=== PATIENT | male | born 1935 | race Caucasian/White ===

== ENCOUNTER 2019-10-08 18:40 | Inpatient (IN) | payer MEDICARE, SELFPAY ==
[2019-10-08] VITALS (8 sets, daily range): BP systolic 150–162; BP diastolic 93–108; PULSE 59–64; RESP 12–20; TEMP 36.4–36.6; O2SAT 94–100; BMI 29.3
--- NOTE | ~2019-10-08 | CT_ITS ---
EXAMINATION: CT abdomen pelvis w con DATE: 10/08/2019 20:02 INDICATION: Nausea, vomiting, and diarrhea. TECHNIQUE: Computed tomography (CT) of the abdomen and pelvis was performed with 100 mL Omnipaque 350 intravenous contrast. Automated exposure control and iterative reconstruction technique were employe d. The dose-length product was 1003.36 mGy-cm. COMPARISON: Chest 2 views 05/07/2019, CT chest, abdomen, and pelvis 07/14/2018 FINDINGS: The visualized portions of the lung bases demonstrate mild atelectasis and scarring. Again seen is a 2 mm nodule in right lower lobe, likely benign. No pleural effusion. Cardiomegaly is noted. There are changes of aortic valve replacement. There are coronary artery calcifications. No pericard ial effusion. There is a moderate-sized sliding hiatal hernia. There is a 14 mm cyst in the liver. Th e gallbladder is normal. Calcifications in the spleen are consistent with old granulomatous disease. The pancreas and adrenal glands are normal. There is cortical thinning of the kidneys. There are cyst s in the kidneys measuring up to 4.5 cm on the left. There is chronic diffuse wall thickening of the bladder, likely secondary to chronic outlet obstruction from the moderately enlarged prostate. There is a right inguinal hernia containing fat. There is diverticulosis of the colon without evidence of d iverticulitis. The appendix is normal. There is an umbilical hernia containing fat. There are no path ologically enlarged lymph nodes. There is no free intraperitoneal fluid. There is calcified atheroscl erosis of the aorta and many of the other arteries. There are chronic bilateral L5 pars defects. Ther e is 9 mm anterolisthesis of L5 on S1. There is interbody fusion at L5-S1. There is moderate lumbar s pondylosis. IMPRESSION: 1. Moderate-sized sliding hiatal hernia. 2. Right inguinal hernia containing fat. Umbilical hernia containing fat. Reviewed, dictated and finalized at location A.
--- NOTE | 2019-10-08 18:54 | ED.NAVMDI ---
HPI - Nausea/Vomiting/Diarrhea General Chief complaint: Nausea/Vomiting/Diarrhea Stated complaint: nausea, vomiting Time Seen by Provider: 10/08/19 18:48 Source: patient, family and RN notes reviewed Mode of arrival: other Limitations: no limitations History of Present Illness HPI Narrative: Pt is an 84 y/o male who presents to the ED with c/o nausea and vomiting that began yesterday. Pt's spouse states that today the pt vomited before dinner today. She states that she thought the pt had a stomach virus. Pt states that he felt fine before dinner today. Pt vomited today at 6 PM with three episodes of emesis. Pt also reports a cough, weakness, hematemesis in today's episode of emesis, and lightheadedness after walking, but denies diarrhea, constipation, hematochezia, melena, chest pain, dyspnea, chest congestion, and a fever. Pt is taking Xarelto for his A-fib. MD elicited complaint: nausea and vomiting Onset (ago): day(s) (1) Description of vomiting: blood-streaked Description of diarrhea: other (none) Associated nausea: Yes Associated symptoms: cough, weakness and other (lightheadedness) Related Data Home Medications Medication Instructions Recorded Confirmed acetaminophen 325 mg PO Q4-6H PRN 05/22/19 05/22/19 allopurinol 300 mg PO DAILY 05/22/19 05/22/19 aspirin [Adult Low Dose Aspirin] 81 mg PO DAILY 05/22/19 05/22/19 atorvastatin 40 mg PO DAILY 05/22/19 05/22/19 escitalopram oxalate 10 mg PO DAILY 05/22/19 05/22/19 famotidine 10 mg PO BID PRN 05/22/19 05/22/19 finasteride 5 mg PO DAILY 05/22/19 05/22/19 furosemide 40 mg PO DAILY 05/22/19 05/22/19 metolazone 2.5 mg PO QMWF 05/22/19 05/22/19 multivit with min-folic acid 1 PO DAILY 05/22/19 05/22/19 [Adult One Daily Multivitamin] potassium chloride 20 meq PO DAILY 05/22/19 05/22/19 pregabalin 75 mg PO BID 05/22/19 05/22/19 rivaroxaban 20 mg PO DAILY 05/22/19 05/22/19 tramadol 50 mg PO Q6H PRN 05/22/19 05/22/19 Allergies Allergy/AdvReac Type Severity Reaction Status Date / Time No Known Allergies Allergy Unknown Unverified 05/07/19 20:16 No Known Allergies Allergy Uncoded 05/07/19 20:16 Review of Systems Review of Systems: All systems reviewed & are unremarkable except as noted in HPI and below Constitutional: Constitutional: Denies fever(s) Cardiovascular: Cardiovascular: Denies chest pain and Reports lightheadedness Respiratory: Respiratory: Denies chest congestion, Reports cough and Denies dyspnea Gastrointestinal: Gastrointestinal: Denies melena, Denies hematochezia, Denies constipation, Denies diarrhea, Reports nausea, Reports vomiting and Reports hematemesis Neurologic: Reports weakness PMFSH Past Medical History Medical History (Updated 10/08/19 @ 22:23 by Regis Morales MD) A-fib Arthritis Basal cell carcinoma BPH (benign prostatic hyperplasia) CAD (coronary artery disease) Cataracts, bilateral Depression Effusion, left knee Gout HTN (hypertension) Seasonal allergies TIA (transient ischemic attack) 2017 Surgical History Surgical History (Updated 10/08/19 @ 19:16 by Yolanda Benson) H/O aortic valve replacement H/O mitral valve replacement History of cardiac catheterization History of surgical removal of skin lesion x2 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 Social History Social History (Updated 10/08/19 @ 19:16 by Yolanda Benson) Smoking status: Never smoker Exam Const: General: no acute distress and alert Nutritional Appearance: well nourished Orientation/consciousness: patient oriented x3 HENMT: Head: normal to inspection Mouth: Yes moist mucous membranes Resp: Effort & Inspection: normal respiratory effort Auscultation: clear to auscultation bilaterally Cardio: Rate: regular rate Rhythm: abnormal rhythm irregularly irregular GI: GI Palp: Yes Soft to palpation and No Tenderness to palpation present (GI) Skin: General skin exam: normal color Neuro: General: patient oriented x3, moves all extremities and no focal mot
--- NOTE | 2019-10-08 19:00 | PC.NURSE ---
Assumed care of pt at this time. report from WALTER Alfaro
[2019-10-08] MEDS: PANTOPRAZOLE SODIUM IV 40 MG VIAL IV PUSH (19:18)
[2019-10-08] MEDS: ONDANSETRON INJ 4 MG/2 ML VIAL IV PUSH (19:18)
[2019-10-08] MEDS: SODIUM CHLORIDE 0.9% IV 500 ML 999 ML IV CONT (19:18)
[2019-10-08 19:21] LABS: Basophils Percent Auto 0.1 % (0.2-1.2); Eosinophils Percent Auto 0.1 % (0-4.4); Hematocrit 41.2 % (42.0-52.0); Hemoglobin 13.5 g/dL (14.0-18.0); Immature Granulocyte Absolute 0.09 K/mm3 (0.00-0.031); Immature Granulocyte Percent A 0.7 % (0-0.5); Lymphocytes Absolute Auto 1.32 K/mm3 (0.9-3.2); Lymphocytes Percent Auto 9.5 % (18.3-44.2); Mean Corpuscular HGB Conc 32.8 g/dl (32-36); Mean Corpuscular Hemoglobin 31.9 pg (26-34); Mean Corpuscular Volume 97.4 fl (80-100); Mean Platelet Volume 11.5 fl (7.4-10.4); Monocytes Absolute Auto 1.1 K/mm3 (0.1-0.6); Monocytes Percent Auto 8.2 % (2.6-8.5); Neutrophils Absolute Auto 11.2 K/mm3 (1.3-6.7); Neutrophils Percent Auto 81.4 % (45.5-73.1); Platelet Count Result 302 k/mm3 (150-375); Red Blood Count 4.23 M/mm3 (4.6-6.20); Red Cell Distribution Width 14.2 % (11.5-14.5); White Blood Count 13.8 K/mm3 (4.5-10.0)
[2019-10-08 19:31] LABS: INR 1.6; Prothrombin Time 18.3 Seconds (11.1-14.7)
[2019-10-08 19:32] LABS: Partial Thromboplastin Time 25.1 SECONDS (22.3-36.8)
[2019-10-08 19:33] LABS: Alanine Aminotransferase 15 U/L (4-50); Albumin Level 4.4 g/dL (3.5-5.1); Alkaline Phosphatase 92 U/L (38-126); Aspartate Amino Transferase 21 U/L (17-59); Bilirubin,Total 0.6 mg/dL (0.2-1.3); Blood Urea Nitrogen 57 mg/dL (9-20); Calcium 9.6 mg/dL (8.4-10.2); Carbon Dioxide 35 mmol/L (22-30); Chloride 94 mmol/L (98-107); Estimated Glomerular Filt Rate 53; Glucose 155 mg/dL (75-110); Lipase 171 U/L (23-300); Potassium 2.9 mmol/L (3.4-5.0); Sodium 137 mmol/L (137-145)
--- NOTE | 2019-10-08 19:45 | PC.NURSE ---
Rn requesting urine from pt states he cannot void at this time. family member states He will go when he goes honey, He is on a water pill. Pt family member also states you don't need urine from him RN informed family member we do due to the fact that uti's can be a correlation w/ nausea and vomiting.
[2019-10-08 20:39] LABS: Add Urine Microscopic? NO; Appearance Urine Clear (Clear); Bilirubin Urine Negative (Negative); Blood Urine Negative (Negative); Color Urine Straw (Yellow); Glucose Urine UA Negative (Negative); Ketones Urine Negative (Negative); Leukocyte Esterase Ur Negative LEU/UL (Negative); Nitrate Urine Negative (Negative); Protein Urine Negative (Negative); Urobilinogen Urine Negative mg/dL (<2.0)
[2019-10-08 20:41] LABS: Specific Grav Ur 1.032 (1.001-1.035)
[2019-10-08] MEDS: KCL 20 MEQ/SW 100 ML 100 ML 50 MEQ IVPB (23:02)
--- NOTE | 2019-10-08 23:22 | PC.NURSE ---
pt c/o pain at IV site. RN starting NS 500 ml at 100 ml/hr
[2019-10-08] MEDS: SODIUM CHLORIDE 0.9% IV 500 ML 100 ML (23:27)
--- NOTE | 2019-10-08 23:40 | PC.NURSE ---
unable to dc patient pt left ed at 2341 10/08/19
--- NOTE | 2019-10-08 23:54 | ADMGEN ---
This patient, Marcelino Rodriguez, was admitted to 3 [facility] Room 320-01. Patient/family oriented to hospital policies and general routines including ID bracelet, bed and alarms, visiting hours, pain management, procedures, bathroom and other care routines, personal items, smoking policy, room service/diet, and visiting hours. Valuables list has been completed. Information on how to activate the Rapid Response Team has been discussed. Patient/Family are encouraged to report perceived risks to care and to ask questions if they do not understand what they are told or what they should do.
[2019-10-09] VITALS (14 sets, daily range): BP systolic 86–167; BP diastolic 53–110; PULSE 56–74; RESP 16–22; TEMP 36.6–37; O2SAT 94–99; BMI 29.3
[2019-10-09] MEDS: LACTATED RINGERS 1,000 ML 75 ML IV CONT (02:00)
[2019-10-09] MEDS: hydrALAZINE HCL 20 MG/ML VIAL 10 MG IV PUSH (02:15)
[2019-10-09 06:43] LABS: Blood Urea Nitrogen 59 mg/dL (9-20); Carbon Dioxide 31 mmol/L (22-30); Chloride 101 mmol/L (98-107); Estimated CRCL calculation 52 ml/min; Estimated Glomerular Filt Rate > 60; Glucose 129 mg/dL (75-110); Magnesium 1.8 mg/dL (1.6-2.3); Potassium 3.1 mmol/L (3.4-5.0); Sodium 138 mmol/L (137-145)
--- NOTE | 2019-10-09 08:33 | WPDGICN ---
Assessment and Plan Assessment and plan (1) Hematemesis: Code(s): K92.0 - Hematemesis Status: Acute Assessment and Plan: Patient vomited blood after initially vomiting food. This is suspicious for a Angelica-Holland tear. Bleeding probably aggravated by anticoagulated status. Plan is for EGD. Hopefully determine safety for diet subsequently. Anticoagulation will be held until after endoscopy is accomplished. Hemoglobin will be monitored currently no need for transfusion. (2) Anticoagulated: Code(s): Z79.01 - assisted (current) use of anticoagulants Status: Acute (3) Atrial fibrillation: Code(s): I48.91 - Unspecified atrial fibrillation Status: Acute GI Consult Note Consult date/time: 10/09/19 08:33 HPI: Marcelino Rodriguez is a 84 year old male seen in evaluation at the request of the emergency room. Patient in usual state of health. became had began to have nausea vomiting yesterday. He initially vomited food. Subsequently vomited bright red blood. For this reason went to the emergency room was admitted. Patient denies any abdominal pain. Typically does not have nausea vomiting. He does take Xarelto because of atrial fibrillation. 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 Family History Family History Father Abdominal aneurysm, ruptured Social History Social History Smoking status: Never smoker Alcohol intake: current Drinks per week: 7 Substance use: never Spiritual care concerns: No Agree to blood products: No Meds Home Medications and Allergies Home Medications Medication Instructions Recorded Confirmed Type acetaminophen 325 mg PO Q6H PRN 05/22/19 10/09/19 History allopurinol 300 mg PO DAILY 05/22/19 10/09/19 History aspirin [Adult Low Dose Aspirin] 81 mg PO DAILY 05/22/19 10/09/19 History atorvastatin 40 mg PO DAILY 05/22/19 10/09/19 History escitalopram oxalate 10 mg PO DAILY 05/22/19 10/09/19 History finasteride 5 mg PO DAILY 05/22/19 10/09/19 History furosemide 40 mg PO DAILY 05/22/19 10/09/19 History multivit with min-folic acid 0.4 mg PO DAILY 05/22/19 10/09/19 History [Adult One Daily Multivitamin] potassium chloride 20 meq PO DAILY 05/22/19 10/09/19 History pregabalin 75 mg PO BID 05/22/19 10/09/19 History rivaroxaban 20 mg PO DAILY 05/22/19 10/09/19 History cholecalciferol (vitamin D3) 5,000 unit PO DAILY 10/09/19 10/09/19 History [Vitamin D3] Allergies Allergy/AdvReac Type Severity Reaction Status Date / Time No Known Allergies Allergy Unknown Unverified 05/07/19 20:16 No Known Allergies Allergy Uncoded 05/07/19 20:16 Vital Signs Vital Signs - 24 hr 10/08/19 18:50 10/08/19 19:47 10/08/19 21:24 Temperature 36.5 C 36.6 C Pulse Rate 60 63 60 Respiratory Rate 17 20 18 Blood Pressure 152/100 H 162/93 H 160/99 H Pulse Oximetry 100 94 10/08/19 22:30 10/08/19 23:32 10/08/19 23:37 Temperature Pulse Rate 64 59 L 61 Respiratory Rate 12 12 19 Blood Pressure 157/100 H 150/107 H 150/108 H Pulse Oximetry 98 99 99 10/08/19 23:50 10/08/19 23:55 10/09/19 00:00 Temperature 36.4 C Pulse Rate 62 61 65 Respiratory Rate 18 Blood Pressure 162/107 H Puls
[2019-10-09] MEDS: LACTATED RINGERS 1,000 ML 150 ML IV CONT (11:29)
--- NOTE | 2019-10-09 12:28 | WPDANESEPPF ---
Anes - Initial Pre Proc Eval Procedure: Operation Date: 10/09/19 12:30 Proposed Procedures p Esophagogastroduodenoscopy - Leon Mckenzie MD Date/Time: 10/09/19 12:28 Surgeon: Karla Curiel DO Pre Op Diagnosis: HEMOPTYSIS,HYPOKALEMIA Patient Data Age: 84 Gender: M Height: 5 ft 11 in Weight: 95.4 kg Last Vital Signs Temp 37.0 C 10/09/19 11:19 Pulse 66 10/09/19 11:19 Resp 20 10/09/19 11:19 BP 143/88 H 10/09/19 11:19 Pulse Ox 97 10/09/19 11:19 Allergies Allergy/AdvReac Type Severity Reaction Status Date / Time No Known Allergies Allergy Unknown Verified 10/09/19 11:18 No Known Allergies Allergy Uncoded 05/07/19 20:16 Home Medications Medication Instructions Recorded Confirmed Type acetaminophen 325 mg PO Q6H PRN 05/22/19 10/09/19 History allopurinol 300 mg PO DAILY 05/22/19 10/09/19 History aspirin [Adult Low Dose Aspirin] 81 mg PO DAILY 05/22/19 10/09/19 History atorvastatin 40 mg PO DAILY 05/22/19 10/09/19 History escitalopram oxalate 10 mg PO DAILY 05/22/19 10/09/19 History finasteride 5 mg PO DAILY 05/22/19 10/09/19 History furosemide 40 mg PO DAILY 05/22/19 10/09/19 History multivit with min-folic acid 0.4 mg PO DAILY 05/22/19 10/09/19 History [Adult One Daily Multivitamin] potassium chloride 20 meq PO DAILY 05/22/19 10/09/19 History pregabalin 75 mg PO BID 05/22/19 10/09/19 History rivaroxaban 20 mg PO DAILY 05/22/19 10/09/19 History cholecalciferol (vitamin D3) 5,000 unit PO DAILY 10/09/19 10/09/19 History [Vitamin D3] Laboratory Tests 10/08/19 10/08/19 10/08/19 19:15 19:15 19:15 WBC 13.8 K/mm3 H K/mm3 (4.5-10.0) RBC 4.23 M/mm3 L M/mm3 (4.6-6.20) Hgb 13.5 g/dL L g/dL (14.0-18.0) Hct 41.2 % L % (42.0-52.0) MCV 97.4 fl fl (80-100) MCH 31.9 pg pg (26-34) MCHC 32.8 g/dl g/dl (32-36) RDW 14.2 % % (11.5-14.5) Plt Count 302 k/mm3 k/mm3 (150-375) MPV 11.5 fl H fl (7.4-10.4) Immature Gran % (Auto) 0.7 % H % (0-0.5) Neut % (Auto) 81.4 % H % (45.5-73.1) Lymph % (Auto) 9.5 % L % (18.3-44.2) Morton % (Auto) 8.2 % % (2.6-8.5) Eos % (Auto) 0.1 % % (0-4.4) Baso % (Auto) 0.1 % L % (0.2-1.2) Lymph # (Auto) 1.32 K/mm3 K/mm3 (0.9-3.2) Morton # (Auto) 1.1 K/mm3 H K/mm3 (0.1-0.6) Eos # (Auto) 0.0 K/mm3 K/mm3 (0-0.3) Baso # (Auto) 0.0 K/mm3 K/mm3 (0.0-0.1) Abs Immat Gran (auto) 0.09 K/mm3 H K/mm3 (0.00-0.031) Absolute Neuts (auto) 11.2 K/mm3 H K/mm3 (1.3-6.7) Absolute Nucleated RBC 0.0 K/mm3 K/mm3 (0.0-0.012) Nucleated RBC % 0.0 % % (0.0-0.2) PT 18.3 Seconds H Seconds (11.1-14.7) INR 1.6 APTT 25.1 SECONDS SECONDS (22.3-36.8) Sodium 137 mmol/L mmol/L (137-145) Potassium 2.9 mmol/L L mmol/L (3.4-5.0) Chloride 94 mmol/L L mmol/L (98-107) Carbon Dioxide 35 mmol/L H mmol/L (22-30) BUN 57 mg/dL H mg/dL (9-20) Creatinine 1.30 mg/dL mg/dL (0.7-1.3) Estim Creat Clear Calc Not Reportable Estimated GFR 53 L (59 - ) Glucose 155 mg/dL H mg/dL (75-110) Calcium 9.6 mg/dL mg/dL (8.4-10.2) Magnesium Total Bilirubin 0.6 mg/dL mg/dL (0.2-1.3) AST 21 U/L U/L (17-59) ALT 15 U/L U/L (4-50) Alkaline Phosphatase 92 U/L U/L (38-126) Total Protein 8.0 g/dL g/dL (6.3-8.2) Albumin 4.4 g/dL g/dL (3.5-5.1) Lipase 171 U/L U/L (23-300) Urine Color Urine Appearance Urine pH Ur Specific [place] Urine Protein Urine Glucose (UA) Urine Ketones Ur Blood (Man) Urine Nitrate Urine Biliru
--- NOTE | 2019-10-09 16:28 | PM.IMHP ---
H&P: HPI History of Present Illness Chief complaint: HEMOPTYSIS,HYPOKALEMIA Narrative: DOS 10/09/2019 Marcelino Rodriguez is a 84 year old male pt admitted with nausea and vomiting and blood in the vomit. Nausea and vomiting for 2-3 days thought it was a GI bug. Pt had egd today with Dr Mckenzie found to have a marciano goodman tear. Pt denies any blood in the stools or abdominal pains. Review of Systems Review of Systems: All systems reviewed & are unremarkable except as noted in HPI and below Constitutional: Constitutional: Denies fatigue, Denies fever(s), Denies malaise and Denies weakness Cardiovascular: Cardiovascular: Denies chest pain and Denies dyspnea on exertion Gastrointestinal: Gastrointestinal: Denies abdominal pain, Denies hematochezia, Reports nausea and Reports hematemesis PMFSH Past Medical History Medical History A-fib Arthritis Basal cell carcinoma BPH (benign prostatic hyperplasia) CAD (coronary artery disease) Cataracts, bilateral Depression Effusion, left knee Gout HTN (hypertension) Seasonal allergies TIA (transient ischemic attack) 2017 Surgical History Surgical History H/O aortic valve replacement H/O mitral valve replacement History of cardiac catheterization History of surgical removal of skin lesion x2 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 Family History Family History Father Abdominal aneurysm, ruptured Social History Social History Smoking status: Never smoker Alcohol intake: current Drinks per week: 7 Substance use: never Spiritual care concerns: No Agree to blood products: No Meds Home Medications and Allergies Home Medications Medication Instructions Recorded Confirmed Type acetaminophen 325 mg PO Q6H PRN 05/22/19 10/09/19 History allopurinol 300 mg PO DAILY 05/22/19 10/09/19 History aspirin [Adult Low Dose Aspirin] 81 mg PO DAILY 05/22/19 10/09/19 History atorvastatin 40 mg PO DAILY 05/22/19 10/09/19 History escitalopram oxalate 10 mg PO DAILY 05/22/19 10/09/19 History finasteride 5 mg PO DAILY 05/22/19 10/09/19 History furosemide 40 mg PO DAILY 05/22/19 10/09/19 History multivit with min-folic acid 0.4 mg PO DAILY 05/22/19 10/09/19 History [Adult One Daily Multivitamin] potassium chloride 20 meq PO DAILY 05/22/19 10/09/19 History pregabalin 75 mg PO BID 05/22/19 10/09/19 History rivaroxaban 20 mg PO DAILY 05/22/19 10/09/19 History cholecalciferol (vitamin D3) 5,000 unit PO DAILY 10/09/19 10/09/19 History [Vitamin D3] Allergies Allergy/AdvReac Type Severity Reaction Status Date / Time No Known Allergies Allergy Unknown Verified 10/09/19 11:18 No Known Allergies Allergy Uncoded 05/07/19 20:16 Vital Signs Vital Signs - 24 hr 10/08/19 18:50 10/08/19 19:47 10/08/19 21:24 Temperature 36.5 C 36.6 C Pulse Rate 60 63 60 Respiratory Rate 17 20 18 Blood Pressure 152/100 H 162/93 H 160/99 H Pulse Oximetry 100 94 10/08/19 22:30 10/08/19 23:32 10/08/19 23:37 Temperature Pulse Rate 64 59 L 61 Respiratory Rate 12 12 19 Blood Pressure 157/100 H 150/107 H 150/108 H Pulse Oximetry 98 99 99 10/08/19 23:50 10/08/19 23:55 10/09/19 00:00 Temperature 36.4 C Pulse Rate 62 61 65 Respiratory Rate 18 Blood Pressure 162/107 H Pulse Oximetry 97 10/09/19 02:15 10/09/19 03:05 10/09/19 04:00 Temperature Pulse Rate 60 68 Respiratory Rate Blood Pressure 167/110 H 159/87 H Pulse Oximetry 10/09/19 06:00 10/09/19 08:00 10/09/19 11:19 Temperature 36.6 C 37.0 C Pulse Rate 56 L 74 66 Respiratory Rate 18 20 Blood Pressure 146/90 H 143/88 H Pulse Oximetry 98 97 10/09/19 13:03 10/09/19 13:10 10/09/19 13:21 Temperature Pulse Rate 67 69 74 Respiratory Rate 20 17 22 H Blood Pressure 86/53 L 90/59 L 103
[2019-10-09 16:30] LABS: Hematocrit 35.4 % (42.0-52.0); Hemoglobin 11.5 g/dL (14.0-18.0)
[2019-10-09] MEDS: RIVAROXABAN 20 MG TABLET PO (17:58)
[2019-10-09] MEDS: PREGABALIN 75 MG CAPSULE PO (17:58)
[2019-10-09] MEDS: PANTOPRAZOLE 40 MG TABLET PO (21:42)
[2019-10-09 23:28] LABS: Hematocrit 33.2 % (42.0-52.0)
[2019-10-10] VITALS: PULSE 59
[2019-10-10 04:00] VITALS: PULSE 57
[2019-10-10 05:57] LABS: Hematocrit 32.1 % (42.0-52.0); Hemoglobin 10.7 g/dL (14.0-18.0); Mean Corpuscular HGB Conc 33.3 g/dl (32-36); Mean Corpuscular Volume 96.1 fl (80-100); Platelet Count Result 228 k/mm3 (150-375); Red Blood Count 3.34 M/mm3 (4.6-6.20); Red Cell Distribution Width 14.1 % (11.5-14.5); White Blood Count 9.3 K/mm3 (4.5-10.0)
[2019-10-10 06:00] VITALS: BP 114/73; PULSE 58; RESP 16; TEMP 36.5; O2SAT 96
[2019-10-10 06:00] LABS: Blood Urea Nitrogen 47 mg/dL (9-20); Calcium 8.7 mg/dL (8.4-10.2); Carbon Dioxide 32 mmol/L (22-30); Chloride 100 mmol/L (98-107); Estimated CRCL calculation 52 ml/min; Estimated Glomerular Filt Rate > 60; Glucose 103 mg/dL (75-110); Potassium 2.9 mmol/L (3.4-5.0); Sodium 136 mmol/L (137-145)
[2019-10-10 08:00] VITALS: PULSE 59
--- NOTE | 2019-10-10 08:17 | WPDGIPROGNO ---
Progress Note: A&P Additional Plan Patient alert comfortable this morning. He denies abdominal pain. No additional bleeding. Tolerating diet. Physical exam reveals patient to be alert. Vital signs stable. Lungs are clear. Heart without murmur. Abdomen is soft and nontender with no organomegaly. Labs reveal hemoglobin 10.7, hematocrit 32.1 slight decline but stable. Impression 1. Angelica-Holland tear. Developed after emesis. Adherent clot noted at EGD yesterday. No longer bleeding. 2. Xarelto anticoagulation. May be need to be held for several days to allow healing to occur. 3. Aortic and mitral valve replacements. Patient will need to resume anticoagulation. Suggest restarting in 2 days. Plan is to resume diet. Anti-reflux measures. Continue proton pump inhibitor for 2 months as a precaution. If at all possible hold anticoagulation for several days. Hopefully discharge today if at all possible. Subjective Date/time seen: 10/10/19 08:17 Objective Data Vital Signs Vital Signs: Vital Signs - 24 hr 10/09/19 11:19 10/09/19 13:03 10/09/19 13:10 Temperature 37.0 C Pulse Rate 66 67 69 Respiratory Rate 20 20 17 Blood Pressure 143/88 H 86/53 L 90/59 L Pulse Oximetry 97 96 94 10/09/19 13:21 10/09/19 13:30 10/09/19 14:00 Temperature 36.8 C Pulse Rate 74 73 58 L Respiratory Rate 22 H 20 16 Blood Pressure 103/63 120/75 147/92 H Pulse Oximetry 95 97 99 10/09/19 20:00 10/09/19 22:00 10/10/19 00:00 Temperature 36.6 C Pulse Rate 62 56 L 59 L Respiratory Rate 16 Blood Pressure 149/86 H Pulse Oximetry 97 10/10/19 04:00 10/10/19 06:00 Temperature 36.5 C Pulse Rate 57 L 58 L Respiratory Rate 16 Blood Pressure 114/73 Pulse Oximetry 96 Intake/Output Intake/Output: Intake & Output 10/07/19 10/08/19 10/09/19 10/10/19 23:59 23:59 23:59 23:59 Intake Total 500 2279 550 Output Total 850 550 Balance 500 1429 0 Meds/Results Medications: Active Medications Generic Name Dose Route Start Last Admin Trade Name Freq PRN Reason Stop Dose Admin Acetaminophen 325 mg 10/09/19 16:39 Tylenol Tablet PO Q6H PRN Pain Allopurinol 300 mg 10/10/19 09:00 Zyloprim PO DAILY [facility] Aspirin 81 mg 10/10/19 09:00 Aspirin Ec PO DAILY [facility] Atorvastatin Calcium 40 mg 10/10/19 09:00 Lipitor PO DAILY [facility] Escitalopram Oxalate 10 mg 10/10/19 09:00 Lexapro PO DAILY [facility] Finasteride 5 mg 10/10/19 09:00 Proscar PO DAILY [facility] Furosemide 40 mg 10/10/19 09:00 Lasix Tablet PO DAILY [facility] Hydralazine HCl 10 mg 10/09/19 02:14 10/09/19 02:15 Apresoline Hcl Inj IV PUSH 10 mg Q4H PRN Administration SBP greater than 160 Multivitamins/Calcium 1 tablet 10/10/19 09:00 Therapeutic Multivitamins/Minerals PO DAILY [facility] Pantoprazole Sodium 40 mg 10/09/19 21:00 10/09/19 21:42 Protonix PO 40 mg Q12HR [facility] Administration Potassium Chloride 20 meq 10/10/19 09:00 Kcl Tablet PO DAILY [facility] Pregabalin 75 mg 10/09/19 17:00 10/09/19 17:58 Lyrica PO 75 mg BID [facility] Administration Rivaroxaban 20 mg 10/09/19 17:00 10/09/19 17:58 Xarelto PO 20 mg DAILY@1700 [facility] Administration Vitamin D 5,000 unit 10/10/19 09:00 Vitamin D PO DAILY [facility] Radiology Results: ITS Impressions Abdomen/Pelvis CT 10/08/19 20:08 IMPRESSION: 1. Moderate-sized sliding hiatal hernia. 2. Right inguinal hernia containing fat. Umbilical hernia containing fat. Labs Labs: Laboratory Results - last 24 hr 10/09/19 10/09/19 10/10/19 16:24 23:06 05:25 WBC 9.3 RBC 3.34 L Hgb 11.5 L 11.0 L 10.7 L Hct 35.4 L 33.2 L 32.1 L MCV 96.1 MCH 32.0 MCHC 33.3 RDW 14.1 Plt Count 228 MPV 11.0 H Sodium Potassium Chloride Carbon Dioxide BUN Creatinine Estim Creat Clear Calc Estimated GFR Glucose Calcium
[2019-10-10] MEDS: POTASSIUM CHLORIDE 20 MEQ TABLET.ER PO (09:43)
[2019-10-10] MEDS: CHOLECALCIFEROL 1,000 UNIT TABLET 5000 UNITS PO (09:43)
[2019-10-10] MEDS: FINASTERIDE 5 MG TABLET PO (09:43)
[2019-10-10] MEDS: ATORVASTATIN 40 MG TABLET PO (09:43)
[2019-10-10] MEDS: ESCITALOPRAM OXALATE 10 MG TABLET PO (09:43)
[2019-10-10] MEDS: ASPIRIN 81 MG ENTERIC TABLET PO (09:43)
[2019-10-10] MEDS: THERAPEUTIC MULTIVITAMINS/MINERALS TAB (*BKC) 1 TABLET PO (09:43)
[2019-10-10] MEDS: FUROSEMIDE 40 MG TABLET PO (09:44)
[2019-10-10] MEDS: PANTOPRAZOLE 40 MG TABLET PO (09:44)
[2019-10-10] MEDS: allopurinoL 300 MG TABLET PO (09:44)
[2019-10-10] MEDS: PREGABALIN 75 MG CAPSULE PO (09:45)
[2019-10-10 12:00] VITALS: PULSE 68
--- NOTE | 2019-10-10 13:02 | PM.DS ---
DS: Diagnosis Admitting Diagnosis Admitting Diagnosis: Hematemesis Discharge Diagnosis (1) Atrial fibrillation: Code(s): I48.91 - Unspecified atrial fibrillation Status: Acute Assessment and Plan: Hold xarelto and asa for 5 days restart 10/15/2019. Change iv protonix to oral protonix, sp EGD showing Angelica goodman tear. Pt to have soft bland diet at home. (2) Anticoagulated: Code(s): Z79.01 - prison (current) use of anticoagulants Status: Acute Assessment and Plan: Pt uses antocoagulation for af and two bovine heart valves, hold anticoagulation for 5 days. (3) Hematemesis: Code(s): K92.0 - Hematemesis Status: Acute Assessment and Plan: Hold anticoagulation for 5 days, continue protonix orally. try soft bland diet, discharge today. Follow up with Dr Mckenzie. No alcholol beverages. No further bleeding here in hospital. Return to ED if any further hememetsis or rectal bleeding. DS: Summary Time Spent with Patient Time attestation: Total time spent providing and/or coordinating discharge services:38 minutes on day of discharge Exam Const: General: well developed Nutritional Appearance: well nourished HENMT: Head: normocephalic Eyes: General: appearance normal, both eyes and all related structures Pupils: Equal, round and reactive pupils present Neck: Neck: supple Chest: Chest palpation & inspection: normal inspection of the chest Resp: Effort & Inspection: normal respiratory effort Auscultation: clear to auscultation bilaterally Cardio: Jugular venous distension: no JVD Rhythm: regular rhythm Heart sounds: S1 normal heart sound present and S2 normal heart sound present GI: Inspection: normal to inspection Auscultation: normal bowel sounds : General: Yes no CVA tenderness Back/Spine/Pelvis: Back: no CVA tenderness Skin: General skin exam: normal color and dry skin Neuro: Cranial nerves: Yes CN's II-XII intact bilaterally and Yes Equal, round and reactive pupils present Cognition (Neuro): normal cognition Speech: normal speech Motor exam (neuro): 5/5 motor strength present throughout Extrem: General: normal to inspection Psych: Appearance: grossly normal Mental Status: mental status grossly normal DS: Data Data Completed and Pending Labs on day of discharge: Labs from last 24 hours 10/10/19 10/10/19 10/09/19 05:25 05:25 23:06 WBC 9.3 RBC 3.34 L Hgb 10.7 L 11.0 L Hct 32.1 L 33.2 L MCV 96.1 MCH 32.0 MCHC 33.3 RDW 14.1 Plt Count 228 MPV 11.0 H Sodium 136 L Potassium 2.9 L Chloride 100 Carbon Dioxide 32 H BUN 47 H D Creatinine 1.00 Estim Creat Clear Calc 52 Estimated GFR > 60 Glucose 103 Calcium 8.7 10/09/19 16:24 WBC RBC Hgb 11.5 L Hct 35.4 L MCV MCH MCHC RDW Plt Count MPV Sodium Potassium Chloride Carbon Dioxide BUN Creatinine Estim Creat Clear Calc Estimated GFR Glucose Calcium Discharge Plan Discharge Attending physician on discharge: Talya Deshpande Consulting providers: Leon Mckenzie Discharging Clinician: Talya Deshpande Anticipated Discharge Date/Time: 10/10/19 12:59 Patient Disposition: Home, Self-Care Activity: as tolerated Diet: bland and other - see discharge instructions Discharge Instructions: SOFT BLAND DIET for next 14 days HOLD XARELTO AND ASA FOR 5 DAYS RESTART ON 10/15/2019 Patient Instructions: Antibiotic Form, Rivaroxaban (By mouth) Stand Alone Forms: General Discharge Information Follow-up/Referrals: Leon Mckenzie MD [Physician] - (follow up in 4 weeks time ) Rob,Marcelino Siegel MD [Primary Care Provider] - Discharge Medications: New pantoprazole 40 mg Tablet,Delayed Release (Dr/Ec) 40 mg PO Q12HR Qty: 120 RF: 0 Continued furosemide 40 mg Tablet 40 mg PO DAILY RF: 0 atorvastatin 40 mg Tablet 40 mg PO DAILY RF: 0 allopurinol
[2019-10-10 14:56] VITALS: BP 104/53; PULSE 67; RESP 16; TEMP 36.6; O2SAT 100
--- NOTE | 2019-10-10 15:19 | PCOTNOTE ---
Patient declined OT attempt this AM. Patient discharging from hospital at this time.
[2019-10-10 16:14] LABS: Hemoglobin 10.6 g/dL (14.0-18.0)
== END 2019-10-10 16:45 | disposition home or self-care (01) | DRG 369 ==
LOC: ANHED 22:41 → ANH3MEDSUR 23:53
PROVIDERS: Internal Medicine Gastroenterology; Admitting Provider Internal Medicine; Emergency Provider Emergency Medicine; PCP Internal Medicine; Visit Provider Family Medicine
PROC: 0DJ08ZZ Inspection of Upper Intestinal Tract, Via Natural or Artificial Opening Endoscopic (ICD-10-PCS; CPT 43235; principal; 2019-10-09 12:30)
DX: K22.6 Gastro-esophageal laceration-hemorrhage syndrome (principal); I48.20 Chronic atrial fibrillation, unspecified; K92.0 Hematemesis; T45.515A Adverse effect of anticoagulants, initial encounter; Z79.01 Long term (current) use of anticoagulants; M19.90 Unspecified osteoarthritis, unspecified site; I25.10 Atherosclerotic heart disease of native coronary artery without angina pectoris; M1A.9XX0 Chronic gout, unspecified, without tophus (tophi); F32.9 Major depressive disorder, single episode, unspecified; I10 Essential (primary) hypertension; J30.1 Allergic rhinitis due to pollen; E87.6 Hypokalemia; N40.0 Benign prostatic hyperplasia without lower urinary tract symptoms; Z86.73 Personal history of transient ischemic attack (TIA), and cerebral infarction without residual deficits; Z95.2 Presence of prosthetic heart valve; Z95.1 Presence of aortocoronary bypass graft; Z85.828 Personal history of other malignant neoplasm of skin
CPT/HCPCS: 36415; 74177; 80048; 80053; 81003; 83690; 83735; 85014; 85018; 85025; 85027; 85610; 85730; 86850; 86900; 86901; 96361; 96365; 96366; 96375; 97110; 97116; 97161; 99285; A9270; C9113; G0378; J0360; J2405; J2704; J3480; J7040; J7120; Q9967

== ENCOUNTER 2020-08-26 14:23 | Inpatient (IN) | payer MEDICARE, SELFPAY ==
[2020-08-26] VITALS (28 sets, daily range): BP systolic 118–150; BP diastolic 67–90; PULSE 39–67; RESP 10–20; TEMP 35.9–36.9; O2SAT 94–100; BMI 30.4
--- NOTE | ~2020-08-26 | XR_ITS ---
EXAMINATION: XR chest 1V portable INDICATION: Cough TECHNIQUE: Portable AP chest at 1503 hours COMPARISON: 05/07/2019 FINDINGS: There are changes of prior cardiac surgery. Cardiomegaly is noted. The lungs are free of ac barrow opacities. There is no pleural effusion or pneumothorax. IMPRESSION: 1. Stable cardiomegaly. Reviewed, dictated and finalized at location A. FARM DESIGNER IMPRESSION: 1. Stable cardiomegaly.
--- NOTE | ~2020-08-26 | CT_ITS ---
EXAMINATION: CT brain wo con INDICATION: Dizziness COMPARISON: 05/07/2019 TECHNIQUE: Standard unenhanced head CT. The dose-length product (DLP) was 605.33 mGy-cm. The mA was a djusted according to patient size. Iterative reconstruction technique was employed. FINDINGS: There is no acute intraparenchymal hemorrhage. No evidence of mass lesion. No evidence of a cute infarction. Encephalomalacia in the right frontal lobe is consistent with prior infarction. Ther e is mild periventricular and subcortical hypodensity probably related to small vessel ischemic disea se. There is mild prominence of the sulci and ventricles related to cerebral atrophy. Intracranial ca lcified cerebral atherosclerosis is noted. There are no extra-axial collections. There is no mass eff ect or midline shift. Changes in the globes are likely from ocular lens surgery. The visualized sinu ses and mastoid air cells are well aerated. IMPRESSION: 1. 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 2. Age related findings. Reviewed, dictated and finalized at location A. TARY TECHNOLOGY MANAGER
--- NOTE | 2020-08-26 14:35 | ECG_ITS ---
Measurements Intervals [place] Rate: 53 P: [place]: 0 QRS: 26 QRSD: 173 T: 2 QT: 548 QTc: 515 Interpretive Statements ATRIAL FIBRILLATION WITH SLOW VENTRICULAR RESPONSE VENTRICULAR PREMATURE COMPLEX RIGHT BUNDLE BRANCH BLOCK BASELINE ARTIFACT- I, II, III, AVL, AVF, V1-V2 ABNORMAL ECG Electronically Signed On 08-26-2020 14:50:46 REPRODUCTIVE HEALTHCARE ASSISTANT by Med Palmer D.O.
--- NOTE | 2020-08-26 15:05 | ED.DIZZY ---
HPI - Dizziness General Chief Complaint: Dizziness Stated Complaint: dizziness, vomiting, sinus momo Time Seen by Provider: 08/26/20 14:38 Source: patient Mode of arrival: ambulatory Limitations: no limitations History of Present Illness HPI Narrative: Patient is an 85-year-old male complaining of dizziness and lightheadedness started around 1230 when 1 bout of nausea vomiting, states he almost passed out, called EMS, upon their arrival patient's heart rate was in the 40s was given one half amp of atropine which increase his heart rate to 60 and eventually helped with his dizziness and lightheadedness. Patient states that he has a history of dizziness/vertigo, but today was worse. Patient denies any speech or visual disturbance, focal weakness, numbness but admits to his gait being unsteady during his dizziness episode. Patient denies any chest pain, shortness of breath, abdominal pain,, fever or chills. Related Data Home Medications Medication Instructions Recorded Confirmed Adult One Daily Multivitamin 0.4 mg PO DAILY 05/22/19 10/09/19 allopurinol 300 mg PO DAILY 05/22/19 10/09/19 atorvastatin 40 mg PO DAILY 05/22/19 10/09/19 escitalopram oxalate 10 mg PO DAILY 05/22/19 10/09/19 finasteride 5 mg PO DAILY 05/22/19 10/09/19 furosemide 40 mg PO DAILY 05/22/19 10/09/19 potassium chloride 20 meq PO DAILY 05/22/19 10/09/19 cholecalciferol (vitamin D3) 5,000 unit PO DAILY 10/09/19 10/09/19 [Vitamin D3] amlodipine 5 mg PO DAILY 08/26/20 carvedilol 3.125 mg PO BID 08/26/20 cetirizine [Zyrtec] mg 08/26/20 donepezil mg 08/26/20 metolazone 08/26/20 rivaroxaban [Xarelto] 20 mg PO QPM 08/26/20 Allergies Allergy/AdvReac Type Severity Reaction Status Date / Time No Known Allergies Allergy Unknown Verified 10/09/19 11:18 No Known Allergies Allergy Uncoded 05/07/19 20:16 Review of Systems Review of Systems: All systems reviewed & are unremarkable except as noted in HPI and below Constitutional: Constitutional: Denies body ache(s), Denies chills, Denies excessive sweating, Denies fatigue, Denies fever(s), Denies headache(s), Denies lethargy, Denies malaise and Denies weight loss Eyes: Eyes: Denies blurry vision, Denies change in vision and Denies loss of vision ENT: Denies ear discharge, Denies headache(s), Denies lip swelling, Denies epistaxis, Denies nasal congestion, Denies neck pain, Denies throat swelling and Denies tongue swelling Cardiovascular: Cardiovascular: Denies chest pain, Denies chest pain at rest, Denies chest pain with activity, Denies diaphoresis, Denies rapid heart rate, Denies edema, Denies palpitations, Denies dyspnea and Denies dyspnea on exertion Respiratory: Respiratory: Denies chest congestion, Denies cough, Denies hemoptysis, Denies dyspnea and Denies dyspnea on exertion Gastrointestinal: Gastrointestinal: Denies abdominal pain, Denies melena, Denies hematochezia, Denies diarrhea, Denies nausea, Denies vomiting and Denies hematemesis Musculoskeletal: Musculoskeletal: Denies abnormal gait, Denies deformity, Denies joint swelling, Denies limited range of motion, Denies neck pain and Denies numbness Neurologic: Denies Abnormal speech present, Denies abnormal gait, Denies confusion, Denies headache(s), Denies focal weakness, Denies loss of vision, Denies numbness, Denies Other visual disturbances and Denies Sensory deficit (Neuro) Psychiatric: Psychiatric: Denies confusion, Denies depression, Denies auditory hallucinations, Denies homicidal ideation and Denies suicidal ideation Endocrine: Endocrine: Denies cold intolerance, Denies excessive sweating, Denies fatigue, Denies heat intolerance and Denies palpitations Hematologic/Lymphatic: Hematologic/Lymphatic: Denies easy bleeding and Denies easy bruising Allergic/Immunologic: Allergic/Immunologic: Denies lip swelling, Denies throat swelling and Denies tongue swelling PMFSH Past Medical History Medical History (Updated 08/26/20 @ 17:17 by Dennys Choi MD
[2020-08-26 15:27] LABS: Basophils Percent Auto 0.4 % (0.2-1.2); Eosinophils Absolute Auto 0.1 K/mm3 (0-0.3); Eosinophils Percent Auto 1.9 % (0-4.4); Hematocrit 35.9 % (42.0-52.0); Hemoglobin 12.2 g/dL (14.0-18.0); Immature Granulocyte Absolute 0.03 K/mm3 (0.00-0.031); Immature Granulocyte Percent A 0.4 % (0-0.5); Lymphocytes Absolute Auto 0.97 K/mm3 (0.9-3.2); Lymphocytes Percent Auto 13.9 % (18.3-44.2); Mean Corpuscular Hemoglobin 33.6 pg (26-34); Mean Corpuscular Volume 98.9 fl (80-100); Mean Platelet Volume 10.9 fl (7.4-10.4); Monocytes Absolute Auto 0.7 K/mm3 (0.1-0.6); Monocytes Percent Auto 10.3 % (2.6-8.5); Neutrophils Absolute Auto 5.1 K/mm3 (1.3-6.7); Neutrophils Percent Auto 73.1 % (45.5-73.1); Platelet Count Result 180 k/mm3 (150-375); Red Blood Count 3.63 M/mm3 (4.6-6.20); Red Cell Distribution Width 15.2 % (11.5-14.5)
[2020-08-26 15:43] LABS: Alanine Aminotransferase 19 U/L (4-50); Albumin Level 4.3 g/dL (3.5-5.1); Alkaline Phosphatase 87 U/L (38-126); Anion Gap 8 mmol/L (8-16); Aspartate Amino Transferase 27 U/L (17-59); Bilirubin,Total 0.6 mg/dL (0.2-1.3); Blood Urea Nitrogen 28 mg/dL (9-20); Calcium 9.4 mg/dL (8.4-10.2); Carbon Dioxide 30 mmol/L (22-30); Chloride 101 mmol/L (98-107); Estimated CRCL calculation 42 ml/min; Estimated Glomerular Filt Rate 44; Glucose 103 mg/dL (75-110); Potassium 2.8 mmol/L (3.4-5.0); Sodium 139 mmol/L (137-145)
[2020-08-26 15:48] LABS: Troponin I 0.025 ng/mL (0.000-0.034)
[2020-08-26 15:55] LABS: INR 1.7; Partial Thromboplastin Time 28.4 SECONDS (22.3-36.8); Prothrombin Time 20.7 Seconds (11.1-14.7)
[2020-08-26] MEDS: POTASSIUM CHLORIDE 20 MEQ TABLET 40 MEQ PO (16:12)
[2020-08-26 18:43] LABS: Troponin I 0.023 ng/mL (0.000-0.034)
--- NOTE | 2020-08-26 19:00 | PM.IMHP ---
H&P: HPI History of Present Illness Date/Time: 08/26/20 19:00 Chief Complaint: Dizziness. Narrative: This is an 85-year-old male with coronary artery disease, paroxysmal atrial fibrillation, valvular heart disease status post aortic and mitral valve replacement, 00s hypertension, and several other comorbidities who presented to the emergency department earlier today via EMS from home for evaluation of dizziness. At around 12:30 hours shortly after eating lunch and just resting in his chair, he suddenly began feeling dizzy/lightheaded and ?just did not feel right. This prompted his to call 911, and on EMS arrival his heart rate was in the low 40s for which he was given atropine with improvement in his symptoms, which have not returned. He has continued to have episodes of bradycardia down into the 40s in the emergency department, and is being admitted in this setting. At the time my evaluation he has no complaints and feels just fine. His gives him his medications and he does not believe she could have accidentally given him extra medication. No recent medication changes, history of sick sinus syndrome, or thyroid disease. No palpitations, shortness of breath, nausea, or diaphoresis. Review of Systems Review of Systems: Narrative: Twelve systems were reviewed with pertinent positives and negatives as per HPI. He is a bit forgetful and does take donepezil, which is not a new medication. No recent cold or flu symptoms. He denies cough and shortness of breath. No known exposure to those positive for COVID-19. The patient admits that he frequently gets chest discomfort since his sternotomy. He also reports having herpes zoster in his chest with some post herpetic neuralgia. No exertional chest pain. Except as documented, all other systems were reviewed and are negative. 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 Chronic anemia Coronary artery disease Current use of halfway anticoagulation Depression Gout Hyperlipidemia Hypertension Paroxysmal atrial fibrillation Seasonal allergies Shingles (~09/2018) Transient ischemic attack 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 Surgical History Surgical History (Updated 08/26/20 @ 18:59 by Bere Ba PA-C) History of aortic valve replacement History of bilateral cataract extraction History of cardiac catheterization History of coronary artery bypass graft (~01/28/19) History of mitral valve replacement History of surgical removal of skin lesion x2 Status post surgical removal of malignant neoplasm of skin Excision of basal cell carcinoma x2. Family History Family History Father Abdominal aneurysm, ruptured Social History Social History (Updated 08/26/20 @ 19:00 by Bere Ba PA-C) Social History: Surrogate decision maker: Ashley Rodriguez, . Code status: Full code. Smoking status: Never smoker Alcohol intake: current Drinks per week: 7 Substance use: never Substance use type: does not use Additional living arrangements comments: The patient lives in [place] with his . Spiritual care concerns: No Agree to blood products: No Meds Home Medications and Allergies Home Medications Medication Instructions Recorded Confirmed Type Adult One Daily Multivitamin 1 tablet PO DAILY 05/22/19 08/26/20 History allopurinol 300 mg PO DAILY 05/22/19 08/26/20 History atorvastatin 40 mg PO DAILY 05/22/19 08/26/20 History escitalopram oxalate 10 mg PO DAILY 05/22/19 08/26/20 History finasteride 5 mg PO DAILY 05/22/19 08/26/20 History furosemide 60 mg PO DAILY 05/22/19 08/26/20 History potassium chloride 20 meq PO DAILY
[2020-08-26 21:30] LABS: Troponin I 0.022 ng/mL (0.000-0.034)
--- NOTE | 2020-08-26 22:03 | ADMGEN ---
This patient, Marcelino Rodriguez, was admitted to IMU Room 207-01. Patient/family oriented to hospital policies and general routines including ID bracelet, bed and alarms, visiting hours, pain management, procedures, bathroom and other care routines, personal items, smoking policy, room service/diet, and visiting hours. Information on how to activate the Rapid Response Team has been discussed. Patient/Family are encouraged to report perceived risks to care and to ask questions if they do not understand what they are told or what they should do.
[2020-08-27] VITALS (17 sets, daily range): BP systolic 125–156; BP diastolic 64–117; PULSE 38–101; RESP 16–20; TEMP 36.2–37.2; O2SAT 97–100
[2020-08-27 05:24] LABS: Hematocrit 32.9 % (42.0-52.0); Hemoglobin 11.3 g/dL (14.0-18.0); Mean Corpuscular HGB Conc 34.3 g/dl (32-36); Mean Corpuscular Hemoglobin 33.5 pg (26-34); Mean Corpuscular Volume 97.6 fl (80-100); Mean Platelet Volume 11.1 fl (7.4-10.4); Platelet Count Result 180 k/mm3 (150-375); Red Blood Count 3.37 M/mm3 (4.6-6.20); Red Cell Distribution Width 15.3 % (11.5-14.5); White Blood Count 7.9 K/mm3 (4.5-10.0)
[2020-08-27 05:39] LABS: Anion Gap 6 mmol/L (8-16); Blood Urea Nitrogen 29 mg/dL (9-20); Calcium 9.2 mg/dL (8.4-10.2); Carbon Dioxide 30 mmol/L (22-30); Chloride 105 mmol/L (98-107); Estimated CRCL calculation 43 ml/min; Estimated Glomerular Filt Rate 48; Glucose 128 mg/dL (75-110); Magnesium 1.7 mg/dL (1.6-2.3); Sodium 141 mmol/L (137-145)
[2020-08-27 07:21] LABS: Free T4 Free Thyroxine Reflex 0.79 ng/dL (0.78-2.19)
[2020-08-27 08:43] LABS: Total Triiodothyronine (T3) 1.01 NG/ML (0.97-1.69)
[2020-08-27] MEDS: MAGNESIUM SULF 2 GM/WATER 50ML 2 GM/50 ML BAG IVPB (09:26)
[2020-08-27] MEDS: POTASSIUM CHLORIDE 20 MEQ TABLET 40 MEQ PO (09:26)
[2020-08-27] MEDS: POTASSIUM CHLORIDE 20 MEQ TABLET.ER PO (09:27)
[2020-08-27] MEDS: CHOLECALCIFEROL 1,000 UNITS TABLET 5000 UNITS PO (09:27)
[2020-08-27] MEDS: allopurinoL 300 MG TABLET PO (09:27)
[2020-08-27] MEDS: amLODIPine BESYLATE 5 MG TABLET PO (09:27)
[2020-08-27] MEDS: ESCITALOPRAM OXALATE 10 MG TABLET PO (09:27)
[2020-08-27] MEDS: ATORVASTATIN 40 MG TABLET PO (09:27)
[2020-08-27] MEDS: THERAPEUTIC MULTIVITAMINS/MINERALS TAB (*BKC) 1 TABLET PO (09:28)
[2020-08-27] MEDS: LORATADINE 10 MG TABLET PO (09:28)
[2020-08-27] MEDS: FINASTERIDE 5 MG TABLET PO (09:28)
--- NOTE | 2020-08-27 12:40 | PM.CNCAR ---
Assessment and Plan Assessment and plan (1) Symptomatic bradycardia: Code(s): R00.1 - Bradycardia, unspecified Status: Acute Assessment and Plan: Symptomatic bradycardia in an elderly patient taking low-dose carvedilol as well as donepezil, and severe hypokalemia, which may be contributing. Recommend discontinuing these 2 medications, repeating potassium and follow-up with long-term monitoring from our office. Follow-up with Dr. Scott for substitute for the donepezil. If patient continues to have symptomatic bradycardia, discussed the possibility of pacemaker implant. I have held his Xarelto anticipating this need. At this point, however, he seems to have improved and I do not see a strong indication for pacemaker implant thus far. Recommend observing on telemetry overnight, probable discharge tomorrow, long-term outpatient monitoring through our office. (2) Atrial fibrillation with slow ventricular response: Code(s): I48.91 - Unspecified atrial fibrillation Status: Acute Assessment and Plan: History of chronic atrial fibrillation now with a slow ventricular response. Chronically anticoagulated with Xarelto. (3) Acute hypokalemia: Code(s): E87.6 - Hypokalemia Status: Acute Assessment and Plan: Patient takes furosemide 60 mg daily and periodically will take a week of metolazone 2.5 mg daily when he has extra edema. Repleting potassium. BMP tmr. Will need to take extra potassium when he uses metolazone at home, with follow-up BMPs. (4) QT prolongation: Code(s): R94.31 - Abnormal electrocardiogram [ECG] [EKG] Status: Acute Assessment and Plan: Has significant QT prolongation which may be related to the hypokalemia. Citalopram can also contribute. Recommend discontinuing citalopram and follow-up with Dr. Scott for substitute. Repeat EKG. (5) Anticoagulated: Code(s): Z79.01 - retirement (current) use of anticoagulants Status: Acute Assessment and Plan: Patient is chronically anticoagulated with Xarelto. However his GFR is in the 40s; if it stays less than 50 mils per minute we should reduce the Xarelto dose to 15 mg daily. (6) S/P aortic valve replacement with bioprosthetic valve: Code(s): Z95.3 - Presence of xenogenic heart valve Status: Acute Assessment and Plan: History of bioprosthetic aortic valve replacement and mitral valve repair(?) In 2019. Seems to be doing well, no significant problems by auscultation. (7) Renal failure: Code(s): N19 - Unspecified kidney failure Status: Acute Assessment and Plan: Patient's BUN and creatinine are elevated compared to his baseline and his furosemide and metolazone are on hold. History of Present Illness History of Present Illness Consult date/time: 08/27/20 12:40 Reason For Visit: SYMPTOMATIC BRADYCARDIA, NEAR SYNCOPE Narrative: 08/27/2020 Mr. Marcelino Rodriguez is an 85-year-old white male with a history of aortic valve replacement and chronic atrial fibrillation whom we were asked to see at the request of the hospitalist for advice and opinion regarding his bradycardia in consultation. Mr. Rodriguez was dizzy yesterday and did not feel right after eating lunch. EMS found have a heart rate in the low 40s and was given atropine with improvement. He continued to have episodes of bradycardia and was admitted. Potassium was 2.8. He is on carvedilol 3.125 b.i.d and donepezil. Today he is feeling much better with no further dizzy spells and is ambulating with no problems. The patient has chronic atrial fibrillation treated with Xarelto. Has a history of aortic stenosis and mitral regurgitation and eventually had va
--- NOTE | 2020-08-27 13:32 | ECG_ITS ---
Measurements Intervals [place] Rate: 55 P: [place]: 0 QRS: 52 QRSD: 160 T: -12 QT: 520 QTc: 498 Interpretive Statements ATRIAL FIBRILLATION WITH SLOW VENTRICULAR RESPONSE RIGHT BUNDLE BRANCH BLOCK BASELINE ARTIFACT- I, II, III, AVR, AVL, AVF, V1-V2 ABNORMAL ECG Electronically Signed On 08-27-2020 14:12:43 DEVULCANIZER OPERATOR by Med Palmer D.O.
--- NOTE | 2020-08-27 13:50 | PM.IMPN ---
Progress Note: A&P Assessment and Plan (1) Dizziness: Code(s): R42 - Dizziness and giddiness Status: Acute Assessment and Plan: patient's dizziness has resolved so far - could be due to hypokalemia and diuretic use - his creatinine is elevated, likely due to diuretic use causing a little dehydration - patient does have some bradycardia which could also worsen the dizziness but I do not suspect this is the etiology alone - orthostatic blood pressures are normal - check UA due to frequency (2) Symptomatic bradycardia: Code(s): R00.1 - Bradycardia, unspecified Status: Acute Assessment and Plan: as stated above, unsure bradycardia is causing the dizziness - I spoke with Dr. Berman who plans on stopping the Aricept and carvedilol - if the dizziness persist with these changes, Cardiology may consider a pacemaker down the road (3) Atrial fibrillation with slow ventricular response: Code(s): I48.91 - Unspecified atrial fibrillation Status: Acute Assessment and Plan: as stated above - anticoagulation will be restarted likely tomorrow (4) Acute hypokalemia: Code(s): E87.6 - Hypokalemia Status: Acute Assessment and Plan: likely due to diuretic therapy - he takes Bumex as needed - he may need an as-needed potassium pill to go home on when he takes the Bumex - continues supplementation and recheck tomorrow morning (5) Renal failure: Code(s): N19 - Unspecified kidney failure Status: Acute Assessment and Plan: creatinine low more elevated than his baseline - continue to hold diuretics at this time (6) Chronic anemia: Code(s): D64.9 - Anemia, unspecified Status: Chronic Assessment and Plan: hemoglobin stable at 11.3 with no signs of bleeding at this time (7) QT prolongation: Code(s): R94.31 - Abnormal electrocardiogram [ECG] [EKG] Status: Acute Assessment and Plan: will stop the Aricept and lexapro Time Spent With Patient Time with patient: 25 - 35 minutes Subjective Date/time seen: 08/27/20 13:50 Interval history: Pt is an 85-year-old male here for dizziness who was seen today. Patient states he is feeling great and has no further dizziness. He has been up without lightheadedness or dizziness. Pt denies nausea, vomiting, fevers, chills, Dysuria,constipation, diarrhea, chest pain, sob, or abdominal pain. he states he has no history of passing out. Review of Systems Review of Systems: All systems reviewed & are unremarkable except as noted in HPI and below Exam Narrative: Exam Narrative: General: Well developed well nourished patient in NAD HEENT: normocephalic Neck: supple Neuro: Alert and oriented x4. slight deviation of the tongue to the right but no facial droop or other cranial nerve abnormalities. Strength in the upper lower extremities 5/5. Able to do rapid alternating movements and [id number]. CV: Irregularly irregular with occasional bradycardia. Telemetry shows bradycardia with some pauses up to 2.38. Resp:CTA Abd: Soft, non distended. No pain to palpation. Positive bowel sounds Extremities: No swelling, erythema, or pain to palpation. Objective Data Vital Signs Vital Signs: Vital Signs - 24 hr 08/26/20 14:30 08/26/20 14:31 08/26/20 14:35 Temperature 98.4 F Pulse Rate 57 L 51 L 60 Respiratory Rate 13 15 12 Blood Pressure 127/73 127/73 Pulse Oximetry 96 100 08/26/20 14:45 08/26/20 14:46 08/26/20 15:19 Temperature Pulse Rate 50 L 59 L 52 L Respiratory Rate 16 14 16 Blood Pressure 142/88 H Pulse Oximetry 97 08/26/20 15:30 08/26/20 15:51 08/26/20 16:08 Temperature Pulse Rate 53 L 45 L 51 L Respiratory Rate 14 14 12 Blood Pressure Pulse Oximetry 98 94 08/26/20 16:18 08/26/20 16:30 08/26/20 16:31 Temperature Pulse Rate 54 L 55 L 58 L Respiratory Rate 13 13 15 Blood Pr
[2020-08-27] MEDS: POTASSIUM CHLORIDE 20 MEQ TABLET PO (17:10)
[2020-08-27 20:13] LABS: Add Urine Microscopic? YES; Appearance Urine Clear (Clear); Bilirubin Urine Negative (Negative); Blood Urine Negative (Negative); Color Urine Yellow (Yellow); Glucose Urine UA Negative (Negative); Hyaline Casts Urine 50+ /lpf; Ketones Urine Negative (Negative); Leukocyte Esterase Ur Negative LEU/UL (Negative); Mucus Urine Few /lpf; Nitrate Urine Negative (Negative); Protein Urine 1+ mg/dL (Negative); RBC Urine 0-2 /hpf (0-2); Specific Grav Ur 1.016 (1.001-1.035); Squamous Epithelial Cell Urine Rare /hpf (Few); Urobilinogen Urine Negative mg/dL (<2.0); WBC Urine 0-3 /hpf
[2020-08-28] VITALS: PULSE 60
[2020-08-28 04:00] VITALS: PULSE 53
[2020-08-28 04:07] VITALS: BP 132/84; PULSE 57; RESP 16; TEMP 36.8; O2SAT 97
[2020-08-28 05:19] LABS: Anion Gap 7 mmol/L (8-16); Blood Urea Nitrogen 25 mg/dL (9-20); Calcium 8.8 mg/dL (8.4-10.2); Carbon Dioxide 28 mmol/L (22-30); Chloride 105 mmol/L (98-107); Estimated CRCL calculation 46 ml/min; Estimated Glomerular Filt Rate 52; Glucose 95 mg/dL (75-110); Magnesium 1.9 mg/dL (1.6-2.3); Potassium 3.2 mmol/L (3.4-5.0); Sodium 140 mmol/L (137-145)
--- NOTE | 2020-08-28 07:00 | ECG_ITS ---
Measurements Intervals [place] Rate: 52 P: [place]: 0 QRS: 35 QRSD: 170 T: -17 QT: 508 QTc: 476 Interpretive Statements ATRIAL FIBRILLATION WITH SLOW VENTRICULAR RESPONSE RIGHT BUNDLE BRANCH BLOCK BASELINE ARTIFACT- I, II, III, AVR, AVF ABNORMAL ECG Electronically Signed On 08-28-2020 10:10:54 [employer] by Med Palmer D.O.
[2020-08-28 08:00] VITALS: BP 157/94; PULSE 57; RESP 12; TEMP 37; O2SAT 94
[2020-08-28] MEDS: allopurinoL 300 MG TABLET PO (08:52)
[2020-08-28] MEDS: THERAPEUTIC MULTIVITAMINS/MINERALS TAB (*BKC) 1 TABLET PO (08:52)
[2020-08-28] MEDS: POTASSIUM CHLORIDE 20 MEQ TABLET.ER PO (08:52)
[2020-08-28] MEDS: FINASTERIDE 5 MG TABLET PO (08:52)
[2020-08-28] MEDS: LORATADINE 10 MG TABLET PO (08:52)
[2020-08-28] MEDS: amLODIPine BESYLATE 5 MG TABLET PO (08:52)
[2020-08-28] MEDS: CHOLECALCIFEROL 1,000 UNITS TABLET 5000 UNITS PO (08:52)
[2020-08-28] MEDS: ATORVASTATIN 40 MG TABLET PO (08:52)
--- NOTE | 2020-08-28 11:46 | PM.PNCARD ---
Progress Note: A&P Additional Plan 85-year-old man with: Chronic atrial fibrillation being managed with rate control and anticoagulation. He now has developed senile AV node dysfunction where he obviously does not require any rate controlling medication any longer. He may or may not at some point require a pacemaker but at this point it does not appear to be indicated. He should be of course be discharged without the beta-alfred. Xarelto should be resumed for systemic anticoagulation. Regarding his hypokalemia I would also discontinue the metolazone that he was taking at home. I would continue the furosemide however I believe that was at 60 mg daily Will insure that follow-up with Dr. Berman iis scheduled in the office. Yuniel Fuentes MD [facility] Subjective Date/time seen: Date of service: 08/28/20 11:46 Interval history: 85-year-old man with: Chronic atrial fibrillation presenting with symptomatic bradycardia and slow ventricular response. He was on a modest dose of carvedilol which has been discontinued. Telemetry now shows his heart rate is predominantly in the 50s and low 60s. He is asymptomatic and hoping to be discharged because this afternoon he has an appointment to get his vaca virus vaccine Exam Const: General: comfortable and no acute distress Eyes: Sclera: sclerae normal Pupils: Equal, round and reactive pupils present Neck: Neck: supple and no JVD Resp: Effort & Inspection: normal respiratory effort Auscultation: clear to auscultation bilaterally Cardio: Other: Irregularly irregular no significant murmur GI: GI Palp: Yes Soft to palpation Auscultation: normal bowel sounds Skin: General skin exam: normal color Neuro: Cognition (Neuro): normal cognition Extrem: Other: No significant lower extremity edema Objective Data Vital Signs Vital Signs: Vital Signs - 24 hr 08/27/20 12:00 08/27/20 14:00 08/27/20 16:00 Temperature 37.2 C 36.3 C L Pulse Rate 44 L 49 L 38 L Respiratory Rate 16 16 Blood Pressure 138/75 135/82 Pulse Oximetry 98 98 08/27/20 18:00 08/27/20 20:00 08/27/20 21:27 Temperature 36.2 C L Pulse Rate 66 59 L 57 L Respiratory Rate 20 Blood Pressure 125/78 Pulse Oximetry 100 08/27/20 23:44 08/28/20 00:00 08/28/20 04:00 Temperature 36.7 C Pulse Rate 53 L 60 53 L Respiratory Rate 18 Blood Pressure 132/74 Pulse Oximetry 97 08/28/20 04:07 08/28/20 08:00 Temperature 36.8 C 37.0 C Pulse Rate 57 L 57 L Respiratory Rate 16 12 Blood Pressure 132/84 157/94 H Pulse Oximetry 97 94 Intake/Output Intake/Output: Intake & Output 08/25/20 08/26/20 08/27/20 08/28/20 23:59 23:59 23:59 23:59 Intake Total 1490 490 Output Total 1190 200 Balance 300 290 Meds/Results Medications: Active Medications Generic Name Dose Route Start Last Admin Trade Name Freq PRN Reason Stop Dose Admin Allopurinol 300 mg 08/27/20 08:00 08/28/20 08:52 Allopurinol 300 Mg Tablet PO 300 mg DAILY@0800 [facility] Administration Amlodipine Besylate 5 mg 08/27/20 09:00 08/28/20 08:52 Amlodipine Besylate 5 Mg Tablet PO 5 mg DAILY [facility] Administration Atorvastatin Calcium 40 mg 08/27/20 09:00 08/28/20 08:52 Atorvastatin 40 Mg Tablet PO 40 mg DAILY [facility] Administration Finasteride 5 mg 08/27/20 09:00 08/28/20 08:52 Finasteride 5 Mg Tablet PO 5 mg DAILY [facility] Administration Loratadine 10 mg 08/27/20 09:00 08/28/20 08:52 Loratadine 10 Mg Tablet PO 10 mg QAM [facility] Administration Multivitamins/Calcium 1 tablet 08/27/20 09:00 08/28/20 08:52 Therapeutic Multivitamins/Minerals Tab (*Bkc) PO 1 tablet DAILY [facility] Administration Potassium Chloride 20 meq 08/27/20 08:00 08/28/20 08:52 Potassium Chloride 20 Meq Tablet.Er PO 20 meq DAILY@0800 [facility] Administration Vitamin D 5,000 units 08/27/20 09:00 08/28/20 08:52 Cholecalciferol 1,000 Units Tablet PO 5,000 units DAILY [facility] Administration
--- NOTE | 2020-08-28 11:59 | PM.DS ---
DS: Admitting Diagnosis Admitting Diagnosis Admitting Diagnosis: Dizziness DS: Discharge Diagnosis Discharge Diagnosis (1) Dizziness: Code(s): R42 - Dizziness and giddiness Status: Acute Assessment and Plan: Date of Admission 08/26/20 Date of Discharge/DOS 08/28/20 Mr. Rodriguez is a pleasant 85yo M with history of coronary artery disease, paroxysmal atrial fibrillation, valvular heart disease s/p aortic and mitral valve replacement, hypertension, who presented to the ED for evaluation of dizziness. He described he was sitting in his chair when he suddenly began to feel dizzy, lightheaded which prompted his to call EMS. EMS found heart rate to be low 40s for which atropine was administered and provided improvement in his symptoms. He has had no further recurrence of his dizziness. Cardiology was consulted for recommendations regarding symptomatic bradycardia. His home carvedilol was held and his heart rates remained low but stable. He was also noted to have low potassium levels on arrival which were replaced. Cr was mildly elevated, suspected related to diuretic use and mild dehydration. His diuretics were also held, once his Cr turn to normal his home Lasix was resumed at discharge. He takes Bumex as needed, this was discontinued per Cardiology recommendations for now. He was also noted to have QT prolongation on EKG, thus his home Aricept and Lexapro were held. He is encouraged to follow-up with his primary care provider to see if there are adequate substitutions for these 2 medications. His home Xarelto was briefly held given discussion of possible pacemaker placement. He may require a pacemaker at some point, but at this point it is not recommended by Cardiology that his home Xarelto is resumed. He had no further recurrence of dizziness and was feeling improved. He was hemodynamically stable for discharge on 08/28/2020 with instructions to follow-up with PCP as well as Dr. Berman, cardiology. Dizziness without syncope may have been related to bradycardia. Hypokalemia may have contributed. CT brain demonstrated old right frontal lobe infarct without acute intracranial abnormality. Blood pressures remained stable and orthostatic blood pressures are normal. (2) Symptomatic bradycardia: Code(s): R00.1 - Bradycardia, unspecified Status: Acute Assessment and Plan: Seen by Cardiology, Dr Berman. Home carvedilol, Aricept, Lexapro were discontinued. If dizziness persists with these changes, Cardiology may consider placing a pacemaker down the road. (3) Atrial fibrillation with slow ventricular response: Code(s): I48.91 - Unspecified atrial fibrillation Status: Acute Assessment and Plan: Medication changes as noted above. Home Xarelto resumed. Follow-up with cardiology. (4) Acute hypokalemia: Code(s): E87.6 - Hypokalemia Status: Acute Assessment and Plan: May have been related to diuretic therapy. Resume his home Lasix at discharge, discontinue his PRN Bumex for now per cardiology discharge recommendations. Potassium was low and replaced parenterally and orally. Stable at discharge, increase his home potassium supplementation and monitor BMP outpatient. (5) Renal failure: Code(s): N19 - Unspecified kidney failure Status: Acute Assessment and Plan: Cr mildly more elevated than his baseline on arrival, his Lasix was briefly held but resumed at discharge. Cr stable at discharge. May have been mildly dehydrated. (6) Chronic anemia: Code(s): D64.9 - Anemia, unspecified Status: Chronic Assessment and Plan: Hgb low but stable. No evidence of acute bleeding. Monitor CBC outpatient.
[2020-08-28 12:00] VITALS: PULSE 64
[2020-08-28] MEDS: POTASSIUM CHLORIDE 20 MEQ TABLET 40 MEQ PO (13:10)
== END 2020-08-28 14:22 | disposition home or self-care (01) | DRG 149 ==
LOC: ANHED 17:17 → ANHIMU 20:14
PROVIDERS: Internal Medicine Cardiovascular Disease; Physician Assistant; Admitting Provider Family Medicine; Emergency Provider Emergency Medicine; PCP Internal Medicine; Visit Provider Physician Assistant
DX: R42 Dizziness and giddiness (principal); I48.20 Chronic atrial fibrillation, unspecified; R00.1 Bradycardia, unspecified; E87.6 Hypokalemia; N19 Unspecified kidney failure; D64.9 Anemia, unspecified; R94.31 Abnormal electrocardiogram [ECG] [EKG]; I25.10 Atherosclerotic heart disease of native coronary artery without angina pectoris; M10.9 Gout, unspecified; I10 Essential (primary) hypertension; N40.0 Benign prostatic hyperplasia without lower urinary tract symptoms; E78.5 Hyperlipidemia, unspecified; Z79.01 Long term (current) use of anticoagulants; Z79.899 Other long term (current) drug therapy; Z86.73 Personal history of transient ischemic attack (TIA), and cerebral infarction without residual deficits; Z95.1 Presence of aortocoronary bypass graft; Z95.3 Presence of xenogenic heart valve; Z98.41 Cataract extraction status, right eye; Z98.42 Cataract extraction status, left eye
CPT/HCPCS: 36415; 70450; 71045; 80048; 80053; 81001; 83735; 84439; 84443; 84480; 84484; 85025; 85027; 85610; 85730; 93005; 96365; 97110; 97116; 97161; 97165; 99285; A9270; G0378; J3475

== ENCOUNTER 2020-10-30 14:03 | Outpatient (CLI) | payer MEDICARE, SELFPAY ==
--- NOTE | ~2020-10-30 | US_ITS ---
EXAMINATION: US arterial duplex LE DATE: 10/30/2020 15:27 INDICATION: Bilateral popliteal artery aneurysms. TECHNIQUE: Multiple grayscale and Doppler ultrasound images of the lower extremities were obtained. 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 There is a 4.8 x 5.9 c m fusiform aneurysm of left popliteal artery. IMPRESSION: 1. 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 2. 5.9 cm fusiform aneurysm of left popliteal artery. Reviewed, dictated and finalized at location A.
== END 2020-10-30 14:04 | disposition home or self-care (01) ==
PROVIDERS: PCP Internal Medicine; Visit Provider Orthopaedic Surgery
DX: I72.4 Aneurysm of artery of lower extremity (principal); R60.0 Localized edema
CPT/HCPCS: 93925

== ENCOUNTER 2021-01-19 11:55 | Emergency (ER) | payer MEDICARE, SELFPAY ==
[2021-01-19] VITALS (13 sets, daily range): BP systolic 118–144; BP diastolic 72–99; PULSE 53–67; RESP 11–18; TEMP 36.5; O2SAT 95–100
--- NOTE | ~2021-01-19 | CT_ITS ---
EXAMINATION: CT brain wo con EXAM DATE: 01/19/2021 16:10 INDICATION: Dizziness. TECHNIQUE: Spiral CT of the head was performed without contrast. Axial, coronal and sagittal images were reviewed. The dose-length product (DLP) for this examination was 605.33 mGy-cm. The exposure w as tailored according to patient size, and iterative reconstruction (ASIR) was used as additional dos e reduction technique. Comparison is made to prior examination from 08/26/2020. FINDINGS: Small old right frontal lobe cortical infarction. Moderate microangiopathy and cerebral atr ophy. There is no acute intraparenchymal hemorrhage. No evidence of intraparenchymal brain mass lesi on. No evidence of acute infarction. There is no mass effect or midline shift. The ventricles are normal in size. There are no extra-axial collections. There are no acute calvarial fractures. Patie nt has had bilateral ocular lens surgery. Soft tissue is unremarkable. The visualized sinuses and m astoid air cells are well aerated. IMPRESSION: 1. No acute intracranial findings. 2. Old small right frontal lobe infarction. 3. Senescent changes. Reviewed, dictated and finalized at location B.
--- NOTE | 2021-01-19 12:07 | ECG_ITS ---
Measurements Intervals [place] Rate: 62 P: [place]: 0 QRS: 22 QRSD: 155 T: -19 QT: 487 QTc: 497 Interpretive Statements ATRIAL FIBRILLATION RIGHT BUNDLE BRANCH BLOCK BASELINE ARTIFACT- II, III ABNORMAL ECG Electronically Signed On 01-19-2021 17:10:04 CDT by Med Palmer D.O.
[2021-01-19 12:34] LABS: Basophils Percent Auto 0.5 % (0.2-1.2); Eosinophils Absolute Auto 0.1 K/mm3 (0-0.3); Eosinophils Percent Auto 1.4 % (0-4.4); Hematocrit 36.7 % (42.0-52.0); Hemoglobin 12.3 g/dL (14.0-18.0); Immature Granulocyte Absolute 0.02 K/mm3 (0.00-0.031); Immature Granulocyte Percent A 0.3 % (0-0.5); Lymphocytes Absolute Auto 1.03 K/mm3 (0.9-3.2); Lymphocytes Percent Auto 15.6 % (18.3-44.2); Mean Corpuscular HGB Conc 33.5 g/dl (32-36); Mean Corpuscular Hemoglobin 31.2 pg (26-34); Mean Corpuscular Volume 93.1 fl (80-100); Mean Platelet Volume 10.4 fl (7.4-10.4); Monocytes Absolute Auto 0.7 K/mm3 (0.1-0.6); Monocytes Percent Auto 9.8 % (2.6-8.5); Neutrophils Absolute Auto 4.8 K/mm3 (1.3-6.7); Neutrophils Percent Auto 72.4 % (45.5-73.1); Platelet Count Result 186 k/mm3 (150-375); Red Blood Count 3.94 M/mm3 (4.6-6.20); Red Cell Distribution Width 14.7 % (11.5-14.5); White Blood Count 6.6 K/mm3 (4.5-10.0)
[2021-01-19 12:41] LABS: Anion Gap 10 mmol/L (8-16); Blood Urea Nitrogen 15 mg/dL (9-20); Calcium 9.3 mg/dL (8.4-10.2); Carbon Dioxide 27 mmol/L (22-30); Chloride 102 mmol/L (98-107); Estimated CRCL calculation 43 ml/min; Estimated Glomerular Filt Rate 48; Glucose 116 mg/dL (75-110); Potassium 3.7 mmol/L (3.4-5.0); Sodium 139 mmol/L (137-145)
--- NOTE | 2021-01-19 16:34 | ED.DIZZY ---
HPI - Dizziness General Chief Complaint: Dizziness Stated Complaint: Ams,lightheaded Time Seen by Provider: 01/19/21 16:33 Source: patient and RN notes reviewed Limitations: no limitations History of Present Illness HPI Narrative: Patient is 85 years old white male patient recently presents with abnormal behavior at 5 AM. Patient was sleeping, somehow started knocking the table next to the bed on the right side on the lamp next to the bed on the left side with confusion and disorientation lasted for few unknown duration. Currently patient is back to his normal mental status and health. Family physician referred him to our emergency room to rule out stroke. Patient denies having similar symptoms. When I asked him about the possibility of nightmares, patient agreed. Patient denies biting his tongue or urine incontinence. Related Data Home Medications Medication Instructions Recorded Confirmed Adult One Daily Multivitamin 1 tablet PO DAILY 05/22/19 08/26/20 allopurinol 300 mg PO DAILY 05/22/19 08/26/20 atorvastatin 40 mg PO DAILY 05/22/19 08/26/20 finasteride 5 mg PO DAILY 05/22/19 08/26/20 furosemide 60 mg PO DAILY 05/22/19 08/26/20 cholecalciferol (vitamin D3) 5,000 unit PO DAILY 10/09/19 08/26/20 [Vitamin D3] Xarelto 20 mg PO QPM 08/26/20 08/26/20 amlodipine 5 mg PO DAILY 08/26/20 08/26/20 cetirizine [Zyrtec] 10 mg PO DAILY 08/26/20 08/26/20 Allergies Allergy/AdvReac Type Severity Reaction Status Date / Time No Known Allergies Allergy Unknown Verified 10/09/19 11:18 No Known Allergies Allergy Uncoded 05/07/19 20:16 Review of Systems Review of Systems: Narrative: CONSTITUTIONAL: Denies fever, chills, or sweats. EYES: Denies visual changes, redness, or discharge. ENT: Denies rhinorrhea, congestion, sore throat, or otalgia. CARDIOVASCULAR: Denies chest pain, palpitations, or edema. RESPIRATORY: Denies cough or dyspnea. GASTROINTESTINAL: Denies abdominal pain, nausea, vomiting, or diarrhea. GENITOURINARY: Denies dysuria or hematuria. SKIN: Denies rash or itching. MUSCULOSKELETAL: Denies back pain, joint pain, or myalgia. NEUROLOGIC: Denies headache, numbness, or weakness. PSYCHIATRIC: Denies anxiety or depression. 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 Chronic anemia Coronary artery disease Current use of ocean transportation intermediary anticoagulation Depression Gout Hyperlipidemia Hypertension Paroxysmal atrial fibrillation QT prolongation Seasonal allergies Shingles (~09/2018) Transient ischemic attack 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 Surgical History Surgical History History of aortic valve replacement History of bilateral cataract extraction History of cardiac catheterization History of coronary artery bypass graft (~01/28/19) History of mitral valve replacement History of surgical removal of skin lesion x2 S/P aortic valve replacement with bioprosthetic valve Status post surgical removal of malignant neoplasm of skin Excision of basal cell carcinoma x2. Family History Family History Father Abdominal aneurysm, ruptured Social History Social History Social History: Surrogate decision maker: Ashley Rodriguez, . Code status: Full code. Smoking status: Never smoker Alcohol intake: current Drinks per week: 7 Substance use: never Substance use type: does not use Additional living arrangements comments: The patient lives in [place] with his . Spiritual care concerns: No Agree to blood products: No Exam Narrative: Exam Narrative: General appearance: Well-developed, well-nour
[2021-01-19 16:58] LABS: Alanine Aminotransferase 19 U/L (4-50); Albumin Level 4.4 g/dL (3.5-5.1); Alkaline Phosphatase 91 U/L (38-126); Aspartate Amino Transferase 29 U/L (17-59); Bilirubin,Total 0.6 mg/dL (0.2-1.3)
== END 2021-01-19 17:25 | disposition left against medical advice (07) ==
PROVIDERS: Emergency Medicine; Emergency Provider Emergency Medicine; PCP Internal Medicine
DX: R56.9 Unspecified convulsions (principal); I25.10 Atherosclerotic heart disease of native coronary artery without angina pectoris; D64.9 Anemia, unspecified; M10.9 Gout, unspecified; E78.5 Hyperlipidemia, unspecified; I10 Essential (primary) hypertension; I48.0 Paroxysmal atrial fibrillation; M19.90 Unspecified osteoarthritis, unspecified site; Z95.2 Presence of prosthetic heart valve; Z86.73 Personal history of transient ischemic attack (TIA), and cerebral infarction without residual deficits; N40.0 Benign prostatic hyperplasia without lower urinary tract symptoms; Z85.828 Personal history of other malignant neoplasm of skin; Z98.42 Cataract extraction status, left eye; Z98.41 Cataract extraction status, right eye; Z95.1 Presence of aortocoronary bypass graft; Z79.01 Long term (current) use of anticoagulants; I45.10 Unspecified right bundle-branch block
CPT/HCPCS: 36415; 70450; 80048; 80076; 85025; 93005; 99284

== ENCOUNTER 2021-03-15 10:26 | Emergency (ER) | payer MEDICARE, SELFPAY ==
--- NOTE | ~2021-03-15 | CT_ITS ---
EXAMINATION: CT lumbar spine wo [facility] [place] EXAM DATE: 03/15/2021 12:50 INDICATION: Low back pain, fall. TECHNIQUE: Spiral CT lumbar spine was performed without contrast. Axial, coronal and sagittal images of the lumbar spine were reviewed. The dose-length product (DLP) for this examination was 1312.62 mGy -cm. The exposure was tailored according to patient size (auto mA exposure control), and iterative r econstruction (ASIR) was used as additional dose reduction technique. Correlation is made to CT abdom en pelvis 10/08/2019. FINDINGS: Compared to September 2019, there has been interval development of mild to moderate compression fracture of L2. Mild diffuse loss of the other lumbar vertebral body heights without acute fracture line identified.. There is 2 mm retrolisthesis L2 on L3. Chronic bilateral L5 spondylolysis with 7 mm anterolisthesis L5 on S1, moderate to severe right and moderate left neural foraminal stenosis at th is level. Mild to moderate neural foraminal stenosis at L4-5. Paraspinal soft tissue is unremarkable Gastroesophageal hiatal hernia incompletely imaged. IMPRESSION: 1. No acute fracture line identified. 2. L2 mild to moderate chronic appearing compression fracture. Mild loss of the other vertebral body heights. 3. L5 bilateral chronic spondylolysis, grade 1 anterolisthesis. Reviewed, dictated and finalized at location B. IMPRESSION: 1. No acute fracture line identified. 2. L2 mild to moderate chronic appearing compression fracture. Mild loss of th e other vertebral body heights. 3. L5 bilateral chronic spondylolysis, grade 1 anterolisthesis.
[2021-03-15 10:54] VITALS: BP 118/77; PULSE 71; RESP 18; TEMP 36.8; O2SAT 98
[2021-03-15] MEDS: ACETAMINOPHEN 500 MG TABLET 1000 MG PO (13:03)
--- NOTE | 2021-03-15 13:19 | ED.BACK ---
HPI - Back Pain/Injury General Chief Complaint: Back Pain/Injury Stated Complaint: BACK PAIN Time Seen by Provider: 03/15/21 12:08 Source: patient Mode of arrival: wheelchair Limitations: no limitations History of Present Illness HPI Narrative: This is a 85 year old male that presents to the ER for low back pain after a fall 4 days ago. Reports he slipped out of bed and landed on his bottom. Reports pain in the low back since. Denies any other injuries. Denies hitting his head or loss of consciousness. Denies fever, numbness or weakness. Related Data Home Medications Medication Instructions Recorded Confirmed Adult One Daily Multivitamin 1 tablet PO DAILY 05/22/19 08/26/20 allopurinol 300 mg PO DAILY 05/22/19 08/26/20 atorvastatin 40 mg PO DAILY 05/22/19 08/26/20 finasteride 5 mg PO DAILY 05/22/19 08/26/20 furosemide 60 mg PO DAILY 05/22/19 08/26/20 cholecalciferol (vitamin D3) 5,000 unit PO DAILY 10/09/19 08/26/20 [Vitamin D3] Xarelto 20 mg PO QPM 08/26/20 08/26/20 amlodipine 5 mg PO DAILY 08/26/20 08/26/20 cetirizine [Zyrtec] 10 mg PO DAILY 08/26/20 08/26/20 Allergies Allergy/AdvReac Type Severity Reaction Status Date / Time No Known Allergies Allergy Unknown Verified 03/15/21 11:16 Review of Systems Review of Systems: CONSTITUTIONAL: Denies fever MUSCULOSKELETAL: Reports back pain, joint pain, and myalgia. NEUROLOGIC: Denies numbness, or weakness. 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 Chronic anemia Coronary artery disease Current use of fpc anticoagulation Depression Gout Hyperlipidemia Hypertension Paroxysmal atrial fibrillation QT prolongation Seasonal allergies Shingles (~09/2018) Transient ischemic attack 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 Surgical History Surgical History History of aortic valve replacement History of bilateral cataract extraction History of cardiac catheterization History of coronary artery bypass graft (~01/28/19) History of mitral valve replacement History of surgical removal of skin lesion x2 S/P aortic valve replacement with bioprosthetic valve Status post surgical removal of malignant neoplasm of skin Excision of basal cell carcinoma x2. Family History Family History Father Abdominal aneurysm, ruptured Social History Social History Social History: Surrogate decision maker: Ashley Rodriguez, . Code status: Full code. Smoking status: Never smoker Alcohol intake: current Drinks per week: 7 Substance use: never Substance use type: does not use Additional living arrangements comments: The patient lives in [place] with his . Spiritual care concerns: No Agree to blood products: No Exam Narrative: GENERAL: Elderly, well-nourished, and in no acute distress. HEAD: Normocephalic, atraumatic. EYES: PERRLA and EOMI. ENT: Nares clear, no rhinorrhea or epistaxis. Mucous membranes moist. Oropharynx without tonsillar hypertrophy exudate or other lesions. Bilateral TMs pearly ha non-bulging NECK: Supple. No adenopathy or masses. No midline cervical spine tenderness CHEST: Clear to auscultation. No respiratory distress. No wheezes rales or rhonchi HEART: Regular rate and rhythm. No murmur heard. Normal peripheral pulses. BACK: No midline thoracic spine tenderness. Tender to palpation of midline lumbar spine EXTREMITIES: Normal range of motion. No edema or obvious deformity. Strength equal in bilateral upper and lower extremities (5/5) SKIN: Warm, dry, no
[2021-03-15] MEDS: traMADol HCL (*CRX) 50 MG TABLET PO (14:30)
[2021-03-15 14:51] VITALS: BP 150/99; PULSE 56; RESP 18; TEMP 36.1; O2SAT 97
== END 2021-03-15 14:45 | disposition home or self-care (01) ==
PROVIDERS: Emergency Provider Emergency Medicine; PCP Internal Medicine
DX: M48.56XA Collapsed vertebra, not elsewhere classified, lumbar region, initial encounter for fracture (principal); I48.0 Paroxysmal atrial fibrillation; I10 Essential (primary) hypertension; E78.5 Hyperlipidemia, unspecified; I25.10 Atherosclerotic heart disease of native coronary artery without angina pectoris; D64.9 Anemia, unspecified; N40.0 Benign prostatic hyperplasia without lower urinary tract symptoms; M10.9 Gout, unspecified; Z85.828 Personal history of other malignant neoplasm of skin; M19.90 Unspecified osteoarthritis, unspecified site; Z95.2 Presence of prosthetic heart valve; Z86.73 Personal history of transient ischemic attack (TIA), and cerebral infarction without residual deficits; Z98.42 Cataract extraction status, left eye; Z98.41 Cataract extraction status, right eye; Z79.01 Long term (current) use of anticoagulants; M47.816 Spondylosis without myelopathy or radiculopathy, lumbar region; W06.XXXA Fall from bed, initial encounter
CPT/HCPCS: 72131; 99284; A9270

== ENCOUNTER 2022-04-20 10:09 | Outpatient (RCR) | payer MEDICARE, SELFPAY ==
--- NOTE | 2022-04-20 11:48 | STOPEVAL1 ---
Assessment and note entered by DARRELL Parkinson Evaluation Information Assessment Status Evaluation Reported Pain Level Pain Score 0: Self Report Assessment ST Clinical Summary Marcelino Rodriguez is an 86 year old male who was referred to our clinic due to dysphonia in his voice for approximately one year. Patient was seen by an ENT and scope indicated boggy tissue in the left false vocal folds. Patient did not demonstrate any difficulty phonating initially, but quickly the vocal folds fatigued. His reports noticing that his pitch has become lower and he is more and more difficult to understand. His voice quality has not worsened (has actually improved in the last week), and does not fluctuate in quality throughout the day or based on the environment. He frequently is required to repeat himself. Patient reports no frustration, but understands that his and caregiver often become frustrated when they cannot understand him. Patient and completed the Voice Handicap Index to determine a vocal quality severity level and how it is impacting their lives. Patient scored a 31 out of 120, indicated a moderate severity level often seen in patient's with vocal nodules, polyps or cysts. Patient's scope indicated no nodules, polyps or cysts on the vocal folds, but excess boggy tissue in the false vocal folds. As patient's respiration and phonation was assessed, it was determined that he has a decreased breath support when producing both voiced and unvoiced sounds. Maximum phonation time was achieved between 4-6 seconds. When assessing endurance with a rapid count to 200, patient ended early due to being out of breath. Patient was able to phonate after taking a breath, but towards the end of the breath he consistently became aphonic until taking his next breath. Patient's vocal quality was mild to moderately hoarse throughout entire evaluation, especially in endurance tasks (rapid count and extended reading passage). Recommend skilled ST services 1x/week for 4 weeks to target breath support and phonation through home exercise progr
--- NOTE | 2022-07-14 11:10 | STOPDC ---
Discharge Summary Patient completed ST evaluation on 04/20/22 for dysphonia and was to schedule skilled ST [facility] [place] location. Patient did not follow through with scheduling his appointments. Patient to be discharged from our ST services at this time. Thank you for referring this patient to [facility]. Assessment and note entered by Alejandra Crocker, WAITER/WAITRESS BAR
== END 2022-07-19 23:59 | disposition home or self-care (01) ==
LOC: ANHGOSHST 10:09
PROVIDERS: PCP Internal Medicine; Visit Provider Otolaryngology
DX: R49.0 Dysphonia (principal)
CPT/HCPCS: 92524

== ENCOUNTER 2022-06-21 12:02 | Outpatient (CLI) | payer MEDICARE, SELFPAY ==
[2022-06-21 12:52] LABS: Hematocrit 38.5 % (42.0-52.0); Hemoglobin 12.8 g/dL (14.0-18.0); Mean Corpuscular HGB Conc 33.2 g/dl (32-36); Mean Corpuscular Hemoglobin 33.3 pg (26-34); Mean Corpuscular Volume 100.3 fl (80-100); Mean Platelet Volume 10.8 fl (7.4-10.4); Platelet Count Result 176 k/mm3 (150-375); Red Blood Count 3.84 M/mm3 (4.6-6.20); Red Cell Distribution Width 14.7 % (11.5-14.5); White Blood Count 8.3 K/mm3 (4.5-10.0)
== END 2022-06-21 12:03 | disposition home or self-care (01) ==
LOC: ANHLAB 12:06
PROVIDERS: PCP Internal Medicine; Visit Provider Internal Medicine Cardiovascular Disease
DX: Z79.01 Long term (current) use of anticoagulants (principal)
CPT/HCPCS: 36415; 85027

== ENCOUNTER 2022-08-30 09:49 | Outpatient (CLI) | payer MEDICARE, SELFPAY ==
[2022-08-30 11:12] LABS: Anion Gap 7 mmol/L (8-16); Blood Urea Nitrogen 23 mg/dL (9-20); Calcium 8.5 mg/dL (8.4-10.2); Carbon Dioxide 27 mmol/L (22-30); Chloride 101 mmol/L (98-107); Estimated Glomerular Filt Rate 48; Glucose 168 mg/dL (65-110); Potassium 3.6 mmol/L (3.4-5.0); Sodium 135 mmol/L (137-145)
[2022-08-30 11:21] LABS: NT Pro B Type Natriuretic Pept 1480 pg/mL (19.9-100)
== END 2022-08-30 09:50 | disposition home or self-care (01) ==
PROVIDERS: PCP Internal Medicine; Visit Provider Internal Medicine Cardiovascular Disease
DX: R60.0 Localized edema (principal); R06.00 Dyspnea, unspecified
CPT/HCPCS: 36415; 80048; 83880

== ENCOUNTER 2022-10-13 15:56 | Inpatient (IN) | payer MEDICARE, SELFPAY ==
--- NOTE | ~2022-10-13 | CT_ITS ---
EXAMINATION: CT abdomen pelvis w con INDICATION: Fever, nonlocalized abdominal pain TECHNIQUE: Computed tomographic images of the abdomen and pelvis were obtained after the administrati on of 100 cc of Omnipaque 350 intravenous contrast. The dose-length product (DLP) was 1770.62 mGy-cm. Automated exposure control and iterative reconstruction technique were employed. COMPARISON: 10/08/2019 FINDINGS: Minimal dependent atelectasis is present in the lung bases. Cardiomegaly is noted. There ar e changes of prior cardiac surgery. There is a small sliding hiatal hernia. There is bilateral gyneco mastia. The gallbladder is distended. There are mild inflammatory change near the gallbladder. Puncta te calcifications in an otherwise normal spleen likely represent healed granulomatous disease. There is a 12 mm cyst of the left hepatic lobe. The pancreas and adrenal glands are normal. Cysts of the le ft kidney measure up to 4.5 cm. There is a 5 mm hemorrhagic cyst of the right kidney lower pole. Ther e is an umbilical hernia containing fat. Severe lumbar spondylosis is noted. There are age-indetermin ate compression fractures of L1, L2, and L3. There is calcified atherosclerosis of the aorta and many of the other arteries. Colonic diverticulosis is present without evidence of diverticulitis. IMPRESSION: 1. Mild gallbladder distention with adjacent inflammatory change which could reflect cholecystitis. C orrelate for right upper quadrant tenderness. 2. Age indeterminate compression fractures of L1, L2, and L3. Reviewed, dictated and finalized at location F. IMPRESSION: 1. Mild gallbladder distention with adjacent inflammatory change which could re flect cholecystitis. Correlate for right upper quadrant tenderness. 2. Age indeterminate compression fractures of L1, L2, and L3.
--- NOTE | ~2022-10-13 | CT_ITS ---
EXAMINATION: CT brain wo con INDICATION: Head injury COMPARISON: 01/19/2021 TECHNIQUE: Standard unenhanced head CT. The dose-length product (DLP) was 605.33 mGy-cm. The mA was a djusted according to patient size. Iterative reconstruction technique was employed. FINDINGS: There is no acute intraparenchymal hemorrhage. No evidence of mass lesion. No evidence of a cute infarction. There is an old infarct in the right frontal lobe. There is mild periventricular and subcortical hypodensity probably related to small vessel ischemic disease. There is mild prominence of the sulci and ventricles related to cerebral atrophy. Intracranial calcified cerebral atherosclero sis is noted. There are no extra-axial collections. There is no mass effect or midline shift. Changes in the globes are likely from ocular lens surgery. The visualized sinuses and mastoid air cells are well aerated. IMPRESSION: 1. 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 2. Age related findings. Reviewed, dictated and finalized at location F.
--- NOTE | ~2022-10-13 | US_ITS ---
EXAMINATION: US perc cholecystostomy w imag DATE: 10/14/2022 16:05 INDICATION: Acute cholecystitis. TECHNIQUE: The procedure including the risks, benefits, and alternatives was discussed with the patie nt's Risks discussed included bleeding including hemobilia, infection, and bile peritonitis. Ora l and written consent were obtained. The skin overlying the gallbladder was prepped and draped in usu al sterile fashion. Anesthetic was administered with 1% lidocaine subcutaneously. An 8.5 Fr cathete r was inserted into the gallbladder by trocar technique. The metal stiffener and trocar needle were r emoved, and the pigtail tip was locked. Bile was aspirated and sent for culture. The catheter was sti tched to the skin with suture. There were no immediate complications. FINDINGS: Ultrasound images demonstrate the catheter within the gallbladder. 7 mL bile was aspirated. IMPRESSION: 1. Successful ultrasound-guided cholecystostomy tube placement. 2. 7 mL black bile was sent for aerobic and anaerobic cultures. 3. The catheter will be managed by Dr. Mcallister. A catheter cholangiogram may be performed not less th an 48 hours after tube placement if clinically indicated to assess cystic duct patency. If cholecyste ctomy is not eventually performed and the infectious episode has resolved, the tube may be removed ov er a guidewire, preferably not less than 3 weeks after placement to allow time for a mature catheter tract to form to prevent bile leakage and peritonitis. Reviewed, dictated and finalized at location A. IMPRESSION: 1. Successful ultrasound-guided cholecystostomy tube placement. 2. 7 mL black bile was sent for aerobic and anaerobic cultures. 3. The catheter will be managed by Dr. Mcallister. A catheter cholangiogram may be performed not less than 48 hours after tube placement if clinically indicated to assess cystic duct patency. If cholecystectomy is not eventually performed a nd the infectious episode has resolved, the tube may be removed over a guidewir e, preferably not less than 3 weeks after placement to allow time for a mature catheter tract to form to prevent bile leakage and peritonitis.
--- NOTE | ~2022-10-13 | NM_ITS ---
Nuclear Medicine Procedure: Hepatobiliary Scan CLINICAL HISTORY: Upper quadrant pain Interpretation: Following intravenous administration of 5.2 mCi. of Technetium-DISIDA, serial images obtained for 60 minutes reveal prompt concentration by the liver which is normal in size and without any focal abnormalities. There is prompt visualization of small bowel. Gallbladder not visualized at 60 minutes. At 60 minutes, 2 mg morphine was administered intravenously. Continued serial imaging demonstrates no evidence of radiotracer entering the gallbladder. Impression: Cystic duct obstruction. Patent common bile duct. Reviewed, dictated and finalized at location M. Impression: Cystic duct obstruction. Patent common bile duct.
--- NOTE | ~2022-10-13 | XR_ITS ---
EXAMINATION: XR chest 2V DATE: 10/13/2022 17:31 INDICATION: Fever TECHNIQUE: AP and lateral views of the chest are obtained. COMPARISON: 08/26/2020 FINDINGS: Cardiomegaly is noted. There are changes of prior cardiac surgery. There is mild atelectasi s of the left lung base. There is severe thoracic spondylosis. IMPRESSION: 1. No acute cardiopulmonary abnormality. Reviewed, dictated and finalized at location F.
[2022-10-13 16:01] VITALS: BP 143/82; PULSE 81; RESP 26; TEMP 36.5; O2SAT 97
[2022-10-13 16:06] VITALS: PULSE 80
[2022-10-13 16:17] LABS: Basophils Percent Auto 0.1 % (0.2-1.2); Hematocrit 40.8 % (42.0-52.0); Hemoglobin 13.5 g/dL (14.0-18.0); Immature Granulocyte Absolute 0.09 K/mm3 (0.00-0.031); Immature Granulocyte Percent A 0.5 % (0-0.5); Lymphocytes Absolute Auto 0.65 K/mm3 (0.9-3.2); Lymphocytes Percent Auto 3.7 % (18.3-44.2); Mean Corpuscular HGB Conc 33.1 g/dl (32-36); Mean Corpuscular Hemoglobin 33.3 pg (26-34); Mean Corpuscular Volume 100.7 fl (80-100); Mean Platelet Volume 10.2 fl (7.4-10.4); Monocytes Absolute Auto 1.1 K/mm3 (0.1-0.6); Monocytes Percent Auto 6.1 % (2.6-8.5); Neutrophils Absolute Auto 15.9 K/mm3 (1.3-6.7); Neutrophils Percent Auto 89.6 % (45.5-73.1); Platelet Count Result 170 k/mm3 (150-375); Red Blood Count 4.05 M/mm3 (4.6-6.20); Red Cell Distribution Width 14.4 % (11.5-14.5); White Blood Count 17.7 K/mm3 (4.5-10.0)
[2022-10-13 16:27] LABS: Alanine Aminotransferase 25 U/L (6-50); Albumin Level 4.4 g/dL (3.5-5.1); Alkaline Phosphatase 90 U/L (38-126); Anion Gap 11 mmol/L (8-16); Aspartate Amino Transferase 35 U/L (17-59); Bilirubin,Total 1.4 mg/dL (0.2-1.3); Blood Urea Nitrogen 23 mg/dL (9-20); Calcium 8.7 mg/dL (8.4-10.2); Carbon Dioxide 28 mmol/L (22-30); Chloride 96 mmol/L (98-107); Estimated CRCL calculation 43 ml/min; Estimated Glomerular Filt Rate 52; Glucose 214 mg/dL (65-110); Potassium 3.2 mmol/L (3.4-5.0); Sodium 135 mmol/L (137-145)
[2022-10-13] MEDS: SODIUM CHLORIDE 0.9% IV 1,000 ML 999 ML IV CONT (16:54)
[2022-10-13 17:16] LABS: Appearance Urine Clear (Clear); Bacteria Urine None Seen /hpf; Bilirubin Urine Negative (Negative); Blood Urine Negative (Negative); Color Urine Yellow (Yellow); Glucose Urine UA Negative (Negative); Ketones Urine Negative (Negative); Leukocyte Esterase Ur Negative LEU/UL (Negative); Need Manual Microscopic Reviewed; Nitrate Urine Negative (Negative); Protein Urine 1+ mg/dL (Negative); RBC Urine 0-2 /hpf (0-2); Squamous Epithelial Cell Urine None seen /hpf (Few); Urobilinogen Urine 0.2 mg/dL (<2.0); WBC Urine 0-5 /hpf
[2022-10-13 17:17] LABS: Add Urine Microscopic? YES
--- NOTE | 2022-10-13 17:21 | ED.GENADULT ---
HPI - General Adult General Chief complaint: Weakness Stated complaint: FEVER, LETHARGY Time Seen by Provider: 10/13/22 16:07 History of Present Illness HPI narrative: Patient is an 87-year-old male who presents ER with weakness. He has had multiple falls today according to the . She is unsure if he has struck his head. He is on a blood thinner. Patient began developing fever today as well. She reports over the last 3 days he has been vomiting and having diarrhea. Patient has an umbilical hernia that reports is chronic and unchanged. No known sick contacts. No runny nose or sore throat or cough. Patient only oriented x1-2 due to dementia. Related Data Home Medications Medication Instructions Recorded Confirmed allopurinol 300 mg tablet 300 mg PO DAILY 05/22/19 05/05/22 atorvastatin 40 mg tablet 40 mg PO DAILY 05/22/19 05/05/22 finasteride 5 mg tablet 5 mg PO DAILY 05/22/19 05/05/22 furosemide 40 mg tablet 60 mg PO DAILY 05/22/19 05/05/22 multivitamin with minerals-folic 1 tablet PO DAILY 05/22/19 05/05/22 acid 0.4 mg tablet (Adult One Daily Multivitamin) cholecalciferol (vitamin D3) 125 5,000 unit PO DAILY 10/09/19 05/05/22 mcg (5,000 unit) tablet (Vitamin D3) cetirizine 10 mg tablet (Zyrtec) 10 mg PO DAILY 08/26/20 05/05/22 rivaroxaban 20 mg tablet (Xarelto) 20 mg PO QPM 08/26/20 05/05/22 acetaminophen 325 mg capsule 325 mg PO Q6H PRN 04/05/22 05/05/22 (Tylenol) escitalopram oxalate 5 mg tablet 5 mg PO DAILY 04/05/22 05/05/22 Allergies Allergy/AdvReac Type Severity Reaction Status Date / Time No Known Allergies Allergy Unknown Verified 05/05/22 13:59 Review of Systems Review of Systems: ROS unobtainable: Yes unobtainable due to mental status [facility] Past Medical History Medical History Arthritis Basal cell carcinoma Benign prostatic hyperplasia Cerebrovascular accident 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 Chronic anemia Coronary artery disease Current use of ocean transportation intermediary anticoagulation Depression Gout Hyperlipidemia Hypertension Paroxysmal atrial fibrillation QT prolongation Seasonal allergies Shingles (~09/2018) Transient ischemic attack 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 Surgical History Surgical History History of aortic valve replacement History of bilateral cataract extraction History of cardiac catheterization History of coronary artery bypass graft (~01/28/19) History of mitral valve replacement History of surgical removal of skin lesion x2 S/P aortic valve replacement with bioprosthetic valve Status post surgical removal of malignant neoplasm of skin Excision of basal cell carcinoma x2. Family History Family History Father Abdominal aneurysm, ruptured Heart disease Mother Heart disease Other Heart disease Social History Social History Social History: Surrogate decision maker: Ashley Rodriguez, . Code status: Full code. Smoking status: Never smoker Alcohol intake: current Drinks per week: 7 Substance use: never Substance use type: does not use Additional living arrangements comments: The patient lives in [place] with his . Spiritual care concerns: No Agree to blood products: No Exam Narrative: GENERAL: Chronically ill-appearing, well-nourished, and in no acute distress. HEAD: Normocephalic, atraumatic. EYES: PERRL and EOMI. ENT: Mucous membranes moist. CHEST: Clear to auscultation. No respiratory distress. HEART: Regular rate and rhythm. Normal peripheral pulses. ABDOMEN: Soft, mild tenderness right upper quadrant, nondistended, umbilical hernia that is soft and reducible. EXTREMITIES: Normal range of motion. No edema.
[2022-10-13 17:35] LABS: Influenza A QL RT-PCR Negative (Negative); Influenza B QL RT-PCR Negative (Negative); SARS-CoV-2 RNA PCR Negative
[2022-10-13] MEDS: PIPERACILLN/TAZ 3.375GM/NS50ML 3.375 GM/50 ML BAG IVPB ×2 (18:45→23:20)
--- NOTE | 2022-10-13 19:36 | PM.IMHP ---
H&P: HPI History of Present Illness Date/Time: 10/13/22 19:36 Chief Complaint: Weakness Narrative: This is an 87-year-old male patient who lives with his who is 89 years old. The patient has a history of dementia and has had multiple falls. She is unsure if he struck his head. It he is on a blood thinner. The patient developed a fever today. Over the last 3 days the patient has had nausea vomiting and diarrhea. He does have a chronic umbilical hernia that has been unchanged. No known sick contacts. The patient is typically orientated to person and place. His white count was noted to be 17.7. Abdominal CT was read as Mild gallbladder distention with adjacent inflammatory change which could reflect cholecystitis. Correlate for right upper quadrant tenderness. 2. Age indeterminate compression fractures of L1, L2, and L3. The patient's stated she was aware of the compression fractures of L1-L2 and L3. Head CT was read as?Old right frontal lobe infarct without acute intracranial abnormality. 2. Age related findings. The also stated that she was aware of the old strokes. Chest x-ray was read as no acute cardiopulmonary abnormality. Surgery had been consulted. The patient was given IV fluids and Zosyn. The patient is being admitted to observation status on the date of service of 10/13/2022 Review of Systems Review of Systems: All systems reviewed & are unremarkable except as noted in HPI and below Constitutional: Constitutional: Reports as per HPI and Reports no additional constitutional complaints Eyes: Eyes: Reports as per HPI and Reports no additional eye complaints ENT: Reports system reviewed and no additional complaints, except as documented and Reports Normal hearing present Cardiovascular: Cardiovascular: Reports no additional cardiovascular complaints Respiratory: Respiratory: Reports no additional respiratory complaints and Reports no additional respiratory complaints Gastrointestinal: Gastrointestinal: Reports as per HPI and Reports no additional gastrointestinal complaints Musculoskeletal: Musculoskeletal: Reports no additional musculoskeletal complaints Integumentary/Breasts: Skin/Breast: Reports system reviewed and no additional complaints, except as docu and Reports as per HPI Neurologic: Reports system reviewed and no additional complaints, except as documented, Reports as per HPI and Reports Normal hearing present Psychiatric: Psychiatric: Reports no additional psychiatric complaints and Reports as per HPI Endocrine: Endocrine: Reports no additional endocrine complaints Hematologic/Lymphatic: Hematologic/Lymphatic: Reports no additional hematologic/lymphatic complaints Allergic/Immunologic: Allergic/Immunologic: Reports no additional allergic/immunologic complaints [facility] Past Medical History Medical History (Updated 10/13/22 @ 23:09 by Germania Jorgensen NP) Arthritis Basal cell carcinoma Benign prostatic hyperplasia Cerebrovascular accident 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 Chronic anemia Coronary artery disease Current use of intermediate designer anticoagulation Depression Gout Hyperlipidemia Hypertension Paroxysmal atrial fibrillation QT prolongation Seasonal allergies Shingles (~09/2018) Transient ischemic attack 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 Surgical History Surgical History (Updated 10/13/22 @ 22:58 by Germania Jorgensen NP) H/O cataract extraction History of aortic valve replacement History of bilateral cataract extraction History of cardiac catheterization History of mitral valve replacement History of surgical removal of skin lesion x2 S/P aortic valve replacement with bioprosthetic valve Status post surgical removal of malignant neoplasm of skin Excision of basal cell carcinoma x2. Family History Family History Father Abdominal aneurysm, r
[2022-10-13 22:00] VITALS: BP 153/93; PULSE 85; RESP 18; TEMP 37.4; O2SAT 96
[2022-10-13] MEDS: SODIUM CHLORIDE 0.9% IV 1,000 ML 125 ML IV CONT (23:15)
[2022-10-14] MEDS: PIPERACILLN/TAZ 3.375GM/NS50ML 3.375 GM/50 ML BAG IVPB ×3 (05:21→17:02)
[2022-10-14] MEDS: SODIUM CHLORIDE 0.9% IV 1,000 ML 125 ML IV CONT (05:23)
[2022-10-14 05:38] VITALS: BP 161/109
[2022-10-14 05:40] VITALS: BP 164/82; PULSE 76; RESP 18; TEMP 36.3; O2SAT 96
[2022-10-14] MEDS: hydrALAZINE HCL 20 MG/ML VIAL 10 MG IV PUSH (05:57)
[2022-10-14 06:25] LABS: Basophils Percent Auto 0.1 % (0.2-1.2); Immature Granulocyte Absolute 0.15 K/mm3 (0.00-0.031); Immature Granulocyte Percent A 0.8 % (0-0.5); Lymphocytes Percent Auto 4.3 % (18.3-44.2); Mean Corpuscular HGB Conc 33.3 g/dl (32-36); Mean Corpuscular Hemoglobin 33.1 pg (26-34); Mean Corpuscular Volume 99.2 fl (80-100); Mean Platelet Volume 10.6 fl (7.4-10.4); Monocytes Absolute Auto 1.5 K/mm3 (0.1-0.6); Neutrophils Absolute Auto 16.2 K/mm3 (1.3-6.7); Neutrophils Percent Auto 86.8 % (45.5-73.1); Platelet Count Result 159 k/mm3 (150-375); Red Blood Count 3.63 M/mm3 (4.6-6.20); Red Cell Distribution Width 14.5 % (11.5-14.5); White Blood Count 18.7 K/mm3 (4.5-10.0)
[2022-10-14 06:36] LABS: Lactic Acid Reflex 1.2 mmol/L (0.7-2.0)
[2022-10-14 06:40] LABS: Lipase 53 U/L (23-300); Magnesium 1.9 mg/dL (1.6-2.3)
[2022-10-14 08:00] VITALS: BP 126/73; TEMP 36.8
--- NOTE | 2022-10-14 10:18 | PM.IMPN ---
Progress Note: A&P Assessment and Plan (1) Acute cholecystitis: Code(s): K81.0 - Acute cholecystitis Status: Acute Assessment and Plan: The patient is NPO at this time. Has an elevated white count of 17.7. Surgery has been consulted. Continue on Zosyn Blood cultures are pending Plan for HIDA scan today The is the durable power environmental attorney and would like to talk to the surgeon prior to any procedures. Continue with IV fluids although use caution with fluids as the patient has 4+ pitting edema. Continue with analgesics P.r.n. Zofran monitor QT interval. (2) Benign prostatic hyperplasia: Code(s): N40.0 - Benign prostatic hyperplasia without lower urinary tract symptoms Status: Acute Assessment and Plan: The patient is NPO at this time and no medications will be given at this time. The patient is typically on finasteride. (3) S/P aortic valve replacement with bioprosthetic valve: Code(s): Z95.3 - Presence of xenogenic heart valve Status: Acute Assessment and Plan: The patient has had aortic as well as a mitral valve replacement. According to Dr. Benson jimenes no he has a history of bioprosthetic aortic valve replacement with mitral valve repair? (4) Hypertension: Code(s): I10 - Essential (primary) hypertension Status: Chronic Assessment and Plan: Patient is NPO at this time. P.r.n. hydralazine (5) Atrial fibrillation: Code(s): I48.91 - Unspecified atrial fibrillation Status: Acute Assessment and Plan: Xarelto will be placed on hold at this time due to his NPO status Patient's heart rate is in the 80s. (6) Depression: Code(s): F32.9 - Major depressive disorder, single episode, unspecified Status: Acute Assessment and Plan: Patient is NPO at this time. He is typically on Lexapro. Subjective Date/time seen: 10/14/22 10:18 Patient denies any symptoms at this time Review of Systems Review of Systems: All systems reviewed & are unremarkable except as noted in HPI and below Constitutional: Constitutional: Reports as per HPI and Reports no additional constitutional complaints Eyes: Eyes: Reports as per HPI and Reports no additional eye complaints ENT: Reports system reviewed and no additional complaints, except as documented and Reports Normal hearing present Cardiovascular: Cardiovascular: Reports no additional cardiovascular complaints Respiratory: Respiratory: Reports no additional respiratory complaints and Reports no additional respiratory complaints Gastrointestinal: Gastrointestinal: Reports as per HPI and Reports no additional gastrointestinal complaints Musculoskeletal: Musculoskeletal: Reports no additional musculoskeletal complaints Integumentary/Breasts: Skin/Breast: Reports system reviewed and no additional complaints, except as docu and Reports as per HPI Neurologic: Reports system reviewed and no additional complaints, except as documented, Reports as per HPI and Reports Normal hearing present Psychiatric: Psychiatric: Reports no additional psychiatric complaints and Reports as per HPI Endocrine: Endocrine: Reports no additional endocrine complaints Hematologic/Lymphatic: Hematologic/Lymphatic: Reports no additional hematologic/lymphatic complaints Allergic/Immunologic: Allergic/Immunologic: Reports no additional allergic/immunologic complaints Exam Const: General: cooperative, healthy appearing, comfortable, no acute distress, well developed, awake, Physically active, average body habitus and well nourished Nutritional Appearance: average body habitus and well nourished Orientation/consciousness: oriented to person and oriented to place Limitations: no limitations HENMT: Head: normal to inspection, No palpable skull fracture present, normocephalic and atraumatic Ears: hearing grossly normal bilaterally and external ears normal Face/Nose/Sinus: Normal external nose present and Normal
[2022-10-14] MEDS: MORPHINE SULFATE (*CRX) 2 MG/ML INJ IV PUSH (11:27)
[2022-10-14 13:11] LABS: INR 1.4; Partial Thromboplastin Time 25.8 SECONDS (22.3-36.8)
[2022-10-14 14:00] VITALS: BP 104/73; PULSE 82; RESP 18; TEMP 37.1; O2SAT 95
[2022-10-14 14:15] VITALS: O2SAT 93
--- NOTE | 2022-10-14 17:43 | PM.CNGS ---
Assessment and Plan Assessment and plan (1) Acute cholecystitis: Code(s): K81.0 - Acute cholecystitis Status: Acute Assessment and Plan: Patient has evidence of acute cholecystitis. He is an overall poor surgical candidate given his multiple medical problems and advanced age. He is on anticoagulation which would increase his bleeding risk for any major surgical intervention. Due to findings of acute cholecystitis and elevated white blood count, I ordered ultrasound-guided cholecystostomy tube placement to be performed by Interventional Radiology. This was done this afternoon and he is now back up to the surgical floor. Will continue to manage the cholecystostomy tube at this time and continue broad-spectrum IV antibiotics. Hopefully cholecystostomy tube will be able to be removed at some point but there will be risks of recurrent cholecystitis in the future. 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 He also has been experiencing multiple falls and started having a fever yesterday. He was noted to have an elevated white blood count and CT in the emergency department showed evidence of a distended gallbladder concerning for cholecystitis. He was then admitted for further treatment. HIDA scan was obtained this morning and showed complete occlusion of the cystic duct. Review of Systems Review of Systems: All systems reviewed & are unremarkable except as noted in HPI and below Constitutional: Constitutional: Reports fever(s) Eyes: Eyes: Denies change in vision ENT: Denies hearing loss, Denies neck pain and Denies sore throat Cardiovascular: Cardiovascular: Denies chest pain and Denies dyspnea Respiratory: Respiratory: Denies cough, Denies dyspnea and Denies wheezing Gastrointestinal: Gastrointestinal: Reports as per HPI Genitourinary: Genitourinary: Denies hematuria and Denies dysuria Musculoskeletal: Musculoskeletal: Denies arthralgias, Denies joint swelling and Denies neck pain Allergic/Immunologic: Allergic/Immunologic: Denies wheezing [facility] Past Medical History Medical History (Updated 10/13/22 @ 23:09 by Germania Jorgensen NP) Arthritis Basal cell carcinoma Benign prostatic hyperplasia Cerebrovascular accident 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 Chronic anemia Coronary artery disease Current use of alf anticoagulation Depression Gout Hyperlipidemia Hypertension Paroxysmal atrial fibrillation QT prolongation Seasonal allergies Shingles (~09/2018) Transient ischemic attack 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 Surgical History Surgical History (Updated 10/13/22 @ 22:58 by Germania Jorgensen NP) H/O cataract extraction History of aortic valve replacement History of bilateral cataract extraction History of cardiac catheterization History of mitral valve replacement History of surgical removal of skin lesion x2 S/P aortic valve replacement with bioprosthetic valve Status post surgical removal of malignant neoplasm of skin Excision of basal cell carcinoma x2. 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 He has 5 children. He ena
[2022-10-14 22:00] VITALS: BP 108/62; PULSE 66; RESP 18; TEMP 36.6; O2SAT 95
[2022-10-15] MEDS: PIPERACILLN/TAZ 3.375GM/NS50ML 3.375 GM/50 ML BAG IVPB ×4 (00:21→17:18)
[2022-10-15] MEDS: SODIUM CHLORIDE 0.9% IV 1,000 ML 75 ML IV CONT (00:24)
[2022-10-15 05:28] VITALS: BP 98/66; PULSE 62; RESP 18; TEMP 36.3; O2SAT 93
[2022-10-15 09:37] LABS: Basophils Percent Auto 0.3 % (0.2-1.2); Eosinophils Absolute Auto 0.1 K/mm3 (0-0.3); Eosinophils Percent Auto 0.9 % (0-4.4); Hematocrit 35.3 % (42.0-52.0); Hemoglobin 11.6 g/dL (14.0-18.0); Immature Granulocyte Absolute 0.06 K/mm3 (0.00-0.031); Immature Granulocyte Percent A 0.5 % (0-0.5); Immature Platelet Fraction Pct 5.8 % (0.9-11.2); Lymphocytes Absolute Auto 1.02 K/mm3 (0.9-3.2); Lymphocytes Percent Auto 8.8 % (18.3-44.2); Mean Corpuscular HGB Conc 32.9 g/dl (32-36); Mean Corpuscular Hemoglobin 33.5 pg (26-34); Mean Platelet Volume 10.9 fl (7.4-10.4); Monocytes Absolute Auto 0.8 K/mm3 (0.1-0.6); Monocytes Percent Auto 7.2 % (2.6-8.5); Neutrophils Absolute Auto 9.6 K/mm3 (1.3-6.7); Neutrophils Percent Auto 82.3 % (45.5-73.1); Platelet Count Result 138 k/mm3 (150-375); Red Blood Count 3.46 M/mm3 (4.6-6.20); Red Cell Distribution Width 14.6 % (11.5-14.5); White Blood Count 11.6 K/mm3 (4.5-10.0)
[2022-10-15 09:49] LABS: Alanine Aminotransferase 18 U/L (6-50); Albumin Level 3.1 g/dL (3.5-5.1); Alkaline Phosphatase 76 U/L (38-126); Anion Gap 9 mmol/L (8-16); Aspartate Amino Transferase 24 U/L (17-59); Bilirubin,Total 1.1 mg/dL (0.2-1.3); Blood Urea Nitrogen 27 mg/dL (9-20); Calcium 7.5 mg/dL (8.4-10.2); Carbon Dioxide 28 mmol/L (22-30); Chloride 100 mmol/L (98-107); Estimated CRCL calculation 36 ml/min; Estimated Glomerular Filt Rate 41; Glucose 181 mg/dL (65-110); Sodium 137 mmol/L (137-145)
[2022-10-15] MEDS: POTASSIUM CHLORIDE 20 MEQ TABLET 80 MEQ PO (10:30)
--- NOTE | 2022-10-15 10:31 | PM.IMPN ---
Progress Note: A&P Assessment and Plan (1) Acute cholecystitis: Code(s): K81.0 - Acute cholecystitis Status: Acute Assessment and Plan: Surgery has been consulted. Patient has a cholecystostomy tube Continue on Zosyn Continue with analgesics P.r.n. Zofran monitor QT interval. (2) Benign prostatic hyperplasia: Code(s): N40.0 - Benign prostatic hyperplasia without lower urinary tract symptoms Status: Acute Assessment and Plan: Resume finasteride. (3) S/P aortic valve replacement with bioprosthetic valve: Code(s): Z95.3 - Presence of xenogenic heart valve Status: Acute Assessment and Plan: Hold Xarelto for now (4) Hypertension: Code(s): I10 - Essential (primary) hypertension Status: Chronic Assessment and Plan: P.r.n. hydralazine. Hold Lasix for now (5) Atrial fibrillation: Code(s): I48.91 - Unspecified atrial fibrillation Status: Acute Assessment and Plan: Xarelto will be placed on hold at this time (6) Depression: Code(s): F32.9 - Major depressive disorder, single episode, unspecified Status: Acute Assessment and Plan: Resume lexapro. Subjective Date/time seen: 10/15/22 10:31 Patient wants to go home. No abdominal pain Review of Systems Review of Systems: All systems reviewed & are unremarkable except as noted in HPI and below Eyes: Eyes: Denies change in vision ENT: Denies hearing loss, Denies neck pain and Denies sore throat Cardiovascular: Cardiovascular: Denies chest pain and Denies dyspnea Respiratory: Respiratory: Denies cough, Denies dyspnea and Denies wheezing Gastrointestinal: Gastrointestinal: Reports as per HPI Genitourinary: Genitourinary: Denies hematuria and Denies dysuria Musculoskeletal: Musculoskeletal: Denies arthralgias, Denies joint swelling and Denies neck pain Allergic/Immunologic: Allergic/Immunologic: Denies wheezing Exam Const: General: alert; No acute distress Orientation/consciousness: patient oriented x3 Limitations: no limitations HENMT: Head: normocephalic and atraumatic Ears: hearing grossly normal bilaterally Face/Nose/Sinus: Normal external nose present and Normal nares present Mouth: Yes Normal oral and palatal mucosa present and Yes moist mucous membranes Eyes: General: appearance normal, both eyes and all related structures Conjunctivae: conjunctivae normal Sclera: sclerae normal Pupils: Equal, round and reactive pupils present EOM: EOMs intact bilaterally Neck: Neck: normal visual inspection, full ROM, no lymphadenopathy, supple and no JVD Lymphatic: no lymphadenopathy noted Chest: Chest palpation & inspection: normal inspection of the chest Resp: Effort & Inspection: normal respiratory effort and able to speak in complete sentences Auscultation: clear to auscultation bilaterally Percussion: percussion normal Cardio: Jugular venous distension: no JVD Rate: regular rate Rhythm: regular rhythm Heart sounds: S1 normal heart sound present and S2 normal heart sound present Peripheral pulses: Peripheral pulses 2+ throughout GI: Inspection: normal to inspection GI Palp: Yes abdominal tenderness, Yes Soft to palpation, Yes Tenderness to palpation present (GI) (Right upper quadrant), No Guarding due to palpation present (GI), No Hernia present and No Rebound tenderness present Percussion: Yes normal to percussion Auscultation: normal bowel sounds : General: Yes no CVA tenderness Back/Spine/Pelvis: Back: no CVA tenderness Skin: General skin exam: normal color and dry skin Neuro: General: patient oriented x3, gait normal, moves all extremities, no focal motor deficits and CN's II-XI intact bilaterally Cranial nerves: Yes Equal, round and reactive pupils present Speech: normal speech Extrem: General: normal to inspection and capillary refill normal Objective Data Vital Signs Vital Signs: Vital Signs - 24 hr 10/14/22 14:15 10/14
[2022-10-15] MEDS: SODIUM CHLORIDE 0.9% IV 1,000 ML 50 ML IV CONT (11:02)
[2022-10-15] MEDS: ESCITALOPRAM OXALATE 5 MG TABLET PO (11:10)
--- NOTE | 2022-10-15 11:54 | PM.PNGS ---
Progress Note: A&P Assessment and Plan (1) Acute cholecystitis: Code(s): K81.0 - Acute cholecystitis Status: Acute Assessment and Plan: Doing well with drain placed so far. OK to resume anticoagulation tomorrow if no more significant bleeding into cholecystostomy tube. Continue IV antibiotics. Possibly home with drain in 1-2 days if continuing to improve. (2) S/P aortic valve replacement with bioprosthetic valve: Code(s): Z95.3 - Presence of xenogenic heart valve Status: Acute (3) Anticoagulated: Code(s): Z79.01 - half-way (current) use of anticoagulants Status: Acute Subjective Subjective Date/Time Seen: 10/15/22 11:54 Interval history: Tolerating diet. Pain, nausea, and vomiting improved. No fevers. Exam GI: Inspection: other (Bile drain with minimal bilious output with blood tinge) GI Palp: Yes Soft to palpation, No Tenderness to palpation present (GI) and No Guarding due to palpation present (GI) Objective Data Vital Signs Vital Signs: Vital Signs - 24 hr 10/14/22 14:15 10/14/22 14:00 10/14/22 22:00 Temperature 37.1 C 36.6 C Pulse Rate 82 66 Respiratory Rate 18 18 Blood Pressure 104/73 108/62 Pulse Oximetry 93 95 95 Oxygen Delivery Room Air 10/15/22 05:28 10/15/22 08:00 Temperature 36.3 C L Pulse Rate 62 Respiratory Rate 18 Blood Pressure 98/66 L Pulse Oximetry 93 Oxygen Delivery Room Air Intake/Output Intake/Output: Intake & Output 10/12/22 10/13/22 10/14/22 10/15/22 23:59 23:59 23:59 23:59 Intake Total 1100 2290 2450 Output Total 1097 1070 Balance 1100 1193 1380 Meds/Results Medications: Active Medications Generic Name Dose Route Start Last Admin Trade Name Freq PRN Reason Stop Dose Admin Atorvastatin Calcium 40 mg 10/15/22 21:00 Atorvastatin 40 Mg Tablet PO HS [facility] Escitalopram Oxalate 5 mg 10/15/22 10:40 10/15/22 11:10 Escitalopram Oxalate 5 Mg Tablet PO 5 mg DAILY LUKAS Administration Finasteride 5 mg 10/15/22 21:00 Finasteride 5 Mg Tablet PO HS LUKAS Hydralazine HCl 10 mg 10/13/22 23:08 10/14/22 05:57 Hydralazine Hcl 20 Mg/Ml Vial IV PUSH 10 mg Q8H PRN Administration Blood Pressure - High Piperacillin/Tazobactam/Dextrose 3.375 gm in 50 mls @ 100 mls/hr 10/14/22 00:00 10/15/22 08:49 Zosyn 3.375 Gm/Ns 50 Ml IVPB Infused Q6H LUKAS Infusion Sodium Chloride 1,000 mls @ 50 mls/hr 10/13/22 18:30 10/15/22 11:02 Normal Saline Iv IV CONT 75 mls/hr .Q20H LUKAS Administration Morphine Sulfate 4 mg 10/13/22 18:30 Morphine Sulfate (*Crx) 4 Mg/Ml Inj IV PUSH Q2H PRN Pain Rated 7-10 Ondansetron HCl 4 mg 10/13/22 18:30 Ondansetron Inj 4 Mg/2 Ml Vial IV PUSH Q4H PRN Nausea Radiology Results: ITS Impressions Chest X-Ray 10/13/22 17:36 IMPRESSION: 1. No acute cardiopulmonary abnormality. Head CT 10/13/22 18:00 IMPRESSION: 1. 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 2. Age related findings. Abdomen/Pelvis CT 10/13/22 18:07 IMPRESSION: 1. Mild gallbladder distention with adjacent inflammatory change which could reflect cholecystitis. Correlate for right upper quadrant tenderness. 2. Age indeterminate compression fractures of L1, L2, and L3. Hepatobiliary Scan Nuclear Medicine 10/14/22 12:48 Impression: Cystic duct obstruction. Patent common bile duct. Cholecystostomy 10/14/22 16:08 IMPRESSION: 1. Successful ultrasound-guided cholecystostomy tube placement. 2. 7 mL black bile was sent for aerobic and anaerobic cultures. 3. The catheter will be managed by Dr. Mcallister. A catheter cholangiogram may be performed not less than 48 hours after tube placement if clinically indicated to assess cystic duct patency. If cholecystectomy is not eventually performed and the infectious episode has resolved, the tube may be removed over a guidewire, preferably no
[2022-10-15 14:00] VITALS: BP 118/74; PULSE 80; RESP 18; TEMP 35.7; O2SAT 98
[2022-10-15] MEDS: ACETAMINOPHEN 325 MG TABLET 650 MG PO (15:07)
[2022-10-15] MEDS: FINASTERIDE 5 MG TABLET PO (20:50)
[2022-10-15] MEDS: ATORVASTATIN 40 MG TABLET PO (20:50)
[2022-10-15 21:27] VITALS: BP 161/92; PULSE 64; RESP 18; TEMP 36.2; O2SAT 96
[2022-10-16] MEDS: PIPERACILLN/TAZ 3.375GM/NS50ML 3.375 GM/50 ML BAG IVPB ×3 (00:05→12:13)
[2022-10-16 05:15] VITALS: BP 163/89; PULSE 65; RESP 18; TEMP 36.2; O2SAT 97
[2022-10-16] MEDS: ACETAMINOPHEN 325 MG TABLET 650 MG PO ×2 (06:33→21:05)
[2022-10-16 08:00] VITALS: O2SAT 97
[2022-10-16] MEDS: ESCITALOPRAM OXALATE 5 MG TABLET PO (09:34)
--- NOTE | 2022-10-16 11:01 | PM.PNGS ---
Progress Note: A&P Assessment and Plan (1) Acute cholecystitis: Code(s): K81.0 - Acute cholecystitis Status: Acute Assessment and Plan: Drain functioning properly. OK to resume anticoagulation. OK to discharge from surgical standpoint. Follow up in office in 2 weeks to assess drain and plan for cholangiogram through cholecystostomy tube. Patient does not want to have surgery. (2) S/P aortic valve replacement with bioprosthetic valve: Code(s): Z95.3 - Presence of xenogenic heart valve Status: Acute (3) Anticoagulated: Code(s): Z79.01 - long-term (current) use of anticoagulants Status: Acute Subjective Subjective Date/Time Seen: 10/16/22 11:01 Interval history: Tolerating low fat diet. Occasional abdominal pain, otherwise doing well. No fevers. Exam GI: Inspection: other (Bile drain with minimal bilious output with blood tinge) GI Palp: Yes Soft to palpation, No Tenderness to palpation present (GI) and No Guarding due to palpation present (GI) Objective Data Vital Signs Vital Signs: Vital Signs - 24 hr 10/15/22 14:00 10/15/22 15:28 10/15/22 21:27 Temperature 35.7 C L 36.2 C L Pulse Rate 80 64 Respiratory Rate 18 18 Blood Pressure 118/74 161/92 H Pulse Oximetry 98 96 Oxygen Delivery Room Air 10/16/22 05:15 Temperature 36.2 C L Pulse Rate 65 Respiratory Rate 18 Blood Pressure 163/89 H Pulse Oximetry 97 Oxygen Delivery Intake/Output Intake/Output: Intake & Output 10/13/22 10/14/22 10/15/22 10/16/22 23:59 23:59 23:59 23:59 Intake Total 1100 2290 4010 640 Output Total 1097 1930 450 Balance 1100 1193 2080 190 Meds/Results Medications: Active Medications Generic Name Dose Route Start Last Admin Trade Name Freq PRN Reason Stop Dose Admin Acetaminophen 650 mg 10/15/22 14:55 10/16/22 06:33 Acetaminophen 325 Mg Tablet PO 650 mg Q6H PRN Administration Mild Pain (1-3) or Fever Atorvastatin Calcium 40 mg 10/15/22 21:00 10/15/22 20:50 Atorvastatin 40 Mg Tablet PO 40 mg HS LUKAS Administration Escitalopram Oxalate 5 mg 10/15/22 10:40 10/16/22 09:34 Escitalopram Oxalate 5 Mg Tablet PO 5 mg DAILY LUKAS Administration Finasteride 5 mg 10/15/22 21:00 10/15/22 20:50 Finasteride 5 Mg Tablet PO 5 mg HS LUKAS Administration Hydralazine HCl 10 mg 10/13/22 23:08 10/14/22 05:57 Hydralazine Hcl 20 Mg/Ml Vial IV PUSH 10 mg Q8H PRN Administration Blood Pressure - High Piperacillin/Tazobactam/Dextrose 3.375 gm in 50 mls @ 100 mls/hr 10/14/22 00:00 10/16/22 09:33 Zosyn 3.375 Gm/Ns 50 Ml IVPB Infused Q6H LUKAS Infusion Sodium Chloride 1,000 mls @ 50 mls/hr 10/13/22 18:30 10/15/22 11:02 Normal Saline Iv IV CONT 50 mls/hr .Q20H LUKAS Administration Morphine Sulfate 4 mg 10/13/22 18:30 Morphine Sulfate (*Crx) 4 Mg/Ml Inj IV PUSH Q2H PRN Pain Rated 7-10 Ondansetron HCl 4 mg 10/13/22 18:30 Ondansetron Inj 4 Mg/2 Ml Vial IV PUSH Q4H PRN Nausea Radiology Results: ITS Impressions Chest X-Ray 10/13/22 17:36 IMPRESSION: 1. No acute cardiopulmonary abnormality. Head CT 10/13/22 18:00 IMPRESSION: 1. 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 2. Age related findings. Abdomen/Pelvis CT 10/13/22 18:07 IMPRESSION: 1. Mild gallbladder distention with adjacent inflammatory change which could reflect cholecystitis. Correlate for right upper quadrant tenderness. 2. Age indeterminate compression fractures of L1, L2, and L3. Hepatobiliary Scan Nuclear Medicine 10/14/22 12:48 Impression: Cystic duct obstruction. Patent common bile duct. Cholecystostomy 10/14/22 16:08 IMPRESSION: 1. Successful ultrasound-guided cholecystostomy tube placement. 2. 7 mL black bile was sent for aerobic and anaerobic cultures. 3. The catheter will be managed by Dr. Mcallister. A catheter cholangiogram may be
[2022-10-16] MEDS: SODIUM CHLORIDE 0.9% IV 1,000 ML 50 ML IV CONT (12:00)
--- NOTE | 2022-10-16 13:16 | PM.IMPN ---
Progress Note: A&P Assessment and Plan (1) Acute cholecystitis: Code(s): K81.0 - Acute cholecystitis Status: Acute Assessment and Plan: Appreciate general surgery consultation, continue Zosyn, started 10/15, continue cholecystostomy tube Follow-up blood cultures Okay to discharge 10/16 per surgery, will send out on Cipro plus Flagyl (2) Benign prostatic hyperplasia: Code(s): N40.0 - Benign prostatic hyperplasia without lower urinary tract symptoms Status: Acute Assessment and Plan: Resume finasteride. (3) S/P aortic valve replacement with bioprosthetic valve: Code(s): Z95.3 - Presence of xenogenic heart valve Status: Acute Assessment and Plan: Xarelto we started today 10/16 (4) Hypertension: Code(s): I10 - Essential (primary) hypertension Status: Chronic Assessment and Plan: P.r.n. hydralazine. Hold Lasix for now Monitor fluid status (5) Atrial fibrillation: Code(s): I48.91 - Unspecified atrial fibrillation Status: Acute Assessment and Plan: Okay to restart Xarelto today per surgery (6) Depression: Code(s): F32.9 - Major depressive disorder, single episode, unspecified Status: Acute Assessment and Plan: Resume lexapro. Plan DVT prophylaxis with SCDs, okay to resume Xarelto per surgery GI prophylaxis not indicated Code status full code Subjective Date/time seen: 10/16/22 13:16 Interval history: 87-year-old male presenting from home with dementia and multiple falls. No overnight events noted. No chest pain or shortness of breath. No nausea, vomiting or diarrhea. No fevers or chills. Review of Systems Review of Systems: ROS unobtainable: Yes unobtainable due to mental status Exam Narrative: General: No acute distress, alert and oriented per baseline HEENT: Atraumatic, normocephalic, mucous membranes moist CV: Regular rate and rhythm, S1, S2 Lungs: Clear to auscultation bilaterally, no rales or crackles noted, no wheezes, good air entry Abdomen: Soft, nontender, nondistended Extremities: Normal to inspection Skin: No rashes noted, no lesions or wounds seen Psych: Euthymic, normal affect Objective Data Vital Signs Vital Signs: Vital Signs - 24 hr 10/15/22 14:00 10/15/22 15:28 10/15/22 21:27 Temperature 96.2 F L 97.2 F L Pulse Rate 80 64 Respiratory Rate 18 18 Blood Pressure 118/74 161/92 H Pulse Oximetry 98 96 Oxygen Delivery Room Air 10/16/22 05:15 10/16/22 08:00 Temperature 97.1 F L Pulse Rate 65 Respiratory Rate 18 Blood Pressure 163/89 H Pulse Oximetry 97 97 Oxygen Delivery Intake/Output Intake/Output: Intake & Output 10/13/22 10/14/22 10/15/22 10/16/22 23:59 23:59 23:59 23:59 Intake Total 1100 2290 4010 640 Output Total 1097 1930 450 Balance 1100 1193 2080 190 Meds/Results Medications: Active Medications Generic Name Dose Route Start Last Admin Trade Name Freq PRN Reason Stop Dose Admin Acetaminophen 650 mg 10/15/22 14:55 10/16/22 06:33 Acetaminophen 325 Mg Tablet PO 650 mg Q6H PRN Administration Mild Pain (1-3) or Fever Atorvastatin Calcium 40 mg 10/15/22 21:00 10/15/22 20:50 Atorvastatin 40 Mg Tablet PO 40 mg HS LUKAS Administration Escitalopram Oxalate 5 mg 10/15/22 10:40 10/16/22 09:34 Escitalopram Oxalate 5 Mg Tablet PO 5 mg DAILY LUKAS Administration Finasteride 5 mg 10/15/22 21:00 10/15/22 20:50 Finasteride 5 Mg Tablet PO 5 mg HS LUKAS Administration Hydralazine HCl 10 mg 10/13/22 23:08 10/14/22 05:57 Hydralazine Hcl 20 Mg/Ml Vial IV PUSH 10 mg Q8H PRN Administration Blood Pressure - High Piperacillin/Tazobactam/Dextrose 3.375 gm in 50 mls @ 100 mls/hr 10/14/22 00:00 10/16/22 12:13 Zosyn 3.375 Gm/Ns 50 Ml IVPB 100 mls/hr Q6H LUKAS Administration Sodium Chloride 1,000 mls @ 50 mls/hr 10/13/22 18:30
--- NOTE | 2022-10-16 13:33 | PM.DS ---
DS: Admitting Diagnosis Discharge Date 10/16/22 Admitting Diagnosis fall DS: Discharge Diagnosis Discharge Diagnosis (1) Acute cholecystitis: Code(s): K81.0 - Acute cholecystitis Status: Acute Assessment and Plan: Appreciate general surgery consultation, continue Zosyn, started 10/15, continue cholecystostomy tube Follow-up blood cultures Okay to discharge 10/16 per surgery, will send out on Cipro plus Flagyl (2) Benign prostatic hyperplasia: Code(s): N40.0 - Benign prostatic hyperplasia without lower urinary tract symptoms Status: Acute Assessment and Plan: Resume finasteride. (3) S/P aortic valve replacement with bioprosthetic valve: Code(s): Z95.3 - Presence of xenogenic heart valve Status: Acute Assessment and Plan: Xarelto we started today 10/16 (4) Hypertension: Code(s): I10 - Essential (primary) hypertension Status: Chronic Assessment and Plan: P.r.n. hydralazine. Hold Lasix for now Monitor fluid status (5) Atrial fibrillation: Code(s): I48.91 - Unspecified atrial fibrillation Status: Acute Assessment and Plan: Okay to restart Xarelto today per surgery (6) Depression: Code(s): F32.9 - Major depressive disorder, single episode, unspecified Status: Acute Assessment and Plan: Resume lexapro. Plan DVT prophylaxis with SCDs, okay to resume Xarelto per surgery GI prophylaxis not indicated Code status full code DS: Summary Hospital Course Hospital Course: 87-year-old male presenting from home with dementia and multiple falls. Appreciate general surgery consultation, continue Zosyn, started 10/15, continue cholecystostomy tube All cultures NGTD Okay to discharge 10/16 per surgery, will send out on Cipro plus Flagyl Xarelto initially held, now restarted. See above and med rec for details. Time Spent with Patient Time attestation: Total time spent providing and/or coordinating discharge services: Exam Narrative: General: No acute distress, alert and oriented per baseline HEENT: Atraumatic, normocephalic, mucous membranes moist CV: Regular rate and rhythm, S1, S2 Lungs: Clear to auscultation bilaterally, no rales or crackles noted, no wheezes, good air entry Abdomen: Soft, nontender, nondistended Extremities: Normal to inspection Skin: No rashes noted, no lesions or wounds seen Psych: Euthymic, normal affect DS: Data Data Completed and Pending Labs on day of discharge: Preliminary micro results at discharge 10/14/22 15:55 Anaerobic Culture - Preliminary Bile Aerobic Culture - Preliminary 10/14/22 15:55 Anaerobic Culture - Preliminary Gallbladder Fluid Aerobic Culture - Preliminary 10/13/22 18:46 Blood Culture - Preliminary Blood 10/13/22 18:46 Blood Culture - Preliminary Blood Discharge Plan Discharge Attending physician on discharge: Elsy Miller Consulting providers: Tito Mcallister Discharging Clinician: Elsy Miller Patient Disposition: SNF Activity: november shower Diet: low fat Wound Care Instructions: other - see discharge instructions Discharge Instructions: Per Care Coordination: Patient to have [facility] for RN/PT/OT eval and treat [phone]. RN please fax discharge instructions to: [phone] Change bandage around cholecystostomy tube every 2-3 days Empty and report output from cholecystostomy tube daily Patient Instructions: Antibiotic Form, Gallstones (DC), Low Fat Diet (ED), Percutaneous Transhepatic Biliary Drainage (DC) Stand Alone Forms: General Discharge Information Follow-up/Referrals: Tito Mcallister DO [Physician] - 2 Weeks Discharge Medications: New ciprofloxacin HCl 250 mg tablet 250 mg PO Q12H 7 Days Qty: 14 0RF metronidazole 500 mg tablet 500 mg PO Q8H 7 Days Qty: 21 0RF Continued acetaminophen [Tylenol] 325 mg capsule
[2022-10-16 14:00] VITALS: BP 150/92; PULSE 65; RESP 20; TEMP 36.8; O2SAT 96
--- NOTE | 2022-10-16 15:39 | PCPTNOTE ---
Was going to see patient for physical therapy treatment, but has discharge orders in. Will go and treat next patient.
--- NOTE | 2022-10-16 18:03 | PC.NURSE ---
Patient 20 in LAC IV infiltrated and was Discontinued today approximately 1630, no complaints of pain, redness observed at site. Reported to MD. Louise WATSON attempted 1 unsuccessful IV stick WALTER Oconnor attempted 2 unsuccessful IV sticks and WALTER Acosta attempted 1 unsuccessful IV stick. After 4th IV placement attempt, patient visibly uncomfortable and stated I do not want anyone else in here, I need a break . Patient currently has no IV access. MD aware. Ester Carlson RN
[2022-10-16] MEDS: ATORVASTATIN 40 MG TABLET PO (21:06)
[2022-10-16] MEDS: FINASTERIDE 5 MG TABLET PO (21:06)
[2022-10-16 22:00] VITALS: BP 167/88; PULSE 71; RESP 14; TEMP 36.6; O2SAT 97
[2022-10-17] MEDS: PIPERACILLN/TAZ 3.375GM/NS50ML 3.375 GM/50 ML BAG IVPB ×3 (00:04→11:09)
[2022-10-17 05:53] VITALS: BP 153/103; PULSE 70; RESP 14; TEMP 36.1; O2SAT 94
[2022-10-17 08:00] VITALS: PULSE 74; RESP 18; O2SAT 98
[2022-10-17] MEDS: ACETAMINOPHEN 325 MG TABLET 650 MG PO (08:52)
[2022-10-17] MEDS: ESCITALOPRAM OXALATE 5 MG TABLET PO (08:52)
[2022-10-17 09:30] VITALS: BP 171/88; PULSE 74; RESP 18; TEMP 36.3; O2SAT 98
--- NOTE | 2022-10-17 13:13 | PM.PNGS ---
Progress Note: A&P Assessment and Plan (1) Acute cholecystitis: Code(s): K81.0 - Acute cholecystitis Status: Acute Assessment and Plan: Drain functioning properly. OK to discharge from surgical standpoint. Follow up in office in 2 weeks to assess drain and plan for cholangiogram through cholecystostomy tube. Patient does not want to have surgery. (2) S/P aortic valve replacement with bioprosthetic valve: Code(s): Z95.3 - Presence of xenogenic heart valve Status: Acute (3) Anticoagulated: Code(s): Z79.01 - residential (current) use of anticoagulants Status: Acute Subjective Subjective Date/Time Seen: 10/17/22 13:13 Interval history: Having some pain at drain site. Otherwise doing well. Exam GI: Inspection: other (scant bilious drainage in cholecystostomy tube) GI Palp: Yes Soft to palpation, Yes Tenderness to palpation present (GI) (drain site) and No Guarding due to palpation present (GI) Objective Data Vital Signs Vital Signs: Vital Signs - 24 hr 10/16/22 14:00 10/16/22 22:00 10/17/22 05:53 Temperature 36.8 C 36.6 C 36.1 C L Pulse Rate 65 71 70 Respiratory Rate 20 14 14 Blood Pressure 150/92 H 167/88 H 153/103 H Pulse Oximetry 96 97 94 Oxygen Delivery 10/17/22 09:30 10/17/22 08:00 Temperature 36.3 C L Pulse Rate 74 74 Respiratory Rate 18 18 Blood Pressure 171/88 H Pulse Oximetry 98 98 Oxygen Delivery Room Air Intake/Output Intake/Output: Intake & Output 10/14/22 10/15/22 10/16/22 10/17/22 23:59 23:59 23:59 23:59 Intake Total 2290 4010 2370 818 Output Total 1097 1930 1210 90 Balance 1193 2080 1160 728 Meds/Results Medications: Active Medications Generic Name Dose Route Start Last Admin Trade Name Freq PRN Reason Stop Dose Admin Acetaminophen 650 mg 10/15/22 14:55 10/17/22 08:52 Acetaminophen 325 Mg Tablet PO 650 mg Q6H PRN Administration Mild Pain (1-3) or Fever Hydrocodone Bitart/Acetaminophen 1 tab 10/17/22 13:12 Hydrocodone/Acetaminophen (*Crx) 5-325 Mg Tablet PO Q4H PRN Pain Rated 4-6 Atorvastatin Calcium 40 mg 10/15/22 21:00 10/16/22 21:06 Atorvastatin 40 Mg Tablet PO 40 mg HS LUKAS Administration Escitalopram Oxalate 5 mg 10/15/22 10:40 10/17/22 08:52 Escitalopram Oxalate 5 Mg Tablet PO 5 mg DAILY LUKAS Administration Finasteride 5 mg 10/15/22 21:00 10/16/22 21:06 Finasteride 5 Mg Tablet PO 5 mg HS LUKAS Administration Hydralazine HCl 10 mg 10/13/22 23:08 10/14/22 05:57 Hydralazine Hcl 20 Mg/Ml Vial IV PUSH 10 mg Q8H PRN Administration Blood Pressure - High Piperacillin/Tazobactam/Dextrose 3.375 gm in 50 mls @ 100 mls/hr 10/14/22 00:00 10/17/22 11:56 Zosyn 3.375 Gm/Ns 50 Ml IVPB Infused Q6H LUKAS Infusion Sodium Chloride 1,000 mls @ 50 mls/hr 10/13/22 18:30 10/17/22 00:03 Normal Saline Iv IV CONT Not Given .Q20H LUKAS Morphine Sulfate 4 mg 10/13/22 18:30 Morphine Sulfate (*Crx) 4 Mg/Ml Inj IV PUSH Q2H PRN Pain Rated 7-10 Ondansetron HCl 4 mg 10/13/22 18:30 Ondansetron Inj 4 Mg/2 Ml Vial IV PUSH Q4H PRN Nausea Radiology Results: ITS Impressions Chest X-Ray 10/13/22 17:36 IMPRESSION: 1. No acute cardiopulmonary abnormality. Head CT 10/13/22 18:00 IMPRESSION: 1. 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 2. Age related findings. Abdomen/Pelvis CT 10/13/22 18:07 IMPRESSION: 1. Mild gallbladder distention with adjacent inflammatory change which could reflect cholecystitis. Correlate for right upper quadrant tenderness. 2. Age indeterminate compression fractures of L1, L2, and L3. Hepatobiliary Scan Nuclear Medicine 10/14/22 12:48 Impression: Cystic duct obstruction. Patent common bile duct. Cholecystostomy 10/14/22 16:08 IMPRESSION: 1. Successful ultrasound-guided cholecystostomy tube placement. 2. 7 mL black teresa
[2022-10-17 13:25] VITALS: BP 142/92; PULSE 55; RESP 17; TEMP 36.2; O2SAT 98
[2022-10-17 14:56] LABS: EDCOVIDSCREEN Negative (Negative)
== END 2022-10-17 19:20 | DRG 446 ==
LOC: ANHED 18:56 → ANH3MEDSUR 21:00
PROVIDERS: Nurse Practitioner; Physician Assistant; Surgery; Admitting Provider Internal Medicine; Emergency Provider Emergency Medicine; PCP Internal Medicine; Visit Provider Student in an Organized Health Care Education/Training Program
DX: K81.0 Acute cholecystitis (principal); N40.0 Benign prostatic hyperplasia without lower urinary tract symptoms; I10 Essential (primary) hypertension; F32.9 Major depressive disorder, single episode, unspecified; I48.0 Paroxysmal atrial fibrillation; E78.5 Hyperlipidemia, unspecified; I25.10 Atherosclerotic heart disease of native coronary artery without angina pectoris; Z95.3 Presence of xenogenic heart valve; Z79.01 Long term (current) use of anticoagulants; Z79.899 Other long term (current) drug therapy; Z20.822 Contact with and (suspected) exposure to COVID-19
CPT/HCPCS: 36415; 47490; 70450; 71046; 74177; 78226; 80053; 81001; 83605; 83690; 83735; 84443; 85025; 85055; 85610; 85730; 87040; 87070; 87075; 87205; 87426; 87636; 96361; 96365; 96366; 96375; 97161; 97165; 99285; A9270; A9537; C1729; C9803; G0378; J0360; J2270; J2543; J7030; Q9967

== ENCOUNTER 2022-11-17 08:58 | Outpatient (CLI) | payer MEDICARE, SELFPAY ==
--- NOTE | ~2022-11-17 | XR_ITS ---
EXAMINATION: XR catheter cholangiogram DATE: 11/17/2022 09:52 INDICATION: Acute cholecystitis. TECHNIQUE: I injected the cholecystostomy tube with water-soluble contrast during fluoroscopy of the abdomen. 4 images were obtained. The fluoroscopy exposure time was 0.4 minutes. COMPARISON: CT abdomen and pelvis 10/13/2022 FINDINGS: The cholecystostomy tube is in expected position. There is occlusion of the cystic duct. IMPRESSION: 1. Occluded cystic duct. Reviewed, dictated and finalized at location A. IMPRESSION: 1. Occluded cystic duct.
== END 2022-11-17 08:59 | disposition home or self-care (01) ==
PROVIDERS: PCP Internal Medicine; Visit Provider Surgery
DX: K81.0 Acute cholecystitis (principal)
CPT/HCPCS: 47531; Q9966

== ENCOUNTER 2022-11-21 18:10 | Inpatient (IN) | payer MEDICARE, SELFPAY ==
--- NOTE | ~2022-11-21 | CT_ITS ---
EXAMINATION: CT abdomen pelvis w con DATE: 11/21/2022 20:03 INDICATION: cholecystectomy tube came out, RUQ pain since TECHNIQUE: Computed tomography (CT) of the abdomen and pelvis was performed with 100 mL Omnipaque-350 intravenous contrast. Automated exposure control and iterative reconstruction technique were employe d. The dose-length product was 1364.21 mGy-cm. COMPARISON: None. FINDINGS: Lower thorax: Prior CABG. Ectasia of the descending aorta. Heavy coronary artery mitral and aortic va lve calcification. Bibasilar scarring. Moderate hiatal hernia. Symmetric bilateral gynecomastia. Liver: Caudate lobe cyst. Scattered hypodensities, too small to characterize but most likely represen t cysts. Biliary/Gallbladder: Gallbladder is contracted. Fluid surrounding the gallbladder which may represent pericholecystic fluid versus wall edema. Cholecystostomy tract with mild stranding and subcutaneous gas. No bile duct dilation. Pancreas: No mass or duct dilation. Spleen: Granulomatous calcifications Adrenals:Subcentimeter right adrenal myelolipoma. Kidneys: Cortical thinning. Bilateral scarring. Bilateral simple cysts and lesions that are too small to characterize but also likely represent cysts. 5 mm right lower pole hemorrhagic cyst. No obstruct ing calcification, hydronephrosis, or suspicious mass. GI tract: No small or large bowel dilation. Normal appendix. Diverticulosis without diverticulitis. Mesentery/Peritoneum: No ascites, mass, or free air. Retroperitoneum: No mass. Atherosclerotic abdominal aortic and/or arterial calcifications. Mild fusif orm dilation of the infrarenal aorta up to 2.9 cm. Pelvis: Bladder wall thickening. Prostatomegaly. Soft Tissues: Uncomplicated fat-containing bilateral inguinal and umbilical hernias. Bones: No acute osseous finding. IMPRESSION: Right upper quadrant cholecystostomy tract, with mild inflammatory change and minimal subcutaneous ga s. Small volume fluid collection in the gallbladder fossa versus gallbladder wall edema. Consider rig ht upper quadrant ultrasound for further characterization. Reviewed, dictated and finalized at location K. IMPRESSION: Right upper quadrant cholecystostomy tract, with mild inflammatory change and m inimal subcutaneous gas. Small volume fluid collection in the gallbladder fossa versus gallbladder wall edema. Consider right upper quadrant ultrasound for fu rther characterization.
[2022-11-21 18:17] VITALS: BP 145/88; PULSE 60; RESP 18; TEMP 37; O2SAT 98
--- NOTE | 2022-11-21 18:31 | ED.ABDPAIN ---
HPI - Abdominal Pain General Chief Complaint: Abdominal Pain Stated Complaint: gall bladder drain out? Time Seen by Provider: 11/21/22 18:18 History of Present Illness HPI narrative: Patient is an 87-year-old male with a history of Alzheimer's dementia, cholecystitis status post cholecystostomy tube placement 10/14/22, here for evaluation after his cholecystostomy tube has been displaced for an unknown amount of time. Patient lives at [facility], today during dressing changes they noticed that the tube was completely out of his abdomen. Patient has been complaining of pain at that site and also in his back as well. No nausea, vomiting, fevers, chills, diarrhea. Patient had a recent cholangiogram that still showed occlusion of the cystic duct and the plan was to leave the drain in place for the foreseeable future. Related Data Home Medications Medication Instructions Recorded Confirmed allopurinol 300 mg tablet 300 mg PO DAILY 05/22/19 11/03/22 atorvastatin 40 mg tablet 40 mg PO HS 05/22/19 11/03/22 finasteride 5 mg tablet 5 mg PO HS 05/22/19 11/03/22 furosemide 40 mg tablet 40 mg PO DAILY 05/22/19 11/03/22 multivitamin with minerals-folic 1 tablet PO DAILY 05/22/19 11/03/22 acid 0.4 mg tablet (Adult One Daily Multivitamin) cholecalciferol (vitamin D3) 125 5,000 unit PO DAILY 10/09/19 11/03/22 mcg (5,000 unit) tablet (Vitamin D3) cetirizine 10 mg tablet (Zyrtec) 10 mg PO DAILY 08/26/20 11/03/22 rivaroxaban 20 mg tablet (Xarelto) 15 mg PO QPM 08/26/20 11/03/22 acetaminophen 325 mg capsule 325 mg PO Q6H PRN Pain (Scale 04/05/22 11/03/22 (Tylenol) Score 1-3) escitalopram oxalate 5 mg tablet 5 mg PO DAILY 04/05/22 11/03/22 metolazone 2.5 mg tablet 2.5 mg PO QMWF 10/13/22 11/03/22 Allergies Allergy/AdvReac Type Severity Reaction Status Date / Time No Known Allergies Allergy Unknown Verified 11/21/22 18:21 Review of Systems Review of Systems: Gen: Denies fevers or chills Eyes: Denies eye pain or visual change ENT: Denies congestion Respiratory: Denies shortness of breath or cough CV: Denies chest pain or palpitations GI: Reports abdominal pain. 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 Chronic anemia Coronary artery disease Current use of nursing home anticoagulation Depression Gout Hyperlipidemia Hypertension Paroxysmal atrial fibrillation QT prolongation Seasonal allergies Shingles (~09/2018) Transient ischemic attack 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 Surgical History Surgical History H/O cataract extraction History of aortic valve replacement History of bilateral cataract extraction History of cardiac catheterization History of mitral valve replacement History of surgical removal of skin lesion x2 S/P aortic valve replacement with bioprosthetic valve Status post surgical removal of malignant neoplasm of skin Excision of basal cell carcinoma x2. 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 He has 5 children. He lives at home with his Surrogate decision maker: Ashley Rodriguez, . Cod
[2022-11-21 19:24] LABS: Basophils Percent Auto 0.5 % (0.2-1.2); Eosinophils Absolute Auto 0.3 K/mm3 (0-0.3); Eosinophils Percent Auto 4.1 % (0-4.4); Hematocrit 36.4 % (42.0-52.0); Hemoglobin 12.1 g/dL (14.0-18.0); Immature Granulocyte Absolute 0.06 K/mm3 (0.00-0.031); Immature Granulocyte Percent A 0.8 % (0-0.5); Lymphocytes Absolute Auto 1.48 K/mm3 (0.9-3.2); Mean Corpuscular HGB Conc 33.2 g/dl (32-36); Mean Corpuscular Hemoglobin 32.2 pg (26-34); Mean Corpuscular Volume 96.8 fl (80-100); Mean Platelet Volume 10.7 fl (7.4-10.4); Monocytes Absolute Auto 0.8 K/mm3 (0.1-0.6); Monocytes Percent Auto 10.8 % (2.6-8.5); Neutrophils Absolute Auto 5.1 K/mm3 (1.3-6.7); Neutrophils Percent Auto 64.8 % (45.5-73.1); Platelet Count Result 187 k/mm3 (150-375); Red Blood Count 3.76 M/mm3 (4.6-6.20); Red Cell Distribution Width 13.8 % (11.5-14.5); White Blood Count 7.8 K/mm3 (4.5-10.0)
[2022-11-21 19:36] LABS: Alanine Aminotransferase 23 U/L (6-50); Albumin Level 3.8 g/dL (3.5-5.1); Alkaline Phosphatase 78 U/L (38-126); Anion Gap 8 mmol/L (8-16); Aspartate Amino Transferase 29 U/L (17-59); Bilirubin,Total 0.6 mg/dL (0.2-1.3); Blood Urea Nitrogen 29 mg/dL (9-20); Calcium 8.7 mg/dL (8.4-10.2); Carbon Dioxide 27 mmol/L (22-30); Chloride 101 mmol/L (98-107); Estimated CRCL calculation 41 ml/min; Estimated Glomerular Filt Rate 48; Glucose 121 mg/dL (65-110); Lipase 303 U/L (23-300); Potassium 3.7 mmol/L (3.4-5.0); Sodium 136 mmol/L (137-145)
[2022-11-21 19:37] LABS: Lactic Acid Reflex 1.7 mmol/L (0.7-2.0)
[2022-11-21 20:06] VITALS: BP 156/104; PULSE 88; RESP 16; O2SAT 100
--- NOTE | 2022-11-21 21:13 | PM.IMHP ---
H&P: HPI History of Present Illness Date/Time: 11/21/22 21:13 Chief Complaint: dislodged drain Narrative: EXAMINATION: CT abdomen pelvis w con DATE: 11/21/2022 20:03 INDICATION: cholecystectomy tube came out, RUQ pain since TECHNIQUE: Computed tomography (CT) of the abdomen and pelvis was performed with 100 mL Omnipaque-350 intravenous contrast. Automated exposure control and iterative reconstruction technique were employed. The dose-length product was 1364.21 mGy-cm. COMPARISON: None. FINDINGS: Lower thorax: Prior CABG. Ectasia of the descending aorta. Heavy coronary artery mitral and aortic valve calcification. Bibasilar scarring. Moderate hiatal hernia. Symmetric bilateral gynecomastia. Liver: Caudate lobe cyst. Scattered hypodensities, too small to characterize but most likely represent cysts.? Biliary/Gallbladder: Gallbladder is contracted. Fluid surrounding the gallbladder which may represent pericholecystic fluid versus wall edema. Cholecystostomy tract with mild stranding and subcutaneous gas. No bile duct dilation. Pancreas: No mass or duct dilation. Spleen: Granulomatous calcifications Adrenals:Subcentimeter right adrenal myelolipoma. Kidneys: Cortical thinning. Bilateral scarring. Bilateral simple cysts and lesions that are too small to characterize but also likely represent cysts. 5 mm right lower pole hemorrhagic cyst. No obstructing calcification, hydronephrosis, or suspicious mass. GI tract: No small or large bowel dilation. Normal appendix. Diverticulosis without diverticulitis. Mesentery/Peritoneum: No ascites, mass, or free air. Retroperitoneum: No mass. Atherosclerotic abdominal aortic and/or arterial calcifications. Mild fusiform dilation of the infrarenal aorta up to 2.9 cm. Pelvis: Bladder wall thickening. Prostatomegaly. Soft Tissues: Uncomplicated fat-containing bilateral inguinal and umbilical hernias. Bones:? No acute osseous finding. IMPRESSION: Right upper quadrant cholecystostomy tract, with mild inflammatory change and minimal subcutaneous gas. Small volume fluid collection in the gallbladder fossa versus gallbladder wall edema. Consider right upper quadrant ultrasound for further characterization. 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 Chronic anemia Coronary artery disease Current use of senior care anticoagulation Depression Gout Hyperlipidemia Hypertension Paroxysmal atrial fibrillation QT prolongation Seasonal allergies Shingles (~09/2018) Transient ischemic attack 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 Surgical History Surgical History H/O cataract extraction History of aortic valve replacement History of bilateral cataract extraction History of cardiac catheterization History of mitral valve replacement History of surgical removal of skin lesion x2 S/P aortic valve replacement with bioprosthetic valve Status post surgical removal of malignant neoplasm of skin Excision of basal cell carcinoma x2. 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 He has 5 children. He lives at home with his Surrogate decision maker: Ashley Michael, . Code status: DNR Smoking status: Never smoker Second hand tobacco smoke exposure: No Alcohol intake: never Drinks per week: 7 Substance use: never Subs
[2022-11-21 22:45] VITALS: BP 141/90; PULSE 69; RESP 18; TEMP 36.9; O2SAT 98
[2022-11-21 22:50] VITALS: BMI 30.2
--- NOTE | 2022-11-21 23:10 | ADMGEN ---
This patient, Marcelino Rodriguez, was admitted to 3 [facility] Surg Room 303-01. Patient/family oriented to hospital policies and general routines including ID bracelet, bed and alarms, visiting hours, pain management, procedures, bathroom and other care routines, personal items, smoking policy, room service/diet, and visiting hours. Information on how to activate the Rapid Response Team has been discussed. Patient/Family are encouraged to report perceived risks to care and to ask questions if they do not understand what they are told or what they should do.
[2022-11-21] MEDS: ACETAMINOPHEN 325 MG TABLET 650 MG PO (23:54)
[2022-11-22] MEDS: SODIUM CHLORIDE 0.9% IV 250 ML 100 ML IV CONT (05:26)
[2022-11-22 06:00] VITALS: BP 157/101; PULSE 63; RESP 18; TEMP 37.1; O2SAT 96
[2022-11-22] MEDS: HYDROmorphone HCL INJ (*CRX) 1 MG/ML SYR 0.5 MG IV PUSH (06:41)
[2022-11-22] MEDS: CHOLECALCIFEROL 1,000 UNITS TABLET 5000 UNITS PO (08:56)
[2022-11-22] MEDS: THERAPEUTIC MULTIVITAMINS/MINERALS TAB (*BKC) 1 TABLET PO (08:56)
[2022-11-22] MEDS: ESCITALOPRAM OXALATE 5 MG TABLET PO (08:56)
[2022-11-22] MEDS: allopurinoL 300 MG TABLET PO (08:56)
[2022-11-22] MEDS: LORATADINE 10 MG TABLET PO (08:56)
--- NOTE | 2022-11-22 09:52 | PM.CNGS ---
Assessment and Plan Assessment and plan (1) Cholecystostomy tube dysfunction: Code(s): T85.518A - Breakdown (mechanical) of other gastrointestinal prosthetic devices, implants and grafts, initial encounter Status: Acute Assessment and Plan: Patient presented from the retirement facility with a dislodged cholecystostomy tube. CT scan reviewed and there does not appear to be any significant inflammation of the gallbladder and no evident gallstones. White count and liver function tests are all normal. The cholecystostomy tube site does not have any signs of infection. His pain is minimal and he is tolerating a low fat diet without any worsening pain. We discussed options with the patient and his today. Although there are no signs of acute cholecystitis at this time, there is a chance that he could have recurrent symptoms or another attack in the future. He could either choose to try following a low fat diet and monitoring, knowing that there is a risk of recurrence, or choose to proceed with a laparoscopic cholecystectomy that would prevent any future issues. If he chose to have the surgery, we could hold his anticoagulation and plan accordingly later this week after this has had time to wear off. Another option would be to replace the cholecystostomy tube longer term and monitoring. The patient and his want to talk about the options before deciding. We will go ahead and hold his Xarelto for now in case they choose surgery and repeat labs tomorrow. This will allow time to monitor his pain as well. Thank you for allowing us to see the patient in consultation and we will continue to follow along with you. (2) S/P aortic valve replacement with bioprosthetic valve: Code(s): Z95.3 - Presence of xenogenic heart valve Status: Acute (3) Atrial fibrillation: Code(s): I48.91 - Unspecified atrial fibrillation Status: Acute (4) Anticoagulated: Code(s): Z79.01 - remote computer terminal operator (current) use of anticoagulants Status: Acute Assessment and Plan: Xarelto put on hold. Plan I have discussed the patient's case and plan of care with Dr. Mcallister. History of Present Illness Consult details Consult date: 11/22/22 Reason for consult: other (Dislodged cholecystostomy tube) Requesting physician: Shalonda Berry PA-C Narrative: This is an 87-year-old man who was hospitalized from 10/13/22 - 10/16/22 and treated for acute cholecystitis. He has dementia and is a poor historian, therefore history is obtained from his electronic medical record and a conversation with his . He had a cholecystostomy tube placed on 10/14/22 and was discharged with antibiotics. He was seen in follow-up with Dr. Mcallister on 11/01/22 and had been doing well. He had an outpatient cholecystostomy tube cholangiogram on 11/17/22 that showed an occluded cystic duct with the cholecystostomy tube in good position. Our office was called by Varsha Cunningham yesterday as patient was complaining of pain at the cholecystostomy tube site radiating to his back. Nurses at [facility] stated no redness or drainage at the drain site and there is still output. It was recommended if he does not get pain relief with the pain medication and continues to have pain, then he could be evaluated in the ER. The patient was then brought to the ER last night due to the cholecystostomy tube being dislodged. CT scan of the abdomen and pelvis showed RUQ cholecystostomy tract with mild inflammatory change and minimal subcutaneous gas, small volume of fluid in the gallbladder fossa vs gallbladder wall edema. Labs showed a normal WBC count and normal LFTs. He was admitted for further surgical evaluation with a dislodged cholecystostomy tube. The patient is seen today eating a low fat diet. He is still having some RUQ abdominal pain that is mild. His pain is not aggravated by eating. He has a history of chronic atrial fibrillation and is chronically anticoagulated with Xarelto.
[2022-11-22] MEDS: ACETAMINOPHEN 325 MG TABLET PO (12:37)
[2022-11-22 14:00] VITALS: BP 116/78; PULSE 55; RESP 18; TEMP 36.1; O2SAT 96; O2SAT 98
[2022-11-22 20:10] VITALS: PULSE 64; RESP 18; O2SAT 96
[2022-11-22] MEDS: ATORVASTATIN 40 MG TABLET PO (20:11)
[2022-11-22] MEDS: FINASTERIDE 5 MG TABLET PO (20:11)
[2022-11-22 22:00] VITALS: BP 152/107; PULSE 64; RESP 18; TEMP 36.8; O2SAT 96
[2022-11-23 06:00] VITALS: BP 165/104; PULSE 71; RESP 18; TEMP 37; O2SAT 98
[2022-11-23 06:46] LABS: Hematocrit 37.9 % (42.0-52.0); Hemoglobin 12.4 g/dL (14.0-18.0); Mean Corpuscular HGB Conc 32.7 g/dl (32-36); Mean Corpuscular Hemoglobin 31.9 pg (26-34); Mean Corpuscular Volume 97.4 fl (80-100); Mean Platelet Volume 11.1 fl (7.4-10.4); Platelet Count Result 182 k/mm3 (150-375); Red Blood Count 3.89 M/mm3 (4.6-6.20); Red Cell Distribution Width 13.7 % (11.5-14.5); White Blood Count 8.1 K/mm3 (4.5-10.0)
[2022-11-23 06:58] LABS: Alanine Aminotransferase 28 U/L (6-50); Albumin Level 3.6 g/dL (3.5-5.1); Alkaline Phosphatase 79 U/L (38-126); Anion Gap 7 mmol/L (8-16); Aspartate Amino Transferase 37 U/L (17-59); Bilirubin,Total 0.9 mg/dL (0.2-1.3); Blood Urea Nitrogen 21 mg/dL (9-20); Calcium 8.6 mg/dL (8.4-10.2); Carbon Dioxide 26 mmol/L (22-30); Chloride 103 mmol/L (98-107); Estimated CRCL calculation 52 ml/min; Estimated Glomerular Filt Rate > 60; Glucose 95 mg/dL (65-110); Potassium 3.3 mmol/L (3.4-5.0); Sodium 136 mmol/L (137-145)
--- NOTE | 2022-11-23 07:06 | PC.NURSE ---
[facility] downtime beginning 11/22/22 at 2145 through 11/23/22 at 0615.
[2022-11-23] MEDS: ACETAMINOPHEN 500 MG TABLET 1000 MG PO (08:04)
[2022-11-23] MEDS: allopurinoL 300 MG TABLET PO (08:05)
[2022-11-23] MEDS: ESCITALOPRAM OXALATE 5 MG TABLET PO (08:05)
[2022-11-23] MEDS: THERAPEUTIC MULTIVITAMINS/MINERALS TAB (*BKC) 1 TABLET PO (08:05)
[2022-11-23] MEDS: LORATADINE 10 MG TABLET PO (08:05)
[2022-11-23] MEDS: CHOLECALCIFEROL 1,000 UNITS TABLET 5000 UNITS PO (08:05)
[2022-11-23] MEDS: POTASSIUM CHLORIDE 20 MEQ TABLET 40 MEQ PO (10:20)
--- NOTE | 2022-11-23 12:54 | PM.PNGS ---
Progress Note: A&P Assessment and Plan (1) Cholecystostomy tube dysfunction: Code(s): T85.518A - Breakdown (mechanical) of other gastrointestinal prosthetic devices, implants and grafts, initial encounter Status: Acute Assessment and Plan: Tolerating a low fat diet. Labs unremarkable this morning. Had another discussion with the patient and his today regarding treatment options. They have decided to try following a low fat diet and monitoring for now. We discussed what symptoms to look for and to call if there are any issues. Okay from our standpoint to discharge the patient on a low fat diet. Follow-up only as needed. (2) S/P aortic valve replacement with bioprosthetic valve: Code(s): Z95.3 - Presence of xenogenic heart valve Status: Acute (3) Atrial fibrillation: Code(s): I48.91 - Unspecified atrial fibrillation Status: Acute (4) Anticoagulated: Code(s): Z79.01 - terminal operator (current) use of anticoagulants Status: Acute Assessment and Plan: Okay to resume Xarelto. Plan I have discussed the patient's case and plan of care with Dr. Mcallister. Subjective Subjective Date/Time Seen: 11/23/22 12:54 Patient reports: no new complaints and tolerating a regular diet (low fat diet) Interval history: Patient seen with his at the bedside. Feeling well today. Still has some very mild RUQ pain that he has taken Tylenol for but comes and goes. Does not feel this is aggravated by eating. Still tolerating his low fat diet. No nausea or vomiting. No other complaints at this time. The patient and his expressed their wishes of wanting to avoid surgery for now and try watching and waiting on a low fat diet. Exam Const: General: comfortable, no acute distress and confusion (dementia) GI: Inspection: non-distended GI Palp: Yes Soft to palpation, No Tenderness to palpation present (GI), No Guarding due to palpation present (GI) and No Rebound tenderness present Auscultation: normal bowel sounds Objective Data Vital Signs Vital Signs: Vital Signs - 24 hr 11/22/22 14:00 11/22/22 14:00 11/22/22 20:10 Temperature 97.0 F L Pulse Rate 55 L 64 Respiratory Rate 18 18 Blood Pressure 116/78 Pulse Oximetry 96 98 96 Oxygen Delivery Room Air Room Air 11/22/22 22:00 11/23/22 06:00 11/23/22 08:00 Temperature 98.3 F 98.6 F Pulse Rate 64 71 Respiratory Rate 18 18 Blood Pressure 152/107 H 165/104 H Pulse Oximetry 96 98 Oxygen Delivery Room Air Intake/Output Intake/Output: Intake & Output 11/20/22 11/21/22 11/22/22 11/23/22 23:59 23:59 23:59 23:59 Intake Total 1150 530 Balance 1150 530 Meds/Results Medications: Active Medications Generic Name Dose Route Start Last Admin Trade Name Freq PRN Reason Stop Dose Admin Acetaminophen 1,000 mg 11/22/22 12:56 11/23/22 08:04 Acetaminophen 500 Mg Tablet PO 1,000 mg Q6H PRN Administration Mild Pain (1-3) or Fever Al Hydrox/Mg Hydrox/Simethicone 30 ml 11/22/22 03:50 Mag Hydrox/Al Hydrox/Simeth 30 Ml Udc PO Q6H PRN Indigestion Allopurinol 300 mg 11/22/22 09:00 11/23/22 08:05 Allopurinol 300 Mg Tablet PO 300 mg DAILY LUKAS Administration Atorvastatin Calcium 40 mg 11/22/22 21:00 11/22/22 20:11 Atorvastatin 40 Mg Tablet PO 40 mg HS LUKAS Administration Escitalopram Oxalate 5 mg 11/22/22 09:00 11/23/22 08:05 Escitalopram Oxalate 5 Mg Tablet PO 5 mg DAILY LUKAS Administration Finasteride 5 mg 11/22/22 21:00 11/22/22 20:11 Finasteride 5 Mg Tablet PO 5 mg HS LUKAS Administration Hydromorphone HCl 0.5 mg 11/22/22 03:49 11/22/22 06:41 Hydromorphone Hcl Inj (*Crx) 1 Mg/Ml Syr IV PUSH 0.5 mg Q3H PRN Administration Pain Rated 7-10 Loratadine 10 mg 11/22/22 09:00 11/23/22 08:05 Loratadine 10 Mg Tablet PO 10 mg QAM LUKAS Administration Multivitamins/Calcium 1 tablet 11/22/22 09:00 11/23/22 08:05 Thera
--- NOTE | 2022-11-23 13:37 | PM.DS ---
DS: Admitting Diagnosis Discharge Date 11/23/2022 Admitting Diagnosis dislodged drain DS: Discharge Diagnosis Discharge Diagnosis (1) Cholecystostomy tube dysfunction: Code(s): T85.518A - Breakdown (mechanical) of other gastrointestinal prosthetic devices, implants and grafts, initial encounter Status: Acute (2) Benign prostatic hyperplasia: Code(s): N40.0 - Benign prostatic hyperplasia without lower urinary tract symptoms Status: Acute (3) Acute cholecystitis: Code(s): K81.0 - Acute cholecystitis Status: Acute (4) S/P aortic valve replacement with bioprosthetic valve: Code(s): Z95.3 - Presence of xenogenic heart valve Status: Acute (5) Atrial fibrillation: Code(s): I48.91 - Unspecified atrial fibrillation Status: Acute (6) Hypertension: Code(s): I10 - Essential (primary) hypertension Status: Chronic DS: Summary Hospital Course Reason for hospitalization: CC: dislodged drain HPI:? This is an 87-year-old male past medical history significant for gout, dyslipidemia, dementia, benign prostatic hyperplasia, chronic kidney disease, stroke, paroxysmal atrial fibrillation.? Patient recently [facility] with drain to the gallbladder for cholecystitis, patient was brought to emergency room for evaluation after he was noted the drain was out.? History has been obtained from daughter who is at bedside and emergency room doctor patient seems confused and not able to really give any meaningful history. patient has been admitted for further evaluation management and treatment. Hospital Course: Patient with a cholecystostomy tube presented with a dislodged, patient was seen by surgery service, patient and his decided conservative management with low fat diet, and patient is able to tolerate without any pain, surgery service today patient is clinically stable will discharge the patient. Time Spent with Patient Time attestation: Total time spent providing and/or coordinating discharge services: Exam Narrative: Obese Patient is comfortable, NAD HEENT: eyes are clear and none icteric LUNGS: Normal respiratory effort ABD: Distended Lower extremities: no edema SKIN: nonjaundiced Neuro: grossly intact. DS: Data Data Completed and Pending Labs on day of discharge: Labs from last 24 hours 11/23/22 06:11 WBC 8.1 RBC 3.89 L Hgb 12.4 L Hct 37.9 L MCV 97.4 MCH 31.9 MCHC 32.7 RDW 13.7 Plt Count 182 MPV 11.1 H Sodium 136 L Potassium 3.3 L Chloride 103 Carbon Dioxide 26 Anion Gap 7 L BUN 21 H Creatinine 1.10 Estim Creat Clear Calc 52 Estimated GFR > 60 Glucose 95 Calcium 8.6 Total Bilirubin 0.9 AST 37 ALT 28 Alkaline Phosphatase 79 Total Protein 7.0 Albumin 3.6 Discharge Plan Discharge Attending physician on discharge: Mireya Underwood Consulting providers: Tito Mcallister; Shalonda Berry Discharging Clinician: Mireya Underwood Patient Disposition: NH Skilled Nursing/Asst Living Activity: as tolerated Diet: low fat Discharge Instructions: May apply gauze to the previous drain site in the right upper abdomen daily for the next few days. Okay to shower over. May leave open to air if no drainage. Call the surgeon's office if having any redness or drainage. Patient to follow discharge care instruction from his surgeon and follow-up as scheduled, patient to follow-up with his primary care provider as soon as possible. Patient Instructions: Antibiotic Form, Rivaroxaban (By mouth), Low Fat Diet (DC) Stand Alone Forms: General Discharge Information Follow-up/Referrals: Rob,Marcelino Siegel MD [Primary Care Provider] - Tito Mcallister, [Physician] - Discharge Medications: New polyethylene glycol 3350 [Miralax] 17 gram Powder In Packet 17 g PO QAM PRN (Reason: Constipation) Qty: 14 0RF alum-mag hydroxide-simeth [Mag-Al Plus] 200-200-
[2022-11-23 14:00] VITALS: BP 140/75; PULSE 75; RESP 16; TEMP 36.1; O2SAT 96
[2022-11-23 14:09] LABS: EDCOVIDSCREEN Negative (Negative)
== END 2022-11-23 15:20 | DRG 920 ==
LOC: ANHED 21:17 → ANH3MEDSUR 22:07
PROVIDERS: Surgery; Admitting Provider Internal Medicine; Emergency Provider Physician Assistant; PCP Internal Medicine; Visit Provider Family Medicine
DX: T85.528A Displacement of other gastrointestinal prosthetic devices, implants and grafts, initial encounter (principal); K81.0 Acute cholecystitis; I48.0 Paroxysmal atrial fibrillation; I25.10 Atherosclerotic heart disease of native coronary artery without angina pectoris; I12.9 Hypertensive chronic kidney disease with stage 1 through stage 4 chronic kidney disease, or unspecified chronic kidney disease; N18.9 Chronic kidney disease, unspecified; E78.5 Hyperlipidemia, unspecified; N40.0 Benign prostatic hyperplasia without lower urinary tract symptoms; M19.90 Unspecified osteoarthritis, unspecified site; G30.9 Alzheimer's disease, unspecified; F02.80 Dementia in other diseases classified elsewhere, unspecified severity, without behavioral disturbance, psychotic disturbance, mood disturbance, and anxiety; F32.A Depression, unspecified; Z20.822 Contact with and (suspected) exposure to COVID-19; Z79.01 Long term (current) use of anticoagulants; Z86.73 Personal history of transient ischemic attack (TIA), and cerebral infarction without residual deficits; Z95.3 Presence of xenogenic heart valve
CPT/HCPCS: 36415; 74177; 80053; 83605; 83690; 85025; 85027; 87426; 96374; 99285; A9270; C9803; G0378; J1170; J7050; Q9967

== ENCOUNTER 2022-12-18 10:32 | Inpatient (IN) | payer MEDICARE, SELFPAY ==
[2022-12-18] VITALS (36 sets, daily range): BP systolic 127–184; BP diastolic 77–121; PULSE 57–89; RESP 13–29; TEMP 36.2–37; O2SAT 92–99; BMI 31.6
--- NOTE | ~2022-12-18 | CT_ITS ---
EXAMINATION: CT cervical spine wo con DATE: 12/18/2022 12:28 INDICATION: Neck pain TECHNIQUE: Computed tomography (CT) of the cervical spine was performed without intravenous contrast. Automated exposure control and iterative reconstruction technique were employed. Exam dose: 460.85 mGy-cm total exam DLP. COMPARISON: 07/14/2018 CT cervical spine FINDINGS: Normal atlantooccipital alignment. C1 and C2 are normally aligned and the odontoid process is intact. Mild degenerative disc disease at C2-3. Severe degenerative disc disease and mild retrolisthesis at C3-4. Mild degenerative disc disease at C4-5. Severe degenerative disc disease at C5-6 Moderately severe degenerative disc disease at C6-7. Mild degenerative disc disease and minimal anterolisthesis at C7-T1. There is degenerative change at the apophyseal joints throughout the cervical spine. Uncovertebral lexus int spurring is noted particularly at C3-4, C5-6 and C6-7. No fracture or dislocation or locked facet or prevertebral soft tissue swelling is noted.. Aortic, great vessel including carotid artery calcified atherosclerosis. IMPRESSION: Prominent cervical spondylosis; no fracture or dislocation or locked facet Reviewed, dictated and finalized at [facility] Reviewed, dictated and finalized at [facility]. IMPRESSION: Prominent cervical spondylosis; no fracture or dislocation or lock ed facet
--- NOTE | ~2022-12-18 | XR_ITS ---
XR shoulder LT min 2V DATE: 12/18/2022 12:33 INDICATION: Left shoulder pain. No injury. TECHNIQUE: 4 views COMPARISON: None FINDINGS: There is evidence of rotator cuff atrophy. There is diffuse osteopenia. No fracture or disl ocation, periosteal reaction or bone destruction is detected. Status post sternotomy and cardiac valve replacement. There is extensive thoracic aortic calcificatio n in addition to ectasia and unfolding. IMPRESSION: Osteopenia Rotator cuff atrophy Reviewed, dictated and finalized at [facility].
--- NOTE | ~2022-12-18 | CT_ITS ---
EXAMINATION: CT brain wo con DATE: 12/18/2022 11:04 INDICATION: Transient alteration of awareness. History of cerebrovascular accident, right frontal lob e TECHNIQUE: Computed tomography (CT) of the head was performed without intravenous contrast. The mA wa s adjusted according to patient size. Iterative reconstruction technique was employed. Exam dose: 60 5.33 mGy-cm total exam DLP. COMPARISON: 10/13/2022 CT brain FINDINGS: Bilateral vertebral artery and carotid siphon internal carotid artery calcifications. There is nonspecific diminished attenuation of the cerebral white matter, likely due to chronic small vess el ischemic changes. Chronic right frontal parietal infarct high over the right convexity.. There is central and cortical cerebral and cerebellar atrophy. No intracranial mass lesion or hemorrhage or recent cerebrovascular accident is detected. No midline shift or mass effect. No subdural or epidural hematoma. No fracture or bone destruction of the cranial vault. There is soft tissue opacity or fluid level in the posterior left maxilla sinus and there is mild foc al lower right maxillary sinus mucoperiosteal thickening. The paranasal sinuses and mastoid air cells are otherwise unremarkable. IMPRESSION: Chronic right frontoparietal infarct Cerebral atherosclerosis and chronic small vessel ischemic changes of cerebral white matter No acute intracranial finding Reviewed, dictated and finalized at [facility]. Reviewed, dictated and finalized at [facility].
--- NOTE | ~2022-12-18 | CT_ITS ---
EXAMINATION: CT abdomen pelvis w con DATE: 12/18/2022 12:27 INDICATION: Right upper quadrant abdominal pain TECHNIQUE: Computed tomography (CT) of the abdomen and pelvis was performed with 100 CC Omnipaque 350 intravenous contrast. Automated exposure control and iterative reconstruction technique were employe d. Exam dose: 1679.71 mGy-cm total exam DLP. COMPARISON: 11/21/2022 CT abdomen pelvis 11/2022 X-ray catheter cholangiogram 10/04/2019 CT abdomen pelvis FINDINGS: Bilateral moderate gynecomastia. Prominent discoid atelectatic changes in the lower lobes. Cardiomegaly. Status post sternotomy and aortic and mitral valve replacements. Extensive coronary art ирина calcifications. No pericardial or pleural effusion. Moderate sliding hiatal hernia. Prominent edema of the gallbladder wall. Mild inferior perihepatic fluid and slight fluid in the righ t pericolic gutter since 11/21/2022. Several probable hepatic cysts are noted, measuring up to approxim ately 1.6 cm at the lateral segment of left hepatic lobe, with a couple of very small right hepatic c ysts Normal splenic size. No pancreatic mass lesion occasional punctate pancreatic calcifications suggesti ng chronic pancreatitis. No pancreatic duct or bile duct dilatation is noted. Normal appendix. There are numerous diverticula of the left colon; no CT evidence of diverticulitis. No bowel obstruction or intraperitoneal free air is detected. Prostate enlargement and calcifications. The urinary bladder is unremarkable. There is extensive athe rosclerotic calcification of the abdominal aorta and calcification of the celiac and particularly sup erior mesenteric arteries in addition to bilateral renal artery calcifications. No abdominal aortic c alcification is noted. No intraperitoneal or retroperitoneal or pelvic mass lesion or adenopathy or ascites. Up to 4 cm wide fat-containing umbilical hernia. Bilateral small fat-containing inguinal hernias, rig ht greater than left. Diffuse osteopenia. Degenerative spurring of the lower thoracic spine. There are compression fractures of T12 and all 5 lumbar vertebral bodies. Bilateral L5 pars interarti cularis defects with grade 1 anterolisthesis at L5-S1. IMPRESSION: Prominent edema of the gallbladder wall and interval mild fluid collection around the lo wer aspect of liver and right paracolic gutter since 11/21/2022 Reviewed, dictated and finalized at [facility]. Reviewed, dictated and finalized at [facility]. IMPRESSION: Prominent edema of the gallbladder wall and interval mild fluid co llection around the lower aspect of liver and right paracolic gutter since 2022
--- NOTE | ~2022-12-18 | XR_ITS ---
Supine and upright views of the abdomen Clinical history: Abdominal pain and distention Findings: Bowel gas pattern is nonspecific. No evidence for obstruction or free air. No abnormal mass lesion or calcification is seen. Osseous structures are intact. Impression: Nonspecific bowel gas pattern. Reviewed, dictated and finalized at [facility]. Impression: Nonspecific bowel gas pattern.
--- NOTE | ~2022-12-18 | XR_ITS ---
EXAMINATION: XR chest 1V portable DATE: 12/19/2022 09:51 INDICATION: Right upper quadrant abdominal pain. TECHNIQUE: A single frontal view of the chest was obtained. COMPARISON: Chest 2 views 10/13/2022, CT abdomen and pelvis 12/18/2022 FINDINGS: Again seen is mild elevation of right hemidiaphragm. There is mild atelectasis in the lower lung zones. No pleural effusion or pneumothorax. Cardiomegaly is noted. There are changes of aortic valve replacement. There is a closure device at the left atrial appendage. IMPRESSION: 1. Mild atelectasis in the lower lung zones. 2. Cardiomegaly. Reviewed, dictated and finalized at [facility].
--- NOTE | ~2022-12-18 | US_ITS ---
US abdomen limited DATE: 12/19/2022 09:15 INDICATION: Right upper quadrant abdominal pain. History of cholecystitis. TECHNIQUE: Real-time imaging of liver, pancreas, gallbladder COMPARISON: 12/2022 CT abdomen pelvis FINDINGS: The patient notes that the examination is limited due to inability of the patient to rotate . The pancreas is obscured by overlying bowel gas. The pancreas appears normal on the 12/2022 CT abdome n pelvis examination Minimal perihepatic fluid is noted sonographically, also present on the 12/2022 CT abdomen pelvis exa mination. Normal hepatopedal portal venous flow direction. The liver appears unremarkable on the provided image s. Gallbladder wall thickening. The technologist reports a negative sonographic Meadows's sign. IMPRESSION: Limited examination; minimal perihepatic fluid Gallbladder wall thickening Pancreas is obscured by bowel gas Reviewed, dictated and finalized at [facility] Reviewed, dictated and finalized at [facility].
--- NOTE | 2022-12-18 11:33 | ED.GENADULT ---
HPI - General Adult General Chief complaint: Weakness Stated complaint: AMS Time Seen by Provider: 12/18/22 10:34 History of Present Illness HPI narrative: 87-year-old male presented to the emergency department for evaluation of altered mental status. Patient is only alert and oriented x1 at baseline and does reside at a memory care unit. Family states that the patient has had nausea vomiting and is not as talkative as usual. Patient did have a recent cholecystostomy tube placed due to concern for infection and the tube did come out on its own and it was decided to leave the tube out. Family states that the patient was opposed to surgery. At this time family is unsure if they would want to have surgery or if they would want the cholecystostomy tube replaced. Related Data Home Medications Medication Instructions Recorded Confirmed allopurinol 300 mg tablet 300 mg PO DAILY 05/22/19 12/18/22 atorvastatin 40 mg tablet 40 mg PO HS 05/22/19 12/18/22 finasteride 5 mg tablet 5 mg PO HS 05/22/19 12/18/22 furosemide 40 mg tablet 20 mg PO DAILY 05/22/19 12/18/22 multivitamin with minerals-folic 1 tablet PO DAILY 05/22/19 12/18/22 acid 0.4 mg tablet (Adult One Daily Multivitamin) cholecalciferol (vitamin D3) 125 5,000 unit PO DAILY 10/09/19 12/18/22 mcg (5,000 unit) tablet (Vitamin D3) cetirizine 10 mg tablet (Zyrtec) 10 mg PO DAILY 08/26/20 12/18/22 rivaroxaban 20 mg tablet (Xarelto) 15 mg PO QPM 08/26/20 12/08/22 acetaminophen 325 mg capsule 325 mg PO Q6H PRN Pain (Scale 04/05/22 12/18/22 (Tylenol) Score 1-3) escitalopram oxalate 5 mg tablet 5 mg PO DAILY 04/05/22 12/18/22 metolazone 2.5 mg tablet 2.5 mg PO QMWF 10/13/22 12/18/22 Allergies Allergy/AdvReac Type Severity Reaction Status Date / Time No Known Allergies Allergy Unknown Verified 12/18/22 10:54 Review of Systems Review of Systems: ROS unobtainable: Yes unobtainable due to medical condition PMFSH Past Medical History Medical History (Updated 12/18/22 @ 18:32 by Zafar Jacinto MD) Arthritis Basal cell carcinoma Benign prostatic hyperplasia Cerebrovascular accident 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 Chronic anemia Coronary artery disease Current use of superintendent terminal anticoagulation Dementia Depression Gout Hyperlipidemia Hypertension Paroxysmal atrial fibrillation Seasonal allergies Shingles (~09/2018) Transient ischemic attack 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 Surgical History Surgical History (Updated 12/18/22 @ 14:57 by Bere Ba PA-C) History of aortic valve replacement History of bilateral cataract extraction History of cardiac catheterization History of mitral valve replacement History of surgical removal of skin lesion x2 Status post surgical removal of malignant neoplasm of skin Excision of basal cell carcinoma x2. Family History Family History Father Abdominal aneurysm, ruptured Heart disease Mother Heart disease Other Heart disease Social History Social History (Updated 12/18/22 @ 14:58 by Bere Ba PA-C) Social History: Surrogate decision maker: Ashley Rodriguez, . Code status: Do not resuscitate. Smoking status: Never smoker Second hand tobacco smoke exposure: No Alcohol intake: never Drinks per week: 7 Substance use: never Substance use type: does not use Lack of Transportation: No Lack of Food: Never True Current Housing: I Have Housing Concerned About Future Housing: No Difficulty Paying Gas/Electric Bills: No Difficulty Paying for Meds: No Currently Unemployed: No Education: Bachelor's Degree Difficulty w/ Childcare or Family Care: No Additional living arrangements comments: Currently at a memory care center, previously lived with in [place]. They have 5 children. Additional occupation/education comments: Ret
[2022-12-18 11:41] LABS: Hematocrit 42.5 % (42.0-52.0); Mean Corpuscular HGB Conc 32.9 g/dl (32-36); Mean Corpuscular Hemoglobin 32.7 pg (26-34); Mean Corpuscular Volume 99.3 fl (80-100); Mean Platelet Volume 10.4 fl (7.4-10.4); Platelet Count Result 178 k/mm3 (150-375); Red Blood Count 4.28 M/mm3 (4.6-6.20); Red Cell Distribution Width 15.9 % (11.5-14.5); White Blood Count 21.1 K/mm3 (4.5-10.0)
[2022-12-18 11:50] LABS: Alanine Aminotransferase 118 U/L (6-50); Albumin Level 4.3 g/dL (3.5-5.1); Alkaline Phosphatase 177 U/L (38-126); Anion Gap 10 mmol/L (8-16); Aspartate Amino Transferase 142 U/L (17-59); Bilirubin,Total 1.5 mg/dL (0.2-1.3); Blood Urea Nitrogen 21 mg/dL (9-20); Calcium 9.1 mg/dL (8.4-10.2); Carbon Dioxide 25 mmol/L (22-30); Chloride 102 mmol/L (98-107); Estimated Glomerular Filt Rate 52; Glucose 178 mg/dL (65-110); Potassium 4.3 mmol/L (3.4-5.0); Sodium 137 mmol/L (137-145)
[2022-12-18 11:51] LABS: Lactic Acid Reflex 2.3 mmol/L (0.7-2.0)
[2022-12-18 12:08] LABS: Band Neutrophils Percent 24 % (0-6); Burr Cells 2+ (NORMAL); Lymphocytes Absolute Manual 0.84 K/mm3 (1.1-4.5); Neutrophils Absolute Manual 20.25 K/mm3 (1.3-6.7); Neutrophils Percent Manual 72 % (46-73); Platelet Estimate Adequate (Adequate); Schistocytes None Seen (NORMAL); Total Cells Counted 100
[2022-12-18 12:09] LABS: Poikilocytosis 1+ (NORMAL)
[2022-12-18 12:22] LABS: Influenza A QL RT-PCR Negative (Negative); Influenza B QL RT-PCR Negative (Negative); RSV RNA, RT-PCR Negative (Negative); SARS-CoV-2 RNA PCR Negative (Negative)
[2022-12-18] MEDS: SODIUM CHLORIDE 0.9% IV 1,000 ML 500 ML IV CONT (12:50)
[2022-12-18 13:33] LABS: Appearance Urine Cloudy (Clear); Bacteria Urine None Seen /hpf; Bilirubin Urine Negative (Negative); Blood Urine Trace (Negative); Color Urine Yellow (Yellow); Glucose Urine UA Negative (Negative); Hyaline Casts Urine Present /lpf; Ketones Urine Negative (Negative); Leukocyte Esterase Ur 3+ LEU/UL (Negative); Nitrate Urine Negative (Negative); Protein Urine 1+ mg/dL (Negative); RBC Urine 0-2 /hpf (0-2); Specific Grav Ur 1.017 (1.001-1.035); Squamous Epithelial Cell Urine None seen /hpf (Few); WBC Urine >100 /hpf; pH Urine 5.5 (5.0-9.0)
[2022-12-18 13:40] LABS: Add Urine Microscopic? YES
[2022-12-18] MEDS: PIPERACILLN/TAZ 3.375GM/NS50ML 3.375 GM/50 ML BAG IVPB (13:45)
--- NOTE | 2022-12-18 13:59 | ECG_ITS ---
Measurements Intervals [place] Rate: 75 P: MI: 0 QRS: 18 QRSD: 150 T: -15 QT: 443 QTc: 497 Interpretive Statements ATRIAL FIBRILLATION RIGHT BUNDLE BRANCH BLOCK [120+ ms QRS DURATION, UPRIGHT V1, 40+ ms S IN I/aVL/V4/V5/V6] COMPARED TO ECG 01/19/2021 12:14:56 NO SIGNIFICANT CHANGES Electronically Signed On 12-22-2022 10:38:55 CDT by Macario Sanchez M.D.
[2022-12-18] MEDS: HYDROmorphone HCL INJ (*CRX) 1 MG/ML SYR 0.5 MG IV PUSH (14:36)
[2022-12-18 14:39] LABS: Reflex Lactic Acid Yes or No Add Lactic
--- NOTE | 2022-12-18 14:45 | PM.IMHP ---
H&P: HPI History of Present Illness Date/Time: 12/18/22 14:15 Chief Complaint: Altered mental status. Narrative: This is an 87-year-old male with dementia, coronary artery disease, paroxysmal atrial fibrillation, valvular heart disease status post aortic and mitral valve replacement, hypertension, and several other comorbidities who presented to the emergency department via EMS from a residential facility for evaluation of altered mental status. He is not able to provide an accurate history and thus a majority the following history is obtained from discussions with his family members at bedside. He was admitted to the hospital at the end of September with acute cholecystitis, treated with antibiotics and cholecystostomy tube for drainage. Cholecystostomy tube became dislodged and he was readmitted on 11/21/2022. After several discussions with the patient and his family members it was made clear but they did not wish to pursue surgery and opted for conservative treatment to include a low-fat diet. The tube was not reinserted and [facility]. He returned to the ED today with increasing confusion from baseline, nausea, and vomiting. Family members report he has not been as talkative as usual and they are concerned for infection. In the ED the patient was complaining of neck and left shoulder pain but was vague in describing the symptoms. He was afebrile on arrival with stable vital signs. Labs were significant for a WBC count of 21.1 with 24% bands, total bilirubin 1.5, AST 142, ALT 118, alkaline phosphatase 117. Urine was positive for 3+ leukocyte esterase, greater than 100 wbc's, and hyaline casts and was nitrate negative with no bacteria noted. He tested negative for influenza, RSV, and COVID. Head CT, cervical spine CT, and left shoulder x-ray did not demonstrate any acute pathology. CT of the abdomen and pelvis showed prominent edema of the gallbladder wall and interval mild fluid collection around the lower aspect of liver and right pericolic gutter which is new since 11/21/2022. He received a dose of Zosyn and he is being admitted in this setting for further treatment and evaluation. At the time my evaluation he somnolent but does arouse to me. He answers some questions with others he does not and he seems to fall asleep quite easily. He reports that his mouth is dry that he is thirsty and he indicates he has some vague abdominal discomfort which he cannot qualify. He grimaces with palpation of the abdomen, more so in the upper abdomen. Later this evening and received a phone call from the patient's nurse reporting that his depends sweats saturated with bloody urine and clots. Three-way Ramos catheter has been inserted he has been started on CBI. Review of Systems Review of Systems: Unable to obtain accurately given clinical condition as detailed above. 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 Chronic anemia Coronary artery disease Current use of nursing home anticoagulation Dementia Depression Gout Hyperlipidemia Hypertension Paroxysmal atrial fibrillation Seasonal allergies Shingles (~09/2018) Transient ischemic attack 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 Surgical History Surgical History (Updated 12/18/22 @ 14:57 by Bere Ba PA-C) History of aortic valve replacement History of bilateral cataract extraction History of cardiac catheterization History of mitral valve replacement History of surgical removal of skin lesion x2 Status post surgical removal of malignant neoplasm of skin Excision of basal cell carcinoma x2. Family History Family History Father Abdominal aneurysm
[2022-12-18 16:57] LABS: Lactic Acid 2.2 mmol/L (0.7-2.0)
[2022-12-18 22:31] LABS: Ammonia < 9 umol/L (9-30)
[2022-12-18 22:32] LABS: Anion Gap 7 mmol/L (8-16); Blood Urea Nitrogen 22 mg/dL (9-20); Calcium 8.4 mg/dL (8.4-10.2); Carbon Dioxide 24 mmol/L (22-30); Chloride 106 mmol/L (98-107); Estimated CRCL calculation 43 ml/min; Estimated Glomerular Filt Rate 52; Glucose 139 mg/dL (65-110); Lactic Acid Reflex 1.3 mmol/L (0.7-2.0); Potassium 4.1 mmol/L (3.4-5.0); Sodium 137 mmol/L (137-145)
[2022-12-18 22:37] LABS: INR 1.7; Partial Thromboplastin Time 33.7 SECONDS (22.3-36.8); Prothrombin Time 21.6 Seconds (11.1-14.7)
[2022-12-18 22:48] LABS: Alveolar/Arterial O2 Gradient 38.5 mmHg; Base Excess ABG -0.8 mEq/l (+/-2.0); Carboxyhemoglobin 1.1 % THb (0-2.0); Fractional Inspired Oxygen 21 %; HCO3 ABG 19.6 mEq/l (22.0-26.0); Methemoglobin ABG 0.3 %THb (0-1.5); Oxygen Content ABG 17.3 %vol (16.0-22.0); Oxygen Saturation ABG 97.6 % (95.0-100.0); Oxyhemoglobin 95.6 % THb (90.0-100.0); PO2 ABG 84.4 mmHg (80.0-100.0); PO2 FiO2 Ratio Arterial Blood 4.02 %; Total Hemoglobin 12.8 g/dL (12.0-18.0)
[2022-12-18 23:00] LABS: CRP 17.4 mg/dL (<1.0); Magnesium 1.9 mg/dL (1.6-2.3); Procalcitonin 2.3 ng/mL
[2022-12-19] MEDS: FINASTERIDE 5 MG TABLET PO ×2 (00:47→20:26)
[2022-12-19] MEDS: PIPERACILLN/TAZ 3.375GM/NS50ML 3.375 GM/50 ML BAG IVPB ×5 (00:47→23:45)
[2022-12-19] MEDS: HYDROmorphone HCL INJ (*CRX) 1 MG/ML SYR 0.25 MG IV PUSH ×3 (01:58→18:13)
--- NOTE | 2022-12-19 05:11 | PC.NURSE ---
2134: During physical assessment, patient somnolent and difficult to get responses from. While doing head to toe, patient noted to have a large amount of clotted blood between legs coming from penis with chucks saturated with red/pink tinged urine. 2144: Notified Whitney LEON at this time to above situation. New orders received to insert a 3 way quiroz and start CBI. 2299: 3 way quiroz inserted at this time and clear yellow urine noted. Small amount of light red bloody drainage noted around catheter at tip of penis. Margarita Ba notified of this and new orders received to hold CBI at this time and monitor.
[2022-12-19 06:00] VITALS: BP 120/74; PULSE 70; RESP 16; TEMP 36.9; O2SAT 95
[2022-12-19 06:30] LABS: Glucose Point of Care 122 mg/dl (65-105)
[2022-12-19 06:40] LABS: Basophils Percent Auto 0.1 % (0.2-1.2); Eosinophils Percent Auto 0.1 % (0-4.4); Hematocrit 36.5 % (42.0-52.0); Hemoglobin 11.8 g/dL (14.0-18.0); Immature Granulocyte Absolute 0.09 K/mm3 (0.00-0.031); Immature Granulocyte Percent A 0.5 % (0-0.5); Lymphocytes Absolute Auto 0.77 K/mm3 (0.9-3.2); Lymphocytes Percent Auto 4.5 % (18.3-44.2); Mean Corpuscular HGB Conc 32.3 g/dl (32-36); Mean Corpuscular Hemoglobin 31.8 pg (26-34); Mean Corpuscular Volume 98.4 fl (80-100); Mean Platelet Volume 10.5 fl (7.4-10.4); Monocytes Absolute Auto 0.9 K/mm3 (0.1-0.6); Monocytes Percent Auto 5.3 % (2.6-8.5); Neutrophils Absolute Auto 15.3 K/mm3 (1.3-6.7); Neutrophils Percent Auto 89.5 % (45.5-73.1); Platelet Count Result 150 k/mm3 (150-375); Red Blood Count 3.71 M/mm3 (4.6-6.20); White Blood Count 17.1 K/mm3 (4.5-10.0)
[2022-12-19 06:54] LABS: Alanine Aminotransferase 74 U/L (6-50); Albumin Level 3.6 g/dL (3.5-5.1); Alkaline Phosphatase 116 U/L (38-126); Anion Gap 6 mmol/L (8-16); Aspartate Amino Transferase 52 U/L (17-59); Bilirubin,Total 1.7 mg/dL (0.2-1.3); Blood Urea Nitrogen 25 mg/dL (9-20); Calcium 8.5 mg/dL (8.4-10.2); Carbon Dioxide 24 mmol/L (22-30); Chloride 106 mmol/L (98-107); Estimated CRCL calculation 40 ml/min; Estimated Glomerular Filt Rate 48; Glucose 127 mg/dL (65-110); Potassium 4.4 mmol/L (3.4-5.0); Sodium 136 mmol/L (137-145)
--- NOTE | 2022-12-19 07:40 | PM.CNGS ---
Assessment and Plan Assessment and plan (1) Cholecystitis: Code(s): K81.9 - Cholecystitis, unspecified Status: Acute Assessment and Plan: Appears to have developed recurrent acute cholecystitis. Will get ultrasound right upper quadrant. Will discuss with family options from this point. If surgery is to be done, would need to be off Xarelto for at least a couple of days. (2) Gross hematuria: Code(s): R31.0 - Gross hematuria Status: Acute Assessment and Plan: Probably from traumatic Ramos placement in the emergency room. Has resolved now without continuous bladder irrigation having to be performed. (3) Paroxysmal atrial fibrillation: Code(s): I48.0 - Paroxysmal atrial fibrillation Status: Chronic Assessment and Plan: Will order EKG. On chronic anticoagulation for this and for heart valve replacements. (4) S/P aortic valve replacement with bioprosthetic valve: Code(s): Z95.3 - Presence of xenogenic heart valve Status: Chronic Assessment and Plan: Supposedly has had mitral valve replacement as well. 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 (6) Dementia: Qualifiers: Dementia type: unspecified type Dementia severity: moderate Dementia behavioral or psychological symptom: unspecified whether behavioral, psychotic, or mood disturbance or anxiety Qualified Code(s): F03.B0 - Unspecified dementia, moderate, without behavioral disturbance, psychotic disturbance, mood disturbance, and anxiety Code(s): F03.90 - Unspecified dementia, unspecified severity, without behavioral disturbance, psychotic disturbance, mood disturbance, and anxiety Status: Chronic Assessment and Plan: Resides in memory care unit History of Present Illness Consult details Consult date: 12/19/22 Reason for consult: abdominal pain Requesting physician: Zafar Jacinto MD Narrative: Patient is an 87-year-old man who came to the emergency room yesterday with abdominal pain and right upper quadrant tenderness. CT scan was not definitive but did show some gallbladder wall thickening and fluid in the posterior aspect of the liver. Patient has advanced age and lives in a nursing facility. He has had both aortic and mitral valve replacement and is on Xarelto chronic anticoagulation. He was seen on October 14 of this year for acute cholecystitis. Due to his frailty and medical conditions, cholecystostomy tube was placed. This worked well and he was able to be discharged with the tube in place. Family and surgeon at that time were understandably reluctant to proceed with surgery. Patient was seen in the office in mid October and was doing nicely with the cholecystostomy tube. He underwent a cholecystogram in early November. This showed an occluded cystic duct. Soon after that, it was noted that his cholecystostomy tube had become dislodged. It was removed. He was doing well at the time and plan was to observe, again due to the risks of the surgery. Patient came to the emergency room yesterday with altered mental status and complaints of abdominal pain with vomiting. He resides in a memory care unit. He was admitted and is seen now in consultation for what appears to be recurrent acute cholecystitis. None of his previous imaging has shown gallstones. He did have and hepatobiliary scan on October 14 which showed cystic duct obstruction. 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
[2022-12-19 08:00] VITALS: PULSE 70; RESP 16; O2SAT 95
--- NOTE | 2022-12-19 08:04 | ECG_ITS ---
Measurements Intervals [place] Rate: 64 P: TN: 0 QRS: 12 QRSD: 157 T: -24 QT: 459 QTc: 475 Interpretive Statements ATRIAL FIBRILLATION/FLUTTER RIGHT BUNDLE BRANCH BLOCK [120+ ms QRS DURATION, UPRIGHT V1, 40+ ms S IN I/aVL/V4/V5/V6] ABNORMAL ECG COMPARED TO ECG 12/18/2022 13:59:13 NO CHANGE Electronically Signed On 12-19-2022 10:26:43 CDT by Shakeel Lambert M.D.
--- NOTE | 2022-12-19 09:36 | PM.IMPN ---
Progress Note: A&P Assessment and Plan (1) Sepsis: Code(s): A41.9 - Sepsis, unspecified organism Status: Acute (2) Cholecystitis: Code(s): K81.9 - Cholecystitis, unspecified Status: Acute (3) Confusion: Code(s): R41.0 - Disorientation, unspecified Status: Acute (4) Gross hematuria: Code(s): R31.0 - Gross hematuria Status: Acute (5) Transaminitis: Code(s): R74.01 - Elevation of levels of liver transaminase levels Status: Acute (6) Abnormal urinalysis: Code(s): R82.90 - Unspecified abnormal findings in urine Status: Acute (7) Dementia: Qualifiers: Dementia type: unspecified type Dementia severity: moderate Dementia behavioral or psychological symptom: unspecified whether behavioral, psychotic, or mood disturbance or anxiety Qualified Code(s): F03.B0 - Unspecified dementia, moderate, without behavioral disturbance, psychotic disturbance, mood disturbance, and anxiety Code(s): F03.90 - Unspecified dementia, unspecified severity, without behavioral disturbance, psychotic disturbance, mood disturbance, and anxiety Status: Chronic (8) Paroxysmal atrial fibrillation: Code(s): I48.0 - Paroxysmal atrial fibrillation Status: Chronic (9) 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 Alert and oriented x1 at baseline and decides at memory care unit. Patient had nausea and vomiting and was not talkative as usual. Recent cholecystostomy tube placement for acute cholecystitis which came out on its on at home. Family opposed to going for surgery. Admitted in this setting. Workup revealed leukocytosis 21,000 with bandemia. Elevated liver enzymes. Lactic acid was also elevated at 2.2 UA was suggestive UTI despite being on Augmentin. Patient started on Zosyn and cultures were obtained. Head CT came back negative for acute findings. CT abdomen pelvis showed prominent edema of the gallbladder wall interval mild fluid collection around the lower aspect of liver and right paracolic gutter. General surgery has been consulted. Patient also had gross hematuria likely from traumatic Ramos placement in the ER. 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 Xarelto on hold patient neck critically/sepsis. Leukocytosis improved today has mild CKD stage 3 LFTs is improved today ammonia level is less than 9 TSH is normal blood cultures pending. Abdomen ultrasound with gallbladder wall thickening and minimal perihepatic fluid. Gross hematuria however urine has been clear since 3 way catheter has been placed. Likely traumatic. Will stop her discontinue CBI. Monitor off anticoagulation. DVT prophylaxis with Lovenox will moved to tomorrow since been on Xarelto. Which is currently on hold. Will start gentle IV fluids. EKG with a flutter and right bundle-branch block. Unchanged compared to previous EKGs. Chest x-ray with cardiomegaly and mild atelectasis in the lower lung zones. Subjective Date/time seen: 12/19/22 09:36 Interval history: Patient presented with altered mental status. Alert and oriented x1 at baseline and decides at memory care unit. Patient had nausea and vomiting and was not talkative as usual. Recent cholecystostomy tube placement for acute cholecystitis which came out on its on at home. Family opposed to going for surgery. Admitted in this setting. Workup revealed leukocytosis 21,000 with bandemia. Elevated liver enzym
[2022-12-19] MEDS: POTASSIUM CHLORIDE 20 MEQ TABLET.ER 40 MEQ PO (10:21)
[2022-12-19] MEDS: ESCITALOPRAM OXALATE 5 MG TABLET PO (10:22)
[2022-12-19] MEDS: LORATADINE 10 MG TABLET PO (10:22)
[2022-12-19] MEDS: FUROSEMIDE 20 MG TABLET PO (10:22)
[2022-12-19] MEDS: DEXTROSE 5%/0.45% SOD CHL 1,000 ML 50 ML IV CONT (10:37)
[2022-12-19 11:01] LABS: Device ROOM AIR; PCO2 ABG 22.4 mmHg (35.0-45.0)
[2022-12-19 13:59] VITALS: BP 161/94; PULSE 75; RESP 16; TEMP 36.1; O2SAT 100
[2022-12-19 18:39] LABS: Glucose Point of Care 156 mg/dl (65-105)
[2022-12-19 21:12] LABS: Glucose Point of Care 166 mg/dl (65-105)
[2022-12-19 21:51] VITALS: BP 135/87; PULSE 70; RESP 14; TEMP 36.8; O2SAT 97
[2022-12-20] MEDS: PIPERACILLN/TAZ 3.375GM/NS50ML 3.375 GM/50 ML BAG IVPB ×4 (05:54→23:14)
[2022-12-20 06:00] VITALS: BP 144/92; PULSE 62; RESP 14; TEMP 36.2; O2SAT 96
[2022-12-20 06:56] LABS: Glucose Point of Care 146 mg/dl (65-105)
[2022-12-20 07:59] LABS: Hematocrit 36.5 % (42.0-52.0); Hemoglobin 11.7 g/dL (14.0-18.0); Mean Corpuscular HGB Conc 32.1 g/dl (32-36); Mean Corpuscular Hemoglobin 32.1 pg (26-34); Mean Platelet Volume 10.9 fl (7.4-10.4); Platelet Count Result 143 k/mm3 (150-375); Red Blood Count 3.65 M/mm3 (4.6-6.20); Red Cell Distribution Width 15.9 % (11.5-14.5); White Blood Count 15.9 K/mm3 (4.5-10.0)
[2022-12-20] MEDS: ENOXAPARIN 40 MG/0.4 ML SYRINGE SUB-Q (08:00)
[2022-12-20] MEDS: LORATADINE 10 MG TABLET PO (08:01)
[2022-12-20] MEDS: ESCITALOPRAM OXALATE 5 MG TABLET PO (08:01)
[2022-12-20] MEDS: POTASSIUM CHLORIDE 20 MEQ TABLET.ER 40 MEQ PO (08:01)
[2022-12-20] MEDS: DEXTROSE 5%/0.45% SOD CHL 1,000 ML 50 ML IV CONT (08:12)
[2022-12-20 08:15] LABS: Alanine Aminotransferase 55 U/L (6-50); Albumin Level 3.3 g/dL (3.5-5.1); Alkaline Phosphatase 104 U/L (38-126); Anion Gap 6 mmol/L (8-16); Aspartate Amino Transferase 38 U/L (17-59); Bilirubin,Total 1.8 mg/dL (0.2-1.3); Blood Urea Nitrogen 29 mg/dL (9-20); Calcium 8.3 mg/dL (8.4-10.2); Carbon Dioxide 24 mmol/L (22-30); Chloride 105 mmol/L (98-107); Estimated CRCL calculation 39 ml/min; Estimated Glomerular Filt Rate 48; Glucose 138 mg/dL (65-110); Lipase 61 U/L (23-300); Magnesium 2.2 mg/dL (1.6-2.3); Potassium 3.7 mmol/L (3.4-5.0); Sodium 135 mmol/L (137-145)
--- NOTE | 2022-12-20 11:16 | PM.PNGS ---
Progress Note: A&P Assessment and Plan (1) Cholecystitis: Code(s): K81.9 - Cholecystitis, unspecified Status: Acute Assessment and Plan: Seems a little better today. I talked with the patient and discussed whether he would be interested in gallbladder surgery. He reiterated that he does not want surgery. I tried to call his Ashley but was unable to reach her. I spoke to the patient's son, Marcelino andres, who told me that his brother and sisters are all in favor of hospice. He further stated again that back in September, when his father was more coherent, he expressly did what want to have surgery. The patient's , Ashley, is actually in a rehab facility after having a fractured elbow and surgery for that. She is the power of litigation attorney but is undecided exactly what she wants to do from here. Son told me that they specifically will not be wanting any surgery this week. Will go ahead and cancel any plans for surgery for tomorrow. From my perspective, patient can read turned to his anticoagulation. (2) Current use of custodial anticoagulation: Code(s): Z79.01 - residential (current) use of anticoagulants Status: Chronic Assessment and Plan: On hold but okay to resume from my perspective as it does not seem patient will be having surgery at least any time soon if ever. (3) Paroxysmal atrial fibrillation: Code(s): I48.0 - Paroxysmal atrial fibrillation Status: Chronic (4) Dementia: Qualifiers: Dementia type: unspecified type Dementia severity: moderate Dementia behavioral or psychological symptom: unspecified whether behavioral, psychotic, or mood disturbance or anxiety Qualified Code(s): F03.B0 - Unspecified dementia, moderate, without behavioral disturbance, psychotic disturbance, mood disturbance, and anxiety Code(s): F03.90 - Unspecified dementia, unspecified severity, without behavioral disturbance, psychotic disturbance, mood disturbance, and anxiety Status: Chronic Assessment and Plan: Memory issues have worsened in the last couple of months. Subjective Subjective Date/Time Seen: 12/20/22 11:16 Patient reports: feels better, pain is less and afebrile Review of Systems Review of Systems: ROS unobtainable: Yes unobtainable due to mental status Exam Const: General: comfortable (Seems much more comfortable today), alert and awake (More talkative, seems more lucid today) Nutritional Appearance: well nourished GI: Inspection: non-distended and no visible herniation GI Palp: Yes Soft to palpation, Yes Tenderness to palpation present (GI) (Less tender than yesterday, mild right upper quadrant tenderness), No Hernia present and No Palpable mass present Objective Data Vital Signs Vital Signs: Vital Signs - 24 hr 12/19/22 13:59 12/19/22 21:51 12/20/22 06:00 Temperature 36.1 C L 36.8 C 36.2 C L Pulse Rate 75 70 62 Respiratory Rate 16 14 14 Blood Pressure 161/94 H 135/87 144/92 H Pulse Oximetry 100 97 96 Oxygen Delivery 12/20/22 08:15 Temperature Pulse Rate Respiratory Rate Blood Pressure Pulse Oximetry Oxygen Delivery Room Air Intake/Output Intake/Output: Intake & Output 12/17/22 12/18/22 12/19/22 12/20/22 23:59 23:59 23:59 23:59 Intake Total 5979 419 8611 Output Total 200 950 500 Balance 800 -750 550 Meds/Results Medications: Active Medications Generic Name Dose Route Start Last Admin Trade Name Freq PRN Reason Stop Dose Admin Acetaminophen 325 mg 12/18/22 22:07 Acetaminophen 325 Mg Tablet PO Q6H PRN Pain (1-3) or fever Dextrose 12.5 gm 12/18/22 22:08 Dextrose 50% 25 Gm/50 Ml Syringe IV PUSH PRN PRN Hypoglycemia Protocol Enoxaparin Sodium 40 mg 12/20/22 09:00 12/20/22 08:00 Enoxaparin 40 Mg/0.4 Ml Syringe SUB-Q 40 mg DAILY LUKAS Administration Escitalopram Oxalate 5 mg 12/19/22 09:00 12/20/22 08:01 Escitalopram Oxalate 5 Mg Tablet PO
[2022-12-20 11:43] LABS: Glucose Point of Care 148 mg/dl (65-105)
[2022-12-20 14:00] VITALS: BP 153/87; PULSE 67; RESP 18; TEMP 36.3; O2SAT 96
[2022-12-20 18:13] LABS: Glucose Point of Care 121 mg/dl (65-105)
[2022-12-20 20:00] VITALS: PULSE 55; RESP 18; O2SAT 95
[2022-12-20] MEDS: FINASTERIDE 5 MG TABLET PO (20:28)
[2022-12-20] MEDS: ACETAMINOPHEN 325 MG TABLET PO (20:28)
[2022-12-20 20:39] VITALS: BP 133/77; PULSE 55; RESP 18; TEMP 36.4; O2SAT 95
[2022-12-20 22:28] VITALS: O2SAT 95
[2022-12-21] VITALS (16 sets, daily range): BP systolic 120–177; BP diastolic 76–118; PULSE 54–74; RESP 14–24; TEMP 35.7–36.9; O2SAT 95–100
[2022-12-21 00:41] LABS: Glucose Point of Care 128 mg/dl (65-105)
[2022-12-21] MEDS: CHLORHEXIDINE GLUCONATE 4% SOL 120 ML BTL 1 APPLIC TOPICAL (04:15)
[2022-12-21] MEDS: DEXTROSE 5%/0.45% SOD CHL 1,000 ML 50 ML IV CONT ×2 (04:21→17:35)
[2022-12-21] MEDS: PIPERACILLN/TAZ 3.375GM/NS50ML 3.375 GM/50 ML BAG IVPB ×3 (05:03→17:02)
[2022-12-21 06:06] LABS: Glucose Point of Care 130 mg/dl (65-105)
[2022-12-21 06:26] LABS: Basophils Percent Auto 0.2 % (0.2-1.2); Eosinophils Absolute Auto 0.2 K/mm3 (0-0.3); Eosinophils Percent Auto 1.5 % (0-4.4); Hematocrit 33.5 % (42.0-52.0); Hemoglobin 10.7 g/dL (14.0-18.0); Immature Granulocyte Absolute 0.08 K/mm3 (0.00-0.031); Immature Granulocyte Percent A 0.7 % (0-0.5); Lymphocytes Percent Auto 6.3 % (18.3-44.2); Mean Corpuscular HGB Conc 31.9 g/dl (32-36); Mean Corpuscular Hemoglobin 31.6 pg (26-34); Mean Corpuscular Volume 98.8 fl (80-100); Monocytes Absolute Auto 0.6 K/mm3 (0.1-0.6); Monocytes Percent Auto 5.2 % (2.6-8.5); Neutrophils Absolute Auto 9.5 K/mm3 (1.3-6.7); Neutrophils Percent Auto 86.1 % (45.5-73.1); Platelet Count Result 131 k/mm3 (150-375); Red Blood Count 3.39 M/mm3 (4.6-6.20); Red Cell Distribution Width 15.7 % (11.5-14.5); White Blood Count 11.1 K/mm3 (4.5-10.0)
[2022-12-21 06:35] LABS: INR 1.3; Prothrombin Time 16.3 Seconds (11.1-14.7)
[2022-12-21 06:36] LABS: Partial Thromboplastin Time 26.8 SECONDS (22.3-36.8)
[2022-12-21 06:40] LABS: Alanine Aminotransferase 69 U/L (6-50); Albumin Level 2.9 g/dL (3.5-5.1); Alkaline Phosphatase 135 U/L (38-126); Anion Gap 5 mmol/L (8-16); Aspartate Amino Transferase 65 U/L (17-59); Bilirubin,Total 1.6 mg/dL (0.2-1.3); Blood Urea Nitrogen 23 mg/dL (9-20); Carbon Dioxide 23 mmol/L (22-30); Chloride 105 mmol/L (98-107); Estimated CRCL calculation 46 ml/min; Estimated Glomerular Filt Rate 57; Glucose 122 mg/dL (65-110); Potassium 3.4 mmol/L (3.4-5.0); Sodium 133 mmol/L (137-145)
--- NOTE | 2022-12-21 08:01 | WPDANESEPPF ---
Anes - Initial Pre Proc Eval Procedure: Operation Date: 12/21/22 12:00 Proposed Procedures p Laparoscopic Cholecystectomy - Clark Leung MD Operation Date: 12/21/22 12:30 Proposed Procedures p Laparoscopic Cholecystectomy - Clark Leung MD Date/Time: 12/21/22 08:01 Surgeon: Yuniel Herron MD Pre Op Diagnosis: Cholecystitis Patient Data Age: 87 Gender: M Height: 1.78 m Weight: 102.7 kg Last Vital Signs Temp 36.2 C L 12/21/22 06:00 Pulse 54 L 12/21/22 06:00 Resp 18 12/21/22 06:00 BP 120/76 12/21/22 06:00 Pulse Ox 98 12/21/22 06:00 O2 Del Method Room Air 12/20/22 22:28 Allergies Allergy/AdvReac Type Severity Reaction Status Date / Time No Known Allergies Allergy Unknown Verified 12/18/22 10:54 Home Medications Medication Instructions Recorded Confirmed Type allopurinol 300 mg tablet 300 mg PO DAILY 05/22/19 12/18/22 History atorvastatin 40 mg tablet 40 mg PO HS 05/22/19 12/18/22 History finasteride 5 mg tablet 5 mg PO HS 05/22/19 12/18/22 History furosemide 40 mg tablet 20 mg PO DAILY 05/22/19 12/18/22 History multivitamin with minerals-folic 1 tablet PO DAILY 05/22/19 12/18/22 History acid 0.4 mg tablet (Adult One Daily Multivitamin) cholecalciferol (vitamin D3) 125 5,000 unit PO DAILY 10/09/19 12/18/22 History mcg (5,000 unit) tablet (Vitamin D3) cetirizine 10 mg tablet (Zyrtec) 10 mg PO DAILY 08/26/20 12/18/22 History rivaroxaban 20 mg tablet (Xarelto) 15 mg PO QPM 08/26/20 12/08/22 History potassium chloride 20 mEq 40 meq PO DAILY #0 tabs 08/28/20 12/18/22 Rx tablet,extended release acetaminophen 325 mg capsule 325 mg PO Q6H PRN Pain (Scale 04/05/22 12/18/22 History (Tylenol) Score 1-3) escitalopram oxalate 5 mg tablet 5 mg PO DAILY 09/20/22 06/04/23 History metolazone 2.5 mg tablet 2.5 mg PO QMWF 10/13/22 12/18/22 History aluminum-mag hydroxide-simethicone 30 ml PO Q6H PRN Indigestion #355 11/23/22 12/18/22 Rx 200 mg-200 mg-20 mg/5 mL oral susp mL (Mag-Al Plus) polyethylene glycol 3350 17 gram 17 g PO QAM PRN Constipation #14 ea 11/23/22 12/18/22 Rx oral powder packet (Miralax) Laboratory Tests 12/20/22 12/20/22 12/20/22 07:33 11:40 17:49 WBC RBC Hgb Hct MCV MCH MCHC RDW Plt Count MPV Immature Gran % (Auto) Neut % (Auto) Lymph % (Auto) Yell % (Auto) Eos % (Auto) Baso % (Auto) Lymph # (Auto) Yell # (Auto) Eos # (Auto) Baso # (Auto) Abs Immat Gran (auto) Absolute Neuts (auto) Absolute Nucleated RBC Nucleated RBC % PT INR APTT Sodium 135 L mmol/L (137-145) Potassium 3.7 mmol/L (3.4-5.0) Chloride 105 mmol/L (98-107) Carbon Dioxide 24 mmol/L (22-30) Anion Gap 6 L mmol/L (8-16) BUN 29 H mg/dL (9-20) Creatinine 1.40 H mg/dL (0.7-1.3) Estim Creat Clear Calc 39 ml/min Estimated GFR 48 L (59 - ) Glucose 138 H mg/dL (65-110) POC Capillary Glucose 148 H mg/dl (65-105) Calcium 8.3 L mg/dL (8.4-10.2) Magnesium 2.2 mg/dL (1.6-2.3) Total Bilirubin 1.8 H mg/dL (0.2-1.3) AST 38 U/L (17-59) ALT 55 H U/L (6-50) Alkaline Phosphatase 104 U/L (38-126) Total Protein 7.0 g/dL (6.3-8.2) Albumin 3.3 L g/dL (3.5-5.1) Lipase 61 U/L (23-300) Blood Type O Negative Antibody Screen Negative 0612/21/22 12/21/22 18:11 00:39 06:02 WBC RBC Hgb Hct MCV MCH MCHC RDW
[2022-12-21] MEDS: LACTATED RINGERS 1,000 ML 30 ML IV CONT (11:03)
--- NOTE | 2022-12-21 11:18 | SUR.PREOP ---
family and pt informed delay in procedure.
--- NOTE | 2022-12-21 12:21 | WPDHPUPDATE1 ---
History and Physical Update Update Date/Time: 12/21/22 12:21 History and Physical has been reviewed, including an updated exam of the patient. There are NO changes in the patient's condition. Risks, benefits, and alternatives have been discussed and questions answered. Patient agrees to proceed with procedure.
[2022-12-21] MEDS: BUPIVACAINE/EPINEPHRINE 0.5% 50 ML VIAL 30 ML INFILTRATE (12:40)
--- NOTE | 2022-12-21 15:12 | W.PM.PROC2 ---
Procedure Note - Detailed Date of Procedure 12/21/22 Pre-op Diagnosis Cholecystitis Post-op Diagnosis Other (Gallbladder perforation, acalculous cholecystitis acute on chronic) Procedure Performed Laparoscopic cholecystectomy Surgeon Clark Leung MD Pizzamaker Maura KAY Anesthesia General and Local (0.5% Marcaine with epinephrine) Indications Patient is an 87-year-old man with memory issues, chronic atrial fibrillation, and prosthetic aortic valve. He presented at the end of September with right upper quadrant pain and imaging consistent with acute acalculous cholecystitis. Due to his frailty in multiple medical problems, he was treated with cholecystostomy tube. This worked well but follow-up cholecystogram showed the cystic duct to remain occluded. The cholecystostomy tube then became dislodged and had to be removed. This was in early November. He was okay at that time but then was readmitted on December 18 with right upper quadrant pain tenderness and a dilated gallbladder with a thickened wall by imaging. After several discussions with the family regarding hospice, cholecystostomy tube, and cholecystectomy, the patient and his decided they would prefer to go ahead and have his gallbladder removed. He is taken to surgery now for laparoscopic cholecystectomy. Findings Gallbladder had perforated at the fundus. There had not been a lot of spillage but there was a lot of bile-stained fluid and multiple adhesions to the gallbladder. Gallbladder itself had a thickened wall and was still edematous consistent with acute and chronic cholecystitis. The wall was very fragile. There were fibrotic changes and multiple vascular adhesions. The surgery was difficult as the gallbladder was hard to expose and wall tore easily. None the less the gallbladder was able to be removed but some of the superficial liver substance was removed as well. Bleeding from the gallbladder fossa was controlled with Surgiflo. No stones were noted. No biliary ductal dilatation was noted. Description of Procedure Patient was taken to surgery and induced into general anesthesia. The abdomen is prepped and draped. Initial trocar was a 5 mm port in the right epigastric area. We introduced this applied Medical optical trocar and gained intraperitoneal location. Insufflation was carried out. The remaining ports were then placed in usual fashion under direct visualization. Once our ports were in place, we then took down the omentum from the liver and off the gallbladder and exposed the gallbladder. As we were taking off the omentum it was obvious that the fundus of the gallbladder had ruptured and there was bile and bile stained fluid trapped on the omentum and in the area of the right upper quadrant. This was suctioned away. There was a lot of bleeding from the adherent omentum. This persisted through the case and continued to feel the right upper quadrant making visualization difficult but not being significant bleeding. Once the gallbladder was fully exposed, I used a laparoscopic aspirator and decompressed the gallbladder further. It had a very thickened wall but was still fragile. Gallbladder was retracted anterosuperiorly. Traction was placed on the infundibulum. Then careful dissection was carried out in the area of the infundibulum taking care not to injure any of the major hepatobiliary structures. Dissection was slow. It was very vascular and bled easily. Eventually I was able to expose the cystic duct and cystic artery. The gallbladder was difficult to remove from the liver. It became intrahepatic very quickly as we advanced from the infundibulum towards the body and fundus. Some of the dissection did take liver surface with the gallbladder. None the less, with perseverance I was able to free at least the lower 3rd of the gallbladder and dissect the cystic duct and cystic artery out clearly. Critical view was achieved. Then securely clipped and divided the cys
[2022-12-21 18:27] LABS: Glucose Point of Care 160 mg/dl (65-105)
[2022-12-21] MEDS: HYDROcodone/acetaminophen (*CRX) 5-325 MG TABLET 1 TAB PO (18:52)
[2022-12-21] MEDS: hydrALAZINE HCL 20 MG/ML VIAL 10 MG IV PUSH (19:47)
[2022-12-21] MEDS: MORPHINE SULFATE (*CRX) 2 MG/ML INJ IV PUSH (19:58)
[2022-12-21] MEDS: FINASTERIDE 5 MG TABLET PO (20:05)
[2022-12-21] MEDS: ACETAMINOPHEN 500 MG TABLET 1000 MG PO (21:09)
[2022-12-21] MEDS: FAMOTIDINE 20 MG/2 ML VIAL IV PUSH (21:10)
[2022-12-22] MEDS: PIPERACILLN/TAZ 3.375GM/NS50ML 3.375 GM/50 ML BAG IVPB ×3 (00:46→11:45)
[2022-12-22] MEDS: ONDANSETRON INJ 4 MG/2 ML VIAL IV PUSH (01:20)
[2022-12-22 01:38] VITALS: BP 159/105; PULSE 63; RESP 14; TEMP 36.1; O2SAT 98
[2022-12-22] MEDS: HYDROcodone/acetaminophen (*CRX) 5-325 MG TABLET 1 TAB PO ×2 (01:41→16:11)
[2022-12-22 05:01] LABS: Glucose Point of Care 194 mg/dl (65-105)
[2022-12-22 05:42] VITALS: BP 140/92; PULSE 56; RESP 14; TEMP 36.1; O2SAT 95
[2022-12-22 06:50] LABS: Hematocrit 34.4 % (42.0-52.0); Hemoglobin 11.1 g/dL (14.0-18.0); Mean Corpuscular HGB Conc 32.3 g/dl (32-36); Mean Corpuscular Hemoglobin 32.6 pg (26-34); Mean Corpuscular Volume 101.2 fl (80-100); Mean Platelet Volume 11.5 fl (7.4-10.4); Platelet Count Result 145 k/mm3 (150-375); Red Cell Distribution Width 15.7 % (11.5-14.5); White Blood Count 13.8 K/mm3 (4.5-10.0)
[2022-12-22 06:58] LABS: Alanine Aminotransferase 115 U/L (6-50); Albumin Level 3.2 g/dL (3.5-5.1); Alkaline Phosphatase 129 U/L (38-126); Anion Gap 10 mmol/L (8-16); Aspartate Amino Transferase 131 U/L (17-59); Bilirubin,Total 1.4 mg/dL (0.2-1.3); Blood Urea Nitrogen 25 mg/dL (9-20); Carbon Dioxide 21 mmol/L (22-30); Chloride 100 mmol/L (98-107); Estimated CRCL calculation 46 ml/min; Estimated Glomerular Filt Rate 57; Glucose 179 mg/dL (65-110); Magnesium 2.1 mg/dL (1.6-2.3); Potassium 4.3 mmol/L (3.4-5.0); Sodium 131 mmol/L (137-145)
--- NOTE | 2022-12-22 07:43 | WPDANESPN ---
Anes - Prog Note Post-Op Date/Time: 12/22/22 07:43 Vital Signs: Last Vital Signs Temp 36.1 C L 12/22/22 05:42 Pulse 56 L 12/22/22 05:42 Resp 14 12/22/22 05:42 BP 140/92 H 12/22/22 05:42 Pulse Ox 95 12/22/22 05:42 O2 Del Method Room Air 12/21/22 16:00 O2 Flow Rate 8 12/21/22 15:20 Pain Score (VAS): 0 I/O: Intake & Output 12/21/22 12/21/22 12/22/22 15:59 23:59 07:59 Intake Total 50 1150 600 Output Total 160 535 Balance 50 990 65 Laboratory Tests 12/22/22 06:07 12/22/22 06:07 12/21/22 12/22/22 12/22/22 18:23 04:58 06:07 WBC 13.8 H RBC 3.40 L Hgb 11.1 L Hct 34.4 L MCV 101.2 H MCH 32.6 MCHC 32.3 RDW 15.7 H Plt Count 145 L MPV 11.5 H Sodium 131 L Potassium 4.3 Chloride 100 Carbon Dioxide 21 L Anion Gap 10 BUN 25 H Creatinine 1.20 Estim Creat Clear Calc 46 Estimated GFR 57 L Glucose 179 H POC Capillary Glucose 160 H 194 H Calcium 8.0 L Magnesium 2.1 Total Bilirubin 1.4 H AST 131 H ALT 115 H Alkaline Phosphatase 129 H Total Protein 6.0 L Albumin 3.2 L Patient Feedback: Patient satisfied with anesthetic care.
--- NOTE | 2022-12-22 07:59 | PM.PNGS ---
Progress Note: A&P Assessment and Plan (1) Cholecystitis: Code(s): K81.9 - Cholecystitis, unspecified Status: Acute Assessment and Plan: Looks good status post laparoscopic cholecystectomy, postop day 1. Had nausea and pain night of surgery but this seems to be improved this morning. Will advance to full liquids today. 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: Code(s): Z79.01 - long term care phlebotomist (current) use of anticoagulants Status: Chronic Assessment and Plan: Continue to hold Xarelto a couple more days (4) Dementia: Qualifiers: Dementia type: unspecified type Dementia severity: moderate Dementia behavioral or psychological symptom: unspecified whether behavioral, psychotic, or mood disturbance or anxiety Qualified Code(s): F03.B0 - Unspecified dementia, moderate, without behavioral disturbance, psychotic disturbance, mood disturbance, and anxiety Code(s): F03.90 - Unspecified dementia, unspecified severity, without behavioral disturbance, psychotic disturbance, mood disturbance, and anxiety Status: Chronic Assessment and Plan: Mental status seems to be as good as it was preop. Subjective Subjective Date/Time Seen: 12/22/22 07:59 Post Op day: 1 Patient reports: pain is less, nausea and afebrile Interval history: Had a lot of nausea last night but this seems to be better this morning. No particular complaints this morning but did have a rough night after surgery. Exam Const: General: cooperative, comfortable, alert and awake GI: Inspection: incision (Incisions dry and healing well) and other (JIGNESH drain shows serosanguineous output) GI Palp: Yes Soft to palpation and Yes Tenderness to palpation present (GI) Auscultation: Hypoactive bowel sounds present Objective Data Vital Signs Vital Signs: Vital Signs - 24 hr 12/21/22 10:52 12/21/22 14:56 12/21/22 15:00 Temperature 36.9 C 36.9 C Pulse Rate 66 66 63 Respiratory Rate 16 20 24 H Blood Pressure 138/79 121/83 139/87 Pulse Oximetry 98 99 100 Oxygen Delivery Room Air Simple Face Mask Simple Face Mask Oxygen Flow Rate 8 8 12/21/22 15:15 12/21/22 15:20 12/21/22 15:30 Temperature Pulse Rate 62 67 63 Respiratory Rate 22 H 24 H 23 H Blood Pressure 144/81 H 138/99 H 142/90 H Pulse Oximetry 100 100 97 Oxygen Delivery Simple Face Mask Simple Face Mask Room Air Oxygen Flow Rate 8 8 12/21/22 15:45 12/21/22 16:00 12/21/22 16:30 Temperature 35.7 C L Pulse Rate 63 74 62 Respiratory Rate 20 20 18 Blood Pressure 134/96 H 155/90 H 155/109 H Pulse Oximetry 97 95 98 Oxygen Delivery Room Air Room Air Oxygen Flow Rate 12/21/22 16:45 12/21/22 17:15 12/21/22 17:57 Temperature 36.2 C L 36.2 C L 36.2 C L Pulse Rate 55 L 56 L 70 Respiratory Rate 18 18 18 Blood Pressure 164/104 H 163/95 H 160/100 H Pulse Oximetry 99 98 98 Oxygen Delivery Oxygen Flow Rate 12/21/22 18:15 12/21/22 18:58 12/21/22 21:57 Temperature 36.2 C L 36.2 C L Pulse Rate 67 58 L Respiratory Rate 18 14 Blood Pressure 177/118 H 163/90 H 155/109 H Pulse Oximetry 98 99 Oxygen Delivery Oxygen Flow Rate 12/22/22 01:38 12/22/22 05:42 Temperature 36.1 C L 36.1 C L Pulse Rate 63 56 L Respiratory Rate 14 14 Blood Pressure 159/105 H 140/92 H Pulse Oximetry 98 95 Oxygen Delivery Oxygen Flow Rate Intake/Output Intake/Output: Intake & Output 12/19/22 12/20/22 12/21/22 12/22/22 23:59 23:59 23:59 23:59 Intake Total 200 1800 2450 600 Output Total 950 1120 610 535 Balance -337 603 3209 65 Meds/Results Medications: Active Medications Generic Name Dose Route Start Last Admin Trade Name Freq PRN Reason Stop Dose Admin Acetaminophen 500 mg 12/21/22 16:12 Acetaminophen 500 Mg Tablet PO Q6H PRN Mild P
[2022-12-22] MEDS: ENOXAPARIN 40 MG/0.4 ML SYRINGE SUB-Q (08:56)
[2022-12-22] MEDS: ESCITALOPRAM OXALATE 5 MG TABLET PO (08:56)
[2022-12-22] MEDS: LORATADINE 10 MG TABLET PO (08:56)
[2022-12-22] MEDS: POTASSIUM CHLORIDE 20 MEQ TABLET.ER 40 MEQ PO (08:56)
[2022-12-22] MEDS: FAMOTIDINE 20 MG TABLET PO ×2 (08:57→19:49)
[2022-12-22 09:57] VITALS: BP 141/92; PULSE 56; RESP 18; TEMP 35.7; O2SAT 98
[2022-12-22 11:42] LABS: Glucose Point of Care 198 mg/dl (65-105)
[2022-12-22 13:50] VITALS: BP 128/75; PULSE 53; RESP 18; TEMP 36.6; O2SAT 100
[2022-12-22] MEDS: DEXTROSE 5%/0.45% SOD CHL 1,000 ML 50 ML IV CONT (16:08)
[2022-12-22 16:55] LABS: Glucose Point of Care 154 mg/dl (65-105)
[2022-12-22] MEDS: AMOXICILLIN/CLAVULANATE K 875-125 MG TAB 1 TABLET PO (17:13)
--- NOTE | 2022-12-22 17:22 | P.PN_ITS ---
Progress Note: A&P Assessment and Plan (1) Sepsis: Code(s): A41.9 - Sepsis, unspecified organism Status: Acute (2) Cholecystitis: Code(s): K81.9 - Cholecystitis, unspecified Status: Acute (3) Confusion: Code(s): R41.0 - Disorientation, unspecified Status: Acute (4) Gross hematuria: Code(s): R31.0 - Gross hematuria Status: Acute (5) Transaminitis: Code(s): R74.01 - Elevation of levels of liver transaminase levels Status: Acute (6) Abnormal urinalysis: Code(s): R82.90 - Unspecified abnormal findings in urine Status: Acute (7) Dementia: Qualifiers: Dementia type: unspecified type Dementia severity: moderate Dementia behavioral or psychological symptom: unspecified whether behavioral, psychotic, or mood disturbance or anxiety Qualified Code(s): F03.B0 - Unspecified dementia, moderate, without behavioral disturbance, psychotic disturbance, mood disturbance, and anxiety Code(s): F03.90 - Unspecified dementia, unspecified severity, without behavioral disturbance, psychotic disturbance, mood disturbance, and anxiety Status: Chronic (8) Paroxysmal atrial fibrillation: Code(s): I48.0 - Paroxysmal atrial fibrillation Status: Chronic (9) 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 Alert and oriented x1 at baseline and decides at memory care unit. Patient had nausea and vomiting and was not talkative as usual. Recent cholecystostomy tube placement for acute cholecystitis which came out on its on at home. Family opposed to going for surgery. Admitted in this setting. Workup revealed leukocytosis 21,000 with bandemia. Elevated liver enzymes. Lactic acid was also elevated at 2.2 UA was suggestive UTI despite being on Augmentin. Patient started on Zosyn and cultures were obtained. Head CT came back negative for acute findings. CT abdomen pelvis showed prominent edema of the gallbladder wall interval mild fluid collection around the lower aspect of liver and right paracolic gutter. General surgery has been consulted. Patient also had gross hematuria likely from traumatic Ramos placement in the ER. 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 Xarelto on hold patient neck critically/sepsis. Leukocytosis improved today has mild CKD stage 3 LFTs is improved today ammonia level is less than 9 TSH is normal blood cultures pending. Abdomen ultrasound with gallbladder wall thickening and minimal perihepatic fluid. Gross hematuria however urine has been clear since 3 way catheter has been placed. Likely traumatic. Will stop her discontinue CBI. Monitor off anticoagulation. DVT prophylaxis with Lovenox will moved to tomorrow since been on Xarelto. Which is currently on hold. Will start gentle IV fluids. EKG with a flutter and right bundle-branch block. Unchanged compared to previous EKGs. Chest x-ray with cardiomegaly and mild atelectasis in the lower lung zones. 12/21/2019:patient presented with altered mental status. Alert and oriented x1 at baseline and decides at memory care unit. Patient had nausea and vomiting and was not talka
[2022-12-22 17:57] VITALS: BP 120/78; PULSE 56; RESP 18; TEMP 36.6; O2SAT 100
[2022-12-22] MEDS: FINASTERIDE 5 MG TABLET PO (19:49)
[2022-12-22 20:50] VITALS: BP 160/95; PULSE 66; RESP 16; TEMP 35.9; O2SAT 100
[2022-12-23 06:16] LABS: Hematocrit 30.8 % (42.0-52.0); Hemoglobin 10.2 g/dL (14.0-18.0); Immature Platelet Fraction Pct 8.8 % (0.9-11.2); Mean Corpuscular HGB Conc 33.1 g/dl (32-36); Mean Corpuscular Hemoglobin 32.6 pg (26-34); Mean Corpuscular Volume 98.4 fl (80-100); Mean Platelet Volume 11.5 fl (7.4-10.4); Platelet Count Result 142 k/mm3 (150-375); Red Blood Count 3.13 M/mm3 (4.6-6.20); Red Cell Distribution Width 15.5 % (11.5-14.5); White Blood Count 10.2 K/mm3 (4.5-10.0)
[2022-12-23 06:25] LABS: Alanine Aminotransferase 87 U/L (6-50); Albumin Level 2.7 g/dL (3.5-5.1); Alkaline Phosphatase 114 U/L (38-126); Anion Gap 4 mmol/L (8-16); Aspartate Amino Transferase 64 U/L (17-59); Bilirubin,Total 0.9 mg/dL (0.2-1.3); Blood Urea Nitrogen 19 mg/dL (9-20); Calcium 7.4 mg/dL (8.4-10.2); Carbon Dioxide 23 mmol/L (22-30); Chloride 102 mmol/L (98-107); Estimated CRCL calculation 51 ml/min; Estimated Glomerular Filt Rate > 60; Glucose 118 mg/dL (65-110); Potassium 3.9 mmol/L (3.4-5.0); Sodium 129 mmol/L (137-145)
[2022-12-23 06:39] VITALS: BP 168/95; PULSE 70; RESP 20; TEMP 36.5; O2SAT 96
[2022-12-23] MEDS: ESCITALOPRAM OXALATE 5 MG TABLET PO (08:09)
[2022-12-23] MEDS: ENOXAPARIN 40 MG/0.4 ML SYRINGE SUB-Q (08:09)
[2022-12-23] MEDS: AMOXICILLIN/CLAVULANATE K 875-125 MG TAB 1 TABLET PO ×2 (08:09→21:49)
[2022-12-23] MEDS: LORATADINE 10 MG TABLET PO (08:09)
[2022-12-23] MEDS: POTASSIUM CHLORIDE 20 MEQ TABLET.ER 40 MEQ PO (08:09)
[2022-12-23] MEDS: FAMOTIDINE 20 MG TABLET PO ×2 (08:09→21:49)
--- NOTE | 2022-12-23 10:04 | PM.PNGS ---
Progress Note: A&P Assessment and Plan (1) Cholecystitis: Code(s): K81.9 - Cholecystitis, unspecified Status: Acute Assessment and Plan: Improving slowly status post laparoscopic cholecystectomy for severe cholecystitis with gallbladder rupture. Will advance to full liquids. Continue antibiotics. Will start PT and OT. Patient does want to get out of bed. JIGNESH drain does not show any evidence of bile leak. Making progress. (2) Paroxysmal atrial fibrillation: Code(s): I48.0 - Paroxysmal atrial fibrillation Status: Chronic (3) Dementia: Qualifiers: Dementia type: unspecified type Dementia severity: moderate Dementia behavioral or psychological symptom: unspecified whether behavioral, psychotic, or mood disturbance or anxiety Qualified Code(s): F03.B0 - Unspecified dementia, moderate, without behavioral disturbance, psychotic disturbance, mood disturbance, and anxiety Code(s): F03.90 - Unspecified dementia, unspecified severity, without behavioral disturbance, psychotic disturbance, mood disturbance, and anxiety Status: Chronic Assessment and Plan: Stable, no worse following surgery (4) Current use of manager intermediate anticoagulation: Code(s): Z79.01 - terminal makeup operator (current) use of anticoagulants Status: Chronic Assessment and Plan: Okay to resume Xarelto tomorrow, 12/24/2022 (5) Gross hematuria: Code(s): R31.0 - Gross hematuria Status: Resolved Assessment and Plan: Likely due to traumatic Ramos placement in the emergency room on admission. No bleeding at all since then. Will discontinue Ramos catheter. Subjective Subjective Date/Time Seen: 12/23/22 10:04 Post Op day: 2 Patient reports: still having pain (Some abdominal discomfort, not severe), tolerating liquids well, no flatus, no bowel movement and afebrile Interval history: Seems to have his baseline memory impairment, no worsening of mental status postoperatively. Says he occasionally have nausea but is not having any this morning Review of Systems Review of Systems: All systems reviewed & are unremarkable except as noted in HPI and below (HPI) Exam Const: General: comfortable, no acute distress, alert, awake and tired appearing GI: Inspection: non-distended, incision (Dry and healing well) and other (JIGNESH drainage blood-tinged serous fluid) GI Palp: Yes Soft to palpation and Yes Tenderness to palpation present (GI) (Incisions and right upper quadrant) Auscultation: normal bowel sounds Objective Data Vital Signs Vital Signs: Vital Signs - 24 hr 12/22/22 13:50 12/22/22 17:57 12/22/22 20:00 Temperature 36.6 C 36.6 C Pulse Rate 53 L 56 L Respiratory Rate 18 18 Blood Pressure 128/75 120/78 Pulse Oximetry 100 100 Oxygen Delivery Room Air 12/22/22 20:50 12/23/22 06:39 Temperature 35.9 C L 36.5 C Pulse Rate 66 70 Respiratory Rate 16 20 Blood Pressure 160/95 H 168/95 H Pulse Oximetry 100 96 Oxygen Delivery Intake/Output Intake/Output: Intake & Output 12/20/22 12/21/22 12/22/22 12/23/22 23:59 23:59 23:59 23:59 Intake Total 1800 2450 4060 1850 Output Total 2730 588 7433 830 Balance 680 1840 2895 1020 Meds/Results Medications: Active Medications Generic Name Dose Route Start Last Admin Trade Name Freq PRN Reason Stop Dose Admin Acetaminophen 500 mg 12/21/22 16:12 Acetaminophen 500 Mg Tablet PO Q6H PRN Mild Pain (1-3) or Fever Hydrocodone Bitart/Acetaminophen 1 tab 12/21/22 16:12 12/22/22 16:11 Hydrocodone/Acetaminophen (*Crx) 5-325 Mg Tablet PO 1 tab Q4H PRN Administration Pain Rated 4-6 Amoxicillin/Clavulanate Potassium 1 tablet 12/22/22 18:00 12/23/22 08:09 Amoxicillin/Clavulanate K 875-125 Mg Tab PO 1 tablet Q12HR LUKAS Administration Dextrose 12.5 gm 12/18/22 22:08 Dextrose 50% 25 Gm/50 Ml Syringe IV PUSH PRN PRN Hypoglycemia Protocol Enoxaparin Sodium 40 mg 0
[2022-12-23] MEDS: HYDROcodone/acetaminophen (*CRX) 5-325 MG TABLET 1 TAB PO ×2 (10:14→21:49)
--- NOTE | 2022-12-23 12:16 | PCPTNOTE ---
On 12/23/22, the student, [Justine Fraser], provided care and completed [facility] documentation on this patient. I have reviewed the student's documentation and agree with the findings.
[2022-12-23 14:00] VITALS: BP 126/71; PULSE 56; RESP 20; TEMP 35.9; O2SAT 98
--- NOTE | 2022-12-23 14:33 | WPDPN ---
Progress Note: A&P Assessment and Plan (1) Sepsis: Code(s): A41.9 - Sepsis, unspecified organism Status: Acute (2) Cholecystitis: Code(s): K81.9 - Cholecystitis, unspecified Status: Acute (3) Confusion: Code(s): R41.0 - Disorientation, unspecified Status: Acute (4) Gross hematuria: Code(s): R31.0 - Gross hematuria Status: Resolved (5) Transaminitis: Code(s): R74.01 - Elevation of levels of liver transaminase levels Status: Acute (6) Abnormal urinalysis: Code(s): R82.90 - Unspecified abnormal findings in urine Status: Acute (7) Dementia: Qualifiers: Dementia type: unspecified type Dementia severity: moderate Dementia behavioral or psychological symptom: unspecified whether behavioral, psychotic, or mood disturbance or anxiety Qualified Code(s): F03.B0 - Unspecified dementia, moderate, without behavioral disturbance, psychotic disturbance, mood disturbance, and anxiety Code(s): F03.90 - Unspecified dementia, unspecified severity, without behavioral disturbance, psychotic disturbance, mood disturbance, and anxiety Status: Chronic (8) Paroxysmal atrial fibrillation: Code(s): I48.0 - Paroxysmal atrial fibrillation Status: Chronic (9) 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 Alert and oriented x1 at baseline and decides at memory care unit. Patient had nausea and vomiting and was not talkative as usual. Recent cholecystostomy tube placement for acute cholecystitis which came out on its on at home. Family opposed to going for surgery. Admitted in this setting. Workup revealed leukocytosis 21,000 with bandemia. Elevated liver enzymes. Lactic acid was also elevated at 2.2 UA was suggestive UTI despite being on Augmentin. Patient started on Zosyn and cultures were obtained. Head CT came back negative for acute findings. CT abdomen pelvis showed prominent edema of the gallbladder wall interval mild fluid collection around the lower aspect of liver and right paracolic gutter. General surgery has been consulted. Patient also had gross hematuria likely from traumatic Ramos placement in the ER. 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 Xarelto on hold patient neck critically/sepsis. Leukocytosis improved today has mild CKD stage 3 LFTs is improved today ammonia level is less than 9 TSH is normal blood cultures pending. Abdomen ultrasound with gallbladder wall thickening and minimal perihepatic fluid. Gross hematuria however urine has been clear since 3 way catheter has been placed. Likely traumatic. Will stop her discontinue CBI. Monitor off anticoagulation. DVT prophylaxis with Lovenox will moved to tomorrow since been on Xarelto. Which is currently on hold. Will start gentle IV fluids. EKG with a flutter and right bundle-branch block. Unchanged compared to previous EKGs. Chest x-ray with cardiomegaly and mild atelectasis in the lower lung zones. 12/21/2019:patient presented with altered mental status. Alert and oriented x1 at baseline and decides at memory care unit. Patient had nausea and vomiting and was not talkative as usual. Recent cholecystostomy tube placement for acute cholecystitis which came out on its on at home. Family opposed to going for surgery. Admitted in this setting. Workup revealed leukocytosis 21,000 with bandemia. Elevated liver enzymes. Lactic acid was also elevated at 2.2. UA was sugge
[2022-12-23 20:00] VITALS: PULSE 56; RESP 20; O2SAT 98
[2022-12-23] MEDS: FINASTERIDE 5 MG TABLET PO (21:49)
[2022-12-23 22:00] VITALS: BP 142/76; PULSE 72; RESP 22; TEMP 35.7; O2SAT 96
[2022-12-24 06:00] VITALS: BP 149/74; PULSE 66; RESP 18; TEMP 35.7; O2SAT 97
[2022-12-24 07:55] LABS: Hematocrit 30.1 % (42.0-52.0); Hemoglobin 9.9 g/dL (14.0-18.0); Mean Corpuscular HGB Conc 32.9 g/dl (32-36); Mean Corpuscular Hemoglobin 32.5 pg (26-34); Mean Corpuscular Volume 98.7 fl (80-100); Mean Platelet Volume 11.3 fl (7.4-10.4); Platelet Count Result 135 k/mm3 (150-375); Red Blood Count 3.05 M/mm3 (4.6-6.20); Red Cell Distribution Width 15.7 % (11.5-14.5); White Blood Count 10.4 K/mm3 (4.5-10.0)
[2022-12-24 08:01] LABS: Alanine Aminotransferase 65 U/L (6-50); Albumin Level 2.7 g/dL (3.5-5.1); Alkaline Phosphatase 119 U/L (38-126); Anion Gap 4 mmol/L (8-16); Aspartate Amino Transferase 41 U/L (17-59); Bilirubin,Total 0.8 mg/dL (0.2-1.3); Blood Urea Nitrogen 17 mg/dL (9-20); Calcium 7.7 mg/dL (8.4-10.2); Carbon Dioxide 24 mmol/L (22-30); Chloride 103 mmol/L (98-107); Estimated CRCL calculation 62 ml/min; Estimated Glomerular Filt Rate > 60; Glucose 104 mg/dL (65-110); Sodium 131 mmol/L (137-145)
[2022-12-24] MEDS: ENOXAPARIN 40 MG/0.4 ML SYRINGE SUB-Q (08:20)
[2022-12-24] MEDS: POTASSIUM CHLORIDE 20 MEQ TABLET.ER 40 MEQ PO ×2 (08:21→08:22)
[2022-12-24] MEDS: LORATADINE 10 MG TABLET PO (08:21)
[2022-12-24] MEDS: FAMOTIDINE 20 MG TABLET PO ×2 (08:21→19:58)
[2022-12-24] MEDS: AMOXICILLIN/CLAVULANATE K 875-125 MG TAB 1 TABLET PO ×2 (08:21→19:58)
[2022-12-24] MEDS: ESCITALOPRAM OXALATE 5 MG TABLET PO (08:21)
--- NOTE | 2022-12-24 11:26 | PM.PNGS ---
Progress Note: A&P Assessment and Plan (1) Cholecystitis: Code(s): K81.9 - Cholecystitis, unspecified Status: Acute Assessment and Plan: Improving slowly status post laparoscopic cholecystectomy for severe cholecystitis with gallbladder rupture. Will advance to low fat diet. Continue antibiotics. Will start PT and OT. Patient does want to get out of bed. JIGNESH drain does not show any evidence of bile leak. Making progress. (2) Paroxysmal atrial fibrillation: Code(s): I48.0 - Paroxysmal atrial fibrillation Status: Chronic (3) Dementia: Qualifiers: Dementia type: unspecified type Dementia severity: moderate Dementia behavioral or psychological symptom: unspecified whether behavioral, psychotic, or mood disturbance or anxiety Qualified Code(s): F03.B0 - Unspecified dementia, moderate, without behavioral disturbance, psychotic disturbance, mood disturbance, and anxiety Code(s): F03.90 - Unspecified dementia, unspecified severity, without behavioral disturbance, psychotic disturbance, mood disturbance, and anxiety Status: Chronic Assessment and Plan: Stable, no worse following surgery (4) 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 Pain controlled. No fevers. Tolerating diet. Exam GI: Inspection: distended, incision (intact with glue) and other (JIGNESH serosanguinous) GI Palp: Yes Soft to palpation and Yes Tenderness to palpation present (GI) (RUQ and incisional) Objective Data Vital Signs Vital Signs: Vital Signs - 24 hr 12/23/22 14:00 12/23/22 20:00 12/23/22 22:00 Temperature 35.9 C L 35.7 C L Pulse Rate 56 L 56 L 72 Respiratory Rate 20 20 22 H Blood Pressure 126/71 142/76 H Pulse Oximetry 98 98 96 Oxygen Delivery Room Air 12/24/22 06:00 Temperature 35.7 C L Pulse Rate 66 Respiratory Rate 18 Blood Pressure 149/74 H Pulse Oximetry 97 Oxygen Delivery Intake/Output Intake/Output: Intake & Output 12/21/22 12/22/22 12/23/22 12/24/22 23:59 23:59 23:59 23:59 Intake Total 2450 4060 3530 100 Output Total 610 1165 885 20 Balance 1840 9450 5919 80 Meds/Results Medications: Active Medications Generic Name Dose Route Start Last Admin Trade Name Freq PRN Reason Stop Dose Admin Acetaminophen 500 mg 12/21/22 16:12 Acetaminophen 500 Mg Tablet PO Q6H PRN Mild Pain (1-3) or Fever Hydrocodone Bitart/Acetaminophen 1 tab 12/21/22 16:12 12/23/22 21:49 Hydrocodone/Acetaminophen (*Crx) 5-325 Mg Tablet PO 1 tab Q4H PRN Administration Pain Rated 4-6 Amoxicillin/Clavulanate Potassium 1 tablet 12/22/22 18:00 12/24/22 08:21 Amoxicillin/Clavulanate K 875-125 Mg Tab PO 1 tablet Q12HR LUKAS Administration Dextrose 12.5 gm 12/18/22 22:08 Dextrose 50% 25 Gm/50 Ml Syringe IV PUSH PRN PRN Hypoglycemia Protocol Enoxaparin Sodium 40 mg 12/20/22 09:00 12/24/22 08:20 Enoxaparin 40 Mg/0.4 Ml Syringe SUB-Q 40 mg DAILY LUKAS Administration Escitalopram Oxalate 5 mg 12/19/22 09:00 12/24/22 08:21 Escitalopram Oxalate 5 Mg Tablet PO 5 mg DAILY LUKAS Administration Famotidine 20 mg 12/22/22 09:00 12/24/22 08:21 Famotidine 20 Mg Tablet PO 20 mg Q12HR LUKAS Administration Finasteride 5 mg 12/18/22 22:15 12/23/22 21:49 Finasteride 5 Mg Tablet PO 5 mg HS LUKAS Administration Glucagon 1 mg 12/18/22 22:08 Glucagon For Inj 1 Mg Vial IM PRN PRN Hypoglycemia Protocol Glucose 15 gm 12/18/22 22:08 Glucose Oral Gel 15 Gm Of Glucse In 37.5 Gm Tube PO PRN PRN Hypoglycemia Protocol Dextrose 1,000 mls @ 100 mls/hr
[2022-12-24] MEDS: polyethylene glycoL 3350 17 GM POWD.PACK PO (12:10)
[2022-12-24 14:00] VITALS: BP 144/69; PULSE 66; RESP 18; TEMP 36.1; O2SAT 95
[2022-12-24] MEDS: ACETAMINOPHEN 500 MG TABLET PO (14:39)
[2022-12-24] MEDS: FINASTERIDE 5 MG TABLET PO (19:58)
[2022-12-24 21:31] VITALS: BP 147/88; PULSE 69; RESP 16; TEMP 35.9; O2SAT 98
[2022-12-25 06:00] VITALS: BP 176/90; PULSE 61; RESP 20; TEMP 35.5; O2SAT 98
[2022-12-25 06:20] LABS: Hematocrit 30.3 % (42.0-52.0); Hemoglobin 9.9 g/dL (14.0-18.0); Mean Corpuscular HGB Conc 32.7 g/dl (32-36); Mean Corpuscular Hemoglobin 32.1 pg (26-34); Mean Corpuscular Volume 98.4 fl (80-100); Mean Platelet Volume 11.6 fl (7.4-10.4); Platelet Count Result 146 k/mm3 (150-375); Red Blood Count 3.08 M/mm3 (4.6-6.20); Red Cell Distribution Width 15.6 % (11.5-14.5); White Blood Count 7.8 K/mm3 (4.5-10.0)
[2022-12-25 06:33] LABS: Alanine Aminotransferase 56 U/L (6-50); Albumin Level 2.7 g/dL (3.5-5.1); Alkaline Phosphatase 125 U/L (38-126); Anion Gap 6 mmol/L (8-16); Aspartate Amino Transferase 34 U/L (17-59); Bilirubin,Total 0.7 mg/dL (0.2-1.3); Blood Urea Nitrogen 17 mg/dL (9-20); Calcium 7.7 mg/dL (8.4-10.2); Carbon Dioxide 21 mmol/L (22-30); Chloride 104 mmol/L (98-107); Estimated CRCL calculation 61 ml/min; Estimated Glomerular Filt Rate > 60; Glucose 115 mg/dL (65-110); Potassium 3.8 mmol/L (3.4-5.0); Sodium 131 mmol/L (137-145)
[2022-12-25] MEDS: ESCITALOPRAM OXALATE 5 MG TABLET PO (08:57)
[2022-12-25] MEDS: ENOXAPARIN 40 MG/0.4 ML SYRINGE SUB-Q (08:57)
[2022-12-25] MEDS: AMOXICILLIN/CLAVULANATE K 875-125 MG TAB 1 TABLET PO (08:57)
[2022-12-25] MEDS: POTASSIUM CHLORIDE 20 MEQ TABLET.ER 40 MEQ PO (08:57)
[2022-12-25] MEDS: HYDROcodone/acetaminophen (*CRX) 5-325 MG TABLET 1 TAB PO ×2 (08:57→13:26)
[2022-12-25] MEDS: FAMOTIDINE 20 MG TABLET PO (08:57)
[2022-12-25] MEDS: LORATADINE 10 MG TABLET PO (08:57)
[2022-12-25] MEDS: polyethylene glycoL 3350 17 GM POWD.PACK PO (08:57)
--- NOTE | 2022-12-25 10:07 | PM.PNGS ---
Progress Note: A&P Assessment and Plan (1) Cholecystitis: Code(s): K81.9 - Cholecystitis, unspecified Status: Acute Assessment and Plan: Remove JIGNESH drain today. Surgically stable for discharge once medically stable. Follow up with Dr. Leung in office in 2 weeks. (2) Paroxysmal atrial fibrillation: Code(s): I48.0 - Paroxysmal atrial fibrillation Status: Chronic (3) Dementia: Qualifiers: Dementia type: unspecified type Dementia severity: moderate Dementia behavioral or psychological symptom: unspecified whether behavioral, psychotic, or mood disturbance or anxiety Qualified Code(s): F03.B0 - Unspecified dementia, moderate, without behavioral disturbance, psychotic disturbance, mood disturbance, and anxiety Code(s): F03.90 - Unspecified dementia, unspecified severity, without behavioral disturbance, psychotic disturbance, mood disturbance, and anxiety Status: Chronic Assessment and Plan: Stable, no worse following surgery (4) Current use of shelter anticoagulation: Code(s): 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 No fevers. Pain controlled. Exam GI: Inspection: non-distended, incision (intact with glue) and other (JIGNESH serosanguinous) GI Palp: Yes Soft to palpation and Yes Tenderness to palpation present (GI) (RUQ and incisional) Objective Data Vital Signs Vital Signs: Vital Signs - 24 hr 12/24/22 14:00 12/24/22 20:00 12/24/22 21:31 Temperature 36.1 C L 35.9 C L Pulse Rate 66 69 Respiratory Rate 18 16 Blood Pressure 144/69 H 147/88 H Pulse Oximetry 95 98 Oxygen Delivery Room Air 12/25/22 06:00 12/25/22 07:40 12/25/22 09:53 Temperature 35.5 C L Pulse Rate 61 Respiratory Rate 20 Blood Pressure 176/90 H Pulse Oximetry 98 Oxygen Delivery Room Air Room Air Intake/Output Intake/Output: Intake & Output 12/22/22 12/23/22 12/24/22 12/25/22 23:59 23:59 23:59 23:59 Intake Total 4060 3530 690 558 Output Total 1655 885 40 25 Balance 2895 1005 650 533 Meds/Results Medications: Active Medications Generic Name Dose Route Start Last Admin Trade Name Binuq PRN Reason Stop Dose Admin Acetaminophen 500 mg 12/21/22 16:12 12/24/22 14:39 Acetaminophen 500 Mg Tablet PO 500 mg Q6H PRN Administration Mild Pain (1-3) or Fever Hydrocodone Bitart/Acetaminophen 1 tab 12/21/22 16:12 12/25/22 08:57 Hydrocodone/Acetaminophen (*Crx) 5-325 Mg Tablet PO 1 tab Q4H PRN Administration Pain Rated 4-6 Amoxicillin/Clavulanate Potassium 1 tablet 12/22/22 18:00 12/25/22 08:57 Amoxicillin/Clavulanate K 875-125 Mg Tab PO 1 tablet Q12HR LUKAS Administration Dextrose 12.5 gm 12/18/22 22:08 Dextrose 50% 25 Gm/50 Ml Syringe IV PUSH PRN PRN Hypoglycemia Protocol Enoxaparin Sodium 40 mg 12/20/22 09:00 12/25/22 08:57 Enoxaparin 40 Mg/0.4 Ml Syringe SUB-Q 40 mg DAILY LUKAS Administration Escitalopram Oxalate 5 mg 12/19/22 09:00 12/25/22 08:57 Escitalopram Oxalate 5 Mg Tablet PO 5 mg DAILY LUKAS Administration Famotidine 20 mg 12/22/22 09:00 12/25/22 08:57 Famotidine 20 Mg Tablet PO 20 mg Q12HR LUKAS Administration Finasteride 5 mg 12/18/22 22:15 12/24/22 19:58 Finasteride 5 Mg Tablet PO 5 mg HS LUKAS Administration Glucagon 1 mg 12/18/22 22:08 Glucagon For Inj 1 Mg Vial IM PRN PRN Hypoglycemia Protocol Glucose 15 gm 12/18/22 22:08 Glucose Oral Gel 15 Gm Of Glucse In 37.5 Gm Tube PO PRN PRN Hypoglycemia Protocol Dextrose 1,000 mls @ 100 mls/hr 12/18/22 22:08 Dextrose 5% 1,000 Ml IVPB PRN PRN Hypoglycemia Protocol Ibuprofe
--- NOTE | 2022-12-25 12:51 | PM.DS ---
DS: Admitting Diagnosis Discharge Date 12/25/2022 Admitting Diagnosis Altered mental status DS: Discharge Diagnosis Discharge Diagnosis (1) Sepsis: Code(s): A41.9 - Sepsis, unspecified organism Status: Acute (2) Cholecystitis: Code(s): K81.9 - Cholecystitis, unspecified Status: Acute (3) Confusion: Code(s): R41.0 - Disorientation, unspecified Status: Acute (4) Gross hematuria: Code(s): R31.0 - Gross hematuria Status: Resolved (5) Transaminitis: Code(s): R74.01 - Elevation of levels of liver transaminase levels Status: Acute (6) Abnormal urinalysis: Code(s): R82.90 - Unspecified abnormal findings in urine Status: Acute (7) Dementia: Qualifiers: Dementia type: unspecified type Dementia severity: moderate Dementia behavioral or psychological symptom: unspecified whether behavioral, psychotic, or mood disturbance or anxiety Qualified Code(s): F03.B0 - Unspecified dementia, moderate, without behavioral disturbance, psychotic disturbance, mood disturbance, and anxiety Code(s): F03.90 - Unspecified dementia, unspecified severity, without behavioral disturbance, psychotic disturbance, mood disturbance, and anxiety Status: Chronic (8) Paroxysmal atrial fibrillation: Code(s): I48.0 - Paroxysmal atrial fibrillation Status: Chronic (9) Current use of [facility] anticoagulation: Code(s): Z79.01 - care home (current) use of anticoagulants Status: Chronic (10) Benign prostatic hyperplasia: Code(s): N40.0 - Benign prostatic hyperplasia without lower urinary tract symptoms Status: Acute (11) Hypertension: Code(s): I10 - Essential (primary) hypertension Status: Chronic Plan 12/19/2022: patient presented with altered mental status. Alert and oriented x1 at baseline and decides at memory care unit. Patient had nausea and vomiting and was not talkative as usual. Recent cholecystostomy tube placement for acute cholecystitis which came out on its on at home. Family opposed to going for surgery. Admitted in this setting. Workup revealed leukocytosis 21,000 with bandemia. Elevated liver enzymes. Lactic acid was also elevated at 2.2 UA was suggestive UTI despite being on Augmentin. Patient started on Zosyn and cultures were obtained. Head CT came back negative for acute findings. CT abdomen pelvis showed prominent edema of the gallbladder wall interval mild fluid collection around the lower aspect of liver and right paracolic gutter. General surgery has been consulted. Patient also had gross hematuria likely from traumatic Ramos placement in the ER. 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 Xarelto on hold patient neck critically/sepsis. Leukocytosis improved today has mild CKD stage 3 LFTs is improved today ammonia level is less than 9 TSH is normal blood cultures pending. Abdomen ultrasound with gallbladder wall thickening and minimal perihepatic fluid. Gross hematuria however urine has been clear since 3 way catheter has been placed. Likely traumatic. Will stop her discontinue CBI. Monitor off anticoagulation. DVT prophylaxis with Lovenox will moved to tomorrow since been on Xarelto. Which is currently on hold. Will start gentle IV fluids. EKG with a flutter and right bundle-branch block. Unchanged compared to previous EKGs. Chest x-ray with cardiomegaly and mild atelectasis in the lower lung zones. 12/21/2019:patient presented with altered mental status. Alert and oriented x1 at baseline and decides at memory care unit. Patient had nausea and vomiting and was not talkative as usual. Recent cholecystostomy tube placement for acute cholecystitis which came out on its on at home. Family opposed to going for surgery. Admitted in this setting. Workup revealed leuko
[2022-12-25 14:49] LABS: EDCOVIDSCREEN Negative (Negative)
== END 2022-12-25 14:35 | DRG 854 ==
LOC: ANHED 14:36 → ANH3MEDSUR 14:52
PROVIDERS: Internal Medicine; Physician Assistant; Surgery; Admitting Provider Chiropractor; Emergency Provider Emergency Medicine; PCP Internal Medicine; Visit Provider Family Medicine
PROC: 0FT44ZZ Resection of Gallbladder, Percutaneous Endoscopic Approach (ICD-10-PCS; CPT 47562; principal; 2022-12-21 12:00)
DX: A41.9 Sepsis, unspecified organism (principal); K81.2 Acute cholecystitis with chronic cholecystitis; S37.39XA Other injury of urethra, initial encounter; K82.A2 Perforation of gallbladder in cholecystitis; K81.9 Cholecystitis, unspecified; R31.0 Gross hematuria; R74.01 Elevation of levels of liver transaminase levels; F03.B0 Unspecified dementia, moderate, without behavioral disturbance, psychotic disturbance, mood disturbance, and anxiety; R82.90 Unspecified abnormal findings in urine; I48.0 Paroxysmal atrial fibrillation; N40.0 Benign prostatic hyperplasia without lower urinary tract symptoms; I12.9 Hypertensive chronic kidney disease with stage 1 through stage 4 chronic kidney disease, or unspecified chronic kidney disease; N18.30 Chronic kidney disease, stage 3 unspecified; M10.9 Gout, unspecified; Z66 Do not resuscitate; Z79.01 Long term (current) use of anticoagulants; Z20.822 Contact with and (suspected) exposure to COVID-19; Z86.73 Personal history of transient ischemic attack (TIA), and cerebral infarction without residual deficits; Z79.899 Other long term (current) drug therapy
CPT/HCPCS: 36415; 36600; 70450; 71045; 72125; 73030; 74018; 74177; 76705; 80048; 80053; 81001; 82140; 82375; 82805; 82948; 83050; 83605; 83690; 83735; 84145; 84443; 85025; 85027; 85055; 85610; 85730; 86140; 86850; 86900; 86901; 87040; 87086; 87426; 87637; 88304; 93005; 96361; 96374; 96375; 96376; 97110; 97161; 97165; 97530; 97535; 99285; A9270; C1713; C9803; G0378; J0360; J1100; J1170; J1650; J2270; J2370; J2405; J2543; J2704; J2710; J3010; J7030; J7120; Q9967

== ENCOUNTER 2023-03-08 13:03 | Inpatient (IN) | payer MEDICARE, SELFPAY ==
--- NOTE | ~2023-03-08 | CT_ITS ---
EXAMINATION: CT brain wo con DATE: 03/08/2023 13:42 INDICATION: Stroke symptoms. TECHNIQUE: Computed tomography (CT) of the head was performed without intravenous contrast. The dose- length product was 1210.67 mGy-cm. Automated exposure control and iterative reconstruction technique were employed. COMPARISON: CT dated 12/18/2022 FINDINGS: Chronic right frontal parietal infarction. Generalized atrophy. There are scattered moderat e periventricular and subcortical white matter changes, most likely related to small vessel ischemic disease (microangiopathy). Basilar cisterns are patent. There is intracranial atherosclerosis. There is mucosal thickening of the maxillary sinuses. Basilar cisterns are patent. IMPRESSION: 1. No acute intracranial abnormality. 2: Chronic right frontal parietal infarction. 3: Chronic age-related findings. Reviewed, dictated and finalized at location B.
--- NOTE | ~2023-03-08 | XR_ITS ---
XR chest 1V 03/08/2023 13:41 Indication: Stroke symptoms. Altered mental status. Procedure: AP view of the chest Comparison: Comparison to multiple prior studies sequentially, with oldest reviewed study dated 04/17. Findings: Status post median sternotomy for CABG. Cardiomegaly. There is a prosthetic aortic valve. T here is a closure device at the left atrial appendage. No focal air space disease, pulmonary edema, p leural effusion or suspected pneumothorax. Impression: 1: No acute cardiopulmonary disease. Reviewed, dictated and finalized at location B. Impression: 1: No acute cardiopulmonary disease.
--- NOTE | ~2023-03-08 | US_ITS ---
EXAMINATION: US carotid duplex BI DATE: 03/09/2023 10:19 INDICATION: Near syncope TECHNIQUE: Grayscale, color Doppler, and pulsed Doppler images of the cervical carotid arteries were obtained. The degree of vessel stenosis is placed in one of the following categories: normal, <50%, 5 0-69%, >=70% but less than near-occlusion, near-occlusion, or total occlusion. Note that percent sten osis relative to normal distal artery lumen diameter is indirectly measured from velocity measurement s as described by Regis, et al. Radiology 2003; 229:340-346. Notes: Normal: Peak systolic velocity <125 centimeters/sec and no plaque <50%. Peak systolic velocity <125 ( EDV <40; ICA/CCA PSV ratio <2.0; used these factors only a tandem lesions or low cardiac output or co ntralateral disease) 50-69 %: PSV 125-230 (EDV 40-100; ratio 2-4) >= 70% but less than near occlusion: PSV greater than 230 (EDV > 100; ratio> 4.0) Near Occlusion: PSV that is variable; markedly narrowed lumen Occlusion: Absent flow on color/spectral Doppler and no lumen on ha scale. COMPARISON: None. FINDINGS: RIGHT: The right common carotid artery (CCA) peak systolic velocity (PSV) is 45 cm/s. The right internal car otid artery (ICA) PSV is 52 cm/s. The right ICA end-diastolic velocity (EDV) is 8.6 cm/s. The right I CA/CCA PSV ratio is 1.2. The external carotid artery (ECA) PSV is 80 cm/s. There is antegrade flow in the right vertebral artery. LEFT: The left CCA PSV is 50 cm/s. The left ICA PSV is 56 cm/s. The left ICA EDV is 9 cm/s. The left ICA/CC A PSV ratio is 1.1. The ECA PSV is 58 cm/s. There is antegrade flow in the left vertebral artery. IMPRESSION: 1. Less than 50% stenosis in the right internal carotid artery by sonographic criteria. 2. Less than 50% stenosis in the left internal carotid artery by sonographic criteria. Reviewed, dictated and finalized at location L. IMPRESSION: 1. Less than 50% stenosis in the right internal carotid artery by sonographic mae richards. 2. Less than 50% stenosis in the left internal carotid artery by sonographic kishore jones.
[2023-03-08 13:07] VITALS: BP 139/86; PULSE 57; PULSE 65; RESP 16; TEMP 36.4; O2SAT 98
--- NOTE | 2023-03-08 13:23 | ECG_ITS ---
Measurements Intervals [place] Rate: 56 P: RI: 0 QRS: -3 QRSD: 160 T: -3 QT: 496 QTc: 480 Interpretive Statements ATRIAL FIBRILLATION WITH SLOW VENTRICULAR RESPONSE RIGHT BUNDLE BRANCH BLOCK [120+ ms QRS DURATION, UPRIGHT V1, 40+ ms S IN I/aVL/V4/V5/V6] COMPARED TO ECG 12/19/2022 09:39:11 NO SIGNIFICANT CHANGES Electronically Signed On 03-08-2023 15:00:32 CDT by Mitzi Berman M.D.
[2023-03-08 13:40] LABS: Basophils Percent Auto 0.6 % (0.2-1.2); Eosinophils Absolute Auto 0.3 K/mm3 (0-0.3); Eosinophils Percent Auto 4.2 % (0-4.4); Hematocrit 37.6 % (42.0-52.0); Immature Granulocyte Absolute 0.05 K/mm3 (0.00-0.031); Immature Granulocyte Percent A 0.7 % (0-0.5); Lymphocytes Percent Auto 8.7 % (18.3-44.2); Mean Corpuscular HGB Conc 31.9 g/dl (32-36); Mean Corpuscular Hemoglobin 31.8 pg (26-34); Mean Corpuscular Volume 99.7 fl (80-100); Mean Platelet Volume 10.6 fl (7.4-10.4); Monocytes Absolute Auto 0.6 K/mm3 (0.1-0.6); Monocytes Percent Auto 8.9 % (2.6-8.5); Neutrophils Absolute Auto 5.3 K/mm3 (1.3-6.7); Neutrophils Percent Auto 76.9 % (45.5-73.1); Platelet Count Result 160 k/mm3 (150-375); Red Blood Count 3.77 M/mm3 (4.6-6.20); Red Cell Distribution Width 15.4 % (11.5-14.5); White Blood Count 6.9 K/mm3 (4.5-10.0)
[2023-03-08 13:49] LABS: Alanine Aminotransferase 19 U/L (6-50); Albumin Level 3.9 g/dL (3.5-5.1); Alkaline Phosphatase 99 U/L (38-126); Anion Gap 11 mmol/L (8-16); Aspartate Amino Transferase 25 U/L (17-59); Bilirubin,Total 0.6 mg/dL (0.2-1.3); Blood Urea Nitrogen 17 mg/dL (9-20); Calcium 8.4 mg/dL (8.4-10.2); Carbon Dioxide 22 mmol/L (22-30); Chloride 100 mmol/L (98-107); Estimated CRCL calculation 45 ml/min; Estimated Glomerular Filt Rate 52; Glucose 122 mg/dL (65-110); Potassium 3.6 mmol/L (3.4-5.0); Sodium 133 mmol/L (137-145)
[2023-03-08 13:56] LABS: INR 2.2; Prothrombin Time 25.6 Seconds (11.1-14.7)
[2023-03-08 13:57] LABS: Partial Thromboplastin Time 34.6 SECONDS (22.3-36.8)
[2023-03-08 14:05] LABS: Troponin I 0.049 ng/mL (0.000-0.034)
--- NOTE | 2023-03-08 14:47 | ED.GENADULT ---
HPI - General Adult General Chief complaint: Neuro Symptoms/Deficit Stated complaint: leaning to left side Time Seen by Provider: 03/08/23 13:05 History of Present Illness HPI narrative: Patient is an 87-year-old male who presents ER with concerns for CVA by his . She was sitting there talking to him in his wheelchair when she told him to unlock the brake on his wheelchair. He bent over to his left side and then did not come back up. He lay slumped there for 6 seconds before she sat him back up and she reports she looked very dazed and out of it. At baseline patient is oriented x1. He has known dementia. Related Data Home Medications Medication Instructions Recorded Confirmed allopurinol 300 mg tablet 300 mg PO DAILY 05/22/19 03/08/23 atorvastatin 40 mg tablet 40 mg PO HS 05/22/19 03/08/23 finasteride 5 mg tablet 5 mg PO HS 05/22/19 03/08/23 furosemide 40 mg tablet 20 mg PO DAILY 05/22/19 03/08/23 multivitamin with minerals-folic 1 tablet PO DAILY 05/22/19 03/08/23 acid 0.4 mg tablet (Adult One Daily Multivitamin) cholecalciferol (vitamin D3) 125 5,000 unit PO DAILY 10/09/19 03/08/23 mcg (5,000 unit) tablet (Vitamin D3) cetirizine 10 mg tablet (Zyrtec) 10 mg PO DAILY 08/26/20 03/08/23 rivaroxaban 20 mg tablet (Xarelto) 15 mg PO QPM 08/26/20 03/08/23 acetaminophen 325 mg capsule 325 mg PO Q6H PRN Pain (Scale 04/05/22 03/08/23 (Tylenol) Score 1-3) escitalopram oxalate 5 mg tablet 5 mg PO DAILY 04/05/22 03/08/23 metolazone 2.5 mg tablet 2.5 mg PO QMWF 10/13/22 03/08/23 famotidine 20 mg tablet 40 mg PO DAILY 03/08/23 03/08/23 ondansetron 4 mg disintegrating 4 mg PO Q4H PRN Nausea 03/08/23 03/08/23 tablet potassium chloride 20 mEq 20 meq PO QMWF 03/08/23 03/08/23 tablet,extended release Allergies Allergy/AdvReac Type Severity Reaction Status Date / Time No Known Allergies Allergy Unknown Verified 03/08/23 13:15 Review of Systems Review of Systems: ROS unobtainable: Yes unobtainable due to mental status [facility] Past Medical History Medical History (Updated 03/08/23 @ 18:50 by Lobo Pereira MD) Arthritis Basal cell carcinoma Benign prostatic hyperplasia Cerebrovascular accident 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 Chronic anemia Coronary artery disease Current use of [facility]dc anticoagulation Dementia Depression Gout Hyperlipidemia Hypertension Paroxysmal atrial fibrillation Seasonal allergies Shingles (~09/2018) Transient ischemic attack 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 Surgical History Surgical History (Updated 01/16/23 @ 09:11 by OSVALDO Serrano) History of aortic valve replacement History of bilateral cataract extraction History of cardiac catheterization History of mitral valve replacement History of surgical removal of skin lesion x2 Hx laparoscopic cholecystectomy 12/21/22 Status post surgical removal of malignant neoplasm of skin Excision of basal cell carcinoma x2. Family History Family History (Updated 03/08/23 @ 18:14 by Claudia Arreaga RN) Father Heart disease Abdominal aneurysm, ruptured Mother Heart disease Other Heart disease Sibling Hx of CABG Social History Social History Social History: Surrogate decision maker: Ashley oRdriguez, . Code status: Do not resuscitate. Smoking status: Never smoker Second hand tobacco smoke exposure: No Alcohol intake: never Drinks per week: 7 Substance use: never Substance use type: does not use Lack of Transportation: No Lack of Food: Never True Current Housing: I Have Housing Concerned About Future Housing: No Difficulty Paying Gas/Electric Bills: No Difficulty Paying for Meds: No Currently Unemployed: No Education: High School Diploma/GED Difficulty w/ Childcare or Family Care: No Additional living arrangements comments: Currently at
[2023-03-08 15:32] VITALS: BP 153/93; PULSE 54; RESP 16; O2SAT 79
[2023-03-08] MEDS: ASPIRIN 81 MG CHEWABLE TABLET 324 MG PO (15:44)
[2023-03-08 15:53] LABS: Appearance Urine Clear (Clear); Bacteria Urine None Seen /hpf; Bilirubin Urine Negative (Negative); Blood Urine Negative (Negative); Color Urine Yellow (Yellow); Glucose Urine UA Negative (Negative); Ketones Urine Negative (Negative); Leukocyte Esterase Ur 2+ LEU/UL (Negative); Need Manual Microscopic Reviewed; Nitrate Urine Negative (Negative); Non Pathogenic Casts 0-2; Protein Urine Negative (Negative); RBC Urine 0-2 /hpf (0-2); Specific Grav Ur 1.006 (1.001-1.035); Squamous Epithelial Cell Urine None seen /hpf (Few); Urobilinogen Urine 0.2 mg/dL (<2.0); WBC Urine 0-5 /hpf
[2023-03-08 15:55] LABS: Add Urine Microscopic? YES
[2023-03-08 16:05] VITALS: BP 143/90; PULSE 83; RESP 16; TEMP 36.6; O2SAT 98
--- NOTE | 2023-03-08 16:38 | PC.NURSE ---
[facility] unable to take report at this time. Claudia WATSON to return call
[2023-03-08 17:33] VITALS: BP 148/95; PULSE 57; RESP 18; O2SAT 98
[2023-03-08 18:30] LABS: Troponin I 0.045 ng/mL (0.000-0.034)
--- NOTE | 2023-03-08 19:11 | PM.IMHP ---
H&P: HPI History of Present Illness Date/Time: 03/08/23 19:11 Chief Complaint: Neurological symptoms. 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 The patient was sitting in his wheelchair and he was told to lock his brakes. The patient slumped over to the left side and did not come back up. The patient lay slumped for about 6 seconds. Before he has had back up again and then the patient appeared to be days and confused. The patient's baseline is orientated x1. He also has known dementia. The patient was able to tell me his name and his date of . The patient thought that he was in [facility] facility. His H&H is 12.0 in 37.6. Sodium 133. Troponin 0.049, 0.[address] was read as following. 1. No acute intracranial abnormality. 2:? Chronic right frontal parietal infarction. 3: Chronic age-related findings. Chest x-ray: No acute cardiopulmonary disease. The patient is being admitted to observation status on the date of service of 03/08/2023 Review of Systems Review of Systems: All systems reviewed & are unremarkable except as noted in HPI and below Constitutional: Constitutional: Reports as per HPI and Reports no additional constitutional complaints Eyes: Eyes: Reports as per HPI and Reports no additional eye complaints ENT: Reports system reviewed and no additional complaints, except as documented and Reports Normal hearing present Cardiovascular: Cardiovascular: Reports no additional cardiovascular complaints Respiratory: Respiratory: Reports no additional respiratory complaints and Reports no additional respiratory complaints Gastrointestinal: Gastrointestinal: Reports as per HPI and Reports no additional gastrointestinal complaints Musculoskeletal: Musculoskeletal: Reports no additional musculoskeletal complaints Integumentary/Breasts: Skin/Breast: Reports system reviewed and no additional complaints, except as docu and Reports as per HPI Neurologic: Reports system reviewed and no additional complaints, except as documented, Reports as per HPI and Reports Normal hearing present Psychiatric: Psychiatric: Reports no additional psychiatric complaints and Reports as per HPI Endocrine: Endocrine: Reports no additional endocrine complaints Hematologic/Lymphatic: Hematologic/Lymphatic: Reports no additional hematologic/lymphatic complaints Allergic/Immunologic: Allergic/Immunologic: Reports no additional allergic/immunologic complaints [facility] Past Medical History Medical History (Updated 03/09/23 @ 00:31 by Germania Jorgensen NP) Arthritis Basal cell carcinoma Benign prostatic hyperplasia Cerebrovascular accident 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 Surgical History Surgical History History of aortic valve replacement History of bilateral cataract extraction History of cardiac catheterization History of mitral valve replacement History of surgical removal of skin lesion x2 Hx laparoscopic cholecystectomy 12/21/22 Status post surgical removal of malignant neoplasm of skin Excision of basal cell carcinoma x2. Family History Family History Father Heart disease Abdominal aneurysm, ruptured Mother Heart disease Other Heart disease Sibling Hx of CABG Social History Social History (Updated 03/09/23 @ 00:23 by Germania Jorgensen NP) Social History: He is retired and has a son and daughter listed for contacts Surrogate decision maker: Ashley Rodriguez, . Code status:
--- NOTE | 2023-03-08 19:37 | ADMGEN ---
This patient, Marcelino Rodriguez, was admitted to IMU Room 205-02 at 1735. Patient/family oriented to hospital policies and general routines including ID bracelet, bed and alarms, visiting hours, pain management, procedures, bathroom and other care routines, personal items, smoking policy, room service/diet, and visiting hours. Information on how to activate the Rapid Response Team has been discussed. Patient/Family are encouraged to report perceived risks to care and to ask questions if they do not understand what they are told or what they should do.
[2023-03-08 20:00] VITALS: BP 154/89; PULSE 53; PULSE 60; RESP 18; TEMP 36.1; O2SAT 97
[2023-03-08 21:37] LABS: Troponin I 0.051 ng/mL (0.000-0.034)
[2023-03-08 22:00] VITALS: PULSE 60
[2023-03-09] VITALS (14 sets, daily range): BP systolic 136–172; BP diastolic 81–100; PULSE 50–66; RESP 16–20; TEMP 36.2–37.4; O2SAT 90–98
[2023-03-09] MEDS: FINASTERIDE 5 MG TABLET PO ×2 (00:54→20:52)
[2023-03-09] MEDS: ATORVASTATIN 40 MG TABLET PO ×2 (00:54→20:52)
[2023-03-09] MEDS: ESCITALOPRAM OXALATE 5 MG TABLET PO (08:53)
[2023-03-09] MEDS: THERAPEUTIC MULTIVITAMINS/MINERALS TAB (*BKC) 1 TABLET PO (08:53)
[2023-03-09] MEDS: LORATADINE 10 MG TABLET PO (08:53)
[2023-03-09] MEDS: FAMOTIDINE 20 MG TABLET 40 MG PO (08:53)
[2023-03-09] MEDS: FUROSEMIDE 20 MG TABLET PO (08:53)
[2023-03-09] MEDS: allopurinoL 300 MG TABLET PO (08:53)
[2023-03-09] MEDS: CHOLECALCIFEROL 1,000 UNITS TABLET 5000 UNITS PO (08:53)
[2023-03-09] MEDS: polyethylene glycoL 3350 17 GM POWD.PACK PO (08:53)
--- NOTE | 2023-03-09 10:23 | WPDNEUROLOGY ---
Neurology EEG Report General Information Date of Study: 03/09/23 TEST Routine EEG DIAGNOSIS Syncope vs seizure CONDITION OF RECORDING Awake, drowsy, asleep EEG NUMBER [id number] CLINICAL HISTORY Patient was sitting in his wheelchair and he was told to lock his brakes at his care home. The patient slumped over to the left side for about 6 seconds. Afterwards patient appeared to be days and confused. The patient's baseline is orientated x1.? EEG DESCRIPTION During the awake state with eyes closed the background consists of 7 Hz posterior dominant rhythm. The recording is continuous. There is a well developed anterior-posterior gradient. No significant asymmetries of background activities are noted. With drowsiness there is waxing and waning of the dominant rhythm with eventual replacement by a mixture of beta, alpha. As the patient enters stage II sleep, symmetrical spindles present. Arousal is unremarkable. There are no epileptiform discharges or seizures during this recording. Hyperventilation and photic stimulation were not performed. IMPRESSION This is a abnormal routine EEG in the awake and asleep states due to the presence of mild slowing of the background rhythm. This finding can be seen in the setting of mild encephalopathy. There are no electrographic seizures identified, nor are there any epileptiform discharges. Clinical correlation is recommended.
--- NOTE | 2023-03-09 11:20 | PM.IMPN ---
Progress Note: A&P Assessment and Plan (1) Near syncope: Code(s): R55 - Syncope and collapse Status: Acute Assessment and Plan: Neurology consult would be appreciated, felt that the patient may have had a seizure. EEG has been ordered. The patient does have a history of paroxysmal atrial fibrillation is already anticoagulation. Head CT was read as no acute intracranial abnormality. Chronic right frontal parietal infarction. Chronic age-related findings. Dopplers wnl, decrease lasix, possible presyncopal episode from labile BP or autonomic dysfunction Check orthostatic BP (2) Paroxysmal atrial fibrillation: Code(s): I48.0 - Paroxysmal atrial fibrillation Status: Chronic Assessment and Plan: The patient is in AFib at this time but is rate controlled. Continue with Xarelto (3) Dementia: Qualifiers: Dementia behavioral or psychological symptom: unspecified whether behavioral, psychotic, or mood disturbance or anxiety Dementia severity: moderate Dementia type: unspecified type Qualified Code(s): F03.B0 - Unspecified dementia, moderate, without behavioral disturbance, psychotic disturbance, mood disturbance, and anxiety Code(s): F03.90 - Unspecified dementia, unspecified severity, without behavioral disturbance, psychotic disturbance, mood disturbance, and anxiety Status: Chronic Assessment and Plan: Patient is a poor historian. The patient was able to state his name and date of . (4) Benign prostatic hyperplasia: Code(s): N40.0 - Benign prostatic hyperplasia without lower urinary tract symptoms Status: Acute Assessment and Plan: Continue with finasteride and Proscar (5) S/P aortic valve replacement with bioprosthetic valve: Code(s): Z95.3 - Presence of xenogenic heart valve Status: Chronic Assessment and Plan: Continue with home medications. (6) Hypertension: Code(s): I10 - Essential (primary) hypertension Status: Chronic Assessment and Plan: Blood pressures reviewed 03/09 The patient is only on Lasix (7) Hyperlipidemia: Code(s): E78.5 - Hyperlipidemia, unspecified Status: Acute Assessment and Plan: Continue with atorvastatin Plan DVT prophylaxis with SCDs GI prophylaxis not indicated Code status full code Subjective Date/time seen: 03/09/23 11:20 Interval history: No overnight events noted. No chest pain or shortness of breath. No nausea, vomiting or diarrhea. No fevers or chills. Review of Systems Review of Systems: 12 point review of systems was assessed and was negative except as noted in the HPI Exam Narrative: General: No acute distress, alert and oriented per baseline HEENT: Atraumatic, normocephalic, mucous membranes moist CV: Irregularly irregular, S1, S2 Lungs: Clear to auscultation bilaterally, no rales or crackles noted, no wheezes, good air entry Abdomen: Soft, nontender, nondistended Extremities: Normal to inspection Skin: No rashes noted, no lesions or wounds seen Psych: Euthymic, normal affect Objective Data Vital Signs Vital Signs: Vital Signs - 24 hr 03/08/23 13:07 03/08/23 13:07 03/08/23 15:32 Temperature 97.5 F L Pulse Rate 57 L 65 54 L Respiratory Rate 16 16 Blood Pressure 139/86 153/93 H Pulse Oximetry 98 79 L Oxygen Delivery Room Air 03/08/23 16:05 03/08/23 17:33 03/08/23 20:00 Temperature 97.9 F Pulse Rate 83 57 L Respiratory Rate 16 18 Blood Pressure 143/90 H 148/95 H Pulse Oximetry 98 98 Oxygen Delivery Room Air 03/08/23 20:00 03/08/23 20:00 03/09/23 00:00 Temperature 96.9 F L 97.5 F L Pulse Rate 53 L 60 50 L Respiratory Rate 18 20 Blood Pressure 154/89 H 172/99 H Pulse Oximetry 97 98 Oxygen Delivery 03/09/23 00:00 03/08/23 22:00 03/09/23 00:00 Temperature Pulse Rate 60 60 Respiratory Rate Blood Pressure Pulse Oxi
--- NOTE | 2023-03-09 12:17 | WPDNEURCNPN ---
Assessment and Plan Assessment and plan (1) Loss of consciousness: Code(s): R40.20 - Unspecified coma Status: Acute (2) Dementia: Qualifiers: Dementia type: unspecified type Dementia severity: moderate Dementia behavioral or psychological symptom: unspecified whether behavioral, psychotic, or mood disturbance or anxiety Qualified Code(s): F03.B0 - Unspecified dementia, moderate, without behavioral disturbance, psychotic disturbance, mood disturbance, and anxiety Code(s): F03.90 - Unspecified dementia, unspecified severity, without behavioral disturbance, psychotic disturbance, mood disturbance, and anxiety Status: Chronic (3) Paroxysmal atrial fibrillation: Code(s): I48.0 - Paroxysmal atrial fibrillation Status: Chronic (4) History of stroke: Code(s): Z86.73 - Personal history of transient ischemic attack (TIA), and cerebral infarction without residual deficits Status: Acute Plan Marcelino Rodriguez is a 87 year old male with a history of atrial fibrillation, hypertension, hyperlipidemia, TIA, dementia, prior strokes presenting due to a transient episode of loss of consciousness for only six seconds with confusion afterwards. Concern for possible seizure vs syncope. Typically would not start anti-seizure medication with first time possible seizure, but patient has had prior stroke which increases his risk of seizures. Would be reasonable to start preventative medication at this point. - Start Keppra 500mg BID - Obtain MRI brain w/o contrast Consult date: 03/09/23 HPI: Marcelino Rodriguez is a 87 year old male with a history of atrial fibrillation, hypertension, hyperlipidemia, TIA, dementia, prior strokes presenting due to a transient episode of loss of consciousness. Patient is not able to provide any history about the episode. Per chart review, patient was sitting in his wheelchair when he slumped over to the left side for about six seconds. When he regained consciousness he appeared to be confused. However, at baseline he is oriented only to himself. When he was taken to [place] [facility] he appeared to be back to his baseline. CT head showed chronic right frontal parietal infarct. Routine EEG showed generalized mild diffuse slowing, but no epileptiform discharges. Of note, patient takes Xarelto for atrial fibrillation. 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 Chronic anemia Coronary artery disease Current use of [facility] anticoagulation Dementia Depression Gout Hyperlipidemia Hypertension Paroxysmal atrial fibrillation Seasonal allergies Shingles (~09/2018) Transient ischemic attack 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 Surgical History Surgical History History of aortic valve replacement History of bilateral cataract extraction History of cardiac catheterization History of mitral valve replacement History of surgical removal of skin lesion x2 Hx laparoscopic cholecystectomy 12/21/22 Status post surgical removal of malignant neoplasm of skin Excision of basal cell carcinoma x2. Family History Family History Father Heart disease Abdominal aneurysm, ruptured Mother Heart disease Other Heart disease Sibling Hx of CABG Social History Social History Social History: He is retired and has a son and daughter listed for contacts Surrogate decision maker: Ashley Rodriguez, . Code status: Do not resuscitate. Smoking status: Ne
[2023-03-09] MEDS: RIVAROXABAN 15 MG TABLET PO (17:32)
[2023-03-09] MEDS: ACETAMINOPHEN 325 MG TABLET PO (17:33)
[2023-03-09] MEDS: HYDROcodone/acetaminophen (*CRX) 5-325 MG TABLET 1 TAB PO (23:31)
[2023-03-10] VITALS (9 sets, daily range): BP systolic 125–163; BP diastolic 72–112; PULSE 57–130; RESP 12–20; TEMP 35.7–36.4; O2SAT 90–98
[2023-03-10 04:57] LABS: Basophils Percent Auto 0.6 % (0.2-1.2); Eosinophils Absolute Auto 0.4 K/mm3 (0-0.3); Eosinophils Percent Auto 6.2 % (0-4.4); Hematocrit 36.8 % (42.0-52.0); Hemoglobin 12.1 g/dL (14.0-18.0); Immature Granulocyte Absolute 0.03 K/mm3 (0.00-0.031); Immature Granulocyte Percent A 0.5 % (0-0.5); Lymphocytes Percent Auto 16.6 % (18.3-44.2); Mean Corpuscular HGB Conc 32.9 g/dl (32-36); Mean Corpuscular Volume 97.4 fl (80-100); Mean Platelet Volume 10.2 fl (7.4-10.4); Monocytes Absolute Auto 0.7 K/mm3 (0.1-0.6); Neutrophils Absolute Auto 4.3 K/mm3 (1.3-6.7); Neutrophils Percent Auto 65.1 % (45.5-73.1); Platelet Count Result 174 k/mm3 (150-375); Red Blood Count 3.78 M/mm3 (4.6-6.20); Red Cell Distribution Width 15.1 % (11.5-14.5); White Blood Count 6.6 K/mm3 (4.5-10.0)
[2023-03-10 05:10] LABS: Alanine Aminotransferase 17 U/L (6-50); Albumin Level 3.4 g/dL (3.5-5.1); Alkaline Phosphatase 84 U/L (38-126); Anion Gap 4 mmol/L (8-16); Aspartate Amino Transferase 22 U/L (17-59); Bilirubin,Total 0.5 mg/dL (0.2-1.3); Blood Urea Nitrogen 19 mg/dL (9-20); Calcium 8.6 mg/dL (8.4-10.2); Carbon Dioxide 27 mmol/L (22-30); Chloride 102 mmol/L (98-107); Estimated CRCL calculation 42 ml/min; Estimated Glomerular Filt Rate 57; Glucose 105 mg/dL (65-110); Magnesium 1.6 mg/dL (1.6-2.3); Sodium 133 mmol/L (137-145)
--- NOTE | 2023-03-10 08:05 | PM.IMPN ---
Progress Note: A&P Assessment and Plan (1) Near syncope: Code(s): R55 - Syncope and collapse Status: Acute Assessment and Plan: Neurology consult would be appreciated, felt that the patient may have had a seizure. EEG has been ordered. The patient does have a history of paroxysmal atrial fibrillation is already anticoagulated. Head CT was read as no acute intracranial abnormality. Chronic right frontal parietal infarction. Chronic age-related findings. Dopplers wnl, d/c metolazone, possible presyncopal episode from labile BP or autonomic dysfunction Check orthostatic BP, consult to cardio + neuro pending (2) Paroxysmal atrial fibrillation: Code(s): I48.0 - Paroxysmal atrial fibrillation Status: Chronic Assessment and Plan: The patient is in AFib at this time but is rate controlled. Continue with Xarelto (3) Dementia: Qualifiers: Dementia behavioral or psychological symptom: unspecified whether behavioral, psychotic, or mood disturbance or anxiety Dementia severity: moderate Dementia type: unspecified type Qualified Code(s): F03.B0 - Unspecified dementia, moderate, without behavioral disturbance, psychotic disturbance, mood disturbance, and anxiety Code(s): F03.90 - Unspecified dementia, unspecified severity, without behavioral disturbance, psychotic disturbance, mood disturbance, and anxiety Status: Chronic Assessment and Plan: At baseline (4) Benign prostatic hyperplasia: Code(s): N40.0 - Benign prostatic hyperplasia without lower urinary tract symptoms Status: Acute Assessment and Plan: Continue with finasteride and Proscar (5) S/P aortic valve replacement with bioprosthetic valve: Code(s): Z95.3 - Presence of xenogenic heart valve Status: Chronic Assessment and Plan: Continue with home medications. (6) Hypertension: Code(s): I10 - Essential (primary) hypertension Status: Chronic Assessment and Plan: Blood pressures reviewed 03/10 The patient is only on Lasix 20 mg daily (7) Hyperlipidemia: Code(s): E78.5 - Hyperlipidemia, unspecified Status: Acute Assessment and Plan: Continue with atorvastatin Plan DVT prophylaxis with xarelto GI prophylaxis not indicated Code status DNR Subjective Date/time seen: 03/10/23 08:05 Interval history: No overnight events noted. No chest pain or shortness of breath. No nausea, vomiting or diarrhea. No fevers or chills. Review of Systems Review of Systems: 12 point review of systems was assessed and was negative except as noted in the HPI Exam Narrative: General: No acute distress, alert and oriented per baseline HEENT: Atraumatic, normocephalic, mucous membranes moist CV: Irregularly irregular, S1, S2 Lungs: Clear to auscultation bilaterally, no rales or crackles noted, no wheezes, good air entry Abdomen: Soft, nontender, nondistended Extremities: Normal to inspection Skin: No rashes noted, no lesions or wounds seen Psych: Euthymic, normal affect Objective Data Vital Signs Vital Signs: Vital Signs - 24 hr 03/09/23 09:34 03/09/23 10:00 03/09/23 12:00 Temperature Pulse Rate 63 52 L Respiratory Rate Blood Pressure Pulse Oximetry 94 Oxygen Delivery Room Air 03/09/23 12:00 03/09/23 12:00 03/09/23 14:00 Temperature 97.2 F L Pulse Rate 57 L 54 L Respiratory Rate 20 Blood Pressure 136/81 Pulse Oximetry 98 Oxygen Delivery Room Air 03/09/23 16:00 03/09/23 16:00 03/09/23 16:00 Temperature 97.1 F L Pulse Rate 54 L 64 Respiratory Rate 16 Blood Pressure 161/100 H Pulse Oximetry 95 Oxygen Delivery Room Air 03/09/23 18:00 03/09/23 20:00 03/09/23 20:00 Temperature 99.3 F Pulse Rate 63 62 Respiratory Rate 20 Blood Pressure 171/81 H Pulse Oximetry 98 Oxygen Delivery Room Air 03/09/23 20:00 03/09/23 22:
[2023-03-10] MEDS: ESCITALOPRAM OXALATE 5 MG TABLET PO (08:57)
[2023-03-10] MEDS: allopurinoL 300 MG TABLET PO (08:57)
[2023-03-10] MEDS: LORATADINE 10 MG TABLET PO (08:57)
[2023-03-10] MEDS: THERAPEUTIC MULTIVITAMINS/MINERALS TAB (*BKC) 1 TABLET PO (08:57)
[2023-03-10] MEDS: FAMOTIDINE 20 MG TABLET 40 MG PO (08:57)
[2023-03-10] MEDS: FUROSEMIDE 20 MG TABLET PO (08:57)
[2023-03-10] MEDS: CHOLECALCIFEROL 1,000 UNITS TABLET 5000 UNITS PO (08:57)
[2023-03-10] MEDS: POTASSIUM CHLORIDE 20 MEQ ER TABLET 40 MEQ PO (08:59)
[2023-03-10] MEDS: polyethylene glycoL 3350 17 GM POWD.PACK PO (08:59)
[2023-03-10] MEDS: POTASSIUM CHLORIDE 20 MEQ ER TABLET PO (09:00)
[2023-03-10] MEDS: HYDROcodone/acetaminophen (*CRX) 5-325 MG TABLET 1 TAB PO (11:28)
--- NOTE | 2023-03-10 11:49 | PM.CNCAR ---
Assessment and Plan Assessment and plan (1) Near syncope: Code(s): R55 - Syncope and collapse Status: Acute Plan This is an elderly 87-year-old man with chronic atrial fibrillation and a bioprosthetic aortic valve replacement that is now about 4 years old. It is a large valve and should certainly not become dysfunctional in this patient's expected lifespan. He has been having spells with sound like a near syncopal episodes for a couple of years. I questioned the patient's family in terms of the reason for bringing him to the hospital since this has been going on for a while. They indicated that a nurse at his residence indicated the need to have a transfer to the emergency room when this occurred. It is the patient's opinion that he does not completely lose consciousness and that remains unclear to me at this time. None the less he has not demonstrated any significant Chi arrhythmias or pauses that would explain this and is rhythm appears to be stable for the 48 hours he has been in the hospital. I do not have any additional cardiac recommendations or workup I think that is necessary at this time. If he was not DNR I would consider repeating another outpatient 30 day event monitor however given his DNR status he is not a candidate for a pacemaker device in my opinion so I would probably not pursue gathering this information. He does have an appointment next month to follow up with my partner in the office regarding all of this and I suppose this issue can be discussed further at that time Yuniel Fuentes MD [facility] History of Present Illness History of Present Illness Consult date/time: 03/10/23 11:49 Reason For Visit: near syncope,elevated troponin Narrative: This is a 87-year-old man I am seeing at the request of the hospitalist because of an apparent questionable syncopal episode. This is a gentleman I have seen in the past he primarily follows up in our practice with Dr. esteves. He was brought to the hospital from his assisted care facility couple of days ago after an episode of brief apparent loss of consciousness in his wheelchair. According to his who was with him at the time he slumped over to the right side for about 5 or 6 seconds and then recovered. She says these spells she is calling him has have been occurring for 2 or 3 years and they occur about every 6 months or so. My partner's notes in the office indicate they have discussed these episodes in the past. He has a history of atrial fibrillation which is chronic and has AV node dysfunction such that he requires no rate controlling medications. He has had outpatient Holter monitoring done because of these episodes which has not yielded any evidence of any Chi arrhythmias or pauses. He continues to have atrial fib with heart rates in the 60-80 range since he has been in the hospital. We do not see any undue tachy or Chi arrhythmias. He has a chronic right bundle branch block as well. His electrocardiogram shows no changes in comparison to previous tracings that are in the chart. He has a history of valvular heart disease and underwent bioprosthetic aortic valve replacement at [facility] back in 2019. He is not known to have coronary artery disease. At the time of his aortic valve replacement he underwent occlusion of the left atrial appendage by the surgeon. Despite this he is anticoagulated with Xarelto 15 mg daily. I would presume that has to do with peripheral vascular disease he is known to have popliteal artery aneurysms. His medical regimen includes allopurinol, atorvastatin, famotidine, finasteride, furosemide, metolazone and Xarelto as well as a potassium supplement. He has been in the hospital now for a couple of days he has not had any recurrence of these episodes since he has been admitted. It also should be mentioned he he now is a DNR patient Review of Systems Review of Systems: ROS unobtainable: Yes unobtainable due to
--- NOTE | 2023-03-10 15:01 | PM.DS ---
DS: Admitting Diagnosis Discharge Date 03/10/23 Admitting Diagnosis syncope DS: Discharge Diagnosis Discharge Diagnosis (1) Near syncope: Code(s): R55 - Syncope and collapse Status: Acute Assessment and Plan: Neurology consult would be appreciated, felt that the patient may have had a seizure. EEG has been ordered. The patient does have a history of paroxysmal atrial fibrillation is already anticoagulated. Head CT was read as no acute intracranial abnormality. Chronic right frontal parietal infarction. Chronic age-related findings. Dopplers wnl, d/c metolazone, possible presyncopal episode from labile BP or autonomic dysfunction Check orthostatic BP, consult to cardio + neuro pending (2) Paroxysmal atrial fibrillation: Code(s): I48.0 - Paroxysmal atrial fibrillation Status: Chronic Assessment and Plan: The patient is in AFib at this time but is rate controlled. Continue with Xarelto (3) Dementia: Qualifiers: Dementia behavioral or psychological symptom: unspecified whether behavioral, psychotic, or mood disturbance or anxiety Dementia severity: moderate Dementia type: unspecified type Qualified Code(s): F03.B0 - Unspecified dementia, moderate, without behavioral disturbance, psychotic disturbance, mood disturbance, and anxiety Code(s): F03.90 - Unspecified dementia, unspecified severity, without behavioral disturbance, psychotic disturbance, mood disturbance, and anxiety Status: Chronic Assessment and Plan: At baseline (4) Benign prostatic hyperplasia: Code(s): N40.0 - Benign prostatic hyperplasia without lower urinary tract symptoms Status: Acute Assessment and Plan: Continue with finasteride and Proscar (5) S/P aortic valve replacement with bioprosthetic valve: Code(s): Z95.3 - Presence of xenogenic heart valve Status: Chronic Assessment and Plan: Continue with home medications. (6) Hypertension: Code(s): I10 - Essential (primary) hypertension Status: Chronic Assessment and Plan: Blood pressures reviewed 03/10 The patient is only on Lasix 20 mg daily (7) Hyperlipidemia: Code(s): E78.5 - Hyperlipidemia, unspecified Status: Acute Assessment and Plan: Continue with atorvastatin Plan DVT prophylaxis with xarelto GI prophylaxis not indicated Code status DNR DS: Summary Hospital Course Hospital Course: 87-year-old male from a nursing facility with past medical history of AFib, heart disease, CVA presenting with syncopal episode. Cardiology neurology evaluated patient and have no obvious etiology. Cardiology recommended further evaluation for possible pacemaker which patient and refused in the past and refused again. Therefore, patient was discharged back to the nursing facility in stable condition with close outpatient follow-up. See above and [facility] rec for details. Time Spent with Patient Time attestation: Total time spent providing and/or coordinating discharge services: Exam Narrative: General: No acute distress, alert and oriented per baseline HEENT: Atraumatic, normocephalic, mucous membranes moist CV: Irregularly irregular, S1, S2 Lungs: Clear to auscultation bilaterally, no rales or crackles noted, no wheezes, good air entry Abdomen: Soft, nontender, nondistended Extremities: Normal to inspection Skin: No rashes noted, no lesions or wounds seen Psych: Euthymic, normal affect DS: Data Data Completed and Pending Labs on day of discharge: Labs from last 24 hours 03/10/23 04:39 WBC 6.6 RBC 3.78 L Hgb 12.1 L Hct 36.8 L MCV 97.4 MCH 32.0 MCHC 32.9 RDW 15.1 H Plt Count 174 MPV 10.2 Immature Gran % (Auto) 0.5 Neut % (Auto) 65.1 Lymph % (Auto) 16.6 L Richardson % (Auto) 11.0 H Eos % (Auto) 6.2 H Baso % (Auto) 0.6 Lymph # (Auto) 1.10 Richardson # (Auto) 0.7 H Eos # (Auto) 0.4 H Baso # (Au
[2023-03-10] MEDS: RIVAROXABAN 15 MG TABLET PO (16:18)
[2023-03-10 17:06] LABS: Influenza A QL RT-PCR Negative (Negative); Influenza B QL RT-PCR Negative (Negative); RSV RNA, RT-PCR Negative (Negative); SARS-CoV-2 RNA PCR Negative (Negative)
== END 2023-03-10 18:46 | DRG 101 ==
LOC: ANHED 14:10 → ANHIMU 16:47
PROVIDERS: Nurse Practitioner; Admitting Provider Chiropractor; Emergency Provider Emergency Medicine; PCP Internal Medicine; Visit Provider Student in an Organized Health Care Education/Training Program
DX: R56.9 Unspecified convulsions (principal); R55 Syncope and collapse; I48.0 Paroxysmal atrial fibrillation; F03.90 Unspecified dementia, unspecified severity, without behavioral disturbance, psychotic disturbance, mood disturbance, and anxiety; N40.0 Benign prostatic hyperplasia without lower urinary tract symptoms; E78.5 Hyperlipidemia, unspecified; I10 Essential (primary) hypertension; Z66 Do not resuscitate; M19.90 Unspecified osteoarthritis, unspecified site; I25.10 Atherosclerotic heart disease of native coronary artery without angina pectoris; Z79.01 Long term (current) use of anticoagulants; Z85.828 Personal history of other malignant neoplasm of skin; Z86.73 Personal history of transient ischemic attack (TIA), and cerebral infarction without residual deficits; Z95.2 Presence of prosthetic heart valve; Z90.49 Acquired absence of other specified parts of digestive tract; Z20.822 Contact with and (suspected) exposure to COVID-19
CPT/HCPCS: 36415; 70450; 71045; 80053; 81001; 83735; 84443; 84484; 85025; 85610; 85730; 87637; 93005; 93880; 95816; 99285; A9270; G0378

== ENCOUNTER 2023-04-30 11:38 | Emergency (ER) | payer MEDICARE, SELFPAY ==
[2023-04-30] VITALS (12 sets, daily range): BP systolic 140–188; BP diastolic 90–125; PULSE 60–94; RESP 14–29; TEMP 36.8; O2SAT 95–100
--- NOTE | ~2023-04-30 | XR_ITS ---
EXAMINATION: XR chest 1V portable DATE: 04/30/2023 13:57 INDICATION: Confusion. TECHNIQUE: A single frontal view of the chest was obtained. COMPARISON: Chest single view 03/08/2023, CT abdomen and pelvis 12/18/2022 FINDINGS: There is mild atelectasis at left lung base. No pleural effusion or pneumothorax. Cardiomeg marshall is noted. There are changes of heart valve replacements. There is a closure device at left atrial appendage. IMPRESSION: 1. Mild atelectasis at left lung base. 2. Cardiomegaly. Reviewed, dictated and finalized at location A.
--- NOTE | ~2023-04-30 | CT_ITS ---
EXAMINATION: CT brain wo con DATE: 04/30/2023 13:15 INDICATION: Confusion. TECHNIQUE: Computed tomography (CT) of the head was performed without intravenous contrast. The mA wa s adjusted according to patient size. Iterative reconstruction technique was employed. The dose-lengt h product was 832.33 mGy-cm. COMPARISON: Head CT 03/08/2023 FINDINGS: There are scattered areas of low attenuation in the cerebral white matter. There is old inf arct in right frontoparietal region. There is no intracranial hemorrhage, acute infarction, or abnorm al intracranial mass lesion. There is mild ex vacuo dilatation of right lateral ventricle. There is m ild mucosal thickening in the paranasal sinuses. There are likely changes of ocular lens replacement surgeries. The mastoid air cells are normal. IMPRESSION: 1. Old infarct in right frontoparietal region. 2. Stable extensive nonspecific cerebral white matter disease, which likely represents chronic small vessel ischemic disease. Reviewed, dictated and finalized at location A. IMPRESSION: 1. Old infarct in right frontoparietal region. 2. Stable extensive nonspecific cerebral white matter disease, which likely rep resents chronic small vessel ischemic disease.
--- NOTE | 2023-04-30 11:44 | ECG_ITS ---
Measurements Intervals [place] Rate: 67 P: 77 DC: 213 QRS: 23 QRSD: 152 T: 12 QT: 454 QTc: 481 Interpretive Statements SINUS RHYTHM WITH FIRST DEGREE AV BLOCK RIGHT BUNDLE BRANCH BLOCK Electronically Signed On 04-30-2023 13:03:22 CDT by Guru Kee M.D.
[2023-04-30 12:00] LABS: Basophils Absolute Auto 0.1 K/mm3 (0.0-0.1); Basophils Percent Auto 0.7 % (0.2-1.2); Eosinophils Absolute Auto 0.2 K/mm3 (0-0.3); Eosinophils Percent Auto 2.3 % (0-4.4); Hematocrit 40.2 % (42.0-52.0); Immature Granulocyte Absolute 0.04 K/mm3 (0.00-0.031); Immature Granulocyte Percent A 0.5 % (0-0.5); Lymphocytes Absolute Auto 1.01 K/mm3 (0.9-3.2); Lymphocytes Percent Auto 13.8 % (18.3-44.2); Mean Corpuscular HGB Conc 32.3 g/dl (32-36); Mean Corpuscular Hemoglobin 31.7 pg (26-34); Mean Platelet Volume 9.8 fl (7.4-10.4); Monocytes Absolute Auto 0.7 K/mm3 (0.1-0.6); Monocytes Percent Auto 9.9 % (2.6-8.5); Neutrophils Absolute Auto 5.3 K/mm3 (1.3-6.7); Neutrophils Percent Auto 72.8 % (45.5-73.1); Platelet Count Result 180 k/mm3 (150-375); Red Cell Distribution Width 15.4 % (11.5-14.5); White Blood Count 7.3 K/mm3 (4.5-10.0)
[2023-04-30 12:10] LABS: Alanine Aminotransferase 21 U/L (6-50); Albumin Level 4.1 g/dL (3.5-5.1); Alkaline Phosphatase 117 U/L (38-126); Anion Gap 6 mmol/L (8-16); Aspartate Amino Transferase 27 U/L (17-59); Bilirubin,Total 0.7 mg/dL (0.2-1.3); Blood Urea Nitrogen 19 mg/dL (9-20); Carbon Dioxide 27 mmol/L (22-30); Chloride 103 mmol/L (98-107); Estimated CRCL calculation 41 ml/min; Estimated Glomerular Filt Rate 48; Glucose 92 mg/dL (65-110); Sodium 136 mmol/L (137-145)
[2023-04-30 12:14] LABS: INR 2.1; Prothrombin Time 24.7 Seconds (11.1-14.7)
--- NOTE | 2023-04-30 12:14 | ED.AMS ---
HPI - Altered Mental Status General Chief Complaint: Altered Mental Status Stated Complaint: increased confusion, htn Time Seen by Provider: 04/30/23 11:48 Source: patient, family (), RN notes reviewed and old records reviewed Mode of arrival: EMS Limitations: dementia History of Present Illness HPI narrative: This is an 87 year old male with history of CVA, dementia who presents from [facility] for evaluation of hypertension and confusion. It has been reported that patient is normally alert and oriented x 1 and today he is oriented x 2. Nursing reports patient was sent for confusion but he seems to be acting appropriately. His states he was sent in for treatment of his hypertension. She reports patient was started losartan 25 mg PO last month for his hypertension. He received his medication just prior to be sent to ER. PAtient denies chest pain, shortness of breath, abdominal pain, nausea, vomiting. PAtient has chronic leg edema. Related Data Home Medications Medication Instructions Recorded Confirmed allopurinol 300 mg tablet 300 mg PO DAILY 05/22/19 03/16/23 atorvastatin 40 mg tablet 40 mg PO HS 05/22/19 03/16/23 finasteride 5 mg tablet 5 mg PO HS 05/22/19 03/16/23 furosemide 40 mg tablet 20 mg PO DAILY 05/22/19 03/16/23 multivitamin with minerals-folic 1 tablet PO DAILY 05/22/19 03/16/23 acid 0.4 mg tablet (Adult One Daily Multivitamin) cholecalciferol (vitamin D3) 125 5,000 unit PO DAILY 10/09/19 03/16/23 mcg (5,000 unit) tablet (Vitamin D3) cetirizine 10 mg tablet (Zyrtec) 10 mg PO DAILY 08/26/20 03/16/23 rivaroxaban 20 mg tablet (Xarelto) 15 mg PO QPM 08/26/20 03/16/23 acetaminophen 325 mg capsule 325 mg PO Q6H PRN Pain (Scale 04/05/22 03/16/23 (Tylenol) Score 1-3) escitalopram oxalate 5 mg tablet 5 mg PO DAILY 04/05/22 03/16/23 famotidine 20 mg tablet 40 mg PO DAILY 03/08/23 03/16/23 ondansetron 4 mg disintegrating 4 mg PO Q4H PRN Nausea 03/08/23 03/16/23 tablet potassium chloride 20 mEq 20 meq PO QMWF 03/08/23 03/16/23 tablet,extended release Allergies Allergy/AdvReac Type Severity Reaction Status Date / Time No Known Allergies Allergy Unknown Verified 03/08/23 13:15 Review of Systems Review of Systems: ROS unobtainable: Yes other (dementia) [facility] Past Medical History Medical History Arthritis Basal cell carcinoma Benign prostatic hyperplasia Cerebrovascular accident 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 Chronic anemia Coronary artery disease Current use of [facility] anticoagulation Dementia Depression Gout Hyperlipidemia Hypertension Paroxysmal atrial fibrillation Seasonal allergies Shingles (~09/2018) Transient ischemic attack 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 Surgical History Surgical History History of aortic valve replacement History of bilateral cataract extraction History of cardiac catheterization History of mitral valve replacement History of surgical removal of skin lesion x2 Hx laparoscopic cholecystectomy 12/21/22 Status post surgical removal of malignant neoplasm of skin Excision of basal cell carcinoma x2. Family History Family History Father Heart disease Abdominal aneurysm, ruptured Mother Heart disease Other Heart disease Sibling Hx of CABG Social History Social History Social History: He is retired and has a son and daughter listed for contacts Surrogate decision maker: Ashley Rodriguez, . Code status: Do not resuscitate. Smoking status: Never smoker Second hand tobacco smoke exposure: No Alcohol intake: never Drinks per week: 7 Substance use: never Substance use type: does not use Lack of Transportation: No Lack of
[2023-04-30 12:15] LABS: Partial Thromboplastin Time 34.5 SECONDS (22.3-36.8)
[2023-04-30] MEDS: LOSARTAN POTASSIUM 25 MG TABLET PO (12:16)
[2023-04-30 12:45] LABS: Appearance Urine Cloudy (Clear); Bacteria Urine None Seen /hpf; Bilirubin Urine Negative (Negative); Blood Urine Trace (Negative); Color Urine Yellow (Yellow); Glucose Urine UA Negative (Negative); Ketones Urine Negative (Negative); Leukocyte Esterase Ur 3+ LEU/UL (Negative); Nitrate Urine Negative (Negative); Protein Urine Trace mg/dL (Negative); RBC Urine 0-2 /hpf (0-2); Specific Grav Ur 1.013 (1.001-1.035); Squamous Epithelial Cell Urine None seen /hpf (Few); Urobilinogen Urine 0.2 mg/dL (<2.0); WBC Urine >100 /hpf
[2023-04-30 12:50] LABS: Add Urine Microscopic? YES
--- NOTE | 2023-04-30 15:05 | PC.NURSE ---
Notified MD srivastava of BP being elevated at this time. stated she will be discharging patient and patient to take home BP medications.
--- NOTE | 2023-04-30 15:14 | PC.NURSE ---
Report given to Lianet WATSON at [facility] regarding patient return. all questions answered at time of report.
[2023-04-30] MEDS: ACETAMINOPHEN 500 MG TABLET 1000 MG PO (15:27)
== END 2023-04-30 16:57 ==
PROVIDERS: Emergency Provider General Practice; PCP Internal Medicine
DX: N39.0 Urinary tract infection, site not specified (principal); I10 Essential (primary) hypertension; D64.9 Anemia, unspecified; I25.10 Atherosclerotic heart disease of native coronary artery without angina pectoris; Z79.01 Long term (current) use of anticoagulants; F03.90 Unspecified dementia, unspecified severity, without behavioral disturbance, psychotic disturbance, mood disturbance, and anxiety; I48.91 Unspecified atrial fibrillation
CPT/HCPCS: 36415; 70450; 71045; 80053; 81001; 85025; 85610; 85730; 87077; 87086; 87186; 93005; 96365; 99284; A9270; J0696

== ENCOUNTER 2023-06-18 11:08 | Emergency (ER) | payer MEDICARE, SELFPAY ==
[2023-06-18] VITALS (30 sets, daily range): BP systolic 131–220; BP diastolic 81–122; PULSE 52–72; RESP 15–26; TEMP 36.6; O2SAT 97–100
--- NOTE | ~2023-06-18 | CT_ITS ---
EXAMINATION: CT abdomen pelvis w con DATE: 06/18/2023 14:14 INDICATION: Ileus versus obstruction. TECHNIQUE: Computed tomography (CT) of the abdomen and pelvis was performed with 100 cc Omnipaque 350 intravenous contrast. The dose-length product was 1624.41 mGy-cm. Automated exposure control and ite rative reconstruction technique were employed. COMPARISON: CT dated 12/18/2022. FINDINGS: There is dependent atelectasis/scarring, unchanged. Cardiomegaly. There is atherosclerosis of the aor ta without aneurysm. Moderate size hiatal hernia. No significant pleural or pericardial effusion. No thoracic lymphadenopathy. Moderate gas is present throughout the colon. No small bowel dilation. Ther e are calcified granulomas of the spleen. Small low-density lesions in the liver are most likely benign cysts or hemangiomas. No free air or fr ee fluid. There is gynecomastia. There is renal atrophy. Tiny low-density lesions are present in the kidneys, most likely benign cysts. There is a larger exophytic left renal cyst measuring 4.5 cm. Ther e is a fat-containing umbilical hernia. There is bladder wall thickening. Prostate gland is enlarged. There are coarse central prostate calcifications. There is a fat-containing right inguinal hernia. M oderate osteoarthritis of the hips. There is fecal impaction of the distal colon and rectum. There is a acute/subacute superior endplate compression fracture of L4 which is new compared with oswald or study. There are chronic compression fractures of L3, L2, L1 and T12. Moderate lumbar spondylosis. Grade 1 spondylolisthesis at L5-S1. IMPRESSION: 1. Nonobstructive bowel gas pattern. Moderate gas throughout the colon. Moderate retained fecal mater ial in the distal colon and rectum. 2: Diffuse bladder wall thickening. Consider outlet obstruction or cystitis. Mildly enlarged prostat e gland. 3: New superior endplate compression fracture of L4 which is likely acute or subacute. Multiple addit ional lower thoracic and lumbar compression fractures are chronic. Reviewed, dictated and finalized at location A. MANAGER IMPRESSION: 1. Nonobstructive bowel gas pattern. Moderate gas throughout the colon. Moderat e retained fecal material in the distal colon and rectum. 2: Diffuse bladder wall thickening. Consider outlet obstruction or cystitis. M ildly enlarged prostate gland. 3: New superior endplate compression fracture of L4 which is likely acute or mantilla bacute. Multiple additional lower thoracic and lumbar compression fractures are chronic.
--- NOTE | ~2023-06-18 | XR_ITS ---
XR shoulder RT min 2V 06/18/2023 14:18 Indication: Right shoulder pain Procedure: 4 views right shoulder Comparison: No prior studies for comparison. Findings: There is moderate glenohumeral joint osteoarthritis. No acute fracture or traumatic malalig nment. There is ill-defined sclerosis of the scapula which may represent posttraumatic change, althou gh there is a history of malignancy, consider metastatic disease. Impression: 1: No acute fracture. 2: Ill-defined sclerosis of the scapular body, most likely posttraumatic although metastatic disease is not excluded in the appropriate clinical setting. Reviewed, dictated and finalized at location A. EL [employer] ADVISOR Impression: 1: No acute fracture. 2: Ill-defined sclerosis of the scapular body, most likely posttraumatic altho ugh metastatic disease is not excluded in the appropriate clinical setting.
--- NOTE | 2023-06-18 13:18 | ED.ABDPAIN ---
HPI - Abdominal Pain General Chief Complaint: Abdominal Pain Stated Complaint: Abdominal distention/neck shoulder pain/falls Time Seen by Provider: 06/18/23 13:01 Source: patient and family () Limitations: dementia History of Present Illness HPI narrative: Patient presents: [facility] with concern for abdominal distension and concern for ileus versus bowel obstruction on x-ray performed in the outpatient setting. Patient denies any nausea or vomiting. He does not know if he is passing flatus. His provides significant history given patient's underlying dementia. Patient has been complaining of right shoulder pain. No falls. He has had decreased mobility of the right arm. He denies any chest pain, difficulty breathing, or rales. He denies any paresthesias. His last bowel movement was this morning x1. He was given a laxative yesterday which produced 2 bowel movements that were described as loose but not bloody. Medication list per nursing documentation also includes the following: Acetaminophen q.6 p.r.n., atorvastatin, Biofreeze, fluticasone... Related Data Home Medications Medication Instructions Recorded Confirmed allopurinol 300 mg tablet 300 mg PO DAILY 05/22/19 03/16/23 finasteride 5 mg tablet 5 mg PO HS 05/22/19 03/16/23 furosemide 40 mg tablet 20 mg PO DAILY 05/22/19 03/16/23 multivitamin with minerals-folic 1 tablet PO DAILY 05/22/19 03/16/23 acid 0.4 mg tablet (Adult One Daily Multivitamin) cholecalciferol (vitamin D3) 125 5,000 unit PO DAILY 10/09/19 03/16/23 mcg (5,000 unit) tablet (Vitamin D3) cetirizine 10 mg tablet (Zyrtec) 10 mg PO DAILY 08/26/20 03/16/23 rivaroxaban 20 mg tablet (Xarelto) 15 mg PO QPM 08/26/20 03/16/23 acetaminophen 325 mg capsule 325 mg PO Q6H PRN Pain (Scale 04/05/22 03/16/23 (Tylenol) Score 1-3) escitalopram oxalate 5 mg tablet 5 mg PO DAILY 04/05/22 03/16/23 famotidine 20 mg tablet 40 mg PO DAILY 03/08/23 03/16/23 ondansetron 4 mg disintegrating 4 mg PO Q4H PRN Nausea 03/08/23 03/16/23 tablet potassium chloride 20 mEq 20 meq PO QMWF 03/08/23 03/16/23 tablet,extended release Allergies Allergy/AdvReac Type Severity Reaction Status Date / Time No Known Allergies Allergy Unknown Verified 06/18/23 13:32 [facility] Past Medical History Medical History Arthritis Basal cell carcinoma Benign prostatic hyperplasia Cerebrovascular accident 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 Chronic anemia Coronary artery disease Current use of mcc anticoagulation Dementia Depression Gout Hyperlipidemia Hypertension Paroxysmal atrial fibrillation Seasonal allergies Shingles (~09/2018) Syncope and collapse Transient ischemic attack 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 Surgical History Surgical History History of aortic valve replacement History of bilateral cataract extraction History of cardiac catheterization History of mitral valve replacement History of surgical removal of skin lesion x2 Hx laparoscopic cholecystectomy 12/21/22 Status post surgical removal of malignant neoplasm of skin Excision of basal cell carcinoma x2. Family History Family History Father Heart disease Abdominal aneurysm, ruptured Mother Heart disease Other Heart disease Sibling Hx of CABG Social History Social History (Updated 06/18/23 @ 13:55 by Kelsea Mccoy MD) Social History: He is retired and has a son and daughter listed for contacts Surrogate decision maker: Ashley Rodriguez, . Code status: Do not resuscitate. Smoking status: Never smoker Second hand tobacco smoke exposure: No Alcohol intake: never Drinks per week: 7 Substance use: never Substance use type: does not use Lack of Transportation: No Lack
[2023-06-18 13:32] LABS: Basophils Percent Auto 0.5 % (0.2-1.2); Eosinophils Absolute Auto 0.2 K/mm3 (0-0.3); Eosinophils Percent Auto 2.6 % (0-4.4); Hematocrit 39.5 % (42.0-52.0); Hemoglobin 12.4 g/dL (14.0-18.0); Immature Granulocyte Absolute 0.03 K/mm3 (0.00-0.031); Immature Granulocyte Percent A 0.4 % (0-0.5); Lymphocytes Absolute Auto 0.88 K/mm3 (0.9-3.2); Mean Corpuscular HGB Conc 31.4 g/dl (32-36); Mean Corpuscular Hemoglobin 31.7 pg (26-34); Mean Platelet Volume 10.4 fl (7.4-10.4); Monocytes Absolute Auto 0.7 K/mm3 (0.1-0.6); Monocytes Percent Auto 9.8 % (2.6-8.5); Neutrophils Absolute Auto 5.5 K/mm3 (1.3-6.7); Neutrophils Percent Auto 74.7 % (45.5-73.1); Platelet Count Result 156 k/mm3 (150-375); Red Blood Count 3.91 M/mm3 (4.6-6.20); Red Cell Distribution Width 15.9 % (11.5-14.5); White Blood Count 7.3 K/mm3 (4.5-10.0)
[2023-06-18 13:45] LABS: Alanine Aminotransferase 16 U/L (6-50); Alkaline Phosphatase 108 U/L (38-126); Anion Gap 10 mmol/L (8-16); Aspartate Amino Transferase 22 U/L (17-59); Bilirubin,Total 0.9 mg/dL (0.2-1.3); Blood Urea Nitrogen 17 mg/dL (9-20); Calcium 8.8 mg/dL (8.4-10.2); Carbon Dioxide 25 mmol/L (22-30); Chloride 103 mmol/L (98-107); Estimated CRCL calculation 37 ml/min; Estimated Glomerular Filt Rate 48; Glucose 101 mg/dL (65-110); Lactic Acid Reflex 1.5 mmol/L (0.7-2.0); Lipase 97 U/L (23-300); Potassium 4.1 mmol/L (3.4-5.0); Sodium 138 mmol/L (137-145)
[2023-06-18 13:52] LABS: INR 1.9; Prothrombin Time 23.1 Seconds (11.1-14.7)
[2023-06-18] MEDS: SODIUM CHLORIDE 0.9% IV 1,000 ML 999 ML IV CONT (15:09)
[2023-06-18 16:37] LABS: Appearance Urine Cloudy (Clear); Bacteria Urine None Seen /hpf; Bilirubin Urine Negative (Negative); Blood Urine Trace (Negative); Color Urine Yellow (Yellow); Glucose Urine UA Negative (Negative); Ketones Urine Negative (Negative); Leukocyte Esterase Ur 3+ LEU/UL (Negative); Nitrate Urine Negative (Negative); Non Pathogenic Casts 0-2; Protein Urine Negative (Negative); RBC Urine 0-2 /hpf (0-2); Specific Grav Ur 1.014 (1.001-1.035); Squamous Epithelial Cell Urine None seen /hpf (Few); WBC Urine >100 /hpf
[2023-06-18 16:45] LABS: Add Urine Microscopic? YES
== END 2023-06-18 18:30 ==
PROVIDERS: General Practice; Emergency Provider Student in an Organized Health Care Education/Training Program; PCP Internal Medicine
DX: N30.90 Cystitis, unspecified without hematuria (principal); K59.00 Constipation, unspecified; F03.90 Unspecified dementia, unspecified severity, without behavioral disturbance, psychotic disturbance, mood disturbance, and anxiety; I25.10 Atherosclerotic heart disease of native coronary artery without angina pectoris; I48.0 Paroxysmal atrial fibrillation; I10 Essential (primary) hypertension; E78.5 Hyperlipidemia, unspecified; D64.9 Anemia, unspecified; N40.0 Benign prostatic hyperplasia without lower urinary tract symptoms; M10.9 Gout, unspecified; M19.90 Unspecified osteoarthritis, unspecified site; F32.A Depression, unspecified; Z95.2 Presence of prosthetic heart valve; Z85.828 Personal history of other malignant neoplasm of skin; Z86.73 Personal history of transient ischemic attack (TIA), and cerebral infarction without residual deficits; Z98.42 Cataract extraction status, left eye; Z98.41 Cataract extraction status, right eye; Z90.49 Acquired absence of other specified parts of digestive tract; Z79.01 Long term (current) use of anticoagulants; M48.56XA Collapsed vertebra, not elsewhere classified, lumbar region, initial encounter for fracture; M48.55XA Collapsed vertebra, not elsewhere classified, thoracolumbar region, initial encounter for fracture; M89.8X1 Other specified disorders of bone, shoulder
CPT/HCPCS: 36415; 73030; 74177; 80053; 81001; 83605; 83690; 85025; 85610; 85730; 87077; 87086; 87186; 96361; 96365; 99284; J0696; J7030; Q9967

== ENCOUNTER 2025-05-20 10:31 | Emergency (ER) | payer MEDICARE, SELFPAY ==
--- OUTSIDE RECORDS SUMMARY | 2010-06-04 03:45 | XMS_ITS | Continuity of Care Document ---
Author Organization [facility] [place] Address [address] [place] [address] Phone Care Team Providers Care Garment Inspector Name Role Phone Fredis Reeves Unavailable Unavailable Procedures Procedure Date Eye Exam & Treatment Refraction Office/outpatient Visit, Est Eye Exam & Treatment No Script Office/outpatient Visit, Est Refraction Advance Directives Directive Yes / No Effective Date File Name No Information Encounters Encounter Description Practice Location Reason(s) For Visit Diagnoses Date Provider Providers Copied on Encounter [facility], [address] [place] [address] [address] [place], [place], [id number], tel:[phone] [facility] No Information 0 Leandro Mcneal. [address] [facility] [place] , [address], [place], [place], [facility], [place]. tel:[phone] Office/outpat ient Visit, Est [facility], [address] [place] [address] [address] [place], [place], [id number], [place] tel:[phone] [facility] No Information 0 Leandro Mcneal. [address] [facility] [facility] [place] , [address], [place], [place], [facility], [place]. tel:[phone] [facility], [address] [place], [place], [id number], tel:[phone] [facility] No Information November-0 4-200 9 Doi Edstone. [address] [facility] , [address], [place], [address], [place]. tel:[phone] Office/outpat ient Visit, [facility], [address] [place], [place], [id number], [place] tel:[phone] [facility] No Information Sep-2 6-200 7 Doiargentina Mcneal. [address] [facility] , [address], [place], [address], [place]. tel:[phone] Family History Family Member Type Diagnosis Age At Onset No Information Payers Payer name Insurance type Covered constitution party ID Authormohsen waller(s) Medicare [facility] [id number] Social History Type Description Quantity Date Captured Comments Sex Male Smoking Status No Information Chief Complaint And Reason For Visit No Information Reason For Referral Reason For Referral No Information History Of Present Illness Encounter Date Complaint History Of Prese nt Illness No Information Functional Status Date Functional Assessmen t No Information Instructions Date Instruction Additional Infor mation No Information Assessments Type Assessment Date No Information Patient Care Teams Name Effective Dates (start - stop) Status Members No Information
--- NOTE | ~2025-05-20 | CT_ITS ---
EXAMINATION: CT cervical spine wo con COMPARISON: None HISTORY: fall TECHNIQUE: Axial images were obtained through the spine without IV contrast. Coronal, sagittal reconstruction images were obtained from the axial views. CT scan performed using dose optimization techniques including the following automated exposure control; adjustment of mA and/or kV; use of iterative reconstruction technique. Automatic exposure control was used to reduce radiation dose. Permanent radiation dose record is archived to PACS. FINDINGS: The vertebral heights are intact. No fracture or subluxation. Severe loss of disc height at C3-4, C5-6 and C6-7 with moderate to severe canal and foraminal stenosis. Soft tissues unremarkable. 2 Impression: No acute abnormality. Reviewed, dictated and finalized at location P. CAR CLEANER Impression: No acute abnormality.
--- NOTE | ~2025-05-20 | CT_ITS ---
CT HEAD NON-CONTRAST Clinical History: fall Comparison: CT head 04/30/2023 Technique: Unenhanced axial images skull base to vertex Coronal, sagittal reformats CT images acquired with automatic exposure control for dose reduction DLP: 605 mGy-cm Findings: Streak artifact Age-related atrophy. Right frontal encephalomalacia. Chronic white matter microvascular ischemic changes. Sulci, ventricles: Unremarkable. No intracerebral hemorrhage. No evidence acute territorial infarct. No mass effect, midline shift. Bony calvarium intact. Visualized paranasal sinuses: Clear. Mastoid air cells: Clear. IMPRESSION: 1. No acute intracranial findings. Reviewed, dictated and finalized at location R. R INSTALLER
--- NOTE | ~2025-05-20 | CT_ITS ---
EXAMINATION: CT thoracic lumbar wo con, 05/20/2025 11:02 LEGAL RECRUITER HISTORY: fall COMPARISON: No comparisons available. Technique: Axial images were obtained of the spine per protocol. One or more of the following dose reduction techniques were used: automated exposure control, adjustment of the mA and/or kV according to patient size, use of iterative reconstruction technique. Unless otherwise stated, incidental findings do not require dedicated follow up imaging Findings: There are multiple remote appearing compression fractures of the visualized spine most marked involving L2, L1, T12 with an acute superimposed fracture suspected of T12, there is no retropulsion identified. There are remote appearing superior endplate fracture is noted of L4 L3 and L2 with loss of heig ht L4 approximately 50%. Grade 1 anterolisthesis of L5 on S1 with severe loss of disc at L5 on S1 with severe canal and foraminal stenosis Moderate to severe loss of disc height throughout with multilevel moderate canal and foraminal stenosis. Soft tissues unremarkable Impression: Acute on chronic fracture is suspected of T12, no retropulsion Reviewed, dictated and finalized at location P. L RECRUITER Impression: Acute on chronic fracture is suspected of T12, no retropulsion
[2025-05-20 10:34] VITALS: BP 149/83; PULSE 66; RESP 20; TEMP 36.4; O2SAT 98
--- NOTE | 2025-05-20 10:56 | ECG_ITS ---
Test Date: 2025-05-20 13:07:51 Measurements Intervals [place] Rate: 71 P: 0 MA: 0 QRS: 40 QRSD: 161 T: -18 QT: 482 QTc: 526 Interpretive Statements ATRIAL FIBRILLATION WITH ABERRANT CONDUCTION OR VENTRICULAR PREMATURE COMPLEXES RIGHT BUNDLE BRANCH BLOCK [120+ ms QRS DURATION, UPRIGHT V1, 40+ ms S IN I/aVL/V4/V5/V6] MODERATE T-WAVE ABNORMALITY, CONSIDER LATERAL ISCHEMIA [-0.1+ mV T-WAVE IN I/aVL/V5/V6] Electronically Signed On 05-20-2025 21:26:02 ELECTROPHYSIOLOGY TECH by Wen Castillo M.D.
--- NOTE | 2025-05-20 11:56 | ED.GENADULT ---
HPI - General Adult General Chief complaint: Fall Stated complaint: fall History of Present Illness HPI narrative: 89-year-old male arriving by EMS coming from [facility]. Facility states patient was in a Juan Ramon lift and the Juan Ramon lift broke and he fell 3-4 feet. care home says he did hit his head and he is also endorsing back pain and bilateral leg pain. Denies numbness/tingling. Patient is A&O x1 at baseline and is unable to ascertain exactly where his pain is along his back. Patient is believed to have a history of AFib but nobody at the correction can ascertain whether or not he is on Xarelto. Patient is on oxygen at night at baseline. Related Data Home Medications ?Medication ?Instructions ?Recorded ?Confirmed ?Last Taken ?Type finasteride 5 mg tablet 5 mg PO HS 05/22/19 04/12/25 Unknown History multivitamin with minerals-folic 1 tablet PO DAILY 05/22/19 04/12/25 Unknown History acid 0.4 mg tablet (Adult One Daily Multivitamin) melatonin 3 mg capsule 3 mg PO QHS 01/21/25 04/12/25 Unknown History acetaminophen 500 mg tablet 500 mg PO Q6H PRN fever or pain 04/12/25 04/12/25 Unknown History (Acetaminophen Extra Strength) allopurinol 200 mg tablet 200 mg PO DAILY 04/12/25 04/12/25 Unknown History atorvastatin 20 mg tablet (Lipitor) 20 mg PO DAILY 04/12/25 04/12/25 Unknown History budesonide-formoterol HFA 160 2 puff inhalation BID 04/12/25 04/12/25 Unknown History mcg-4.5 mcg/actuation aerosol inhaler cetirizine 10 mg tablet 10 mg PO DAILY PRN allergy symptoms 04/12/25 04/12/25 Unknown History honey 100 % topical paste 1 applic topical DAILY 04/12/25 04/12/25 Unknown History (Lexy (honey)) lidocaine 4 % topical patch 1 patch topical DAILY 04/12/25 04/12/25 Unknown History loperamide 2 mg tablet 2 mg PO QID PRN loose stool 04/12/25 04/12/25 Unknown History polyethylene glycol 3350 17 gram 17 g PO QAM PRN constipation 04/12/25 04/12/25 Unknown History oral powder packet (Miralax) sennosides 8.6 mg tablet (senna) 8.6 mg PO DAILY PRN constipation 04/12/25 04/12/25 Unknown History simethicone 125 mg chewable tablet 125 mg PO TID PRN abdominal 04/12/25 04/12/25 Unknown History (Gas Relief Extra Strength) distention Allergies Allergy/AdvReac Type Severity Reaction Status Date / Time No Known Allergies Allergy Unknown Verified 04/11/25 18:07 Review of Systems Review of Systems: All systems reviewed & are unremarkable except as noted in HPI and below [facility] Past Medical History Medical History (Updated 05/20/25 @ 14:00 by EDWARD Andrew) Lytic bone lesions on xray Angelica-Holland tear Acute blood loss anemia False vocal cord lesion GERD (gastroesophageal reflux disease) Chronic kidney disease Stage II Chronic pain Syncope and collapse Dementia Shingles (~09/2018) Chronic anemia Hyperlipidemia Hypertension 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 Transient ischemic attack Current use of rn long term care anticoagulation Paroxysmal atrial fibrillation Basal cell carcinoma Depression Gout Arthritis Seasonal allergies Surgical History Surgical History Hx laparoscopic cholecystectomy 12/21/22 History of bilateral cataract extraction Status post surgical removal of malignant neoplasm of skin Excision of basal cell carcinoma x2. History of mitral valve replacement History of aortic valve replacement History of surgical removal of skin lesion x2 History of cardiac catheterization Family History Family History Father Heart disease Abdominal aneurysm, ruptured Mother Heart disease Other Heart disease Sibling Hx of CABG Son CJD (Creutzfeldt-Keanu disease) Social History Social History (Updated 04/12/25 @ 01:33 by Karla Curiel DO) Social History: The patient's of 32 years is at bedside. He had 2 biological children and 5 step children. The patient's son of CJD. Surrogate decision maker: Ashley Rodriguez, . 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 Spiritual care concerns: No Agree to blood products: No Exam Narrative: GENERAL: Well appearing, well-nourished, non-toxic, in no acute distress. HEAD: Normocephalic, atraumatic. EYES: PERRL, EOMI, conjunctivae clear bilaterally. NOSE: Normal, no drainage EARS:TMS clear, with good light reflex. No erythema or bulging. THROAT: Pharynx clear, no exudate. MMs moist. NECK: Supple. No adenopathy, no masses. RESPIRATORY: Airway patent, respirations nonlabored. Clear to auscultation bilaterally, no rales, rhonchi, wheezing. CARDIOVASCULAR: Regular rate and rhythm without murmurs, rubs, or gallops. Peripheral pulses 2+ and equal bilaterally. ABDOMINAL: Soft, nontender, nondistended, no hepatosplenomegaly. Normoactive BS. BACK: generalized back pain involving cervical, thoracic, and lumbar regions. MUSCULOSKELETAL: Moves all extremities. Strength/ROM baseline. No edema. No calf tenderness. No tenderness upon palpation of legs. SKIN: Warm, dry, normal color. No rashes. NEURO: A&O X1. Speech clear. Follows most commands. CN II-XII intact. Sensation grossly intact. [id number] testing intact bilaterally. No pronator drift. PSYCHIATRIC: Appropriate mood and affect. Normal interaction. Course Vital Signs Vital signs: Vital Signs Temperature 97.5 F L 05/20/25 10:34 Pulse Rate 66 05/20/25 10:34 Respiratory Rate 20 05/20/25 10:34 Blood Pressure 149/83 H 05/20/25 10:34 Pulse Oximetry 98 05/20/25 10:34 Temperature 97.5 F L 05/20/25 10:34 Pulse Rate 66 05/20/25 10:34 Respiratory Rate 20 05/20/25 10:34 Blood Pressure 149/83 H 05/20/25 10:34 Pulse Oximetry 98 05/20/25 10:34 Medical Decision Making MDM Narrative Medical decision making narrative: 89-year-old male arriving by EMS coming from [facility]. Facility states patient was in a Juan Ramon lift and the Juan Ramon lift broke and he fell 3-4 feet. He did hit his head and he is also endorsing back pain and bilateral leg pain. Patient is A&O x1 at baseline and is unable to ascertain exactly where his pain is. Patient is believed to have a history of AFib but nobody at the correction can ascertain whether or not he is on Xarelto. Patient is on oxygen at night at baseline. Upon my exam, patient endorses diffuse neck and back pain and ordered CT head, cervical, and thoracic & lumbar non con. Head showed no acute intracranial findings. Cervical showed no acute abnormalities. And thoracic and lumbar showed acute on chronic fracture is suspected of T12, no retropulsion. Able to d/c C collar which improved patient's comfort. later came to bedside. She states patient appears to be at his baseline orientation and strength and was able to confirm that the patient is on Xarelto for afib and sees Dr. Lambert. Patient given [place] and he then endorsed his pain improved. Amenable to d/c back to facility with pain control regimen and close f/u with primary. Medical Records Medical records reviewed: Yes I reviewed the external patient's medical records. Vital Signs Vital Signs: Vital Signs Temperature 97.5 F L 05/20/25 10:34 Pulse Rate 66 05/20/25 10:34 Respiratory Rate 20 05/20/25 10:34 Blood Pressure 149/83 H 05/20/25 10:34 Pulse Oximetry 98 05/20/25 10:34 Temperature 97.5 F L 05/20/25 10:34 Pulse Rate 66 05/20/25 10:34 Respiratory Rate 20 05/20/25 10:34 Blood Pressure 149/83 H 05/20/25 10:34 Pulse Oximetry 98 05/20/25 10:34 Lab Data Lab results reviewed: Yes I reviewed the patient's lab results. Imaging Data Attestation: I personally reviewed and interpreted this imaging study as follows: Radiologist's impression: ITS Impressions Head CT 05/20/25 11:29 IMPRESSION: 1. No acute intracranial findings. Cervical Spine CT 05/20/25 11:32 Impression: No acute abnormality. Thoracic/Lumbar Spine CT 05/20/25 12:21 Impression: Acute on chronic fracture is suspected of T12, no retropulsion ECG Data EKG #1: ECG completion date: 05/20/25 ECG completion time: 13:07 EKG Interpretation: normal rate, atrial fibrillation and RBBB Critical Care Time Critical Care Time Critical Care Time: No Discharge Plan Discharge Clinical Impression: Back pain due to injury Chronic back pain Qualifiers: Back pain location: back pain in unspecified location Back pain laterality: midline Qualified Code(s): M54.9 - Dorsalgia, unspecified Patient Disposition: PA Longterm/Asst Living Condition: Stable Additional Instructions: You have been prescribed an opioid analgesic. For more information visit [email or web address] and see the patient counseling guide. Return to the ED if you experience worsening or severe pain, numbness in groin, incontinence of urine or stool, recurrent injury, weakness, or any other symptoms of concern. F/u closely with primary. Patient Language: Marshallese Prescriptions: New oxycodone-acetaminophen 5-325 mg tablet 1 tablet PO Q6H PRN (Reason: pain) Qty: 12 0RF No Action melatonin 3 mg capsule 3 mg PO QHS finasteride 5 mg Tablet 5 mg PO HS multivit with min-folic acid [Adult One Daily Multivitamin] 0.4 mg Tablet 1 tablet PO DAILY acetaminophen [Acetaminophen Extra Strength] 500 mg tablet 500 mg PO Q6H PRN (Reason: fever or pain) loperamide 2 mg tablet 2 mg PO QID PRN (Reason: loose stool) Rx Instructions: 4mg after the first loose bowel movement, and 2mg after each loose bowel movement after the first dose has been taken. No more than 8mg should be taken in any 24 hour period. budesonide-formoterol 160-4.5 mcg/actuation HFA aerosol inhaler 2 puff INHALATION BID allopurinol 200 mg tablet 200 mg PO DAILY atorvastatin [Lipitor] 20 mg tablet 20 mg PO DAILY MediHoney (honey) 100 % paste 1 applic topical DAILY Rx Instructions: Apply to abdomen daily and PRN simethicone [Gas Relief Extra Strength] 125 mg tablet,chewable 125 mg PO TID PRN (Reason: abdominal distention) sennosides [senna] 8.6 mg tablet 8.6 mg PO DAILY PRN (Reason: constipation) lidocaine 4 % adhesive patch,medicated 1 patch topical DAILY Rx Instructions: Apply patch to chest in the morning and off at HS polyethylene glycol 3350 [Miralax] 17 gram Powder In Packet 17 g PO QAM PRN (Reason: constipation) cetirizine 10 mg tablet 10 mg PO DAILY PRN (Reason: allergy symptoms) magnesium oxide 400 mg (241.3 mg magnesium) Tablet 200 mg PO Q12HR Qty: 60 0RF pantoprazole 40 mg Tablet,Delayed Release (Dr/Ec) 40 mg PO Q12HR Qty: 60 0RF bumetanide 1 mg Tablet 1 mg PO BID Qty: 60 0RF potassium chloride [Klor-Con M20] 20 mEq tablet,ER particles/crystals 20 meq PO BID Qty: 60 0RF (DME) Aerochamber MV Spacer See Rx Instructions .Route Qty: 10 1RF Rx Instructions: As directed amlodipine [Norvasc] 2.5 mg tablet 2.5 mg PO DAILY Qty: 90 1RF Follow-up/Referrals: Rob,Marcelino Siegel MD [Primary Care Provider]
--- OUTSIDE RECORDS SUMMARY | 2025-05-20 13:24 | XMS_ITS | Clinical Summary ---
Author Organization [facility] Address [facility] [place] [address] Care Team Providers Care Bpm Architect Name Role Phone Marcelino Rivas MD Primary Care Provider [phone] Allergies No known active allergies Medications allopurinol 100 MG tablet Take 300 mg by mouth daily. Active vitamin C 500 MG tablet Take 500 mg by mouth daily. Active aspirin EC 325 MG Tab EC tablet Take 325 mg by mouth daily. Active atorvastatin 40 MG tablet Take 40 mg by mouth daily. Active probiotic capsule Take 1 capsule by mouth daily. Active Cholecalciferol 2000 units Tab Take 2,000 Int'l Units by mouth daily. Active famotidine 20 MG tablet Take 20 mg by mouth 2 (two) times daily. Active furosemide 40 MG tablet Take 40 mg by mouth 2 (two) times daily. Active multi vitamin/mineral s tablet Take 1 tablet by mouth daily. Active oxybutynin XL 10 MG 24 hr tablet Take 10 mg by mouth daily. Active polyethylene glycol packet Take 17 g by mouth daily as needed. Dissolve powder in 240 mL water Active potassium chloride CR 20 MEQ tablet Take 20 mEq by mouth 2 (two) times daily. Active Pregabalin 300 MG Cap Take 1 tablet by mouth 2 (two) times a day. Active tamsulosin 0.4 MG Cap Take 0.4 mg by mouth every evening. Active Active Problems Problem Noted Date Diagnosed Date Acute idiopathic gout of left knee 01/25/2019 Essential hypertension 01/25/2019 Nonrheumatic aortic valve stenosis 01/25/2019 S/P AVR (aortic valve replacement) 01/23/2019 Social History Tobacco Use Types Packs/Day Years Used Date Smoking Tobacco: Never Smokeless Tobacco: Never Alcohol Use Standard Drinks/Week Comments No 0 (1 standard drink = 0.6 oz pur e alcohol) AUDIT-C Answer Date Recorded Frequency of Alcohol Consumption Never 01/24/2019 Average Number of Drinks Not on file 019 Frequency of Binge Drinking Not on file 01/14 Sex and Gender Information Value Date Recorded Sex Assigned at Not on file Legal Sex Male 3:36 PM CDT Gender Identity Not on file Sexual Orientation Not on file Last Filed Vital Signs Vital Sign Reading Time Taken Comments Blood Pressure 109/57 01/25/2019 12:33 PM CDT Pulse 67 01/25/2019 12:33 PM CDT Temperature 36.3 C (97.4 F) 01/25/2019 12:33 PM CDT Respiratory Rate 20 01/25/2019 12:3 3 PM CDT Oxygen Saturation 94% 01/25/2019 12: 33 PM CDT Inhaled Oxygen Concentration - - Weight 107.5 kg (236 lb 14.9 oz) 01/24/2019 7:00 AM CDT Height 180.3 cm (5' 11) 01/23/2019 7:00 PM CDT Body Mass Index 33.04 01/23/2019 7:00 PM CDT Plan of Treatment Health Maintenance Due Date Last Done Comments DTaP, Tdap and Td Vaccines ( 1 - Tdap) 1954 Pneumococcal Vaccine: 50+ Ye ars (1 of 2 - PCV) 1954 Zoster Vaccines (1 of 2) 1985 Annual Medicare Wellness Visit 2000 RSV Immunization or 60+ Years (1 - 1-dose 75+ series) 2010 COVID-19 Vaccine (2024-2 6 season) 2025 Influenza Adult (#1) 2025 Hepatitis A Vaccines Aged Out No long er eligible based on patient's age to complete this topic Meningococcal B Vaccine Aged Out No l onger eligible based on patient's age to complete this topic Meningococcal Vaccine Aged Out No stormy reno eligible based on patient's age to complete this topic RSV Immunizations Under 20 Months Aged Out No longer eligible based on patient's age to complete this topic Insurance [place] [id number] [place] [id number] [place] [id number] Advance Directives * Full Code (Latest Code Status on File) Date Activated Date Inactivated Comments 01/23/2019 7:58 PM 01/25/2019 9:47 PM Care Teams Bpm Architect Relationship Specialty Start Date End Date Marcelino Rivas MD [address] [address] PCP - General INTERNAL MEDICINE 01/14/19
--- OUTSIDE RECORDS SUMMARY | 2025-05-20 13:24 | XMS_ITS | Patient Health Record ---
Author Organization [facility] Address [id number] [place] [address] [address] [place] [address] Support Name Relationship Address Phone Marcelino Rodriguez Guarantor Unknown [phone] Reason For Referral No Information Plan Of Treatment No Information Insurance Providers Payer Name Payer Address Payer Phone Subscriber Number Group Number Insured Name Patient Relationship to Insured Coverage Start Date Coverage End Date [employer] of [place] [address] [address] [place] [address] [id number] Marcelino Rodriguez Self - patient is the insured 1
--- OUTSIDE RECORDS SUMMARY | 2025-05-20 13:24 | XMS_ITS | Encounter Summary ---
Author Organization [facility] Healthcare Address [address] [place] [address] Care Team Providers Care Manager Hospital Name Role Phone Mitzi Berman MD Unavailable [phone] Marcelino Rivas MD Primary Care Provider Encounter Details Date Type Department Care Team (Late st Contact Info) Description 06/15/2024 Orders Only [facility] Health Information Management [address] [place] [id number] Scanning, Provider Social History Tobacco Use Types Packs/Day Years Used Date Smoking Tobacco: Never Smokeless Tobacco: Never Alcohol Use Standard Drinks/Week Comments Yes 14 (1 standard drink = 0.6 oz pu re alcohol) Sex and Gender Information Value Date Recorded Sex Assigned at Not on file 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 Gender Identity Not on file Sexual Orientation Straight 12/14/2018 3: 00 PM CDT documented as of this encounter Plan of Treatment Not on file documented as of this encounter Procedures Procedure Name Priority Date/Time Associated Diagnosis Comments SCAN - RADIOLOGY/IMAGING 06/15/2024 SCAN - LABS 06/15/2024 documented in this encounter Results * SCAN - LABS (06/15/2024) us Provider Scanning Final Result * SCAN - RADIOLOGY/IMAGING (06/15/2024) Anatomical Region Laterality Modality Other us Provider Scanning Final Result documented in this encounter Visit Diagnoses Not on filedocumented in this encounter Care Teams Manager Hospital Relationship Specialty Start Date End Date Marcelino Rivas MD PCP - General Internal Medicine 02/19/25 Mitzi Berman MD Referring Physician Cardiology 09/06/18 documented as of this encounter
--- OUTSIDE RECORDS SUMMARY | 2025-05-20 13:24 | XMS_ITS | Encounter Summary ---
Author Organization [facility] Healthcare Address [address] [place] [address] Care Team Providers Care Mold Stripper Name Role Phone Mitzi Berman MD Unavailable [phone] Marcelino Rivas MD Primary Care Provider Encounter Details Date Type Department Care Team (Late st Contact Info) Description 01/15/2025 Orders Only [facility] Health Information Management [address] [place] [id number] Scanning, Provider Social History Tobacco Use Types Packs/Day Years Used Date Smoking Tobacco: Never Smokeless Tobacco: Never Alcohol Use Standard Drinks/Week Comments Yes 14 (1 standard drink = 0.6 oz pu re alcohol) Sex and Gender Information Value Date Recorded Sex Assigned at Not on file 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 Gender Identity Not on file Sexual Orientation Straight 12/14/2018 3: 00 PM CDT documented as of this encounter Plan of Treatment Not on file documented as of this encounter Procedures Procedure Name Priority Date/Time Associated Diagnosis Comments SCAN - LABS 01/15/2025 documented in this encounter Results * SCAN - LABS (01/15/2025) us Provider Scanning Final Result documented in this encounter Visit Diagnoses Not on filedocumented in this encounter Care Teams Mold Stripper Relationship Specialty Start Date End Date Marcelino Rivas MD PCP - General Internal Medicine 02/19/25 Mitzi Berman MD Referring Physician Cardiology 09/06/18 documented as of this encounter
--- OUTSIDE RECORDS SUMMARY | 2025-05-20 13:24 | XMS_ITS | Patient Health Record ---
Author Organization [facility] Address [address] [place] [address] Support Name Relationship Address Phone PaytonMarcelino mcgraw Guarantor Unknown [phone] Allergies No Known Allergies Reason For Referral No Information Problems Problem Type SNOMED Code ICD Code Onset Dates Problem Status W/U Status Risk Notes Problem History of malignant neoplasm of skin (situation) (543000043) Personal history of other malignant neoplasm of skin (Z85.828) Active confirmed Plan Of Treatment No Information Insurance Providers Payer Name Payer Address Payer Phone Subscriber Number Group Number Insured Name Patient Relationship to Insured Coverage Start Date Coverage End Date [employer] [address] [address] [place], [place] [id number] Marcelino Rodriguez Self - patient is the insured [employer] [facility] [address] [place] [address] [id number] F Marcelino Rodriguez Self - patient is the insured
--- OUTSIDE RECORDS SUMMARY | 2025-05-20 13:25 | XMS_ITS | Encounter Summary ---
Author Organization [facility] Health Address [address] [address] Care Team Providers Care Extruding Machine Operator Name Role Phone Marcelino Rivas MD Primary Care Provider [phone] Encounter Details Date Type Department Care Team (Late st Contact Info) Description 04/04/2023 Lab Requisition [facility] [address] [facility] [address] [facility], [facility] [place] [id number] Young Ley MD [address] [place] [address] Social History Tobacco Use Types Packs/Day Years Used Date Smoking Tobacco: Never Alcohol Use Standard Drinks/Week Comments Not Currently 0 (1 standard drink = 0.6 oz pur e alcohol) Sex and Gender Information Value Date Recorded Sex Assigned at Not on file 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 Gender Identity Not on file Sexual Orientation Not on file documented as of this encounter Plan of Treatment Not on file documented as of this encounter Procedures Procedure Name Priority Date/Time Associated Diagnosis Comments DERMATOPATHOLOGY Routine 04/04/2023 12:0 0 AM CDT documented in this encounter Results * DERMATOPATHOLOGY (04/04/2023 12:00 AM CDT) Case Report Dermatopathology Report Case: [id number] Authorizing Provider: Young Ley MD Collected: 04/04/2023 12:00 AM Ordering Location: [facility] Received: 04/04/2023 03:33 PM Pathologist: Benjamín Bean MD Specimens: A) - Skin, vertex crown B) - Skin, left post scalp C) - Skin, left forehead D) - Skin, right upper lip 3 5:53 PM T DERMATOPATHOLOGY LABORATORY Final Diagnosis Specimen A. 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 SKIN, left post scalp: BASAL CELL CARCINOMA, INFILTRATIVE PATTERN (C44.41) Specimen C. SKIN, left forehead: BASAL CELL CARCINOMA, NODULAR TYPE (C44.319) Specimen D. SKIN, right upper lip: BASAL CELL CARCINOMA, NODULAR TYPE (C44.319) 3 5:53 PM T DERMATOPATHOLOGY LABORATORY at 1753 CDT Clinical History A: BCC vs SCC Path#[id number] B: BCC vs SCC Path#[id number] C: BCC vs SCC Path#[id number] D: BCC vs SCC Path#[id number] 3 5:53 PM CDT DERMATOPATHOLOGY LABORATORY Gross Description Specimen A: Received is one formalin filled container labeled with the patient's name and designated vertex crown. The specimen consists of a shave biopsy measuring 63a02i7 mm. Jar 0. Specimen B: Received is one formalin filled container labeled with the patient's name and designated left post scalp. The specimen consists of a shave biopsy measuring 12x8x1 mm. Jar 0. Specimen C: Received is one formalin filled container labeled with the patient's name and designated left forehead. The specimen consists of a shave biopsy measuring 7x5x1 mm. Jar 0. Specimen D: Received is one formalin filled container labeled with the patient's name and designated right upper lip. The specimen consists of a shave biopsy measuring 7x5x2 mm. Jar 0. 3 5:53 PM T DERMATOPATHOLOGY LABORATORY Microscopic Description Specimen A. SKIN, vertex crown: The epidermis shows parakeratosis, full thickness disorderly maturation of keratinocytes, mitoses at different levels, and dyskeratotic cells. There is a column of marked compact hyperkeratosis. Specimen B. SKIN, left post scalp: Within the dermis there are nodular aggregates of basaloid cells associated with fibromyxoid stroma and epithelial-stromal clefts. At the advancing margin of the neoplasm, there are smaller angulated nests that infiltrate the dermis. Specimen C. SKIN, left forehead: Within the dermis there are aggregates of basaloid cells with a high nuclear to cytoplasmic ratio and peripheral palisading. Specimen D. SKIN, right upper lip: Within the dermis there are aggregates of basaloid cells with a high nuclear to cytoplasmic ratio and peripheral palisading. 3 5:53 PM CDT DERMATOPATHOLOGY LABORATORY Disclaimer An external and internal positive and negative controls are appropriate for the histochemical, immunohistochemical and immunofluorescence stain(s) in this case (if any), except where stated explicitly. The performance characteristics of the stain(s) cited in this report were developed and its performance characteristic determined by the Dermatopathology Laboratory at [facility], directed by Dr. Edd Bean. These tests need not be, and therefore are not, approved by the [place] Food and Drug Administration. The tests are used for clinical purposes. Billing Codes Specimen Charges Stain Charges 87475 [id number] 1 1 1 1 3 5:53 PM CDT DERMATOPATHOLOGY LABORATORY Embedded Images 3 5:53 PM CDT DERMATOPATHOLOGY LABORATORY Pathology/Cytology TISSUE SPECIMEN FROM SKIN / Unknown 04/04/2023 04/04/2023 3:33 PM CDT Miscellaneous samples (specimen) TISSUE SPECIMEN FROM SKIN / Unknown 04/04/2023 04/04/2023 3:33 PM CDT Miscellaneous samples (specimen) TISSUE SPECIMEN FROM SKIN / Unknown 04/04/2023 04/04/2023 3:33 PM CDT Miscellaneous samples (specimen) TISSUE SPECIMEN FROM SKIN / Unknown 04/04/2023 04/04/2023 3:33 PM CDT us Young Ley MD LAB - PATHOLOGY/CYTOLOGY ORDER GUS Final Result DERMATOPATHOLOGY LABORATORY [facility] - Department of Dermatology [address] [phone] documented in this encounter Visit Diagnoses Not on filedocumented in this encounter Care Teams Extruding Machine Operator Relationship Specialty Start Date End Date Marcelino Rivas MD [address] [address] [address] [place] [address] PCP - General 12/28/18 documented as of this encounter
--- OUTSIDE RECORDS SUMMARY | 2025-05-20 13:25 | XMS_ITS | Clinical Summary ---
Author Organization [facility] [address] Address [address] [place] [address] Care Team Providers Care Digital Marketing Officer Name Role Phone Mitzi Berman MD Unavailable [phone] Kristen Rivas MD Primary Care Provider Allergies No known active allergies Medications cholecalciferol (VITAMIN D-3) 1,000 unit capsule Take 1 capsule (1,000 Units total) by mouth daily Active allopurinol (ZYLOPRIM) 300 mg tablet Take 1 tablet (300 mg total) by mouth daily 9 Active finasteride (PROSCAR) 5 mg tablet Take 1 tablet (5 mg total) by mouth daily Active acetaminophen ER (TYLENOL) 650 mg 8 hr tablet Take 1 tablet (650 mg total) by mouth every 8 (eight) hours as needed for pain Active escitalopram (LEXAPRO) 5 mg tablet Take 1 tablet (5 mg total) by mouth daily 1 Active folic acid/multivit-m in/lutein (CENTRUM SILVER ORAL) Take by mouth Active cetirizine (ZyrTEC) 10 mg tablet Take 1 tablet (10 mg total) by mouth daily Active rivaroxaban (XARELTO) 15 mg tablet Take 1 tablet (15 mg total) by mouth daily 90 tablet 3 3 Active atorvastatin (LIPITOR) 40 mg tablet TAKE 1 TABLET BY MOUTH DAILY 90 tablet 1 3 Active carvediloL (COREG) 6.25 mg tablet Take 1 tablet (6.25 mg total) by mouth 2 (two) times a day with meals 4 Active famotidine (PEPCID) 40 mg tablet Take 1 tablet (40 mg total) by mouth daily 4 Active HYDROcodone-liane taminophen (NORCO) 5-325 mg per tablet 4 Active amLODIPine (NORVASC) 2.5 mg tablet Take 1 tablet (2.5 mg total) by mouth daily 30 tablet 11 4 Active multivitamin tablet Take 1 tablet by mouth daily 4 Active polyethylene glycol (MIRALAX) 17 gram/dose bulk powder MIX AND DRINK 1 CAPFUL DAILY 4 Active furosemide (LASIX) 40 mg tablet Take 1 tablet (40 mg total) by mouth 2 (two) times a day Take 1 tablet daily 60 tablet 3 4 Active Breztri Aerosphere 160-9-4.8 mcg/actuation inhaler INHALE 2 PUFFS BY MOUTH TWICE DAILY FOR COPD 4 Active losartan (COZAAR) 50 mg tablet Take 1 tablet (50 mg total) by mouth 2 (two) times a day 4 Active MAGNESIUM ASPART,CITRATE, OXIDE ORAL Take by mouth Activ e metOLazone (ZAROXOLYN) 5 mg tabletIndicatio ns:Bilateral lower extremity edema Take 1 tablet (5 mg total) by mouth 3 (three) times a week 45 tablet 3 4 Active potassium chloride ER (KLOR-CON) 20 mEq CR tabletIndicatio ns:Bilateral lower extremity edema Take 40meq the 3 days a week along with metolazone and 20meq daily all other days. 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 Aging etc. No acutal angina or JUAREZ, which would be more in keeping w/ valvular heart diseas causing fatigue. Sounds like overall easonable exertional tolerance. Multiple-type hyperlipidemia 02/26/2016 Overview (10/21/2016): Mixed hyperlipidemia Assessment & Plan (01/11/2018 12:53 PM CDT): PCP should continue moderate dose, high intensity statin daily for stroke prevention in accordance with current guidelines. His LDL goal is less than 55. It would be reasonable for PCP to consider changing to rosuvstatin in the future if the patient has not achieved that goal. 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 Can do water exercise for 40 min, not bad. No sx SOB. Chronic atrial fibrillation 02/26/2016 09/22/2021 Overview (10/21/2016): Chronic atrial fibrillation Assessment & Plan (01/08/2018 1:46 PM CDT): PCP should continue Xarelto daily for stroke prevention in atrial fibrillation. Assessment & Plan (03/09/2017 9:53 PM CDT): Heart rate control and AC strategy Nonrheumatic aortic valve stenosis 02/26/2016 09/22/2021 Overview (10/21/2016): Nonrheumatic aortic valve stenosis Assessment & Plan (03/09/2017 9:49 PM CDT): Has moderate to severe ; mean gradientand est. Aortic valve area are discordant. Hyperlipidemia 07/06/2015 11/06/2017 Atrial fibrillation 06/24/2013 11/07/19 18 Aortic valve stenosis 09/13/20112017 Preoperative cardiovascular examination 06/21/2022 Encounters Date Type Department Care Team Description 02/19/2025 Results Follow-Up [facility] [address] [place] [address] Marcus Calderón MD Transthoracic Echo (TTE) Complete W Doppler/CF 02/18/2025 11:15 AM CDT Ancillary Procedure [facility] Cardiology [facility] [address] [place] [id number] Status post mitral valve replacement with bioprosthetic valve; Status post aortic valve replacement; Nonrheumatic tricuspid valve regurgitation 02/18/2025 9:45 AM CDT Office Visit [facility] Cardiology [facility] [address] [place] [phone] Marcus Calderón MD Status post mitral valve replacement with bioprosthetic valve (Primary Dx); Status post aortic valve replacement; Longstanding persistent atrial fibrillation (HCC); Essential hypertension; Nonrheumatic tricuspid valve regurgitation; Chronic anticoagulation from Last 3 Months Surgical History Surgery Date Site/Laterality Comments CATARACT EXTRACTION OTHER SURGICAL HISTORY growth removed from eyebrow Medical History Medical History Date Comments Arthritis Arthritis; Comme nts: [facility] 02/26/2016 - Hx Other Medical Chronic back pa in, no better after shots; Comments: U 02/26/2016 - Atrial fibrillation (HCC) Hyperlipidemia Heart murmur Hypertension Stroke (HCC) Aneurysm Family History Medical History Relation Name Comments Anemia Father 2 Anemia; Cause o f : Anemia Heart attack Mother 2 Myocardial infa rction; Cause of : Myocardial infarction Relation Name Status Comments Father 1 (Age 69) Father 2 Mother 1 (Age 84) Mother 2 Social History Tobacco Use Types Packs/Day Years Used Date Smoking Tobacco: Never Smokeless Tobacco: Never Tobacco Cessation:Counseling Given: Not Answered Alcohol Use Standard Drinks/Week Comments Yes 14 (1 standard drink = 0.6 oz pu re alcohol) Sex and Gender Information Value Date Recorded Sex Assigned at Not on file Legal Sex Male 12:24 PM [employer] Gender Identity Not on file Sexual Orientation Straight 12/14/2018 3: 00 PM CDT Last Filed Vital Signs Vital Sign Reading Time Taken Comments Blood Pressure 110/66 02/18/2025 9:58 AM CDT Pulse 53 02/18/2025 9:58 AM CDT Temperature 36.8 C (98.2 F) 01/18/2022 4:47 PM CDT Respiratory Rate 16 01/18/2022 4:47 PM CDT Oxygen Saturation 93% 02/18/2025 9:58 AM CDT Inhaled Oxygen Concentration - - Weight 120.7 kg (266 lb) 06/27/2024 8:37 AM [employer] Height 180.3 cm (5' 11) 06/27/2024 8:37 AM [employer] Body Mass Index 37.1 06/27/2024 8:37 AM [employer] Plan of Treatment Health Maintenance Due Date Last Done Comments Depression Screening 1935 Fall Risk Assessment 1935 DTaP/Tdap/Td Vaccine (1 - Tdap) 1946 Hepatitis B Screening 1953 Zoster Vaccine (1 of 2) 1985 Well Visit 65+ 2000 Pneumococcal vaccine 65+ (2 of 2 - PPSV23, PCV20, or PCV21) 07/05/2019 05/10/2019 Influenza Vaccine (#1) 2025 4, 04/29/2021, 04/23/2019, Additional history exists Procedures Procedure Name Priority Date/Time Associated Diagnosis Comments TRANSTHORACIC ECHO (TTE) COMPLETE W DOPPLER/CF WO CONTRAST Routine 02/18/2025 12:42 PM CDT Status post mitral valve replacement with bioprosthetic valve Status post aortic valve replacement Nonrheumatic tricuspid valve regurgitation from Last 3 Months Results * TRANSTHORACIC ECHO (TTE) COMPLETE W DOPPLER/CF WO CONTRAST (02/18/2025 12:42 PM CDT) Estimated EF 55-60 % CONS SCIMAGE Anatomical Region Laterality Modality Ultrasound 02/18/2025 11:2 5 AM CDT Narrative 02/18/2025 1:56 PM CDT [facility] [address], [place], [place] [id number] [facility] [address], [place] [address] P:[phone] P:[phone] Echocardiographic Report Patient Name: KRISTEN RODRIGUEZ F : 1935 Study Date: 02/18/2025 11:25:54 AM Gender: M Gravel Wheeler: Kristin Zapata)(CT), [facility] Location: [facility] Provider: MARCUS CALDERÓN Height(Cm): BSA: Weight(Kg): Heart Rate: 49 BP: 110/66 Quality: Good Order Provider: MARCUS CALDERÓN PROCEDURES: Echocardiographic Report: Transthoracic echocardiogram with complete 2D, M-Mode, and color Doppler examination. INDICATIONS: Z95.3 Presence of xenogenic heart valve, Z95.2 Presence of prosthetic heart valve, and I36.1 Nonrheumatic tricuspid (valve) insufficiency. MEASUREMENTS: 2D/MM Value Range Doppler Value Range Estimated EF 55-60 % ESTER Vmax 0.70 cm2 [ 2.00 - 4.00 ] LVIDd 2D 4.67 cm [ 4.20 - 5.80 ] AV Mean PG 5 mmHg LVIDs 2D 3.26 cm [ 2.50 - 4.00 ] AV Peak Brendan 1.75 m/s [ 1.00 - 1.70 ] LVPWd 2D 1.32 cm [ 0.60 - 1.00 ] AV Peak PG 12 mmHg IVSd 2D 1.43 cm [ 0.60 - 1.00 ] AV VTI 32.54 cm AoR Diam 2D 4.01 cm [ 3.10 - 3.70 ] LVOT Diam 2.01 cm [ 1.70 - 2.10 ] LA Volume 143.29 ml [ 18.00 - 58.00 ] LVOT Peak Brendan 0.39 m/s [ 0.70 - 1.10 ] LA Volume Index cc/m2 [ 16 - 28 ] LVOT VTI 9.53 cm RA Volume 89.32 ml MV E Peak Brendan 1.39 m/s [ 0.60 - 1.30 ] MV Mean PG 3 mmHg [ 0 - 5 ] MV Decel Time 340 msec [ 104 - 258 ] PV Peak Brendan 0.76 m/s [ 0.40 - 0.80 ] TR Peak Brendan 2.56 m/s [ 1.00 - 2.80 ] TR Peak PG 26 mmHg Lateral E` 0.08 m/s [ 0.10 - 0.15 ] Septal E` 0.07 m/s [ 0.08 - 0.15 ] E` 0.08 m/s E/E` 19 2D/MM Value Range Doppler Value Range - FINDINGS: Interpretation Site: Exam was interpreted at [facility]. Left Ventricle: Normal left ventricular systolic function. No focal wall motion abnormalities. Normal left ventricular size. Moderate concentric left ventricular hypertrophy. Diastolic dysfunction is present. Ejection Fraction is visually estimated to be 55-60 %. Right Ventricle: Normal right ventricular size. Normal right ventricular systolic function. Left Atrium: There is severe enlargement of left atrium. Right Atrium: There is moderate enlargement of right atrium. Atrial Septum: Normal atrial septum. Mitral Valve: Trivial regurgitation of the mitral valve. There is no hemodynamically significant mitral stenosis by Doppler. Normal appearing mitral valve prosthesis for valve type and size. Aortic Valve: Aortic valve not well visualized although the aortic valve prosthesis appears to be grossly normal. The aortic valve area is calculated 0.7 cm2 the mean gradient is only 5. I do not think it is severely stenotic.. Trace aortic valve regurgitation. Tricuspid Valve: Normal appearance of the tricuspid valve. Normal right ventricular systolic pressure. Estimated peak RVSP is 30-35 mmHg. Moderate tricuspid regurgitation. Pulmonic Valve: Normal appearance of the pulmonic valve. No pulmonic stenosis. Mild pulmonic regurgitation. Pericardium: Normal pericardium with no significant pericardial effusion. Aorta: Aortic root is mildly dilated. IVC: The IVC is not well visualized. CONCLUSIONS: Normal left ventricular systolic function. No focal wall motion abnormalities. Normal left ventricular size. Moderate concentric left ventricular hypertrophy. Diastolic dysfunction is present. Ejection Fraction is visually estimated to be 55-60 %. There is severe enlargement of left atrium. There is moderate enlargement of right atrium. Trivial regurgitation of the mitral valve. There is no hemodynamically significant mitral stenosis by Doppler. Normal appearing mitral valve prosthesis for valve type and size. Aortic valve not well visualized although the aortic valve prosthesis appears to be grossly normal. The aortic valve area is calculated 0.7 cm2 the mean gradient is only 5. I do not think it is severely stenotic.. Trace aortic valve regurgitation. Normal appearance of the tricuspid valve. Normal right ventricular systolic pressure. Estimated peak RVSP is 30-35 mmHg. Moderate tricuspid regurgitation. Normal appearance of the pulmonic valve. No pulmonic stenosis. Mild pulmonic regurgitation. Aortic root is mildly dilated. Ventricular paced rhythm. Electronically Signed By: Marcus Calderón MD 02/18/2025 1:56:25 PM CDT Procedure Note Marcus Calderón MD - 02/18/2025 [facility] [address] [facility] [address], [place] [address] [address] [facility] [address], [place] [address] P:[phone] P:[phone] Echocardiographic Report Patient Name: KRISTEN RODRIGUEZ F : 1935 Study Date: 02/18/2025 11:25:54 AM Gender: M Gravel Wheeler: Kristin Zapata)(CT), [facility] Location: [facility] Provider: MARCUS CALDERÓN Height(Cm): BSA: Weight(Kg): Heart Rate: 49 BP: 110/66 Quality: Good Order Provider: MARCUS CALDERÓN PROCEDURES: Echocardiographic Report: Transthoracic echocardiogram with complete 2D, M-Mode, and color Dopplerexamination. INDICATIONS: Z95.3 Presence of xenogenic heart valve, Z95.2 Presence of prostheticheart valve, and I36.1 Nonrheumatic tricuspid (valve) insufficiency. MEASUREMENTS: 2D/MM Value Range DopplerValue Range Estimated EF 55-60 % ESTER Vmax 0.70cm2 [ 2.00 - 4.00 ] LVIDd 2D 4.67 cm [ 4.20 - 5.80 ] AV Mean PG 5mmHg LVIDs 2D 3.26 cm [ 2.50 - 4.00 ] AV Peak Brendan 1.75m/s [ 1.00 - 1.70 ] LVPWd 2D 1.32 cm [ 0.60 - 1.00 ] AV Peak PG 12mmHg IVSd 2D 1.43 cm [ 0.60 - 1.00 ] AV VTI32.54 cm AoR Diam 2D 4.01 cm [ 3.10 - 3.70 ] LVOT Diam 2.01cm [ 1.70 - 2.10 ] LA Volume 143.29 ml [ 18.00 - 58.00 ] LVOT Peak Brendan 0.39m/s [ 0.70 - 1.10 ] LA Volume Index cc/m2 [ 16 - 28 ] LVOT VTI 9.53cm RA Volume 89.32 ml MV E Peak Brendan 1.39m/s [ 0.60 - 1.30 ] MV Mean PG 3 mmHg [ 0 - 5 ] MV Decel Time 340 msec [ 104 - 258 ] PV Peak Brendan 0.76 m/s [ 0.40 - 0.80 ] TR Peak Brendan 2.56 m/s [ 1.00 - 2.80 ] TR Peak PG 26 mmHg Lateral E` 0.08 m/s [ 0.10 - 0.15 ] Septal E` 0.07 m/s [ 0.08 - 0.15 ] E` 0.08 m/s E/E` 19 2D/MM Value Range DopplerValue Range - FINDINGS: Interpretation Site: Exam was interpreted at [facility]. Left Ventricle: Normal left ventricular systolic function. No focal wall motionabnormalities. Normal left ventricular size. Moderate concentric left ventricular hypertrophy.Diastolic dysfunction is present. Ejection Fraction is visually estimated to be55-60 %. Right Ventricle: Normal right ventricular size. Normal right ventricular systolicfunction. Left Atrium: There is severe enlargement of left atrium. Right Atrium: There is moderate enlargement of right atrium. Atrial Septum: Normal atrial septum. Mitral Valve: Trivial regurgitation of the mitral valve. There is no hemodynamicallysignificant mitral stenosis by Doppler. Normal appearing mitral valve prosthesis for valvetype and size. Aortic Valve: Aortic valve not well visualized although the aortic valve prosthesisappears to be grossly normal. The aortic valve area is calculated 0.7 cm2 the meangradient is only 5. I do not think it is severely stenotic.. Trace aortic valveregurgitation. Tricuspid Valve: Normal appearance of the tricuspid valve. Normal right ventricularsystolic pressure. Estimated peak RVSP is 30-35 mmHg. Moderate tricuspid regurgitation. Pulmonic Valve: Normal appearance of the pulmonic valve. No pulmonic stenosis. Mildpulmonic regurgitation. Pericardium: Normal pericardium with no significant pericardial effusion. Aorta: Aortic root is mildly dilated. IVC: The IVC is not well visualized. CONCLUSIONS: Normal left ventricular systolic function. No focal wall motionabnormalities. Normal left ventricular size. Moderate concentric left ventricular hypertrophy.Diastolic dysfunction is present. Ejection Fraction is visually estimated to be55-60 %. There is severe enlargement of left atrium. There is moderate enlargement of right atrium. Trivial regurgitation of the mitral valve. There is no hemodynamicallysignificant mitral stenosis by Doppler. Normal appearing mitral valve prosthesis for valvetype and size. Aortic valve not well visualized although the aortic valve prosthesisappears to be grossly normal. The aortic valve area is calculated 0.7 cm2 the meangradient is only 5. I do not think it is severely stenotic.. Trace aortic valveregurgitation. Normal appearance of the tricuspid valve. Normal right ventricularsystolic pressure. Estimated peak RVSP is 30-35 mmHg. Moderate tricuspid regurgitation. Normal appearance of the pulmonic valve. No pulmonic stenosis. Mildpulmonic regurgitation. Aortic root is mildly dilated. Ventricular paced rhythm. Electronically Signed By: Marcus Calderón MD 02/18/2025 1:56:25 PM CDT Marcus Calderón MD CV ECHO PROCEDURES Final Result from Last 3 Months Insurance MEDICARE [facility] FEDERAL MEDICARE MEDICARE [facility] FEDERAL BLUE CROSS MEDICARE SUPPLEMENT Advance Directives For more information, please contact: [phone] * Full Code (Latest Code Status on File) Date Activated Date Inactivated Comments 12/04/2018 2:07 PM 12/04/2018 8:09 PM Care Teams Digital Marketing Officer Relationship Specialty Start Date End Date Kristen Rivas MD PCP - General Internal Medicine 02/19/25 Mitzi Berman MD Referring Physician Cardiology 09/06/18
--- OUTSIDE RECORDS SUMMARY | 2025-05-20 13:25 | XMS_ITS | Clinical Summary ---
Author Organization [facility] mymxlog Address [address] [place] [address] Care Team Providers Care Drapery Sewer Hand Name Role Phone Kristen Rivas MD Primary Care Provider [phone] Source Comments [facility],non-owned Affiliates and Associated Physician Practices is amultiple site organization consisting of ambulatory clinics and hospital sitesin [place], [place], [place]. This disclosure is being madepursuant to the Care Everywhere program and may not contain all information available regarding this patient. Last updated 18.[facility] Allergies No known active allergies Medications * Be aware that medications may not be up to date on this document. Alwaysverify current medications with the patient. acetaminophen CR (TYLENOL ARTHRITIS PAIN) 650 MG tablet Take 1,300 mg by mouth every 6 hours as needed for Pain Active allopurinol (ZYLOPRIM) 300 MG tablet Take 300 mg by mouth once daily Active atorvastatin (LIPITOR) 40 MG tablet Take 40 mg by mouth at bedtime Active escitalopram (LEXAPRO) 10 MG tablet Take 10 mg by mouth once daily Active furosemide (LASIX) 40 MG tablet Take 40 mg by mouth once daily Active multivitamin daily tablet Take 1 tablet by mouth daily with food Active potassium chloride ER (KLOR-CON) 20 MEQ tablet Take 40 mEq by mouth once daily Active finasteride (PROSCAR) 5 MG tablet Take 5 mg by mouth once daily Active rivaroxaban (XARELTO) 20 MG tablet Take 1 tablet by mouth daily with dinner 7 tablet 6 06/26/2019 Active donepezil (ARICEPT) 5 MG tablet Take 5 mg by mouth at bedtime Active vitamin D3 (CHOLECACIFEROL ) 125 MCG (5000 UT) Take 5,000 Units by mouth once daily Active carvedilol (COREG) 3.125 MG tablet Take 1 tablet by mouth 2 times daily with morning and evening meal 60 tablet 5 03/24/2020 Active Active Problems Problem Noted Date Diagnosed Date Popliteal artery aneurysm, 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 Hu review), mild TR. Post-op: normally functioning mitral bioprosthesis with antegrade 2 mmHg gradient, normally functioning AV bioprosthesis with antegrade 7 mmHg mean gradient, SAPNA excluded successfully w/o flow, no paravalvular leaks. Cath 11/2018 - No obstructive coronary artery disease. Mild plaquing in LAD & diagonal. Proximal dominant RCA calcification w/ no significant stenosis. Echo 03/2019 - mild LVH, EF 60%, sever NAHED, mod RV systolic dysfunction, normal #27 mm Magna Ease AVR (Vmax 1.8 m/s, mean grad 7 mmHg), normal #33 mm Mosaic MVR (mean grad 4 mmHg), mild to mod TR, RVSP 30 mmHg Echo 02/2020 - mod LVH, EF 60%, severe NAHED, mild RV hypokinesis and enlargement, normal #27 AVR (Vmax 2.1 m/s, mean grad 10 mmHg), normal #33 MVR (mean grad 5 mmHg), mild to mod TR, RVSP 55-60 mmHg (with presenting systemic BP 200/100) S/P mitral valve replacement with bioprosthetic valve 01/19/2019 Persistent atrial fibrillation 01/19/2019 Overview (03/18/2020): Event Monitor 02/2020 - AFib at avg 63 bpm (range 39-158 bpm). Occasional PVCs/couplets (2%). Rare 3-10 beat runs of NSVT. Type 2 diabetes mellitus, wi thout long-term current use of insulin 01/19/2019 Essential hypertension 01/19/2019 CKD stage 3 due to type 2 diabetes mellitus 12/2018 RBBB (right bundle branch block) 01/19/2019 Hypercholesteremia Family History Medical History Relation Name Comments CAD (Coronary Artery Disease) Brother 1 Relation Name Status Comments Brother 1 Alive Brother 2 Alive Brother 3 Alive Father Maternal Grandfather Maternal Grandmother Mother Paternal Grandfather Paternal Grandmother Sister 1 Alive Sister 2 Alive Social History Tobacco Use Types Packs/Day Years Used Date Smoking Tobacco: Never Alcohol Use Standard Drinks/Week Comments Not Currently 0 (1 standard drink = 0.6 oz pur e alcohol) Sex and Gender Information Value Date Recorded Sex Assigned at Not on file Legal 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 Gender Identity Not on file Sexual Orientation Not on file Last Filed Vital Signs Vital Sign Reading Time Taken Comments Blood Pressure 148/90 03/03/2020 11:16 AM CDT Pulse 59 06/26/2019 2:29 PM SCALE TESTER Temperature - - Respiratory Rate - - Oxygen Saturation 96% 04/01/2019 10:39 AM CDT Inhaled Oxygen Concentration - - Weight 99.8 kg (220 lb) 03/03/2020 9:53 AM CDT Height 179.1 cm (5' 10.5) 03/03/2020 9:53 AM CD T Body Mass Index 31.12 03/03/2020 9:53 AM CDT Plan of Treatment Health Maintenance Due Date Last Done Comments MEDICARE AWV 12 MONTHS 1935 DTAP/TDAP/TD VACCINES (1 - Tdap) 1954 PNEUMOCOCCAL VACCINE 50+ (1 of 2 - PCV) 1954 ZOSTER VACCINE (1 of 2) 1985 Respiratory Syncytial Virus (RSV) Vaccine Pt: or over 60 yrs (1 - 1-dose 75+ series) 2010 DIABETES RETINOPATHY SCREENING 01/19/2019 DIABETES-FOOT EXAM WITH MONOFILAMENT 01/19/2019 DIABETES-HGB A1C 01/19/2019 DEPRESSION SCREENING 07/17/2024 COVID-19 VACCINE ( 2023-2 5 season) 2025 INFLUENZA VACCINE (#1) 2025 HEPATITIS B VACCINE Aged Out No longe r eligible based on patient's age to complete this topic HIB VACCINE Aged Out No longer eligi ble based on patient's age to complete this topic HPV VACCINE Aged Out No longer eligi ble based on patient's age to complete this topic MENINGOCOCCAL (Group B) VACC INE SHARED DECISION-MAKING Aged Out No longer eligibl e based on patient's age to complete this topic MENINGOCOCCAL GROUPS A/C/Y/W VACCINE Aged Out No longer eligible b ased on patient's age to complete this topic Insurance [employer] MEDICARE MEDICARE [facility] Care Teams Drapery Sewer Hand Relationship Specialty Start Date End Date Kristen Rivas MD [address] [place] [address] [address] [place] [address] PCP - General 12/28/18
[2025-05-20] MEDS: HYDROcodone/acetaminophen (*CRX) 5-325 MG TABLET 1 TAB PO (13:50)
--- NOTE | 2025-05-26 14:41 | WPDANESEPPF ---
Anes - Initial Pre Proc Eval Date/Time: 05/26/25 14:41 Pre Op Diagnosis: fall Patient Data Age: 89 Gender: M Height: Weight: 122.5 kg Last Vital Signs Temp 36.4 C L 05/20/25 10:34 Pulse 66 05/20/25 10:34 Resp 20 05/20/25 10:34 BP 149/83 H 05/20/25 10:34 Pulse Ox 98 05/20/25 10:34 Allergies Allergy/AdvReac Type Severity Reaction Status Date / Time No Known Allergies Allergy Unknown Verified 04/11/25 18:07 Home Medications ?Medication ?Instructions ?Recorded ?Confirmed ?Type finasteride 5 mg tablet 5 mg PO HS 05/22/19 04/12/25 History multivitamin with minerals-folic 1 tablet PO DAILY 05/22/19 04/12/25 History acid 0.4 mg tablet (Adult One Daily Multivitamin) inhalational spacing device #10 ea 06/17/24 04/12/25 Rx (Aerochamber MV spacer) melatonin 3 mg capsule 3 mg PO QHS 01/21/25 04/12/25 History amlodipine 2.5 mg tablet (Norvasc) 2.5 mg PO DAILY #90 tabs 03/25/25 04/12/25 Rx Held on 05/19/25. Instructions: no longer under our care acetaminophen 500 mg tablet 500 mg PO Q6H PRN fever or pain 04/12/25 04/12/25 History (Acetaminophen Extra Strength) allopurinol 200 mg tablet 200 mg PO DAILY 04/12/25 04/12/25 History atorvastatin 20 mg tablet (Lipitor) 20 mg PO DAILY 04/12/25 04/12/25 History budesonide-formoterol HFA 160 2 puff inhalation BID 04/12/25 04/12/25 History mcg-4.5 mcg/actuation aerosol inhaler cetirizine 10 mg tablet 10 mg PO DAILY PRN allergy symptoms 04/12/25 04/12/25 History honey 100 % topical paste 1 applic topical DAILY 04/12/25 04/12/25 History (MediHoney (honey)) lidocaine 4 % topical patch 1 patch topical DAILY 04/12/25 04/12/25 History loperamide 2 mg tablet 2 mg PO QID PRN loose stool 04/12/25 04/12/25 History polyethylene glycol 3350 17 gram 17 g PO QAM PRN constipation 04/12/25 04/12/25 History oral powder packet (Miralax) sennosides 8.6 mg tablet (senna) 8.6 mg PO DAILY PRN constipation 04/12/25 04/12/25 History simethicone 125 mg chewable tablet 125 mg PO TID PRN abdominal 04/12/25 04/12/25 History (Gas Relief Extra Strength) distention bumetanide 1 mg tablet 1 mg PO BID #60 tabs 04/25/25 Rx magnesium oxide 400 mg (241.3 mg 200 mg (1/2 x 400 mg (241.3 mg 04/25/25 Rx magnesium) tablet magnesium)) PO Q12HR #60 tabs pantoprazole 40 mg tablet,delayed 40 mg PO Q12HR #60 tabs 04/25/25 Rx release potassium chloride 20 mEq 20 meq PO BID #60 tabs 04/25/25 Rx tablet,extended release(part/cryst) (Klor-Con M) oxycodone-acetaminophen 5 mg-325 1 tablet PO Q6H PRN pain #12 tabs 05/20/25 Rx mg tablet Patient hx anesthesia problems: none Family hx anesthesia problems: none Results Review: All pre-operative results and documents have been reviewed as part of the pre-operative evaluation. [facility] Past Medical History Medical History Lytic bone lesions on xray Angelica-Holland tear Acute blood loss anemia False vocal cord lesion GERD (gastroesophageal reflux disease) Chronic kidney disease Stage II Chronic pain Syncope and collapse Dementia Shingles (~09/2018) Chronic anemia Hyperlipidemia Hypertension 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 Transient ischemic attack Current use of snf anticoagulation Paroxysmal atrial fibrillation Basal cell carcinoma Depression Gout Arthritis Seasonal allergies Surgical History Surgical History Hx laparoscopic cholecystectomy 12/21/22 History of bilateral cataract extraction Status post surgical removal of malignant neoplasm of skin Excision of basal cell carcinoma x2. History of mitral valve replacement History of aortic valve replacement History of surgical removal of skin lesion x2 History of cardiac catheterization Family History Family History Father Heart disease Abdominal aneurysm, ruptured Mother Heart disease Other Heart disease Sibling Hx of CABG Son CJD (Creutzfeldt-Keanu disease) Social History Social History Social History: The patient's of 32 years is at bedside. He had 2 biological children and 5 step children. The patient's son of CJD. Surrogate decision maker: Ashley Rodriguez, . 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 Spiritual care concerns: No Agree to blood products: No Anes - Eval Final PreProcedure Day of Procedure 05/26/25 14:41 Patient weight: morbidly obese Heart: irregular rhythm Airway: Mallampati scale class II ASA classification: IV Emergent: yes Anesthetic plan: proceed Anesthesia type and monitoring: general GIVS and standard monitoring Results Review: All pre-operative results and documents have been reviewed as part of the pre-operative evaluation. Informed Consent: The patient's anesthetic plan and its attendant risks and benefits were discussed with the patient/family/POA. Questions were solicited and answers provided to the satisfaction of the patient/family/POA.
== END 2025-05-20 16:34 ==
PROVIDERS: PCP Internal Medicine
DX: S39.92XA Unspecified injury of lower back, initial encounter (principal); S29.9XXA Unspecified injury of thorax, initial encounter; G89.29 Other chronic pain; M54.9 Dorsalgia, unspecified; I48.0 Paroxysmal atrial fibrillation; I12.9 Hypertensive chronic kidney disease with stage 1 through stage 4 chronic kidney disease, or unspecified chronic kidney disease; N18.2 Chronic kidney disease, stage 2 (mild); F03.90 Unspecified dementia, unspecified severity, without behavioral disturbance, psychotic disturbance, mood disturbance, and anxiety; I08.0 Rheumatic disorders of both mitral and aortic valves; I25.10 Atherosclerotic heart disease of native coronary artery without angina pectoris; N40.0 Benign prostatic hyperplasia without lower urinary tract symptoms; K21.9 Gastro-esophageal reflux disease without esophagitis; D64.9 Anemia, unspecified; M10.9 Gout, unspecified; M19.90 Unspecified osteoarthritis, unspecified site; F32.A Depression, unspecified; Z66 Do not resuscitate; Z99.81 Dependence on supplemental oxygen; Z95.2 Presence of prosthetic heart valve; Z86.73 Personal history of transient ischemic attack (TIA), and cerebral infarction without residual deficits; Z85.828 Personal history of other malignant neoplasm of skin; Z79.01 Long term (current) use of anticoagulants; Z90.49 Acquired absence of other specified parts of digestive tract; Z98.42 Cataract extraction status, left eye; Z98.41 Cataract extraction status, right eye; R94.31 Abnormal electrocardiogram [ECG] [EKG]; I45.10 Unspecified right bundle-branch block; R93.7 Abnormal findings on diagnostic imaging of other parts of musculoskeletal system; Z79.899 Other long term (current) drug therapy; W17.89XA Other fall from one level to another, initial encounter
CPT/HCPCS: 70450; 72125; 72128; 72131; 93005; 99284; A9270

== ENCOUNTER 2025-07-02 07:54 | Emergency (ER) | payer MEDICARE, SELFPAY ==
[2025-07-02] VITALS (36 sets, daily range): BP systolic 126–157; BP diastolic 77–106; PULSE 56–65; RESP 13–28; TEMP 36.4; O2SAT 75–100
--- NOTE | ~2025-07-02 | CT_ITS ---
EXAMINATION: CTA chest PE abdomen pel DATE: 07/02/2025 08:59 INDICATION: Chest pain positive d-dimer TECHNIQUE: Computed tomography angiography (CTA) of the chest was performed with 100 mL Omnipaque-350 intravenous contrast timed to evaluate the pulmonary arteries. Coronal maximum intensity projection 3D-reconstructions were created by the technologist. Computed tomography (CT) of the abdomen and pelvis was performed with intravenous contrast. The dose-length product was 2456.85 mGy-cm. COMPARISON: Chest CT from April 11, 2025 FINDINGS: CTA chest: Minimal contrast is present in the aorta which measures 4.5 cm in the ascending portion at the level of the right pulmonary artery. Measurement on the previous exam was approximately 4 cm. Minimal contrast present in the aorta and endovascular features not reliably evaluated. Evaluation of the pulmonary arteries limited by sharp narrowing of the segmental and subsegmental arteries. No central or large pulmonary emboli. Scattered fibrotic changes. Moderately severe global cardiomegaly with coronary artery calcifications and/or stenting. No significant pericardial effusion or bulky lymphadenopathy. Sternal retention wires appear intact. Diffuse degenerative changes throughout the thoracic spine. Bilateral gynecomastia. CT ABDOMEN AND PELVIS: No AAA. No acute arterial clear and seen. Moderately severe diffuse atherosclerotic disease present at the origins of all arteries. Probable stenotic dilatation or aneurysmal change of the celiac access which measures up to 1.57 diameter. Ectatic appearance of the mesenteric arteries also present. Pelvic inflow and outflow arteries appear patent. No dissection or acute complication seen. The bowel gas pattern is nonobstructive with no free air free fluid or pneumatosis. Moderate to large on of stool in the rectosigmoid region. Moderate amount of stool extends of the cecum. No grossly inflamed appendix or hydroureteronephrosis. Gallbladder removed. No hydroureteronephrosis. Urinary bladder normal for technique. Tiny fat- containing inguinal hernias. Prostate unremarkable. No bulky mesenteric or retroperitoneal lymphadenopathy or masses seen. Bilateral renal cysts. The inferior injection for for what shoulder Degenerative changes throughout the bones. IMPRESSION: 1. Increased size of ascending thoracic aorta since the March 2025 exam; endovascular features are not adequately evaluated and follow-up dedicated CT thoracic aortogram is recommended. 2. No central or large pulmonary emboli. 3. Moderately severe cardiomegaly with mildly enlarged central and main pulmonary arteries which may represent pulmonary arterial hypertension. 4. Large amount of stool in the rectosigmoid region may represent constipation. No acute surgical process seen in the abdomen and pelvis. 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 Reviewed, dictated and finalized at location A. LIN PLANT OPERATOR IMPRESSION: 1. Increased size of ascending thoracic aorta since the March 2025 exam; en dovascular features are not adequately evaluated and follow-up dedicated CT th oracic aortogram is recommended. 2. No central or large pulmonary emboli. 3. Moderately severe cardiomegaly with mildly enlarged central and main pulmona ry arteries which may represent pulmonary arterial hypertension. 4. Large amount of stool in the rectosigmoid region may represent constipation. No acute surgical process seen in the abdomen and pelvis. 1.5 cm aneurysmal di latation of the celiac axis artery and other findings as above.
--- NOTE | ~2025-07-02 | XR_ITS ---
Examination: XR chest 2V Clinical History: chest pain Comparison: 04/18/2025 Technique: PA and Lateral Findings: Cardiomegaly. Lungs clear. No acute bony abnormality. IMPRESSION: 1. No acute cardiopulmonary findings. Reviewed, dictated and finalized at location R. SE GRADER
--- NOTE | ~2025-07-02 | CT_ITS ---
EXAM/PROCEDURE: CTA chest abdomen pelvis HISTORY: CT thoracic aortogram as requested COMPARISON: CT pulmonary arteriogram earlier same day, as well as chest CT from April 11, 2025. TECHNIQUE: CT thoracic aorta. FINDINGS: The ascending thoracic aorta measures 4.6 cm in the AP dimension at the level right pulmonary artery. This measured approximately 4.0 cm on the April 11 exam. Compare image 47 series 3 of the current study to image 46 series 3 of the April 11 exam. The thoracic aorta tapers to 3.5 cm in the distal arch, 3.2 cm in the proximal descending, 3.1 cm in the mid descending, and 3.0 cm in the distal descending portion. No acute complication throughout. No dissection, ulceration or periaortic hematoma. Cardiomegaly, and mildly enlarged central and main pulmonary arteries again noted. Other findings in the chest abdomen and pelvis described on exam earlier today unchanged. IMPRESSION: Interval increase in size of ascending thoracic aortic aneurysm from 4.1 cm on the April 11, 2025 exam to 4.7 cm on the current exam. No dissection or acute complication. Follow-up surveillance required given interval increase in size. Repeat examination in 3-6 months.. Reviewed, dictated and finalized at location A. LY LAW PARALEGAL IMPRESSION: Interval increase in size of ascending thoracic aortic aneurysm from 4.1 cm on the April 11, 2025 exam to 4.7 cm on the current exam. No dissection or acu te complication. Follow-up surveillance required given interval increase in siz e. Repeat examination in 3-6 months..
--- NOTE | 2025-07-02 08:01 | ECG_ITS ---
Test Date: 2025-07-02 08:03:57 Measurements Intervals [place] Rate: 56 P: 0 VT: 0 QRS: 46 QRSD: 161 T: -21 QT: 495 QTc: 481 Interpretive Statements ATRIAL FIBRILLATION WITH SLOW VENTRICULAR RESPONSE RIGHT BUNDLE BRANCH BLOCK BASELINE ARTIFACT- I, II, III, AVR, AVL, AVF, V1-V4 ABNORMAL ECG Compared to ECG 05/20/2025 13:07:51 HEART RATE HAS DECREASED Electronically Signed On 07-02-2025 08:34:15 EXPLOSIVE ORDNANCE SPECIALIST by Med Palmer D.O.
[2025-07-02 08:17] LABS: Hematocrit 32.9 % (42.0-52.0); Hemoglobin 10.5 g/dL (14.0-18.0); Immature Granulocyte Percent A 1.0 % (0-0.5); Lymphocytes Absolute Auto 1.02 K/mm3 (0.9-3.2); Mean Corpuscular HGB Conc 31.9 g/dl (32-36); Mean Corpuscular Hemoglobin 30.1 pg (26-34); Mean Corpuscular Volume 94.3 fl (80-100); Nucleated Red Blood Cells Absolute Auto 0.000 K/mm3 (0.0-0.012); Nucleated Red Blood Cells Perc 0.0 % (0.0-0.2); Platelet Count Result 177 k/mm3 (150-375); Red Blood Count 3.49 M/mm3 (4.6-6.20); White Blood Count 6.8 K/mm3 (4.5-10.0)
--- NOTE | 2025-07-02 08:17 | ED.GENADULT ---
HPI - General Adult General Chief complaint: Chest Pain Stated complaint: CP Time Seen by Provider: 07/02/25 07:55 History of Present Illness HPI narrative: 89-year-old male presenting to the emergency department for evaluation for left-sided chest pain that was occurring last night. Patient initially told staff the pain was radiating to his neck to his left arm. Patient does have history of atrial fibrillation but is on Xarelto, amlodipine and patient is rate controlled. At time of initial evaluation patient denies any pain or complaints. Patient is resting comfortably and denies any current pain Related Data Home Medications ?Medication ?Instructions ?Recorded ?Confirmed ?Last Taken ?Type finasteride 5 mg tablet 5 mg PO HS 05/22/19 06/05/25 Unknown History multivitamin with minerals-folic 1 tablet PO DAILY 05/22/19 06/05/25 Unknown History acid 0.4 mg tablet (Adult One Daily Multivitamin) melatonin 3 mg capsule 3 mg PO QHS 01/21/25 06/05/25 Unknown History acetaminophen 500 mg tablet 500 mg PO Q6H PRN fever or pain 04/12/25 06/05/25 Unknown History (Acetaminophen Extra Strength) allopurinol 200 mg tablet 200 mg PO DAILY 04/12/25 06/05/25 Unknown History atorvastatin 20 mg tablet (Lipitor) 20 mg PO DAILY 04/12/25 06/05/25 Unknown History budesonide-formoterol HFA 160 2 puff inhalation BID 04/12/25 06/05/25 Unknown History mcg-4.5 mcg/actuation aerosol inhaler cetirizine 10 mg tablet 10 mg PO DAILY PRN allergy symptoms 04/12/25 06/05/25 Unknown History honey 100 % topical paste 1 applic topical DAILY 04/12/25 06/05/25 Unknown History (MediHoney (honey)) lidocaine 4 % topical patch 1 patch topical DAILY 04/12/25 06/05/25 Unknown History loperamide 2 mg tablet 2 mg PO QID PRN loose stool 04/12/25 06/05/25 Unknown History polyethylene glycol 3350 17 gram 17 g PO QAM PRN constipation 04/12/25 06/05/25 Unknown History oral powder packet (Miralax) sennosides 8.6 mg tablet (senna) 8.6 mg PO DAILY PRN constipation 04/12/25 06/05/25 Unknown History simethicone 125 mg chewable tablet 125 mg PO TID PRN abdominal 04/12/25 06/05/25 Unknown History (Gas Relief Extra Strength) distention Allergies Allergy/AdvReac Type Severity Reaction Status Date / Time No Known Allergies Allergy Unknown Verified 07/02/25 08:02 Review of Systems Review of Systems: All systems reviewed & are unremarkable except as noted in HPI and below PMFSH Past Medical History Medical History Lytic bone lesions on xray Angelica-Holland tear Acute blood loss anemia False vocal cord lesion GERD (gastroesophageal reflux disease) Chronic kidney disease Stage II Chronic pain Syncope and collapse Dementia Shingles (~09/2018) Chronic anemia Hyperlipidemia Hypertension 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 History of mitral valve replacement History of aortic valve replacement History of surgical removal of skin lesion x2 History of cardiac catheterization Family History Family History Father Heart disease Abdominal aneurysm, ruptured Mother Heart disease Other Heart disease Sibling Hx of CABG Son CJD (Creutzfeldt-Keanu disease) Social History Social History Social History: The patient's of 32 years is at bedside. He had 2 biological children and 5 step children. The patient's son of CJD. Surrogate decision maker: Ashley Rodriguez, . 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 Spiritual care concerns: No Agree to blood products: No Exam Narrative: APPEARANCE: Well appearing, no pain, no distress, well-nourished. HEAD: normocephalic, atraumatic. EYES: PERRLA/EOMI, conjunctivae clear. NOSE: Normal no drainage EARS:TMS clear with good light reflex. THROAT: Pharynx clear, no exudate. NECK: Supple. No adenopathy, no masses. RESPIRATORY: Airway patent, respirations nonlabored. Clear to auscultation bilaterally, no rales, rhonchi, wheezing. CARDIOVASCULAR: Regular rate and rhythm without murmurs rubs or gallops. ABDOMINAL: Soft, nontender, nondistended, normal bowel sounds MUSCULOSKELETAL: Left-sided chest wall tenderness to palpation, no ecchymosis NEURO: Alert. Cranial nerves II through XII intact. Good gait. Good coordination SKIN: Warm, dry. Normal Color Course Vital Signs Vital signs: Vital Signs Temperature 97.6 F 07/02/25 07:50 Pulse Rate 62 07/02/25 07:50 Respiratory Rate 18 07/02/25 07:50 Blood Pressure 133/82 07/02/25 07:50 Pulse Oximetry 96 07/02/25 07:50 Oxygen Delivery Room Air 07/02/25 07:50 Temperature 97.6 F 07/02/25 07:50 Pulse Rate 60 07/02/25 14:02 Respiratory Rate 23 H 07/02/25 14:02 Blood Pressure 144/104 H 07/02/25 13:16 Pulse Oximetry 97 07/02/25 14:02 Oxygen Delivery Room Air 07/02/25 08:04 [facility] MDM Narrative Medical decision making narrative: 89-year-old male present to the emergency department for evaluation for some left-sided chest pain that occurred overnight. Upon arrival emergency department patient states he is currently pain-free. Patient is afebrile with no leukocytosis and a stable hemoglobin of 10.5. Patient has an INR 2.3 but did have an elevated D-dimer of 3.85. Patient has an elevated troponin of 0.053 and 0.045 which is similar to his baseline. EKG shows no evidence acute STEMI. CT did show evidence of a thoracic aortic aneurysm that has increased in size but has no acute abnormality. I did discuss the results with the patient and the patient's and both prefer the patient be discharged back to his care facility. Patient was aware of the risk of possible cardiac etiology for his symptoms and patient still prefers to be discharged home. Differential Diagnosis Differential Diagnosis: Pulmonary embolism, pneumonia, pneumothorax, ACS Lab Data 07/02/25 08:09 07/02/25 08:09 Labs: Lab Results 07/02/25 07/02/25 Range/Units 08:09 11:03 WBC 6.8 (4.5-10.0) K/mm3 RBC 3.49 L (4.6-6.20) M/mm3 Hgb 10.5 L (14.0-18.0) g/dL Hct 32.9 L (42.0-52.0) % MCV 94.3 (80-100) fl MCH 30.1 (26-34) pg MCHC 31.9 L (32-36) g/dl RDW 16.4 H (11.5-14.5) % Plt Count 177 (150-375) k/mm3 MPV 10.2 (7.4-10.4) fl Immature Gran % (Auto) 1.0 H (0-0.5) % Neut % (Auto) 70.8 (45.5-73.1) % Lymph % (Auto) 15.1 L (18.3-44.2) % [place] % (Auto) 9.0 H (2.6-8.5) % Eos % (Auto) 3.7 (0-4.4) % Baso % (Auto) 0.4 (0.2-1.2) % Lymph # (Auto) 1.02 (0.9-3.2) K/mm3 [place] # (Auto) 0.6 (0.1-0.6) K/mm3 Eos # (Auto) 0.3 (0-0.3) K/mm3 Baso # (Auto) 0.0 (0.0-0.1) K/mm3 Abs Immat Gran (auto) 0.07 H (0.00-0.031) K/mm3 Absolute Neuts (auto) 4.8 (1.3-6.7) K/mm3 Absolute Nucleated RBC 0.000 (0.0-0.012) K/mm3 Nucleated RBC % 0.0 (0.0-0.2) % PT 24.8 H (11.1-14.7) Seconds INR 2.3 APTT 35.5 (22.3-36.8) Seconds D-Dimer 3.85 H (<0.48) ug/mL Sodium 136 L (137-145) mmol/L Potassium 3.7 (3.4-5.0) mmol/L Chloride 102 (98-107) mmol/L Carbon Dioxide 27 (22-30) mmol/L Anion Gap 7 (4-12) mmol/L BUN 14 (9-20) mg/dL Creatinine 1.30 (0.7-1.3) mg/dL Estim Creat Clear Calc Not Reportable Estimated GFR 52 L (59 - ) Glucose 136 H (65-110) mg/dL Calcium 9.0 (8.4-10.2) mg/dL Total Bilirubin 0.9 (0.2-1.3) mg/dL AST 24 (17-59) U/L ALT 14 (6-50) U/L Alkaline Phosphatase 124 (38-126) U/L Troponin I 0.053 H* 0.045 H* (0.000-0.034) ng/mL Total Protein 7.3 (6.3-8.2) g/dL Albumin 3.6 (3.5-5.1) g/dL Lipase 63 (23-300) U/L Imaging Data Radiologist's impression: ITS Impressions Chest X-Ray 07/02/25 08:50 IMPRESSION: 1. No acute cardiopulmonary findings. Chest/Abdomen/Pelvis CTA 07/02/25 09:55 IMPRESSION: Interval increase in size of ascending thoracic aortic aneurysm from 4.1 cm on the April 11, 2025 exam to 4.7 cm on the current exam. No dissection or acute complication. Follow-up surveillance required given interval increase in size. Repeat examination in 3-6 months.. Discharge Plan Discharge Clinical Impression: Chest pain Patient Disposition: Home Condition: Stable Instructions: Antibiotic Form, Chest Pain (ED) Additional Instructions: You were offered admission for further cardiac workup but you preferred to be discharged home. Have close follow-up with your primary care physician and with cardiology. If you have any worsening symptoms please call or return to the emergency department. Patient Language: Azeri Prescriptions: No Action melatonin 3 mg capsule 3 mg PO QHS finasteride 5 mg Tablet 5 mg PO HS multivit with min-folic acid [Adult One Daily Multivitamin] 0.4 mg Tablet 1 tablet PO DAILY oxycodone-acetaminophen 5-325 mg tablet 1 tablet PO Q6H PRN (Reason: pain) Qty: 12 0RF acetaminophen [Acetaminophen Extra Strength] 500 mg tablet 500 mg PO Q6H PRN (Reason: fever or pain) loperamide 2 mg tablet 2 mg PO QID PRN (Reason: loose stool) Rx Instructions: 4mg after the first loose bowel movement, and 2mg after each loose bowel movement after the first dose has been taken. No more than 8mg should be taken in any 24 hour period. budesonide-formoterol 160-4.5 mcg/actuation HFA aerosol inhaler 2 puff INHALATION BID allopurinol 200 mg tablet 200 mg PO DAILY atorvastatin [Lipitor] 20 mg tablet 20 mg PO DAILY MediHoney (honey) 100 % paste 1 applic topical DAILY Rx Instructions: Apply to abdomen daily and PRN simethicone [Gas Relief Extra Strength] 125 mg tablet,chewable 125 mg PO TID PRN (Reason: abdominal distention) sennosides [senna] 8.6 mg tablet 8.6 mg PO DAILY PRN (Reason: constipation) lidocaine 4 % adhesive patch,medicated 1 patch topical DAILY Rx Instructions: Apply patch to chest in the morning and off at HS polyethylene glycol 3350 [Miralax] 17 gram Powder In Packet 17 g PO QAM PRN (Reason: constipation) cetirizine 10 mg tablet 10 mg PO DAILY PRN (Reason: allergy symptoms) magnesium oxide 400 mg (241.3 mg magnesium) Tablet 200 mg PO Q12HR Qty: 60 0RF pantoprazole 40 mg Tablet,Delayed Release (Dr/Ec) 40 mg PO Q12HR Qty: 60 0RF bumetanide 1 mg Tablet 1 mg PO BID Qty: 60 0RF potassium chloride [Klor-Con M20] 20 mEq tablet,ER particles/crystals 20 meq PO BID Qty: 60 0RF (DME) Aerochamber MV Spacer See Rx Instructions .Route Qty: 10 1RF Rx Instructions: As directed amlodipine [Norvasc] 2.5 mg tablet 2.5 mg PO DAILY Qty: 90 1RF Follow-up/Referrals: Rob,Marcelino Siegel MD [Primary Care Provider] Quality HEART score for chest pain patients History: slightly suspicious ECG: normal Age: > or = to 65 years Risk factors: 1 or 2 risk factors Troponin: < or = to 1x normal limit Heart score: 3
[2025-07-02] MEDS: ASPIRIN 81 MG CHEWABLE TABLET 324 MG PO (08:19)
[2025-07-02 08:28] LABS: Alanine Aminotransferase 14 U/L (6-50); Albumin Level 3.6 g/dL (3.5-5.1); Alkaline Phosphatase 124 U/L (38-126); Anion Gap 7 mmol/L (4-12); Aspartate Amino Transferase 24 U/L (17-59); Bilirubin,Total 0.9 mg/dL (0.2-1.3); Blood Urea Nitrogen 14 mg/dL (9-20); Calcium 9.0 mg/dL (8.4-10.2); Carbon Dioxide 27 mmol/L (22-30); Chloride 102 mmol/L (98-107); Estimated Glomerular Filt Rate 52; Glucose 136 mg/dL (65-110); Lipase 63 U/L (23-300); Potassium 3.7 mmol/L (3.4-5.0); Sodium 136 mmol/L (137-145); Total Protein 7.3 g/dL (6.3-8.2)
[2025-07-02 08:31] LABS: INR 2.3; Prothrombin Time 24.8 Seconds (11.1-14.7)
[2025-07-02 08:32] LABS: Partial Thromboplastin Time 35.5 Seconds (22.3-36.8)
[2025-07-02 08:42] LABS: Troponin I 0.053 ng/mL (0.000-0.034)
--- OUTSIDE RECORDS SUMMARY | 2025-07-02 08:58 | XMS_ITS | Patient Health Record ---
Author Organization [facility] Address [address] [place] [address] [address] [place] [address] Support Name Relationship Address Phone Marcelino Rodriguez Guarantor Unknown [phone] Reason For Referral No Information Plan Of Treatment No Information Insurance Providers Payer Name Payer Address Payer Phone Subscriber Number Group Number Insured Name Patient Relationship to Insured Coverage Start Date Coverage End Date [place] of [place] [address] [address] [place] [address] [id number] Marcelino Rodriguez Self - patient is the insured 1
--- OUTSIDE RECORDS SUMMARY | 2025-07-02 08:59 | XMS_ITS | Patient Health Record ---
Author Organization [facility] Address [address] [place] [address] [place] [address] Phone [phone] Care Team Providers Care Artist Scientific Name Role Phone KRISTEN BUSH MD Primary Care Provider Tamara Figueroa MD, [facility] Allergies Allergen (clinical drug ingredient) Drug/Non Drug Allergy documented on EMR Reaction Allergy Type Onset Date Status tramadol Tramadol HCl nausea and vomiting Drug Allergy Active Reason For Referral No Information Medications Medication SIG (Take, Route, Frequency, Duration) Notes Start Date End Date Diagnosis (ICD Code) Status HYDROcodone-Acetami nophen 5-325 MG Tablet 1 tablet Orally every 4-6 hours prn severe pain Radiculopathy, lumbosacral region (ICD_10 - M54.17) Active Atorvastatin Calcium 40 MG Tablet 1 tablet Oral Once a day Active amLODIPine Besylate 5 MG Tablet 1 tablet Oral Once a day Active Donepezil HCl 5 MG Tablet 1 tablet at bedtime Oral Once a day Active Allopurinol 300 MG Tablet 1 tablet Oral Once a day Active Xarelto 20 MG Tablet 1 tablet Orally Once a day Active Furosemide 40 MG Tablet 1 tablet Oral Once a day Active Carvedilol 3.125 MG Tablet 1 tablet with food Oral Twice a day Active Finasteride 5 MG Tablet 1 tablet Oral Once a day Active Potassium Chloride ER 20 MEQ Tablet Extended Release 1 tablet with food Oral Once a day Active Social History Tobacco Use: Social History Observation Description Date Details (start date - stop date) Never Smoker NA - NA Sex Observation Social History Observation Description Sex Observation Male Social History Drugs/Alcohol: Social Info Question Answer Notes Alcohol Screen (Audit-C) Did you have a drink containing alcohol in the past year? No Points 0 Interpretation Negative Tobacco Use: Social Info Question Answer Notes Tobacco Use/Smoking Are you a nonsmoker Problems Problem Type SNOMED Code ICD Code Dates Problem Status W/U Status Risk Notes Problem Chronic pain syndrome (534247549) Chronic pain syndrome (G89.4) Added On:07/2019 Active confirmed Problem Acquired spondylolisthesis (454186687) Spondylolisthesis , lumbosacral region (M43.17) Added On:02/15 Active confirmed Problem Degeneration of lumbar intervertebral disc (02638746) Other intervertebral disc degeneration, lumbar region (M51.36) Added On:07/2019 Active confirmed Problem Degeneration of lumbosacral intervertebral disc (60713663) Other intervertebral disc degeneration, lumbosacral region (M51.37) Added On:02/15 Active confirmed Problem Lumbar radiculopathy (400396766) Radiculopathy, lumbar region (M54.16) Added On:02/15 Active confirmed L4/5 Problem Lumbosacral radiculopathy (9655414) Radiculopathy, lumbosacral region (M54.17) Added On:02/15 Active confirmed Problem Late effect of fracture of spine AND/OR trunk without spinal cord lesion (9900264) Age-related osteoporosis with current pathological fracture, vertebra(e), sequela (M80.08XS) Added On:07/2019 Active confirmed Problem Spinal stenosis of lumbar region (92053053) Osseous and subluxation stenosis of intervertebral foramina of lumbar region (M99.63) Added On:02/15 Active confirmed Problem High risk drug monitoring status (202531792) alf (current) use of opiate analgesic (Z79.891) Added On:07/2019 Active confirmed Problem Neurogenic claudication (086357165) Spinal stenosis, lumbar region with neurogenic claudication (M48.062) Added On:02/15 Active confirmed Plan Of Treatment Pending Test Test Name Order Date MRI : Lumbar Spine without contrast (721 48) 03/11/2020 Insurance Providers Payer Name Payer Address Payer Phone Subscriber Number Group Number Insured Name Patient Relationship to Insured Coverage Start Date Coverage End Date Medicare [place] [address] [address] [place] [address] [id number] KRISTEN PERSAUD Self - patient is the insured 7 [employer] [id number] [address] [id number] KRISTEN PERSAUD Self - patient is the insured 7 Medical (General) History Medical History History ICD Code Atrial fibrillation hypertension Surgical History Surgery Date(Month/Year) Heart valve replacement 01/2019
--- OUTSIDE RECORDS SUMMARY | 2025-07-02 08:59 | XMS_ITS | Encounter Summary ---
Author Organization [facility] Health Address [address] [place] [address] Care Team Providers Care Nursing Director Name Role Phone Marcelino Rivas MD Primary Care Provider [phone] Encounter Details Date Type Department Care Team (Late st Contact Info) Description 04/04/2023 Lab Requisition [facility] - Derm[facility] Lab [address] [facility] [place] [id number] Young Ley MD [address] [place] [address] Social History Tobacco Use Types Packs/Day Years Used Date Smoking Tobacco: Never Alcohol Use Standard Drinks/Week Comments Not Currently 0 (1 standard drink = 0.6 oz pur e alcohol) Sex and Gender Information Value Date Recorded Sex Assigned at Not on file 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 Gender Identity Not on file Sexual Orientation Not on file documented as of this encounter Plan of Treatment Not on file documented as of this encounter Procedures Procedure Name Priority Date/Time Associated Diagnosis Comments DERMATOPATHOLOGY Routine 04/04/2023 12:0 0 AM CDT documented in this encounter Results * DERMATOPATHOLOGY (04/04/2023 12:00 AM CDT) Case Report Dermatopathology Report Case: [id number] Authorizing Provider: Young Ley MD Collected: 04/04/2023 12:00 AM Ordering Location: [facility] DermPath Lab Received: 04/04/2023 03:33 PM Pathologist: [...] CDT Clinical History A: BCC vs SCC Path#[id number] B: BCC vs SCC Path#[id number] C: BCC vs SCC Path#[id number] D: BCC vs SCC Path#[id number] 3 5:53 PM CDT DERMATOPATHOLOGY LABORATORY Gross Description Specimen A: Received is one formalin filled container labeled with the patient's name and designated vertex crown. The specimen consists of a shave biopsy measuring 41m67p8 mm. Jar 0. Specimen B: Received is [...] characteristic determined by the Dermatopathology Laboratory at [facility], directed by Dr. Edd Bean. These tests need not be, and therefore are not, approved by the [place] Food and Drug Administration. The tests are used for clinical purposes. Billing Codes Specimen Charges Stain Charges 83183 08115 78510 07778 1 1 1 1 3 5:53 PM [...] DERMATOPATHOLOGY LABORATORY [facility] - Department of Dermatology [address], [address] [phone] documented in this encounter Visit Diagnoses Not on filedocumented in this encounter Care Teams Nursing Director Relationship Specialty Start Date End Date Marcelino Rivas MD [address] [address] [address] [place] [address] PCP - General 12/28/18 documented as of this encounter
--- OUTSIDE RECORDS SUMMARY | 2025-07-02 08:59 | XMS_ITS | Patient Health Record ---
Author Organization [facility] Address [address] [place] [address] Support Name Relationship Address Phone PaytonMarcelino mcgraw Guarantor Unknown [phone] Allergies No Known Allergies Reason For Referral No Information Problems Problem Type SNOMED Code ICD Code Onset Dates Problem Status W/U Status Risk Notes Problem History of malignant neoplasm of skin (situation) (790601290) Personal history of other malignant neoplasm of skin (Z85.828) Active confirmed Plan Of Treatment No Information Insurance Providers Payer Name Payer Address Payer Phone Subscriber Number Group Number Insured Name Patient Relationship to Insured Coverage Start Date Coverage End Date [employer] [address] [address] [place], [place] [id number] Marcelino Rodriguez Self - patient is the insured [email or web address] [facility] [address] [place] [address] [phone] [id number] F Marcelino Rodriguez Self - patient is the insured
--- OUTSIDE RECORDS SUMMARY | 2025-07-02 08:59 | XMS_ITS | Clinical Summary ---
Author Organization [facility] Address [address] [place] [address] Care Team Providers Care Form Press Operator Name Role Phone Kristen Rivas MD Primary Care Provider [phone] Source Comments [facility],non-owned Affiliates and Associated Physician Practices is amultiple site organization consisting of ambulatory clinics and hospital sitesin [place], [place], [place] and [place]. This disclosure is being madepursuant to the Care Everywhere program and may not contain all information available regarding this patient. 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 Gender Identity Not on file Sexual Orientation Not on file Last Filed Vital Signs Vital Sign Reading Time Taken Comments Blood Pressure 148/90 03/03/2020 11:16 AM CDT Pulse 59 06/26/2019 2:29 PM RADIOLOGY INTERVENTIONAL PHYSICIAN Temperature - - Respiratory Rate - - [...] 01/19/2019 DEPRESSION SCREENING 07/17/2024 COVID-19 VACCINE ( 2024-2 6 season) 2025 INFLUENZA VACCINE (#1) 2025 HEPATITIS [...] patient's age to complete this topic Insurance [employer] [place] MEDICARE MEDIC[facility] [place] Care Teams Form Press Operator Relationship Specialty Start Date End Date Kristen Rivas MD [address] [place] [address] [address] [place] [address] PCP - General 12/28/18
--- OUTSIDE RECORDS SUMMARY | 2025-07-02 08:59 | XMS_ITS | Clinical Summary ---
Author Organization [facility] Address [address] [place] [address] Care Team Providers Care Ground Operations Crew Member Name Role Phone Unavailable Primary Care Provider Unavailabl e Social History Tobacco Use Types Packs/Day Years Used Date Smoking Tobacco: Never Assessed Sex and Gender Information Value Date Recorded Sex Assigned at Not on file Legal Sex Male 12:48 PM EDT Gender Identity Not on file Sexual Orientation Not on file Plan of Treatment Not on file Medical Devices Not on file Insurance MEDICARE
--- OUTSIDE RECORDS SUMMARY | 2025-07-02 08:59 | XMS_ITS | Clinical Summary ---
Author Organization [facility] [address] Address [address] [place] [address] Care Team Providers Care Collections Assistant Name Role Phone Mitiz Berman MD Unavailable [phone] Kristen Rivas MD Primary Care Provider Allergies [...] (12/25/2018): Added automatically from request for surgery [id number] Non-rheumatic mitral regurgitation 02/26/2016 09/22/2021 Overview (10/21/2016): [...] valve stenosis 09/13/[id number] Preoperative cardiovascular examination 06/21/2022 Surgical History Surgery Date Site/Laterality Comments CATARACT EXTRACTION OTHER SURGICAL HISTORY growth removed from eyebrow Medical History Medical History Date Comments Arthritis Arthritis; Comme nts: ELU 02/26/2016 - Hx Other Medical Chronic back pa in, no better after shots; Comments: ELU 02/26/2016 - Atrial fibrillation (HCC) Hyperlipidemia Heart [...] on file Legal 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 Gender Identity Not on file Sexual Orientation [...] 120.7 kg (266 lb) 06/27/2024 8:37 AM MID TEACHER Height 180.3 cm (5' 11) 06/27/2024 8:37 AM MID TEACHER Body Mass Index 37.1 06/27/2024 8:37 AM MID TEACHER Plan of Treatment Health Maintenance Due Date Last Done Comments Depression Screening 1935 Fall Risk Assessment 1935 DTaP/Tdap/Td Vaccine (1 - Tdap) 1946 Hepatitis B Screening 1953 Zoster Vaccine (1 of 2) 1985 Well Visit 65+ 2000 Pneumococcal vaccine 65+ (2 of 2 - PPSV23, PCV20, or PCV21) 07/05/2019 05/10/2019 Influenza Vaccine (#1) 2025 4, 04/29/2021, 04/23/2019, Additional history exists Insurance MEDICARE [facility] MEDICARE MEDICARE [facility] FEDERAL Member Subscriber Plan / Payer (Ef fective 2025-Present) Name:Kristen Rodriguez Member ID:Not on file Relation to Subscriber:Self Name:Kristen Rodriguez Subscriber ID:Not on file Payer ID:[id number] (NAIC) Group ID:[id number] Type:[facility] Address: [address] MEDICARE SUPPLEMENT Advance Directives For more information, please contact: [phone] * Full Code (Latest Code Status on File) Date Activated Date Inactivated Comments 12/04/2018 2:07 PM 12/04/2018 8:09 PM Care Teams Collections Assistant Relationship Specialty Start Date End Date Kristen Rivas MD PCP - General Internal Medicine 02/19/25 Mitzi Berman MD Referring Physician Cardiology 09/06/18
--- OUTSIDE RECORDS SUMMARY | 2025-07-02 08:59 | XMS_ITS | Encounter Summary ---
Author Organization [facility] Address [address] [place] [address] Care Team Providers Care Detective Automobile Section Name Role Phone Mitzi Berman MD Unavailable [phone] Marcelino Rivas MD Primary Care Provider Encounter Details Date Type Department Care Team (Late st Contact Info) Description 01/15/2025 Orders Only [facility] Health Information Management [address] [place] [id number] Scanning, Provider Social History Tobacco Use Types Packs/Day Years Used Date Smoking Tobacco: Never Smokeless Tobacco: Never Alcohol Use Standard Drinks/Week Comments Yes 14 (1 standard drink = 0.6 oz pu re alcohol) Sex and Gender Information Value Date Recorded Sex Assigned at Not on file Legal 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
[2025-07-02 11:37] LABS: Troponin I 0.045 ng/mL (0.000-0.034)
--- NOTE | 2025-07-02 13:40 | PC.NURSE ---
Talked with family (Berenice) about sending pt home. Berenice states she needs to talk with spouse Ashley before the decision would be made. Berenice states Ashley will call us back
== END 2025-07-02 17:23 ==
PROVIDERS: Emergency Provider Emergency Medicine; PCP Internal Medicine
DX: R07.9 Chest pain, unspecified (principal); I71.21 Aneurysm of the ascending aorta, without rupture; F03.90 Unspecified dementia, unspecified severity, without behavioral disturbance, psychotic disturbance, mood disturbance, and anxiety; I48.0 Paroxysmal atrial fibrillation; I25.10 Atherosclerotic heart disease of native coronary artery without angina pectoris; I12.9 Hypertensive chronic kidney disease with stage 1 through stage 4 chronic kidney disease, or unspecified chronic kidney disease; N18.2 Chronic kidney disease, stage 2 (mild); D64.9 Anemia, unspecified; E78.5 Hyperlipidemia, unspecified; N40.0 Benign prostatic hyperplasia without lower urinary tract symptoms; M19.90 Unspecified osteoarthritis, unspecified site; M10.9 Gout, unspecified; K21.9 Gastro-esophageal reflux disease without esophagitis; Z66 Do not resuscitate; Z95.2 Presence of prosthetic heart valve; Z86.73 Personal history of transient ischemic attack (TIA), and cerebral infarction without residual deficits; Z85.828 Personal history of other malignant neoplasm of skin; Z90.49 Acquired absence of other specified parts of digestive tract; Z98.42 Cataract extraction status, left eye; Z98.41 Cataract extraction status, right eye; I45.10 Unspecified right bundle-branch block; Z79.899 Other long term (current) drug therapy; I51.7 Cardiomegaly
CPT/HCPCS: 36415; 71046; 71275; 74174; 74177; 80053; 83690; 84484; 85025; 85380; 85610; 85730; 93005; 99284; A9270; Q9967